=== PATIENT | female | born 1995 | race Caucasian/White ===

== ENCOUNTER 2016-06-05 17:12 | Emergency (ER) | payer OTHER ==
[2016-06-05 17:26] VITALS: TEMP 98.8; BMI 28.3
[2016-06-05] MEDS ORDERED: FAMOTIDINE 20 MG/50 ML IVPB 50 ML IVPB ONE ×2 (18:02→18:27)
[2016-06-05] MEDS ORDERED: ONDANSETRON 4 MG/2 ML VIAL IVPB ONE (18:02)
[2016-06-05] MEDS ORDERED: MAG HYDROX/AL HYDROX/SIMETH 30 ML UNIT-DOSE CUP PO ONE (18:02)
[2016-06-05] MEDS ORDERED: SODIUM CHLORIDE 1,000 ML IV STA (18:02)
[2016-06-05] MEDS ORDERED: ACETAMINOPHEN 325 MG TABLET (FP) PO ONE (18:02)
--- NOTE | 2016-06-05 18:06 | PDOC ---
History of Present Illness - History of Present Illness Initial Comments: 06/05/16 19:40 Patient is a 20 year old female with significant medical hx of daily marijuana use (3x per day for 7 years) who is presenting to the ED with two days of nausea and vomiting. The patient complains of associated epigastric pain with her vomiting. The patient denies any sick contacts, recent travel, fever, chills , or difficulty urinating. Denies any other medical hx, chronic medications, or known drug allergies. <Arleth Marinelli - Last Filed: 06/05/16 19:39> - General History Source: Patient Exam Limitations: No Limitations <Erwin Mills - Last Filed: 06/05/16 20:03> - General Chief Complaint: Nausea/Vomiting Stated Complaint: NAUSEA/VOMITING Time Seen by Provider: 06/05/16 17:56 Past History <Arleth Marinelli - Last Filed: 06/05/16 19:39> - Past Medical History Other medical history: denies - Immunization History Immunization Up to Date: Yes - Psycho/Social/Smoking Cessation Hx Anxiety: No Suicidal Ideation: No Smoking History: Never smoked Have you smoked in the past 12 months: Yes Number of Cigarettes Smoked Daily: 2 Information on smoking cessation initiated: No 'Breaking Loose' booklet given: 12/09/15 Hx Alcohol Use: No Drug/Substance Use Hx: Yes Substance Use Type: Marijuana <Erwin Mills - Last Filed: 06/05/16 20:03> - Past Medical History Allergies/Adverse Reactions: Allergies Allergy/AdvReac Type Severity Reaction Status Date / Time No Known Allergies Allergy Verified 06/05/16 17:20 Home Medications: Ambulatory Orders Ondansetron HCl [Zofran] 4 mg PO Q6H PRN #15 tablet 06/05/16 Ranitidine HCl [Zantac] 150 mg PO BID PRN #14 tablet 06/05/16 Review of Systems - Review of Systems Comments:: 06/05/16 19:40 GENERAL/CONSTITUTIONAL: No fever or chills. No weakness. HEAD, EYES, EARS, NOSE AND THROAT: No change in vision. No ear pain or discharge. No sore throat. CARDIOVASCULAR: No chest pain or shortness of breath. RESPIRATORY: No cough, wheezing, or hemoptysis. GASTROINTESTINAL: Nausea, vomiting, epigastric pain. No diarrhea or constipation. GENITOURINARY: No dysuria, frequency, or change in urination. MUSCULOSKELETAL: No joint or muscle swelling or pain. No neck or back pain. SKIN: No rash NEUROLOGIC: No headache, vertigo, loss of consciousness, or change in strength/ sensation. <Arleth Marinelli - Last Filed: 06/05/16 19:39> *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 - Vital Signs Last Vital Signs Temp Pulse Resp BP Pulse Ox 98.8 F 63 20 120/66 100 06/05/16 17:21 06/05/16 17:21 06/05/16 17:21 06/05/16 17:21 06/05/16 17:21 - 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 Comments: 06/05/16 19:41 GENERAL: Uncomfortable appearing. Awake, alert, and fully oriented HEAD: No signs of trauma EYES: PERRLA, EOMI, sclera anicteric, conjunctiva clear ENT: Auricles normal inspection, hearing grossly normal, nares patent, oropharynx clear without exudates. Moist mucosa NECK: Normal ROM, supple, no lymphadenopathy, JVD, or masses LUNGS: Breath sounds equal, clear to auscultation bilaterally. No wheezes, and no crackles HEART: Regular rate and rhythm, normal S1 and S2, no murmurs, rubs or gallops ABDOMEN: Soft, epigastric tenderness, santos's sign negative, normoactive bowel sounds. No guarding, no rebound. No masses EXTREMITIES: Normal range of motion, no edema. No clubbing or cyanosis. No cords, erythema, or tenderness NEUROLOGICAL: Cranial nerves II through XII grossly intact. Normal speech, normal gait SKIN: Warm, Dry, normal turgor, no rashes or lesions noted. ENDOCRINE: No increased thirst. No abnormal weight change. HEMATOLOGIC/LYMPHATIC: No anemia, easy bleeding, or history of blood clots. ALLERGIC/IMMUNOLOGIC: No hives or skin allergy. <Arleth Marinelli - Last Filed: 06/05/16 19:39> - Vital Signs Last Vital Signs Temp Pulse Resp BP Pulse Ox 98.8 F 63 20 120/66 100 06/05/16 17:21 06/05/16 17:21 06/05/16 17:21 06/05/16 17:21 06/05/16 17:21 <Erwin Mills - Last Filed: 06/05/16 20:03> ED Treatment Course - LABORATORY CBC & Chemistry Diagram: 06/05/16 18:10 06/05/16 18:10 - ADDITIONAL ORDERS Additional order review: Laboratory Results 06/05/16 06/05/16 18:10 18:10 Sodium 139 Potassium 3.2 L Chloride 106 Carbon Dioxide 21 Anion Gap 12 BUN 14 Creatinine 0.8 Creat Clearance w eGFR > 60 Random Glucose 92 Calcium 9.9 Total Bilirubin 0.8 AST 12 L ALT 18 Alkaline Phosphatase 84 Total Protein 8.3 H Albumin 4.6 Lipase 142 Serum , Qual Negative 06/05/16 18:10 RBC 4.46 MCV 88.9 MCHC 33.7 RDW 12.7 MPV 8.9 Neutrophils % 89.5 H D Lymphocytes % 6.0 L D Monocytes % 4.0 Eosinophils % 0.0 D Basophils % 0.5 - Medications Given in the ED: ED Medications Discontinued Medications Generic Name Dose Route Start Last Admin Trade Name Freq PRN Reason Stop Dose Admin Acetaminophen 650 mg 06/05/16 18:02 06/05/16 18:30 Tylenol - PO 06/05/16 18:03 650 mg ONCE ONE Administration Al Hydroxide/Mg Hydroxide 30 ml 06/05/16 18:02 06/05/16 18:30 Mylanta Oral Suspension - PO 06/05/16 18:03 30 ml ONCE ONE Administration Famotidine/Sodium Chloride 50 mls @ 100 mls/hr 06/05/16 18:02 06/05/16 18:30 Pepcid 20 Mg Premixed Ivpb - IVPB 06/05/16 18:31 100 mls/hr ONCE ONE Administration Sodium Chloride 1,000 mls @ 1,000 mls/hr 06/05/16 18:02 06/05/16 18:30 Normal Saline - IV 06/05/16 19:01 1,000 mls/hr ASDIR STA Administration Ondansetron HCl 4 mg 06/05/16 18:02 06/05/16 18:30 Zofran Injection IVPB 06/05/16 18:03 4 mg ONCE ONE Administration <Arleth Marinelli - Last Filed: 06/05/16 19:39> - LABORATORY CBC & Chemistry Diagram: 06/05/16 18:10 06/05/16 18:10 <Erwin Mills - Last Filed: 06/05/16 20:03> Medical Decision Making - Medical Decision Making 06/05/16 18:03 A portion of this note was documented by scribe services under my direction. I have reviewed the details of the note, within reason, and agree with the documentation with the following case summary and management plan written by me. Patient treated in the ED. Nursing notes are reviewed and incorporated into the medical decision-making. Vital signs reviewed. Peripheral IV access obtained by the nurse, laboratory studies are drawn and sent, reviewed and interpreted by myself. Vital Signs Temp Pulse Resp BP Pulse Ox 98.8 F 63 20 120/66 100 06/05/16 17:21 06/05/16 17:21 06/05/16 17:21 06/05/16 17:21 06/05/16 17:21 20-year-old female with past medical history of daily marijuana use presents to the emergency department for nausea vomiting for 2 days. Patient denies sick contacts or recent travels. She reported couple episodes of vomiting with epigastric pain. There is no Santos sign. No fevers or chills. Denies sick contacts. Denies recent travels. Patient does smoke marijuana on a daily basis approximately 3 times a day since she was 13 years old. Differential includes gastroenteritis versus cyclical vomiting. We'll obtain blood work and give medications and IV fluids and reassess. 06/05/16 19:20 CBC, BMP 06/05/16 18:10 06/05/16 18:10 CMP Sodium 139 mmol/L (136-145) 06/05/16 18:10 Potassium 3.2 mmol/L (3.5-5.1) L 06/05/16 18:10 Chloride 106 mmol/L (98-107) 06/05/16 18:10 Carbon Dioxide 21 mmol/L (21-32) 06/05/16 18:10 Anion Gap 12 (8-16) 06/05/16 18:10 BUN 14 mg/dL (7-18) 06/05/16 18:10 Creatinine 0.8 mg/dL (0.55-1.02) 06/05/16 18:10 Creat Clearance w eGFR > 60 (>60) 06/05/16 18:10 Random Glucose 92 mg/dL (74-106) 06/05/16 18:10 Calcium 9.9 mg/dL (8.5-10.1) 06/05/16 18:10 Total Bilirubin 0.8 mg/dL (0.2-1.0) 06/05/16 18:10 AST 12 U/L (15-37) L 06/05/16 18:10 ALT 18 U/L (12-78) 06/05/16 18:10 Alkaline Phosphatase 84 U/L (45-117) 06/05/16 18:10 Total Protein 8.3 g/dl (6.4-8.2) H 06/05/16 18:10 Albumin 4.6 g/dl (3.4-5.0) 06/05/16 18:10 Lipase 142 U/L (73-393) 06/05/16 18:10 Serum , Qual Negative 06/05/16 18:10 Labs reviewed. 40 meq potassium repletion ordered. The patient reports feeling much better. Tolerating PO. Supportive care. Follow up with PMD. Return precautions given. Likely gastroenteritis. I discussed the physical exam findings, ancillary test results and final diagnoses with the patient. I answered all of the patient's questions. The patient was satisfied with the care received and felt comfortable with the discharge plan and treatment plan. The patient will call their primary care physician within 24 hours to arrange follow-up and will return to the Emergency Department with any new, persistant or worsening symptoms. <Erwin Mills - Last Filed: 06/05/16 20:03> *DC/Admit/Observation/Transfer - Attestations Scribe Attestion: 06/05/16 19:42 Documentation prepared by Arleth Marinelli, acting as medical affairs director for Erwin Mills MD. <Arleth Marinelli - Last Filed: 06/05/16 19:39> <Erwin Mills - Last Filed: 06/05/16 20:03> Diagnosis at time of Disposition: Vomiting Qualifiers: Vomiting type: unspecified Vomiting Intractability: non-intractable Nausea presence: with nausea Qualified Code(s): R11.2 - Nausea with vomiting, unspecified - Discharge Dispostion Disposition: HOME Condition at time of disposition: Improved - Prescriptions Prescriptions: Ranitidine HCl [Zantac] 150 mg PO BID PRN #14 tablet PRN Reason: Abdominal Pain Ondansetron HCl [Zofran] 4 mg PO Q6H PRN #15 tablet PRN Reason: Nausea - Referrals Referrals: Flakito Aldridge [Primary Care Provider] - - Patient Instructions Printed Discharge Instructions: DI for Vomiting -- Adult, DI for Nausea -- Adult Additional Instructions: It may take several days before it gets better. Take 4 mg zofran every 6 hours as needed for nausea. Take 150 mg zantac every 12 hours as needed for abdominal pain. Drink plenty of fluids and rest. - Post Discharge Activity Work/School Note: Back to Work
[2016-06-05 18:26] LABS: BASOPHIL 0.5 % (0-2.0); MCHC 33.7 g/dl (32.0-36.0); MEAN CELL VOLUME 88.9 fl (80-96); MEAN PLT VOLUME 8.9 fl (7.5-11.1); NEUTROPHILS 89.5 % (42.8-82.8); PLATELET COUNT 294 K/MM3 (134-434); RDW 12.7 % (11.6-15.6)
[2016-06-05] MEDS ORDERED: ONDANSETRON 4 MG/2 ML VIAL ONE (18:26)
[2016-06-05] MEDS ORDERED: ACETAMINOPHEN 325 MG TABLET (FP) ONE (18:26)
[2016-06-05] MEDS ORDERED: MAG HYDROX/AL HYDROX/SIMETH 30 ML UNIT-DOSE CUP ONE (18:26)
[2016-06-05 19:10] LABS: ALBUMIN 4.6 g/dl (3.4-5.0); ALK PHOS 84 U/L (45-117); ANION GAP 12 (8-16); BILIRUBIN,TOTAL 0.8 mg/dL (0.2-1.0); CALCIUM 9.9 mg/dL (8.5-10.1); CO2 21 mmol/L (21-32); CREATININE 0.8 mg/dL (0.55-1.02); GLUCOSE,RANDOM 92 mg/dL (74-106); SGOT/AST 12 U/L (15-37); SGPT/ALT 18 U/L (12-78); TOT PROT 8.3 g/dl (6.4-8.2)
[2016-06-05] MEDS ORDERED: POTASSIUM CHLORIDE TABS 20 MEQ TABLET.ER (FP) PO ONE ×2 (19:17→19:54)
[2016-06-05 20:07] VITALS: BP 116/66; PULSE 74
== END 2016-06-05 20:07 | disposition home or self-care (01) ==
LOC: JER 17:12
PROC: 3E033GC Introduction of Other Therapeutic Substance into Peripheral Vein, Percutaneous Approach (ICD-10-PCS; principal; 2016-06-05)
PROC: 3E0337Z Introduction of Electrolytic and Water Balance Substance into Peripheral Vein, Percutaneous Approach (ICD-10-PCS; 2016-06-05)
DX: R11.2 Nausea with vomiting, unspecified (principal); F12.90 Cannabis use, unspecified, uncomplicated
CPT/HCPCS: 36415; 80053; 83690; 84703; 85025; 99283-25

== ENCOUNTER 2016-06-06 06:22 | Emergency (ER) | payer OTHER ==
[2016-06-06 06:45] VITALS: TEMP 98.6; BMI 28.3
--- NOTE | 2016-06-06 07:03 | PDOC ---
History of Present Illness - General Chief Complaint: Nausea/Vomiting Stated Complaint: NAUSEA,CHILLS Time Seen by Provider: 06/06/16 06:52 History Source: Patient Exam Limitations: No Limitations - History of Present Illness Initial Comments: 06/06/16 07:14 Chief complaint: Nausea and vomiting Patient is a 20-year-old healthy female that uses marijuana several times a week who states that she's been having vomiting since 3 days ago. She was seen here yesterday, had labs, workup, was feeling better and able to take in by mouth and went home last night at 8 PM. Patient had soup last night after going home. Patient states she threw up twice since last night. Patient states she was unable get prescriptions because her pharmacy was closed. No fever or diarrhea. GENERAL/CONSTITUTIONAL: No fever, weakness. dizziness HEAD, EYES, EARS, NOSE AND THROAT: No change in vision. No ear pain or discharge. No sore throat. CARDIOVASCULAR: No chest pain RESPIRATORY: No shortness of breath or cough GASTROINTESTINAL: +pain, nausea, vomiting, diarrhea or constipation GENITOURINARY: No dysuria MUSCULOSKELETAL: No neck or back pain SKIN: No rash NEUROLOGIC: No headache, vertigo, loss of consciousness, or loss of sensation. GENERAL: The patient is awake, alert, and fully oriented, in no acute distress. HEAD: Normal with no signs of trauma. EYES: Pupils equal, round and reactive to light, sclera anicteric, conjunctiva clear. ENT: pharynx: no erythema, no exudate, uvula midline NECK: supple CHEST: clear, nontender, rr ABD: soft, + bowel sounds, soft, with minimal upper abdominal tenderness, mostly in the left side. No right lower quadrant tenderness EXTREMITIES: Normal range of motion, no edema. NEUROLOGICAL: Normal speech, normal gait. SKIN: Warm, Dry Past History - Past Medical History Allergies/Adverse Reactions: Allergies Allergy/AdvReac Type Severity Reaction Status Date / Time No Known Allergies Allergy Verified 06/06/16 06:43 Home Medications: Ambulatory Orders Ondansetron HCl [Zofran] 4 mg PO Q6H PRN #15 tablet 06/05/16 Ranitidine HCl [Zantac] 150 mg PO BID PRN #14 tablet 06/05/16 - Immunization History Immunization Up to Date: Yes - Psycho/Social/Smoking Cessation Hx Anxiety: No Suicidal Ideation: No Smoking History: Never smoked Have you smoked in the past 12 months: No Number of Cigarettes Smoked Daily: 2 Information on smoking cessation initiated: No 'Breaking Loose' booklet given: 12/09/15 Hx Alcohol Use: No Drug/Substance Use Hx: No Substance Use Type: None *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 - Vital Signs Last Vital Signs Temp Pulse Resp BP Pulse Ox 98.6 F 74 20 145/95 100 06/06/16 06:43 06/06/16 06:43 06/06/16 06:43 06/06/16 06:43 06/06/16 06:43 Medical Decision Making - Medical Decision Making 06/06/16 07:30 Patient with recurrent vomiting, was discharged yesterday from the ER feeling better and vomited twice last night, was unable to get her Zofran. Regular user of marijuana. Patient does not need further labs, will give by mouth Zofran and reassess 06/06/16 08:23 Patient vomited after the Zofran, given Compazine. She feels better wants to go home *DC/Admit/Observation/Transfer Diagnosis at time of Disposition: Vomiting Qualifiers: Vomiting type: unspecified Vomiting Intractability: non-intractable Nausea presence: with nausea Qualified Code(s): R11.2 - Nausea with vomiting, unspecified - Discharge Dispostion Admit: No - Referrals Referrals: Flakito Aldridge [Primary Care Provider] - - Patient Instructions Printed Discharge Instructions: DI for Vomiting -- Adult Additional Instructions: Clear fluids. No vomiting can eat bland foods, no spicy or greasy foods Take the Zofran as directed and the zantac Return to the nearest ER if fever, vomiting or worsening pain Followup with your doctor in one to 2 days - Post Discharge Activity Work/School Note: Back to Work
[2016-06-06] MEDS ORDERED: ONDANSETRON *ODT* 4 MG TABLET SL ONE (07:08)
[2016-06-06] MEDS ORDERED: ONDANSETRON *ODT* 4 MG TABLET ONE (07:11)
[2016-06-06] MEDS ORDERED: PROCHLORPERAZINE MALEATE 5 MG TABLET PO ONE (07:49)
[2016-06-06] MEDS ORDERED: PROCHLORPERAZINE MALEATE 5 MG TABLET ONE (07:50)
--- NOTE | 2016-06-06 08:45 | PDOC ---
*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 - Vital Signs Last Vital Signs Temp Pulse Resp BP Pulse Ox 98.6 F 74 20 145/95 100 06/06/16 06:43 06/06/16 06:43 06/06/16 06:43 06/06/16 06:43 06/06/16 06:43 - 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 Comments: 06/06/16 08:43 The patient was examined by FRANCISCO JAVIER Ruth under my direct supervision. I personally evaluated the patient. I concur with the above findings and the plan of care. ED Treatment Course - Medications Given in the ED: ED Medications Discontinued Medications Generic Name Dose Route Start Last Admin Trade Name Armandoq PRN Reason Stop Dose Admin Ondansetron HCl 4 mg 06/06/16 07:08 06/06/16 07:12 Zofran Odt - SL 06/06/16 07:09 4 mg ONCE ONE Administration Prochlorperazine Maleate 10 mg 06/06/16 07:49 06/06/16 07:53 Compazine - PO 06/06/16 07:50 10 mg ONCE ONE Administration *DC/Admit/Observation/Transfer Diagnosis at time of Disposition: Vomiting Qualifiers: Vomiting type: unspecified Vomiting Intractability: non-intractable Nausea presence: with nausea Qualified Code(s): R11.2 - Nausea with vomiting, unspecified - Referrals Referrals: Flakito Aldridge [Primary Care Provider] - - Patient Instructions Printed Discharge Instructions: DI for Vomiting -- Adult Additional Instructions: Clear fluids. No vomiting can eat bland foods, no spicy or greasy foods Take the Zofran as directed and the zantac Return to the nearest ER if fever, vomiting or worsening pain Followup with your doctor in one to 2 days - Post Discharge Activity Work/School Note: Back to Work
[2016-06-06 08:53] VITALS: BP 140/74; PULSE 72
== END 2016-06-06 08:44 | disposition home or self-care (01) ==
LOC: JER 06:22
DX: R11.2 Nausea with vomiting, unspecified (principal)
CPT/HCPCS: 99282-25

== ENCOUNTER 2016-06-18 14:32 | Inpatient (IN) | payer OTHER ==
[2016-06-18 14:45] VITALS: BMI 25.4
--- NOTE | 2016-06-18 14:45 | PDOC ---
Rapid Medical Evaluation Medical Evaluation: Allergies Allergy/AdvReac Type Severity Reaction Status Date / Time No Known Allergies Allergy Verified 06/06/16 06:43 06/18/16 14:44 20 yo F sent in by PMD [facility] for dehydration. +n/v Denies diarrhea
--- NOTE | 2016-06-18 15:05 | PDOC ---
History of Present Illness - General History Source: Patient Exam Limitations: No Limitations - History of Present Illness Initial Comments: 06/18/16 18:08 CHIEF COMPLAINT: vomiting, abdominal pain PCP: Dr. Flakito Aldridge HISTORY OF PRESENT ILLNESS: Patient is a 20 [id number] was sent from Dr. Brad Black's clinic since patient had one episode of vomiting/diarrhoea at the office with tachycardia. A/c to the patient, she started having nausea, vomiting and abdominal pain since 06/03/16 visited [facility] ED twice was sent home with Malissafran but didn't feel better. Went to [facility] ED and was sent home then on second ED visit, got admitted for 5 days with the diagnosis of Gastritis, UTI, Cannabinoid induced vomiting. Patient reports she used to smoke marijuana but stopped on Jun 03 and since then has been having above mentioned problems. Patient has been having 2-3 episodes of vomiting, non projectile, containing food particles. Cannot tolerate any food including water. Has diarrhoea, fowl smelling but not containing any blood. Also complaints of supra pubic pain, non radiating, spasmodic in quality, 5/10 in intensity. Feels dehydrated, tired and weak. No appetite. Sleep disturbed since illness. Slight dysuria but denies other urinary symptoms. Vaginal discharge + but no itching. Recent Travel: None PAST MEDICAL HISTORY: Gastritis, UTI, Fatty liver, Cannabinoid induced hyperemesis syndrome. PAST SURGICAL HISTORY: None LMP: 1st week of 2 Elective abortions and 1 spontaneous abortions. Social History: Smoking: Denies Alcohol: Denies Drugs: Stopped smoking marijuana on Jun 03, 2016 Family History: Allergies: NKDA 06/18/16 18:23 <Silvina Diop - Last Filed: 06/18/16 19:26> <Adonis Cruz - Last Filed: 06/18/16 21:14> - General Chief Complaint: Pain Stated Complaint: DEHYDRATED Time Seen by Provider: 06/18/16 15:04 Past History - Past Medical History Other medical history: DENIES - Immunization History Immunization Up to Date: Yes - Psycho/Social/Smoking Cessation Hx Anxiety: No Suicidal Ideation: No Smoking History: Never smoked Have you smoked in the past 12 months: No Number of Cigarettes Smoked Daily: 2 Information on smoking cessation initiated: No 'Breaking Loose' booklet given: 12/09/15 Hx Alcohol Use: No Drug/Substance Use Hx: No Substance Use Type: None <Silvina Diop - Last Filed: 06/18/16 19:26> <Adonis Cruz - Last Filed: 06/18/16 21:14> - Past Medical History Allergies/Adverse Reactions: Allergies Allergy/AdvReac Type Severity Reaction Status Date / Time No Known Allergies Allergy Verified 06/18/16 14:45 Home Medications: Ambulatory Orders Ondansetron HCl [Zofran] 4 mg PO Q6H PRN #15 tablet 06/05/16 Ranitidine HCl [Zantac] 150 mg PO BID PRN #14 tablet 06/05/16 Review of Systems - Review of Systems Able to Perform ROS?: Yes Comments:: 06/18/16 18:21 CONSTITUTIONAL:~ Absent: fever, chills, diaphoresis, generalized weakness, malaise, loss of appetite HEENT:~ Absent: rhinorrhea, nasal congestion, throat pain, throat swelling, difficulty swallowing, mouth swelling, ear pain, eye pain, visual Changes CARDIOVASCULAR:~ Absent: chest pain, syncope, palpitations, irregular heart rate, lightheadedness , peripheral edema RESPIRATORY:~ Absent: cough, shortness of breath, dyspnea with exertion, orthopnea, wheezing, stridor, hemoptysis GASTROINTESTINAL: Present: abdominal pain, abdominal distension, nausea, vomiting, diarrhea Absent:constipation, melena, hematochezia GENITOURINARY:~ Absent: dysuria, frequency, urgency, hesitancy, hematuria, flank pain, genital pain MUSCULOSKELETAL:~ Absent: myalgia, arthralgia, joint swelling SKIN:~ Absent: rash, itching, pallor HEMATOLOGIC/IMMUNOLOGIC:~ Absent: easy bleeding, easy bruising, lymphadenopathy, frequent infections ENDOCRINE: Absent: unexplained weight gain, unexplained weight loss, heat intolerance, cold intolerance NEUROLOGIC:~ Absent: headache, focal weakness or paresthesias, dizziness, unsteady gait, seizure, mental status changes, bladder or bowel incontinence PSYCHIATRIC:~ Absent: anxiety, depression, suicidal or homicidal ideation, hallucinations. Is the patient limited Micronesian proficient: No <Silvina Diop - Last Filed: 06/18/16 19:26> *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 - Vital Signs Last Vital Signs Temp Pulse Resp BP Pulse Ox 97.9 F 115 H 18 107/40 98 06/18/16 14:42 06/18/16 14:42 06/18/16 14:42 06/18/16 14:42 06/18/16 14:42 - 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 Comments: 06/18/16 18:22 PE: GENERAL: Awake, alert, and fully oriented, in no acute distress HEAD: No signs of trauma EYES: PERRLA, EOMI, sclera anicteric, conjunctiva clear ENT: Auricles normal inspection, hearing grossly normal, nares patent, oropharynx clear without exudates. Moist mucosa NECK: Normal ROM, supple, no lymphadenopathy, JVD, or masses LUNGS: Breath sounds equal, clear to auscultation bilaterally. No wheezes, and no crackles.. HEART: Regular rate and rhythm, normal S1 and S2, no murmurs, rubs or gallops ABDOMEN: Soft, tenderness over suprapubic area, normoactive bowel sounds. No guarding, no rebound. EXTREMITIES: Normal range of motion, no edema. No clubbing or cyanosis. No cords, erythema, or tenderness NEUROLOGICAL: Cranial nerves II through XII grossly intact. Normal speech, normal gait SKIN: Warm, Dry, normal turgor, no rashes or lesions noted. <Silvina Diop - Last Filed: 06/18/16 19:26> - Vital Signs Last Vital Signs Temp Pulse Resp BP Pulse Ox 97.9 F 92 H 18 110/50 96 06/18/16 14:42 06/18/16 16:53 06/18/16 16:53 06/18/16 16:53 06/18/16 16:53 <Adonis Cruz - Last Filed: 06/18/16 21:14> ED Treatment Course - LABORATORY CBC & Chemistry Diagram: 06/18/16 16:05 06/18/16 16:05 <Silvina Diop - Last Filed: 06/18/16 19:26> - LABORATORY CBC & Chemistry Diagram: 06/18/16 16:05 06/18/16 16:05 - ADDITIONAL ORDERS Additional order review: Laboratory Results 06/18/16 06/18/16 06/18/16 16:40 16:05 16:05 Sodium 135 L Potassium 3.2 L Chloride 94 L D Carbon Dioxide 23 Anion Gap 18 H BUN 22 H D Creatinine 0.7 Creat Clearance w eGFR > 60 Random Glucose 117 H D Calcium 10.0 Total Bilirubin 1.4 H D AST 17 D ALT 20 Alkaline Phosphatase 79 Total Protein 8.5 H Albumin 4.5 Lipase 171 Serum , Qual Negative Urine Color Yellow Urine Appearance Clear Urine pH 6.0 Ur Specific [place] 1.025 Urine Protein 1+ H Urine Glucose (UA) Negative Urine Ketones 2+ H Urine Blood Negative Urine Nitrite Negative Urine Bilirubin Negative Urine Urobilinogen 2.0 e.u/dl H Ur Leukocyte Esterase Negative Urine RBC 1 Urine WBC 2 Ur Epithelial Cells Few Urine Mucus Rare 06/18/16 16:05 RBC 4.79 MCV 89.6 MCHC 33.5 RDW 12.9 MPV 10.1 D Neutrophils % 82.9 H Lymphocytes % 10.9 D Monocytes % 5.8 Eosinophils % 0.0 Basophils % 0.4 - Medications Given in the ED: ED Medications Discontinued Medications Generic Name Dose Route Start Last Admin Trade Name Freq PRN Reason Stop Dose Admin Sodium Chloride 1,000 mls @ 1,000 mls/hr 06/18/16 15:39 06/18/16 16:17 Normal Saline - IV 06/18/16 16:38 1,000 mls/hr ASDIR STA Administration Ondansetron HCl 4 mg 06/18/16 16:21 06/18/16 16:34 Zofran Injection IVPB 06/18/16 16:22 4 mg ONCE ONE Administration <Adonis Curz - Last Filed: 06/18/16 21:14> Medical Decision Making - Medical Decision Making 06/18/16 14:24 Patient seen and examined at bed side. Vitals noted, tachycardic. Patient looks ill, dehydrated and in abdominal pain. Physical exam: Tenderness on palpation over the suprapubic area. Will order basic labs, urinalysis. IV NS 1 L bolus and maintainance fluid IV Zofran 4mg stat. Differential diagnosis: Cannabinoid induced hyperemesis; viral gastroenteritis vs bacterial; ? Hepatitis 06/18/16 15:30 Patient reassessed. Feels a little better. Labs noted, Leukocytosis 15 with Neutrophils 82.9; Sodium 135; Potassium 3.2; RBS 117; T. bilirubin 1.4; urine urobilinogen 2, urine ketones 2+ 06/18/2016 18:10 Considering patients abnormal labs, plan is to place the patient on observation. Call placed to Dr. Bill @ 18:20 waiting to hear from him. Call placed to Dr. Bill @ 18:40, waiting. 06/18/2016 18:35 Waiting for Magnesium level, then will replete Potassium Clinical impression: Cyclical vomiting, unknown etiology Reports of [facility] attached in the file Spoke with Dr. Patrick @ 19:25, he accepted the patient. Ordered Lactic acid as per his recommendation. Admit the patient in Med/Surg Continue IV fluids Zofran PRN. Illness, Investigation and Plan of care explained to the patient. She verbalized understanding. Case seen and discussed with Dr. Akins and Dr. Cruz. <Silvina Diop - Last Filed: 06/18/16 19:26> *DC/Admit/Observation/Transfer <Silvina Diop - Last Filed: 06/18/16 19:26> - Discharge Dispostion Admit: Yes <Adonis Cruz - Last Filed: 06/18/16 21:14> Diagnosis at time of Disposition: Dehydration Vomiting Qualifiers: Vomiting type: unspecified Vomiting Intractability: intractable Nausea presence : with nausea Qualified Code(s): R11.2 - Nausea with vomiting, unspecified - Discharge Dispostion Condition at time of disposition: Fair
[2016-06-18] MEDS ORDERED: SODIUM CHLORIDE 1,000 ML IV STA (15:39)
[2016-06-18] MEDS ORDERED: SODIUM CHLORIDE 1,000 ML IV SCH (15:45)
--- NOTE | 2016-06-18 15:53 | PDOC ---
Attending Attestation - Resident Resident Name: Silvina Diop - ED Attending Attestation I have performed the following: I have examined & evaluated the patient, The case was reviewed & discussed with the resident, I agree w/resident's findings & plan, Exceptions are as noted - HPI HPI: 20 yo F history cyclic vomiting, fatty liver, recent admission to [place] for UTI and cyclic vomiting presents with weakness. She states that despite stopping use of marijuana on Jun 03, she is still having vomiting. Has not kept anything down since yesterday. C/o diffuse abdominal cramping. States she is hungry and thirsty, but unable to keep anything down. She was sent by Dr. Grey when he saw her in the office and found her to be tachycardic, ill- appearing. - Physicial Exam PE: GENERAL: Awake, alert, and fully oriented, in no acute distress. Appears ill but nontoxic. HEAD: No signs of trauma EYES: PERRLA, EOMI, sclera anicteric, conjunctiva clear. Eyes sunken with dark circles. ENT: Auricles normal inspection, hearing grossly normal, nares patent, oropharynx clear without exudates. Dry mucosa NECK: Normal ROM, supple, no lymphadenopathy, JVD, or masses LUNGS: Breath sounds equal, clear to auscultation bilaterally. No wheezes, and no crackles HEART: Tachycardic, normal S1 and S2, no murmurs, rubs or gallops ABDOMEN: Soft, diffuse tenderness, worst in RLQ. Normoactive bowel sounds. No guarding, no rebound. No masses EXTREMITIES: Normal range of motion, no edema. No clubbing or cyanosis. No cords, erythema, or tenderness NEUROLOGICAL: Cranial nerves II through XII grossly intact. Normal speech, normal gait SKIN: Warm, Dry, normal turgor, no rashes or lesions noted. - Medical Decision Making Patient is ill-appearing, dehydrated, unable to tolerate PO. Will give zofran, IV hydration, and check electrolytes. Will likely require admission due to dehydration, inability to tolerate PO. She had a CT on previous admission that was negative for acute appendicitis, and it would be unlikely given the duration of symptoms. However, will keep it on the differential.
[2016-06-18] MEDS ORDERED: ONDANSETRON 4 MG/2 ML VIAL IVPB ONE (16:21)
[2016-06-18 16:32] LABS: BASOPHIL 0.4 % (0-2.0); MCHC 33.5 g/dl (32.0-36.0); MEAN CELL VOLUME 89.6 fl (80-96); MEAN PLT VOLUME 10.1 fl (7.5-11.1); NEUTROPHILS 82.9 % (42.8-82.8); PLATELET COUNT 301 K/MM3 (134-434); RDW 12.9 % (11.6-15.6)
[2016-06-18] MEDS ORDERED: ONDANSETRON 4 MG/2 ML VIAL ONE (16:33)
[2016-06-18 16:56] LABS: URINE APPEARANCE CLEAR; URINE BILIRUBIN NEGATIVE (NEGATIVE); URINE BLOOD NEGATIVE (NEGATIVE); URINE COLOR YELLOW; URINE GLUCOSE (UA) NEGATIVE (NEGATIVE); URINE KETONE 2+ (NEGATIVE); URINE LEUK ESTERASE NEGATIVE (NEGATIVE); URINE NITRITE NEGATIVE (NEGATIVE); URINE UROBILINOGEN 2.0 E.U/dl E.U./dl (0.2-1.0)
[2016-06-18 16:58] LABS: ALBUMIN 4.5 g/dl (3.4-5.0); ANION GAP 18 (8-16); BILIRUBIN,TOTAL 1.4 mg/dL (0.2-1.0); CO2 23 mmol/L (21-32); CREATININE 0.7 mg/dL (0.55-1.02); GLUCOSE,RANDOM 117 mg/dL (74-106); SGOT/AST 17 U/L (15-37); SGPT/ALT 20 U/L (12-78); TOT PROT 8.5 g/dl (6.4-8.2)
[2016-06-18 16:59] LABS: ALK PHOS 79 U/L (45-117)
[2016-06-18 17:23] LABS: URINE PROTEIN 1+ (NEGATIVE)
[2016-06-18 17:29] LABS: URINE MUCUS RARE; URINE RBC 1 /hpf (0-3); URINE WBC 2 /hpf (3-5)
[2016-06-18] MEDS ORDERED: KCL 10 MEQ IVPB 100 ML IVPB ONE ×2 (21:00→22:16)
[2016-06-18] MEDS ORDERED: HEPARIN NA (PORCINE) 5,000 UNITS/ML 1ML VIAL ONE (21:00)
[2016-06-18] MEDS ORDERED: PANTOPRAZOLE SODIUM 100 ML IVPB ONE (21:00)
[2016-06-18] MEDS: KCL 10 MEQ IVPB 100 ML IVPB SCH ×2 (21:28→22:20)
[2016-06-18] MEDS: HEPARIN NA (PORCINE) 5,000 UNITS/ML 1ML VIAL SQ SCH (21:39)
[2016-06-18] MEDS: PANTOPRAZOLE SODIUM 100 ML IVPB SCH (21:44)
[2016-06-19] MEDS: D5-1/2NS+20 MEQ KCL - 1,000 ML IV SCH ×5 (00:33→21:24)
[2016-06-19 07:03] LABS: BASOPHIL 0.6 % (0-2.0); EOSINOPHIL 0.8 % (0-4.5); MCH 30.4 pg (25.7-33.7); MEAN CELL VOLUME 89.4 fl (80-96); NEUTROPHILS 71.4 % (42.8-82.8); PLATELET COUNT 196 K/MM3 (134-434); WHITE BLOOD COUNT 12.8 K/mm3 (4.0-10.0)
[2016-06-19] MEDS: ONDANSETRON 4 MG/2 ML VIAL IVPB PRN ×2 (07:12→13:09)
[2016-06-19 07:24] LABS: ALBUMIN 3.1 g/dl (3.4-5.0); ALK PHOS 54 U/L (45-117); AMYLASE 40 U/L (25-115); ANION GAP 10 (8-16); BILIRUBIN,TOTAL 1.3 mg/dL (0.2-1.0); CALCIUM 8.1 mg/dL (8.5-10.1); CO2 25 mmol/L (21-32); CREATININE 0.7 mg/dL (0.55-1.02); GLUCOSE,RANDOM 114 mg/dL (74-106); SGOT/AST 5 U/L (15-37); SGPT/ALT 13 U/L (12-78); TOT PROT 5.7 g/dl (6.4-8.2)
[2016-06-19] MEDS: HEPARIN NA (PORCINE) 5,000 UNITS/ML 1ML VIAL SQ SCH ×2 (09:17→21:24)
[2016-06-19] MEDS: PANTOPRAZOLE SODIUM 100 ML IVPB SCH (09:18)
[2016-06-19 10:51] LABS: BILIRUBIN,DIRECT 0.3 mg/dL (0.0-0.2)
--- NOTE | 2016-06-19 12:59 | PN ---
Progress Note (short form) - Note Progress Note: ID Consult dictated Abdominal pain syndrome , N/V/D Acute gastroenteritis Possible C difficile (recent tx UTI) Obtain BC, Stool studies GI evaluation Observe off antibiotics Declined HIV testing
--- NOTE | 2016-06-19 13:34 | PN ---
Progress Note (short form) - Note Progress Note: Consult dictated: Recent office note left in chart 20F recently admitted to [facility] for N/V/Abdominal pain Diagnosed with gastritis and ? cannibis hyperemesis Saw in her office yesterday for follow-up: Tachycardic, nauseous, vomited RLQ TTP on exam. This was focal Advised going back to ER Came to [facility] No diarrhea On exam: Abd:Focal RLQ TTP. No guarding/rebound Refused rectal exam Imp/Plan Unclear etiology of her symptomatology at this point. Cyclic vomiting syndrome precipitated by marijuana use would still be indifferential however given focal / persistent RLQ tenderness will repeat CT scan Abd/Pelvis to assess for appendicitis / ileitis eval of abnormal UA per primary team
--- NOTE | 2016-06-19 14:26 | CONS ---
INFECTIOUS DISEASE CONSULTATION DATE OF CONSULTATION: DATE OF DICTATION: 06/19/2016 The patient is a 20-year-old female who is evaluated for leukocytosis. She has had an ongoing abdominal pain syndrome dating back several weeks. She now presents with recurrent nausea, vomiting, nonbloody diarrhea. She was noted to be tachycardic and with an elevated white blood cell count. She was admitted for further evaluation. Patient has had an abdominal pain syndrome associated with nausea and vomiting for several weeks. She was seen in the emergency room on 2 occasions and was recently hospitalized at [facility] for 5 days for this condition. She reports at that time she was given a diagnosis of gastritis, urinary tract infection, and cannabis-induced hyperemesis. At the present time, she complains of epigastric abdominal discomfort associated with nausea. She denies having any diarrhea today. She denies any vomiting of gilberto red blood or hematemesis. No melena or hematochezia. She denies any associated fever or chills. She has been afebrile. The patient lives with family. She denies any ill contacts. She did take an antibiotic recently for a urinary tract infection. No recent travel. 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 She denies risk factors for HIV, although status is not documented. PAST MEDICAL HISTORY: As above. PAST SURGICAL HISTORY: Negative. ALLERGIES: No known allergies. MEDICATIONS: Zofran, Tylenol, heparin, Protonix. SOCIAL HISTORY: She lives at home with her family. A nonsmoker, nondrinker. Admitted to marijuana use. SYSTEMS REVIEW: Neurologic: No loss of consciousness, seizure activity, focal weakness. Cardiac: Negative chest pain or palpitations. Gastrointestinal: As per HPI. Genitourinary: Positive for recent urinary tract infection. LABORATORY DATA: White count 12.8, neutrophils 71, lymphocytes 18, monocytes 8, no eosinophils; hematocrit 31.1; platelet count 196. Creatinine 0.7. Liver enzymes normal. Urinalysis 2 white cells. Urine culture negative. PHYSICAL EXAMINATION: General: She is in moderate distress secondary to nausea and abdominal discomfort. Vital Signs: Temperature 98.9; blood pressure 135/82; pulse 82, regular; respirations 18 per minute. HEENT: Sclerae are anicteric. Heart: Sounds S1, S2. Lungs: Clear. Abdomen: Positive bowel sounds. Soft. Epigastric tenderness to palpation. No mass, rebound, or rigidity. Extremities: Negative for edema. IMPRESSION: 1. Abdominal pain syndrome with nausea, vomiting, and diarrhea. 2. Acute gastroenteritis. 3. Possible Clostridium difficile colitis (recent treatment for a urinary tract infection). Would obtain blood cultures, obtain stool for routine culture and sensitivity, ova and parasites, Clostridium difficile, Norovirus, rotavirus, GI evaluation. Observe off antibiotic therapy. HIV testing was offered but declined by patient. HAILEY CHASE M.D. [id number]
--- NOTE | 2016-06-19 14:27 | CONS ---
DATE OF CONSULTATION: 06/19/2016 REQUESTING PHYSICIAN: Tyrell Patrick MD HISTORY: The patient is a 20-year-old female admitted through [facility] for evaluation of abdominal pain. I had seen her in the office yesterday for evaluation of persistent nausea, vomiting, and abdominal pain. She was apparently sensation at [facility] Emergency Room March 22, 2016, June 05, 2016, and June 06, 2016 for nausea, vomiting, and abdominal pain. She was noted to have a leukocytosis on her last ER visit there. She was discharged home. Symptoms persisted, and ultimately she went to [facility] where she states being admitted for 4-5 days. Lab work on that admission revealed a white blood count of 10.8, hemoglobin 14. She did have 10% monocytes. AST 13, ALT 21, alkaline phosphatase 83, total bilirubin 0.9 with a normal amylase and lipase and a normal lactic acid level. She also had a CT scan with p.o. contrast and states that she was vomiting up the oral contrast that revealed a questionable fatty liver. She was diagnosed with gastritis, UTI, and discharged on cefuroxime and famotidine. The bottles say they were prescribed June 07, 2016. She was also diagnosed with Cannabis-induced hyperemesis. She does smoke marijuana, and the last time she states was about 2 weeks ago. She states weighing 156 pounds in May. She denies fevers or chills. She states that symptoms have persisted. She denied diarrhea, rectal bleeding, or melena. When I saw her yesterday, she states that she passed out the night before and has been unable to eat. She vomited in the waiting room yesterday as well. She appeared uncomfortable when I examined her. She had tenderness to palpation in the right lower quadrant, and I advised that she go to an emergency room. She initially said she wanted to go to [facility], but appears as though she went to [facility]. Initially her white blood count was 15 with 82.9% neutrophils. Her sodium was also noted to be 135 with a potassium of 3.2 and a chloride of 94, BUN 22, creatinine 0.7, glucose 117. Her AST was 17, ALT 20, alkaline phosphatase 79, and a total bilirubin of 1.4. She had abdominal ultrasound performed that revealed no sonographic evidence of acute pathology. Her gallbladder appeared normal. The common bile duct was measured at 4 mm, and the liver appeared normal. She also had an abdominal x-ray at the time that revealed no evidence of active pulmonary disease. She continues to complain of abdominal pain and nausea. PAST MEDICAL HISTORY: She denies. PAST SURGICAL HISTORY: Includes tethered cord spine release in 2003. SOCIAL HISTORY: She works at [employer]. She is single. No history of smoking or alcohol use. She does smoke marijuana. FAMILY HISTORY: Mother is alive at age 37 and healthy. Father is alive. He is not active in the patient's life. She has 1 brother who is healthy. One sister who is healthy. No children. No family history of colorectal cancer, irritable bowel syndrome. She does have a paternal grandmother with kidney disease. MEDICATIONS: Prior to admission included famotidine and cefuroxime. ALLERGIES: No known drug allergies. REVIEW OF SYSTEMS: She did complain of nausea. She complained of vomiting. There was no reported hematemesis, coffee ground emesis. She described the abdominal pain. She denies any fevers. She described generalized malaise. There has been no reported diarrhea. No rectal bleeding, no melena, no lower extremity swelling. She denies any shortness of breath or chest pain. PHYSICAL EXAMINATION: General: The patient is found lying in her bed. She appears to be in no apparent distress. Vital Signs: Temperature 98.9, pulse 82. Of note, T-max 99.5, blood pressure 135/82. HEENT: Sclerae anicteric. Neck: Supple. Heart: Reveals a regular rate and rhythm. No murmurs are appreciated. Lungs: Clear to auscultation bilaterally. Abdomen: She has a tattoo on her right flank. She has a decorative umbilical ring scar. She has normoactive bowel sounds. No hepatosplenomegaly is appreciated. She does have tenderness to palpation in the right lower quadrant. There is no guarding or rebound. There is a negative Santos sign.Rectal: Digital rectal exam is refused by the patient. Extremities: Reveals no lower extremity edema. LABORATORY EVALUATION: White blood count 12.8, hemoglobin 10.9, hematocrit 32.1, platelets 196. Sodium 140, potassium 3.5, chloride 105, bicarbonate 25, BUN 11, creatinine 0.7, glucose 114. AST 5, ALT 13, alkaline phosphatase 54, total bilirubin 1.3 with a direct bilirubin 0.3, albumin 3.1, amylase 40, lipase 190. Urine was negative. Urinalysis revealed 1+ protein, 2+ ketones, 1 RBC, 2 WBCs, few epithelial cells. Hepatitis A, B, and C serologies are pending. IMPRESSION: A 20-year-old female with persistent nausea, vomiting, and abdominal pain. Unclear etiology of her symptomatology at this point. Cyclic vomiting syndrome precipitated by marijuana use would still be in the differential; however, given her focal/persistent right lower quadrant tenderness, we will repeat CAT scan of the abdomen and pelvis to assess for appendicitis, ileitis. She denies any diarrhea. However, stool studies have been ordered by Infectious Disease. Continue to monitor clinically. Supportive measures with IV hydration. Other recommendations pending the above. I thank you for this consultative opportunity. RYLEY YU DO [id number]
[2016-06-19 21:14] LABS: URINE MARIJUANA THC POSITIVE ng/ml (CUTOFF=50)
--- NOTE | 2016-06-19 21:50 | HP ---
Admitting History and Physical - Primary Care Physician PCP: John Lees - Admission Chief Complaint: ABD. PAIN/NAUSEA/VOMITING/DEHYDRATION History of Present Illness: Patient is a 20 [id number] was sent from Dr. Brad Black's clinic since patient had one episode of vomiting/diarrhoea at the office with tachycardia. A/c to the patient, she started having nausea, vomiting and abdominal pain since 06/03/16 visited [facility] ED twice was sent home with Zofran but didn't feel better. Went to [place] ED and was sent home then on second ED visit, got admitted for 5 days with the diagnosis of Gastritis, UTI, Cannabinoid induced vomiting. Patient reports she used to smoke marijuana but stopped on Jun 03 and since then has been having above mentioned problems. Patient has been having 2-3 episodes of vomiting, non projectile, containing food particles. Cannot tolerate any food including water. Has diarrhoea, fowl smelling but not containing any blood. Also complaints of supra pubic pain, non radiating, spasmodic in quality, 5/10 in intensity. Feels dehydrated, tired and weak. No appetite. Sleep disturbed since illness. Slight dysuria but denies other urinary symptoms. Vaginal discharge + but no itching. History Source: Patient, Medical Record - Past Medical History ...LMP: 06/04/16 ...LMP Comment: regular - Smoking History Smoking history: Never smoked Have you smoked in the past 12 months: No Aproximately how many cigarettes per day: 2 - Alcohol/Substance Use Hx Alcohol Use: No Home Medications - Allergies Allergies/Adverse Reactions: Allergies Allergy/AdvReac Type Severity Reaction Status Date / Time No Known Allergies Allergy Verified 06/18/16 14:45 - Home Medications Home Medications: Ambulatory Orders Ondansetron HCl [Zofran] 4 mg PO Q6H PRN #15 tablet 06/05/16 Ranitidine HCl [Zantac] 150 mg PO BID PRN #14 tablet 06/05/16 Review of Systems - Review of Systems Constitutional: reports: Loss of Appetite, Weakness Eyes: reports: No Symptoms HENT: reports: No Symptoms Neck: reports: No Symptoms Cardiovascular: reports: No Symptoms Respiratory: reports: No Symptoms Gastrointestinal: reports: Abdominal Pain, Nausea, Vomiting Genitourinary: reports: No Symptoms Musculoskeletal: reports: Muscle Weakness Integumentary: reports: No Symptoms Neurological: reports: No Symptoms Endocrine: reports: No Symptoms Hematology/Lymphatic: reports: No Symptoms Psychiatric: reports: No Symptoms 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ination Vital Signs: Vital Signs Temperature 98.8 F 06/19/16 18:25 Pulse Rate 88 06/19/16 18:25 Respiratory Rate 20 06/19/16 18:25 Blood Pressure 111/71 06/19/16 18:25 O2 Sat by Pulse Oximetry (%) 100 06/19/16 09:00 Constitutional: Yes: Moderate Distress Eyes: Yes: WNL HENT: Yes: WNL Neck: Yes: WNL Cardiovascular: Yes: WNL Respiratory: Yes: WNL Gastrointestinal: Yes: Tenderness Renal/: Yes: WNL Musculoskeletal: Yes: WNL Extremities: Yes: WNL Edema: No Peripheral Pulses WNL: Yes Integumentary: Yes: WNL Wound/Incision: Yes: Clean/Dry Neurological: Yes: WNL ...Motor Strength: WNL Psychiatric: Yes: WNL Labs: CBC, BMP 06/19/16 05:55 06/19/16 05:55 Imaging - Results Chest X-ray: Report Reviewed Cat Scan: Report Reviewed Problem List - Problems (1) Dehydration Code(s): E86.0 - DEHYDRATION (2) Vomiting Code(s): R11.10 - VOMITING, UNSPECIFIED Qualifiers: Vomiting type: unspecified Vomiting Intractability: intractable Nausea presence: with nausea Qualified Code(s): R11.2 - Nausea with vomiting , unspecified (3) Abdominal pain Code(s): R10.9 - UNSPECIFIED ABDOMINAL PAIN Qualifiers: Abdominal location: upper abdomen, unspecified Qualified Code(s): R10.10 - Upper abdominal pain, unspecified (4) Dizziness Code(s): R42 - DIZZINESS AND GIDDINESS Assessment/Plan IVF GI EVAL ZOFRAN HEPATITIS PANEL PENDING LABS REVIEWED OOB TO CHAIR VIRAL VS INFLAMMATORY BOWEL
[2016-06-20] MEDS: D5-1/2NS+20 MEQ KCL - 1,000 ML IV SCH (09:28)
[2016-06-20] MEDS: HEPARIN NA (PORCINE) 5,000 UNITS/ML 1ML VIAL SQ SCH ×2 (09:29→21:50)
[2016-06-20 12:06] LABS: MCH 30.5 pg (25.7-33.7); MCHC 33.9 g/dl (32.0-36.0); MEAN PLT VOLUME 9.5 fl (7.5-11.1); PLATELET COUNT 189 K/MM3 (134-434); WHITE BLOOD COUNT 9.2 K/mm3 (4.0-10.0)
[2016-06-20 12:30] LABS: ALBUMIN 3.5 g/dl (3.4-5.0); ANION GAP 7 (8-16); BILIRUBIN,TOTAL 0.5 mg/dL (0.2-1.0); CALCIUM 8.6 mg/dL (8.5-10.1); CO2 27 mmol/L (21-32); CREATININE 0.7 mg/dL (0.55-1.02); GLUCOSE,RANDOM 105 mg/dL (74-106); SGOT/AST 10 U/L (15-37); SGPT/ALT 16 U/L (12-78); TOT PROT 6.4 g/dl (6.4-8.2)
[2016-06-20 12:31] LABS: ALK PHOS 62 U/L (45-117)
[2016-06-20] MEDS: ACETAMINOPHEN 325 MG TABLET (FP) PO PRN (14:45)
--- NOTE | 2016-06-20 15:03 | CONSULT ---
[id number] CONSULT REQUEST: We have been asked to surgically evaluate this patient for abdominal pain . PCP:John Lees HISTORY OF PRESENT ILLNESS: 20 yo F presented to the ED complaining of RLQ abdominal pain, nausea, and vomiting. The patient was sent from Dr. Grey's office after vomiting in the office. She states she began vomiting early in the morning on June 03 and has continued to have yellow/green vomiting and non-radiating RLQ abdominal pain since. She has had limited PO intake and states she has lost 20 lbs. The patient states since this began on June 03 she visited the ED multiple times and was admitted to [facility] for 5 days where she was told she had gastritis, fatty liver, cannabis hyperemesis, and a UTI for which she was discharged on antibiotics. The patient admits marijuana use, but states she has used any since this vomiting began. She states she has not experienced symptoms like this prior to this episode. The patient also reports nonbloody diarrhea and soft stool. She denies recent travel. The patient had a BM just prior to exam and states that her pain is improved right now. The patient states her LMP was in the beginning of May. 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 Home Medications Medication Instructions Recorded Ondansetron HCl [Zofran] 4 mg PO Q6H PRN #15 tablet 06/05/16 Ranitidine HCl [Zantac] 150 mg PO BID PRN #14 tablet 06/05/16 Allergies Allergy/AdvReac Type Severity Reaction Status Date / Time No Known Allergies Allergy Verified 06/18/16 14:45 REVIEW OF SYSTEMS: CONSTITUTIONAL: Admits: fever/chills at home, admits weakness, loss of appetite, weight change Absent: diaphoresis CARDIOVASCULAR: Absent: chest pain, palpitations RESPIRATORY: Absent: cough, shortness of breath GASTROINTESTINAL: Admits: abdominal pain, nausea, vomiting, diarrhea Absent: constipation, melena, hematochezia GENITOURINARY: Absent: dysuria, frequency, urgency, hematuria, flank pain MUSCULOSKELETAL: Absent: myalgia, arthralgia, back pain, neck pain SKIN: Absent: rash, itching, pallor HEMATOLOGIC/IMMUNOLOGIC: Absent: easy bleeding, easy bruising NEUROLOGIC: Absent: headache, focal weakness, paresthesias PHYSICAL EXAM: GENERAL: Awake, alert, and fully oriented, in no acute distress. HEAD: Normal with no signs of trauma. EYES: PERRL, sclera anicteric, conjunctiva clear. NECK: Normal ROM, supple. LUNGS: Clear to auscultation bilat anteriorly. No accessory muscle use. HEART: Regular rate and rhythm ABDOMEN: Soft, not distended, normoactive bowel sounds, no tenderness with palpation, no guarding, no rebound, no masses MUSCULOSKELETAL: Normal ROM at all joints. No CVA tenderness. UPPER EXTREMITIES: warm, well-perfused. No cyanosis. No peripheral edema. LOWER EXTREMITIES: 2+ pulses, warm, well-perfused. No calf tenderness. No peripheral edema. NEUROLOGICAL: Normal speech, gait not observed. PSYCH: Cooperative. Good eye contact. Appropriate mood and affect. SKIN: Warm, dry, normal turgor, no rashes or lesions noted Vital Signs Temperature 98.7 F 06/20/16 09:00 Pulse Rate 89 06/20/16 09:00 Respiratory Rate 20 06/20/16 09:00 Blood Pressure 131/85 06/20/16 09:00 O2 Sat by Pulse Oximetry (%) 97 06/20/16 10:00 Lab Results WBC 9.2 K/mm3 (4.0-10.0) 06/20/16 11:50 RBC 3.82 M/mm3 (3.60-5.2) 06/20/16 11:50 Hgb 11.6 GM/dL (10.7-15.3) 06/20/16 11:50 Hct 34.4 % (32.4-45.2) 06/20/16 11:50 MCV 90.0 fl (80-96) 06/20/16 11:50 MCHC 33.9 g/dl (32.0-36.0) 06/20/16 11:50 RDW 13.0 % (11.6-15.6) 06/20/16 11:50 Plt Count 189 K/MM3 (134-434) 06/20/16 11:50 Sodium 140 mmol/L (136-145) 06/20/16 11:50 Potassium 3.7 mmol/L (3.5-5.1) 06/20/16 11:50 Chloride 106 mmol/L (98-107) 06/20/16 11:50 Carbon Dioxide 27 mmol/L (21-32) 06/20/16 11:50 Anion Gap 7 (8-16) L 06/20/16 11:50 BUN 3 mg/dL (7-18) L D 06/20/16 11:50 Creatinine 0.7 mg/dL (0.55-1.02) 06/20/16 11:50 Random Glucose 105 mg/dL (74-106) 06/20/16 11:50 Calcium 8.6 mg/dL (8.5-10.1) 06/20/16 11:50 Hepatitis panel pending Marijuana screen positive Imaging: Abdominal US: no acute pathology CT abd: no acute appendicitis, possible concentric diffuse cecal wall edema Problem List - Problems (1) Vomiting Code(s): R11.10 - VOMITING, UNSPECIFIED Qualifiers: Vomiting type: unspecified Vomiting Intractability: intractable Nausea presence: with nausea Qualified Code(s): R11.2 - Nausea with vomiting, unspecified (2) Abdominal pain Assessment/Plan: Patient with 2 1/2 weeks of RLQ abdominal pain, nausea, vomiting, unclear etiology No abdominal pain on exam today VSS, afebrile, WBC improved now 9 from 15 Abdominal US: no acute pathology, CT abd: no acute appendicitis, possible concentric diffuse cecal wall edema Agree with stool tests, hepatitis panel per infectious disease and GI No surgical intervention at this time Code(s): R10.9 - UNSPECIFIED ABDOMINAL PAIN Qualifiers: Abdominal location: upper abdomen, unspecified Qualified Code(s): R10.10 - Upper abdominal pain, unspecified Visit type - Case Type Case Type: ED Admission - New patient This patient is new to me today: Yes Date on this admission: 06/20/16 <Amari Porras - Last Filed: 06/20/16 16:29> - Consultation REQUESTING PROVIDER: CONSULT REQUEST: We have been asked to surgically evaluate this patient for ( specify). PCP:John Lees HISTORY OF PRESENT ILLNESS: PMHx: PSHx: Home Medications Medication Instructions Recorded Ondansetron HCl [Zofran] 4 mg PO Q6H PRN #15 tablet 06/05/16 Ranitidine HCl [Zantac] 150 mg PO BID PRN #14 tablet 06/05/16 Allergies Allergy/AdvReac Type Severity Reaction Status Date / Time No Known Allergies Allergy Verified 06/18/16 14:45 REVIEW OF SYSTEMS: CONSTITUTIONAL: Absent: fever, chills, diaphoresis, generalized weakness, malaise, loss of appetite, weight change CARDIOVASCULAR: Absent: chest pain, syncope, palpitations, irregular heart rate, lightheadedness , peripheral edema RESPIRATORY: Absent: cough, shortness of breath, dyspnea with exertion, wheezing, stridor, hemoptysis GASTROINTESTINAL: Absent: abdominal pain, abdominal distension, nausea, vomiting, diarrhea, constipation, melena, hematochezia GENITOURINARY: Absent: dysuria, frequency, urgency, hesitancy, hematuria, flank pain, genital pain MUSCULOSKELETAL: Absent: myalgia, arthralgia, joint swelling, back pain, neck pain SKIN: Absent: rash, itching, pallor HEMATOLOGIC/IMMUNOLOGIC: Absent: easy bleeding, easy bruising, lymphadenopathy NEUROLOGIC: Absent: headache, focal weakness, paresthesias, dizziness, unsteady gait, seizure, mental status changes, bladder or bowel incontinence PSYCHIATRIC: Absent: anxiety, depression, suicidal or homicidal ideation, hallucinations. PHYSICAL EXAM: GENERAL: Awake, alert, and fully oriented, in no acute distress. HEAD: Normal with no signs of trauma. EYES: PERRL, sclera anicteric, conjunctiva clear. NECK: Normal ROM, supple without lymphadenopathy, JVD, or masses. LUNGS: Clear to auscultation bilat anteriorly. No wheezes, and no crackles. No accessory muscle use. HEART: Regular rate and rhythm. No murmurs ABDOMEN: Soft, nontender, not distended, normoactive bowel sounds, no guarding, no rebound, no masses. No organomegaly. MUSCULOSKELETAL: Normal ROM at all joints. No bony deformities or tenderness. No CVA tenderness. UPPER EXTREMITIES: 2+ pulses, warm, well-perfused. No cyanosis. Cap refill <2 seconds. No peripheral edema. LOWER EXTREMITIES: 2+ pulses, warm, well-perfused. No calf tenderness. No peripheral edema. NEUROLOGICAL: Normal speech, gait not observed. PSYCH: Cooperative. Good eye contact. Appropriate mood and affect. SKIN: Warm, dry, normal turgor, no rashes or lesions noted. Vital Signs Temperature 98.3 F 06/20/16 14:50 Pulse Rate 81 06/20/16 14:50 Respiratory Rate 18 06/20/16 14:50 Blood Pressure 125/71 06/20/16 14:50 O2 Sat by Pulse Oximetry (%) 97 06/20/16 10:00 Lab Results WBC 9.2 K/mm3 (4.0-10.0) 06/20/16 11:50 RBC 3.82 M/mm3 (3.60-5.2) 06/20/16 11:50 Hgb 11.6 GM/dL (10.7-15.3) 06/20/16 11:50 Hct 34.4 % (32.4-45.2) 06/20/16 11:50 MCV 90.0 fl (80-96) 06/20/16 11:50 MCHC 33.9 g/dl (32.0-36.0) 06/20/16 11:50 RDW 13.0 % (11.6-15.6) 06/20/16 11:50 Plt Count 189 K/MM3 (134-434) 06/20/16 11:50 Sodium 140 mmol/L (136-145) 06/20/16 11:50 Potassium 3.7 mmol/L (3.5-5.1) 06/20/16 11:50 Chloride 106 mmol/L (98-107) 06/20/16 11:50 Carbon Dioxide 27 mmol/L (21-32) 06/20/16 11:50 Anion Gap 7 (8-16) L 06/20/16 11:50 BUN 3 mg/dL (7-18) L D 06/20/16 11:50 Creatinine 0.7 mg/dL (0.55-1.02) 06/20/16 11:50 Random Glucose 105 mg/dL (74-106) 06/20/16 11:50 Calcium 8.6 mg/dL (8.5-10.1) 06/20/16 11:50 Agree Abdominal pain since 06/03/16 Diffuse cecal wall edema on CT consistent with likely colitis No evidence of pneumoperitoneum WBC improving- now 9 NPO IV fluids Antibiotics Stool studies No emergent surgical intervention needed at this time
[2016-06-20] MEDS ORDERED: DEXTROSE 5%-0.45% SALINE 1,000 ML IV SCH (16:30)
--- NOTE | 2016-06-20 17:06 | PN ---
GI Progress Note Subjective: GI NOte: Has recurrence of RLQ pain after eating breakfast. Also has nausea and apparently vomited again. Urine does reveal residual cannabis. CT reveals no evidence of appendicitis but has raised the question of typhlitis. No stool yet obtained for cultures. She did take an antibiotic last week for a UTI. - Objective Vital Signs: Vital Signs Temperature 98.3 F 06/20/16 14:50 Pulse Rate 81 06/20/16 14:50 Respiratory Rate 18 06/20/16 14:50 Blood Pressure 125/71 06/20/16 14:50 O2 Sat by Pulse Oximetry (%) 97 06/20/16 10:00 Constitutional: Anxious ...Auscultate: Yes: Normoactive Bowel Sounds ...Palpate: Yes: Soft, Other (mild RLQ tenderness, no peritoneal signs) Labs: CBC, BMP 06/20/16 11:50 06/20/16 11:50 Laboratory Tests 06/18/16 06/19/16 06/20/16 16:05 05:55 11:50 Total Bilirubin 1.3 H 0.5 D Direct Bilirubin 0.3 H AST 5 L D 10 L D ALT 13 D 16 D Alkaline Phosphatase 54 D 62 Total Amylase 40 Lipase 190 Serum , Qual Negative Assessment/Plan Will resume NPO and IV fluids given flare of pain. Emphasized the need to provide stool for cultures and C diff toxin. If unrevealing and is symptoms persists I explained that she may need a colonoscopy to exclude Crohn's Disease and carcinoids. At present mesenteric adenitis would best fir her picture.
[2016-06-20] MEDS: DEXTROSE 5%-0.45% SALINE 1,000 ML IV SCH (17:32)
[2016-06-20] MEDS: ONDANSETRON 4 MG/2 ML VIAL IVPB PRN (17:34)
--- NOTE | 2016-06-20 21:10 | PN ---
Progress Note, Physician Chief Complaint: ASLEEP,AROUSABLE IN MODERATE DISTRESS WHEN SEEN EARLIER TODAY. DENIES FEVERS OR CHILLS NO BM POOR APPETITE - Current Medication List Current Medications: Active Medications Acetaminophen (Tylenol -) 650 mg PO Q4H PRN PRN Reason: FEVER OR PAIN Last Admin: 06/20/16 14:45 Dose: 650 mg Heparin Sodium (Porcine) (Heparin -) 5,000 unit SQ BID [facility] Last Admin: 06/20/16 09:29 Dose: Not Given Dextrose/Sodium Chloride (D5-1/2ns -) 1,000 mls @ 125 mls/hr IV ASDIR KALLI Last Admin: 06/20/16 17:32 Dose: 125 mls/hr Ondansetron HCl (Zofran Injection) 4 mg IVPB Q6H PRN PRN Reason: NAUSEA Last Admin: 06/20/16 17:34 Dose: 4 mg - Objective Vital Signs: Vital Signs Temperature 98.6 F 06/20/16 17:41 Pulse Rate 76 06/20/16 17:41 Respiratory Rate 14 06/20/16 17:41 Blood Pressure 137/87 06/20/16 17:41 O2 Sat by Pulse Oximetry (%) 97 06/20/16 10:00 Constitutional: Yes: Mild Distress, Moderate Distress Eyes: Yes: WNL HENT: Yes: WNL Neck: Yes: WNL Cardiovascular: Yes: WNL Respiratory: Yes: WNL Gastrointestinal: Yes: Tenderness Genitourinary: Yes: WNL Musculoskeletal: Yes: WNL Extremities: Yes: WNL Edema: No Integumentary: Yes: WNL Wound/Incision: Yes: Clean/Dry Neurological: Yes: WNL, Other ...Motor Strength: WNL Psychiatric: Yes: WNL Labs: CBC, BMP 06/20/16 11:50 06/20/16 11:50 Problem List - Problems (1) Dehydration Code(s): E86.0 - DEHYDRATION (2) Vomiting Code(s): R11.10 - VOMITING, UNSPECIFIED Qualifiers: Vomiting type: unspecified Vomiting Intractability: intractable Nausea presence: with nausea Qualified Code(s): R11.2 - Nausea with vomiting , unspecified (3) Abdominal pain Code(s): R10.9 - UNSPECIFIED ABDOMINAL PAIN Qualifiers: Abdominal location: upper abdomen, unspecified Qualified Code(s): R10.10 - Upper abdominal pain, unspecified (4) Dizziness Code(s): R42 - DIZZINESS AND GIDDINESS Assessment/Plan IVF GI EVAL ZOFRAN HEPATITIS PANEL PENDING LABS REVIEWED OOB TO CHAIR VIRAL VS INFLAMMATORY BOWEL SURGERY EVAL PO INTAKE AWAIT STOOL CULTURES
[2016-06-21] MEDS: DEXTROSE 5%-0.45% SALINE 1,000 ML IV SCH (02:21)
[2016-06-21 09:33] LABS: BASOPHIL 0.6 % (0-2.0); EOSINOPHIL 1.6 % (0-4.5); MCH 30.8 pg (25.7-33.7); MCHC 34.2 g/dl (32.0-36.0); MEAN PLT VOLUME 9.8 fl (7.5-11.1); NEUTROPHILS 65.2 % (42.8-82.8); PLATELET COUNT 201 K/MM3 (134-434); RDW 12.9 % (11.6-15.6); WHITE BLOOD COUNT 9.1 K/mm3 (4.0-10.0)
[2016-06-21 10:01] LABS: ALBUMIN 3.7 g/dl (3.4-5.0); ALK PHOS 65 U/L (45-117); ANION GAP 8 (8-16); BILIRUBIN,TOTAL 0.7 mg/dL (0.2-1.0); CALCIUM 9.3 mg/dL (8.5-10.1); CO2 29 mmol/L (21-32); CREATININE 0.7 mg/dL (0.55-1.02); GLUCOSE,RANDOM 110 mg/dL (74-106); SGOT/AST 10 U/L (15-37); SGPT/ALT 20 U/L (12-78); TOT PROT 6.7 g/dl (6.4-8.2)
[2016-06-21 10:02] LABS: C-REACTIVE PROTEIN 0.4 MG/DL (0.00-0.3)
[2016-06-21] MEDS: HEPARIN NA (PORCINE) 5,000 UNITS/ML 1ML VIAL SQ SCH (10:44)
--- NOTE | 2016-06-21 10:57 | DS ---
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ination Vital Signs: Vital Signs Temperature 98.6 F 06/21/16 06:00 Pulse Rate 72 06/21/16 06:00 Respiratory Rate 18 06/21/16 06:00 Blood Pressure 109/57 06/21/16 06:00 O2 Sat by Pulse Oximetry (%) 98 06/20/16 21:00 Constitutional: Yes: No Distress Eyes: Yes: WNL HENT: Yes: WNL Neck: Yes: WNL Cardiovascular: Yes: WNL Respiratory: Yes: WNL Gastrointestinal: Yes: WNL Renal/: Yes: WNL Musculoskeletal: Yes: WNL Extremities: Yes: WNL Edema: No Peripheral Pulses WNL: Yes Integumentary: Yes: WNL Wound/Incision: Yes: Clean/Dry Neurological: Yes: WNL ...Motor Strength: WNL Psychiatric: Yes: WNL Labs: CBC, BMP 06/21/16 07:50 06/21/16 07:50 Discharge Summary Reason For Visit: VOMITING Current Active Problems Dehydration (Acute) Vomiting (Acute) Procedures: Principal: CT ABDOMEN Other Procedures: LABS Hospital Course: ADMITTED FOR ACUTE ABDOMEN, WORKED UP FOR COLITIS VS OTHER, WILL START DIET NOW AND MONITOR, IF TOLERATED WILL DC HOME AND FOLLOW UP OUTPATIENT Condition: Improved - Instructions Diet, Activity, Other Instructions: LOW RESIDUE Referrals: Flakito Aldridge [Primary Care Provider] - Disposition: HOME - Home Medications Comprehensive Discharge Medication List: Ambulatory Orders Ondansetron HCl [Zofran] 4 mg PO Q6H PRN #15 tablet 06/05/16 Ranitidine HCl [Zantac] 150 mg PO BID PRN #14 tablet 06/05/16
--- NOTE | 2016-06-21 11:20 | PN ---
GI Progress Note Subjective: GI NOte: Pain free. No BMs overnight. Hungry - Objective Vital Signs: Vital Signs Temperature 98.6 F 06/21/16 06:00 Pulse Rate 72 06/21/16 06:00 Respiratory Rate 18 06/21/16 06:00 Blood Pressure 109/57 06/21/16 06:00 O2 Sat by Pulse Oximetry (%) 98 06/20/16 21:00 Constitutional: Calm ...Auscultate: Yes: Normoactive Bowel Sounds ...Palpate: Yes: Soft, Other (nontender) Edema: RLE: Trace Labs: CBC, BMP 06/21/16 07:50 06/21/16 07:50 Laboratory Tests 06/21/16 06/21/16 07:50 07:50 WBC 9.1 Total Bilirubin 0.7 D AST 10 L ALT 20 D Alkaline Phosphatase 65 C-Reactive Protein 0.4 H Assessment/Plan Resolving typhlitis, likely infectious etiology. Discussed plan with Dr Lees. Agree with advancing diet and discharging if tolerated.
--- NOTE | 2016-06-21 13:06 | PN ---
Progress Note (short form) - Note Progress Note: No acute events Pain improved On diet AVSS Abd soft, minimal tenderness WBC WNL Diet as tolerated No surgical intervention needed at this time Thank you
[2016-06-21 14:41] VITALS: BP 135/80; PULSE 80; TEMP 98.7
[2016-06-21] MEDS: ACETAMINOPHEN 325 MG TABLET (FP) PO PRN (16:33)
[2016-06-25 00:06] LABS: C-ANCA <1:20 titer (Neg:<1:20); MYELOPEROXIDASE ANTIBODY <9.0 U/mL (0.0-9.0); P-ANCA <1:20 titer (Neg:<1:20); PROTEINASE-3 ANTIBODY <3.5 U/mL (0.0-3.5)
== END 2016-06-21 16:48 | disposition home or self-care (01) | DRG 392 ==
LOC: JER 14:32 → JERBED 21:15 → UNDOADMIN 21:25 → J5S 06-19 00:14
PROVIDERS: ADMIT Family Medicine; ATTEND Family Medicine
DX: K52.9 Noninfective gastroenteritis and colitis, unspecified (principal); E86.0 Dehydration; R00.0 Tachycardia, unspecified; R11.2 Nausea with vomiting, unspecified; R10.10 Upper abdominal pain, unspecified; K76.0 Fatty (change of) liver, not elsewhere classified; F12.90 Cannabis use, unspecified, uncomplicated
CPT/HCPCS: 36415; 71020-TC; 74020-TC; 74177-TC; 76700-TC; 80053; 80074; 80307; 81003; 81015; 82150; 82248; 82533; 83520; 83605; 83690; 83735; 84703; 85025; 85027; 86038; 86140; 86256; 86671; 87040; 99282-25; Q9967

== ENCOUNTER 2016-08-19 16:29 | Emergency (ER) | payer OTHER ==
[2016-08-19 16:32] VITALS: TEMP 97.8; BMI 29.2
--- NOTE | 2016-08-19 17:57 | PDOC ---
History of Present Illness - General History Source: Patient, Old Records Exam Limitations: No Limitations - History of Present Illness Initial Comments: 08/19/16 18:00 The patient is a 20 year old female, with a significant past medical history of gastritis, who presents to the emergency department with abdominal pain, nausea , vomiting and diarrhea onset today. She describes her abdominal pain as diffused through out, moderate in severity, without radiation or modifying factors. She notes that she has vomited a total of 15 times, currently green colored vomit. She also notes that she has had 2 episodes of diarrhea that were nonbloody in nature. She reports that she work in [employer] and has constant contact with children. The patient denies chest pain, shortness of breath, headache and dizziness. Denies fever, chills and constipation. Denies dysuria, frequency, urgency and hematuria. LMP: Recently finished Allergies: None Past surgical history: Back surgery Social history: Marijuana use reported. No alcohol. <Jose G Parks - Last Filed: 08/19/16 18:00> <Kathryn Berrios - Last Filed: 08/19/16 22:21> - General Chief Complaint: Vomiting/Diarrhea Stated Complaint: NAUSEA/VOMITING Time Seen by Provider: 08/19/16 17:34 Past History <Jose G Parks - Last Filed: 08/19/16 18:00> - Past Medical History GI Disorders: Yes (gastritis) - Immunization History Immunization Up to Date: Yes - Psycho/Social/Smoking Cessation Hx Anxiety: No Suicidal Ideation: No Smoking History: Never smoked Have you smoked in the past 12 months: No Number of Cigarettes Smoked Daily: 2 Information on smoking cessation initiated: No 'Breaking Loose' booklet given: 12/09/15 Hx Alcohol Use: No Drug/Substance Use Hx: Yes (marijuana) Substance Use Type: Marijuana <Kathryn Berrios - Last Filed: 08/19/16 22:21> - Past Medical History Allergies/Adverse Reactions: Allergies Allergy/AdvReac Type Severity Reaction Status Date / Time No Known Allergies Allergy Verified 08/19/16 16:30 Home Medications: Ambulatory Orders Ondansetron HCl [Zofran] 4 mg PO Q6H PRN #15 tablet 06/05/16 Ranitidine HCl [Zantac] 150 mg PO BID PRN #14 tablet 06/05/16 Acetaminophen [Tylenol .Regular Strength -] 650 mg PO Q4H PRN #0 tablet Abd/GI Specific PMHX - Complaint Specific PMHX Colitis: No Diverticulitis: No Gall Bladder Disease: No GERD: No Hepatitis: No Irritable Bowel Synd (IBS): No GI Ulcer Disease: No <Kathryn Berrios - Last Filed: 08/19/16 22:21> Review of Systems - Review of Systems Able to Perform ROS?: Yes Comments:: 08/19/16 18:00 GENERAL/CONSTITUTIONAL: No fever or chills. No weakness. HEAD, EYES, EARS, NOSE AND THROAT: No change in vision. No ear pain or discharge. No sore throat. CARDIOVASCULAR: No chest pain or shortness of breath RESPIRATORY: No cough, wheezing, or hemoptysis. GASTROINTESTINAL: (+)Abdominal pain, nausea, vomiting, diarrhea. No constipation. GENITOURINARY: No dysuria, frequency, or change in urination. MUSCULOSKELETAL: No joint or muscle swelling or pain. No neck or back pain. SKIN: No rash NEUROLOGIC: No headache, vertigo, loss of consciousness, or change in strength/ sensation. ENDOCRINE: No increased thirst. No abnormal weight change HEMATOLOGIC/LYMPHATIC: No anemia, easy bleeding, or history of blood clots. ALLERGIC/IMMUNOLOGIC: No hives or skin allergy. <Jose G Parks - Last Filed: 08/19/16 18:00> *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 - Vital Signs Last Vital Signs Temp Pulse Resp BP Pulse Ox 97.8 F 70 18 160/109 100 08/19/16 16:30 08/19/16 16:30 08/19/16 16:30 08/19/16 16:30 08/19/16 16:30 - 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 Comments: 08/19/16 18:01 GENERAL: Awake, alert, and fully oriented, in no acute distress HEAD: No signs of trauma, normocephalic, atraumatic EYES: PERRLA, EOMI, sclera anicteric, conjunctiva clear ENT: Auricles normal inspection, hearing grossly normal, nares patent, oropharynx clear without exudates. Moist mucosa NECK: Normal ROM, supple, no lymphadenopathy, JVD, or masses LUNGS: No distress, speaks full sentences, clear to auscultation bilaterally HEART: Regular rate and rhythm, normal S1 and S2, no murmurs, rubs or gallops, peripheral pulses normal and equal bilaterally. ABDOMEN: Soft, nontender, normoactive bowel sounds. No guarding, no rebound. No masses EXTREMITIES: Normal inspection, Normal range of motion, no edema. No clubbing or cyanosis. NEUROLOGICAL: Cranial nerves II through XII grossly intact. Normal speech, normal gait, no focal sensorimotor deficits SKIN: Warm, Dry, normal turgor, no rashes or lesions noted. <Jose G Parks - Last Filed: 08/19/16 18:00> - Vital Signs Last Vital Signs Temp Pulse Resp BP Pulse Ox 97.8 F 70 18 160/109 100 08/19/16 16:30 08/19/16 16:30 08/19/16 16:30 08/19/16 16:30 08/19/16 16:30 <Kathryn Berrios - Last Filed: 08/19/16 22:21> ED Treatment Course - LABORATORY CBC & Chemistry Diagram: 08/19/16 18:01 08/19/16 18:01 <Kathryn Berrios - Last Filed: 08/19/16 22:21> Medical Decision Making - Medical Decision Making 08/19/16 22:16 20 yo non female p/w NVD all day. Works at [employer] -no focal abd pain,no rebound,no guarding reviewed labdsand there is a mild leukocytosis, mild hyperglycemia -discussed with the pt the signs and symptoms of cholecystitis and appendicitis . She denies any abdominal pain -discussed advancing her diet as tolerated -told her to return tomorrow if she doesn't feel much better <Kathryn Berrios - Last Filed: 08/19/16 22:21> *DC/Admit/Observation/Transfer - Attestations Scribe Attestion: 08/19/16 18:01 Documentation prepared by Jose G Parks, acting as medical geneticist for Kathryn Berrios MD <Jose G Parks - Last Filed: 08/19/16 18:00> <Kathryn Berrios - Last Filed: 08/19/16 22:21> Diagnosis at time of Disposition: Vomiting Qualifiers: Vomiting type: bilious vomiting Nausea presence: with nausea Qualified Code(s) : R11.14 - Bilious vomiting Diarrhea Qualifiers: Diarrhea type: unspecified type Qualified Code(s): R19.7 - Diarrhea, unspecified - Discharge Dispostion Disposition: HOME Condition at time of disposition: Stable - Referrals Referrals: Flakito Aldridge [Primary Care Provider] - - Patient Instructions Printed Discharge Instructions: DI for Viral Gastroenteritis -- Adult Additional Instructions: please advance your diet as tolerated If you do not feel much better tomorrow ,return to the emergency department for further evaluation and possible CT SCAN
[2016-08-19] MEDS ORDERED: ONDANSETRON 4 MG/2 ML VIAL IVPUSH ONE (17:58)
[2016-08-19] MEDS ORDERED: SODIUM CHLORIDE 1,000 ML IV STA (17:59)
[2016-08-19] MEDS ORDERED: ONDANSETRON 4 MG/2 ML VIAL ONE (18:04)
[2016-08-19 19:01] LABS: BASOPHIL 0.3 % (0-2.0); MCH 30.7 pg (25.7-33.7); MCHC 33.3 g/dl (32.0-36.0); MEAN PLT VOLUME 9.9 fl (7.5-11.1); NEUTROPHILS 92.4 % (42.8-82.8); PLATELET COUNT 268 K/MM3 (134-434); RDW 12.8 % (11.6-15.6); WHITE BLOOD COUNT 13.4 K/mm3 (4.0-10.0)
[2016-08-19 19:13] LABS: URINE APPEARANCE CLEAR; URINE BILIRUBIN NEGATIVE (NEGATIVE); URINE BLOOD NEGATIVE (NEGATIVE); URINE COLOR YELLOW; URINE GLUCOSE (UA) NEGATIVE (NEGATIVE); URINE KETONE 2+ (NEGATIVE); URINE LEUK ESTERASE NEGATIVE (NEGATIVE); URINE NITRITE NEGATIVE (NEGATIVE); URINE UROBILINOGEN NEGATIVE E.U./dl (0.2-1.0)
[2016-08-19 19:26] LABS: URINE PROTEIN 2+ (NEGATIVE)
[2016-08-19 19:37] LABS: ALBUMIN 4.4 g/dl (3.4-5.0); ALK PHOS 78 U/L (45-117); ANION GAP 14 (8-16); BILIRUBIN,TOTAL 0.5 mg/dL (0.2-1.0); CALCIUM 9.6 mg/dL (8.5-10.1); CO2 19 mmol/L (21-32); CREATININE 0.8 mg/dL (0.55-1.02); GLUCOSE,RANDOM 132 mg/dL (74-106); SGOT/AST 14 U/L (15-37); SGPT/ALT 18 U/L (12-78); TOT PROT 7.9 g/dl (6.4-8.2)
[2016-08-19] MEDS ORDERED: DEXTROSE 5%-0.45% SALINE 1,000 ML IV SCH (19:45)
[2016-08-19 20:23] LABS: URINE MUCUS MANY; URINE RBC 3 /hpf (0-3); URINE WBC 3 /hpf (3-5)
[2016-08-20 00:47] VITALS: BP 108/49; PULSE 80
== END 2016-08-20 | disposition home or self-care (01) ==
LOC: JER 16:29
PROC: 3E033GC Introduction of Other Therapeutic Substance into Peripheral Vein, Percutaneous Approach (ICD-10-PCS; principal; 2016-08-19)
DX: A08.4 Viral intestinal infection, unspecified (principal); R11.14 Bilious vomiting; B97.89 Other viral agents as the cause of diseases classified elsewhere
CPT/HCPCS: 36415; 80053; 81003; 81015; 84703; 85025; 99282-25

== ENCOUNTER 2016-08-20 12:37 | Emergency (ER) | payer OTHER ==
[2016-08-20 13:16] VITALS: BMI 27.3
[2016-08-20] MEDS ORDERED: ONDANSETRON 4 MG/2 ML VIAL ONE (13:54)
[2016-08-20] MEDS: SODIUM CHLORIDE 1,000 ML IV STA (13:56)
[2016-08-20] MEDS: ONDANSETRON 4 MG/2 ML VIAL IVPB ONE (13:56)
--- NOTE | 2016-08-20 14:11 | PDOC ---
History of Present Illness - General Chief Complaint: Nausea/Vomiting Stated Complaint: REVISIT Time Seen by Provider: 08/20/16 13:30 - History of Present Illness Initial Comments: 08/20/16 13:45 20 yo female, with a significant PMHx of gastritis, who presents to the emergency department with abdominal pain, nausea, vomiting and diarrhea since yesterday . She was seen in ED yesterday but did not go vegetable picker meds. She presents today with the same exact symptoms as yesterday. She describes her abdominal pain as diffused through out, moderate in severity, without radiation or modifying factors. She notes that she has vomited a total of 15 times, currently yellow colored vomit. She also notes that she has had 2 episodes of diarrhea that were nonbloody in nature. Denies chest pain, shortness of breath, headache and dizziness. Denies fever, chills and constipation. Denies dysuria, frequency, urgency and hematuria. Timing/Duration: reports: getting worse Quality: reports: moderate Abdominal Pain Onset Location: reports: generalized abdomen Past History - Past Medical History Allergies/Adverse Reactions: Allergies Allergy/AdvReac Type Severity Reaction Status Date / Time No Known Allergies Allergy Verified 08/20/16 13:13 Home Medications: Ambulatory Orders NK [No Known Home Medication] 08/20/16 GI Disorders: Yes (gastritis) - Immunization History Immunization Up to Date: Yes - Psycho/Social/Smoking Cessation Hx Anxiety: No Suicidal Ideation: No Smoking History: Never smoked Have you smoked in the past 12 months: No Number of Cigarettes Smoked Daily: 2 Information on smoking cessation initiated: No 'Breaking Loose' booklet given: 12/09/15 Hx Alcohol Use: No Drug/Substance Use Hx: Yes (marijuana.) Substance Use Type: Marijuana Abd/GI Specific PMHX - Complaint Specific PMHX Colitis: No Diverticulitis: No Gall Bladder Disease: No GERD: No Hepatitis: No Irritable Bowel Synd (IBS): No GI Ulcer Disease: No *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 - Vital Signs Last Vital Signs Temp Pulse Resp BP Pulse Ox 98.2 F 68 18 136/64 98 08/20/16 13:13 08/20/16 13:13 08/20/16 13:13 08/20/16 13:13 08/20/16 13:13 ED Treatment Course - LABORATORY CBC & Chemistry Diagram: 08/20/16 14:57 08/20/16 14:57 Medical Decision Making - Medical Decision Making 08/20/16 13:48 A:20 yo female, with a significant PMHx of gastritis, who presents to the emergency department with abdominal pain, nausea, vomiting and diarrhea since yesterday. Did not vegetable picker medication yesterday and today returned with same presentation. P: * IVF NS 1L bolus * Zofran 4mg IVPB 08/20/16 15:20 patient responded very well to treatment again. Will discharge home and will need to vegetable picker meds micki. *DC/Admit/Observation/Transfer Diagnosis at time of Disposition: Viral gastroenteritis - Discharge Dispostion Admit: No - Referrals Referrals: Flakito Aldridge [Primary Care Provider] - - Patient Instructions Printed Discharge Instructions: DI for Viral Gastroenteritis -- Adult Additional Instructions: Make sure to vegetable picker perscriptions and take medications as directed. Drink plenty of fluids. Follow up with PCP in one week. Regular diet. Increase activity as tolerated. If symptoms worsen or develop fever/chills return to ED. - Post Discharge Activity Work/School Note: Back to Work
--- NOTE | 2016-08-20 15:41 | PDOC ---
Attending Attestation - Resident Resident Name: Navin Rodríguez - ED Attending Attestation I have performed the following: I have examined & evaluated the patient, The case was reviewed & discussed with the resident, I agree w/resident's findings & plan, Exceptions are as noted - HPI HPI: 08/20/16 15:39 Healthy 20-year-old female presents with persistent nausea/vomiting/diarrhea. No other red flags on history. Seen yesterday, did not fill her Zofran, presents for further evaluation. - Physicial Exam PE: 08/20/16 15:39 Afebrile. Dry mucosa. Soft/nondistended, tender in the left mid and left lower quadrant without guarding or rebound. No CVA tenderness - Medical Decision Making 08/20/16 15:40 Patient seen and evaluated with the resident. I agree with the overall evaluation, assessment, and management with the following summary of visit: Healthy 20-year-old female with persistent nausea/vomiting/diarrhea, could be consistent with gastroenteritis, but some localizing complaints to the left lower quadrant which could be concerning for colitis. No other red flags, hemodynamically stable. Workup yesterday was unremarkable. Will transfer CBC IV fluid rehydration Reassess for need for any imaging
[2016-08-20 16:08] LABS: BASOPHIL 0.1 % (0-2.0); MCH 30.7 pg (25.7-33.7); MCHC 33.2 g/dl (32.0-36.0); MEAN CELL VOLUME 92.7 fl (80-96); MEAN PLT VOLUME 9.5 fl (7.5-11.1); NEUTROPHILS 88.9 % (42.8-82.8); PLATELET COUNT 222 K/MM3 (134-434); RDW 13.2 % (11.6-15.6); WHITE BLOOD COUNT 12.1 K/mm3 (4.0-10.0)
[2016-08-20] MEDS ORDERED: METOCLOPRAMIDE HCL INJECTION 10 MG/2 ML VIAL ONE (16:20)
[2016-08-20] MEDS: METOCLOPRAMIDE HCL INJECTION 10 MG/2 ML VIAL IVPB ONE (16:24)
[2016-08-20 16:31] LABS: ANION GAP 9 (8-16); BILIRUBIN,TOTAL 0.4 mg/dL (0.2-1.0); CALCIUM 8.5 mg/dL (8.5-10.1); CO2 22 mmol/L (21-32); COCKROFT - GAULT 179.9195; CREATININE 0.5 mg/dL (0.55-1.02); GLUCOSE,RANDOM 92 mg/dL (74-106); SGOT/AST 12 U/L (15-37); SGPT/ALT 18 U/L (12-78)
[2016-08-20 16:32] LABS: ALK PHOS 68 U/L (45-117)
[2016-08-20] MEDS ORDERED: POTASSIUM CHLORIDE TABS 20 MEQ TABLET.ER (FP) PO ONE (16:55)
[2016-08-20] MEDS: POTASSIUM CHLORIDE TABS 20 MEQ TABLET.ER (FP) PO ONE (16:56)
[2016-08-20 17:12] VITALS: BP 121/56; PULSE 75; TEMP 97.8
== END 2016-08-20 17:33 | disposition home or self-care (01) ==
LOC: JER 12:37 → SUPCPDRO 12:37 → JER 17:33
PROC: 3E033GC Introduction of Other Therapeutic Substance into Peripheral Vein, Percutaneous Approach (ICD-10-PCS; principal; 2016-08-20)
PROC: 3E0337Z Introduction of Electrolytic and Water Balance Substance into Peripheral Vein, Percutaneous Approach (ICD-10-PCS; 2016-08-20)
DX: A08.4 Viral intestinal infection, unspecified (principal); B97.89 Other viral agents as the cause of diseases classified elsewhere
CPT/HCPCS: 36415; 80053; 83690; 85025; 99284-25

== ENCOUNTER 2016-09-22 20:31 | Emergency (ER) | payer OTHER ==
--- NOTE | 2016-09-22 20:39 | PDOC ---
Rapid Medical Evaluation Chief Complaint: Pain Time Seen by Provider: 09/22/16 20:38 Medical Evaluation: Allergies Allergy/AdvReac Type Severity Reaction Status Date / Time No Known Allergies Allergy Verified 08/20/16 13:13 09/22/16 20:38 brief evaluation evaluation in triage: c/o nvd abd pain since 2am after eating [employer] sandwich LMP 09/0309/22/16 21:40
[2016-09-22] MEDS ORDERED: ONDANSETRON *ODT* 4 MG TABLET SL ONE (20:40)
[2016-09-22 20:41] VITALS: BP 103/39; PULSE 82; TEMP 98.4; BMI 26.4
[2016-09-22 21:37] LABS: URINE APPEARANCE CLOUDY; URINE BILIRUBIN NEGATIVE (NEGATIVE); URINE BLOOD NEGATIVE (NEGATIVE); URINE COLOR YELLOW; URINE GLUCOSE (UA) NEGATIVE (NEGATIVE); URINE KETONE 2+ (NEGATIVE); URINE LEUK ESTERASE NEGATIVE (NEGATIVE); URINE NITRITE NEGATIVE (NEGATIVE); URINE PROTEIN 1+ (NEGATIVE); URINE UROBILINOGEN NEGATIVE E.U./dl (0.2-1.0)
[2016-09-22 21:39] LABS: URINE HYALINE CAST 3 /lpf; URINE MUCUS MANY; URINE RBC 7 /hpf (0-3); URINE WBC 7 /hpf (3-5)
[2016-09-22] MEDS ORDERED: morphine CARPU-JECT 4 MG/1 ML DISP.SYRIN IVPUSH ONE (23:04)
[2016-09-22] MEDS ORDERED: PANTOPRAZOLE SODIUM 40 MG in SODIUM CHLORIDE 100 ML IVPB ONE (23:04)
[2016-09-22] MEDS ORDERED: ONDANSETRON 4 MG/2 ML VIAL IVPUSH ONE (23:04)
--- NOTE | 2016-09-22 23:18 | PDOC ---
*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 - Vital Signs Last Vital Signs Temp Pulse Resp BP Pulse Ox 98.4 F 82 20 103/39 100 09/22/16 20:39 09/22/16 20:39 09/22/16 20:39 09/22/16 20:39 09/22/16 20:39 ED Treatment Course - ADDITIONAL ORDERS Additional order review: Laboratory Results 09/22/16 20:00 Urine Color Yellow Urine Appearance Cloudy Urine pH 8.0 Urine Protein 1+ H Urine Glucose (UA) Negative Urine Ketones 2+ H Urine Blood Negative Urine Nitrite Negative Urine Bilirubin Negative Urine Urobilinogen Negative Ur Leukocyte Esterase Negative Urine RBC 7 Urine WBC 7 Ur Epithelial Cells Few Hyaline Casts 3 Urine Mucus Many Urine HCG, Qual Negative - Medications Given in the ED: ED Medications Discontinued Medications Generic Name Dose Route Start Last Admin Trade Name Freq PRN Reason Stop Dose Admin Ondansetron HCl 4 mg 09/22/16 20:40 09/22/16 21:49 Zofran Odt - SL 09/22/16 20:41 4 mg ONCE ONE Administration Medical Decision Making - Medical Decision Making 09/22/16 23:17 Pt seen by the Advanced Practice Provider under my direct supervision Ancillary studies reviewed I agree with plan as outlined by the Advanced Practice Provider FRANCISCO JAVIER Melendez
[2016-09-22] MEDS ORDERED: morphine CARPU-JECT 4 MG/1 ML DISP.SYRIN ONE (23:30)
[2016-09-22] MEDS ORDERED: PANTOPRAZOLE SODIUM 100 ML IVPB ONE (23:30)
[2016-09-22] MEDS ORDERED: ONDANSETRON 4 MG/2 ML VIAL ONE (23:30)
[2016-09-22 23:59] LABS: BASOPHIL 0.2 % (0-2.0); MCH 30.1 pg (25.7-33.7); MCHC 32.7 g/dl (32.0-36.0); MEAN CELL VOLUME 92.2 fl (80-96); MEAN PLT VOLUME 9.3 fl (7.5-11.1); NEUTROPHILS 93.7 % (42.8-82.8); PLATELET COUNT 281 K/MM3 (134-434); RDW 12.9 % (11.6-15.6); WHITE BLOOD COUNT 14.9 K/mm3 (4.0-10.0)
[2016-09-23 00:28] LABS: ALBUMIN 4.4 g/dl (3.4-5.0); ALK PHOS 73 U/L (45-117); AMYLASE 36 U/L (25-115); ANION GAP 15 (8-16); BILIRUBIN,TOTAL 0.4 mg/dL (0.2-1.0); CALCIUM 10.3 mg/dL (8.5-10.1); CO2 17 mmol/L (21-32); COCKROFT - GAULT 108.4345; CREATININE 0.8 mg/dL (0.55-1.02); GLUCOSE,RANDOM 123 mg/dL (74-106); SGPT/ALT 23 U/L (12-78); TOT PROT 8.1 g/dl (6.4-8.2)
[2016-09-23 00:35] LABS: SGOT/AST 20 U/L (15-37)
[2016-09-23] MEDS ORDERED: FAMOTIDINE 20 MG/50 ML IVPB 50 ML IVPB ONE ×2 (00:41→01:15)
[2016-09-23] MEDS ORDERED: ONDANSETRON 4 MG/2 ML VIAL IVPUSH ONE (00:41)
[2016-09-23] MEDS ORDERED: morphine CARPU-JECT 2 MG/1 ML DISP.SYRIN IVPUSH ONE (00:46)
--- NOTE | 2016-09-23 00:48 | PDOC ---
History of Present Illness - General Chief Complaint: Pain Stated Complaint: PAIN Time Seen by Provider: 09/22/16 20:38 History Source: Patient Exam Limitations: No Limitations - History of Present Illness Travel History: No Initial Comments: 09/23/16 00:43 20yo Female patient w/PmHx: Gastritis presents to ED c/o vomiting and generalized abdominal pain since 2 pm today. Patient states she is unable to tolerate po solids and liquids. She reports last meal: Thursday. LNMP: 1 month ago. Denies any other complaints at this time. Timing/Duration: reports: constant Quality: reports: moderate Abdominal Pain Onset Location: reports: generalized abdomen Pain Radiation: reports: no radiation Activities at Onset: reports: none Treatment Prior to Arrive: worse with: analgesics, antacids, cold pack, heat, laxative, enema, other Aggravating Factors: worse with: None, Defecation, Eating, Emotional upset, Exertion, Unity, Movement, Voiding, Change in position Alleviating Factors: worse with: None, Belching, Shallow Breathing, Defecation, Eating, Holding Breath, Passing Gas, Change in Position, Rest, Voiding, Vomiting Past History - Travel Traveled outside of the country in the last 30 days: No Close contact w/someone who was outside of country & ill: No - Past Medical History Allergies/Adverse Reactions: Allergies Allergy/AdvReac Type Severity Reaction Status Date / Time No Known Allergies Allergy Verified 09/22/16 20:39 Home Medications: Ambulatory Orders Famotidine [Pepcid -] 40 mg PO BID #14 tablet 09/23/16 Ondansetron [Zofran Odt -] 4 mg SL Q6H PRN #20 od.tablet 09/23/16 GI Disorders: Yes (gastritis) - Immunization History Immunization Up to Date: Yes - Psycho/Social/Smoking Cessation Hx Anxiety: No Suicidal Ideation: No Smoking History: Never smoked Have you smoked in the past 12 months: No Number of Cigarettes Smoked Daily: 2 'Breaking Loose' booklet given: 12/09/15 Hx Alcohol Use: No Drug/Substance Use Hx: Yes (marijuana.) Substance Use Type: Marijuana Abd/GI Specific PMHX - Complaint Specific PMHX Colitis: No Diverticulitis: No Gall Bladder Disease: No GERD: No Hepatitis: No Irritable Bowel Synd (IBS): No GI Ulcer Disease: No Review of Systems - Review of Systems Able to Perform ROS?: Yes Is the patient limited Cymro proficient: No Constitutional: No: Chills, Fever Respiratory: No: Cough, Shortness of Breath, Stridor, Wheezing Cardiac (ROS): No: Chest Pain, Palpitations, Syncope, Chest Tightness ABD/GI: Yes: Nausea, Poor Appetite, Poor Fluid Intake, Vomiting, Abdominal cramping (Generalized.). No: Constipated, Diarrhea : No: Dysuria, Flank Pain, Hematuria, Pain, Urgency Musculoskeletal: No: Back Pain Integumentary: No: Erythema, Rash, Sweating Neurological: No: Headache, Seizure, Ataxia, Dizziness All Other Systems: Reviewed and Negative *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 - Vital Signs Last Vital Signs Temp Pulse Resp BP Pulse Ox 98.4 F 82 20 103/39 100 09/22/16 20:39 09/22/16 20:39 09/22/16 20:39 09/22/16 20:39 09/22/16 20:39 - 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 General Appearance: Yes: Nourished, Appropriately Dressed, Mild Distress. No: Apparent Distress, Moderate Distress, Severe Distress HEENT: positive: EOMI, JENNIFER, Normal ENT Inspection, Normal Voice, Symmetrical, TMs Normal, Pharynx Normal. negative: Tonsillar Exudate, Tonsillar Erythema, Nasal Congestion, Rhinorrhea, Sinus Tenderness, TM Bulging, TM Dull, TM Erythema Neck: positive: Trachea midline, Normal Thyroid, Supple. negative: Lymphadenopathy (R), Lymphadenopathy (L) Respiratory/Chest: positive: Lungs Clear, Normal Breath Sounds. negative: Chest Tender, Respiratory Distress, Accessory Muscle Use, Labored Respiration, Rapid RR, Rhonchi, Stridor, Wheezing Cardiovascular: positive: Regular Rhythm, Regular Rate Gastrointestinal/Abdominal: positive: Tender (Generalized ), Soft, Increased Bowel Sounds, Tenderness. negative: Guarding, Rebound Musculoskeletal: positive: Normal Inspection. negative: CVA Tenderness Extremity: positive: Normal Capillary Refill, Normal Inspection, Normal Range of Motion. negative: Pedal Edema, Swelling, Calf Tenderness, Erythema, Inflammation Integumentary: positive: Normal Color, Dry, Warm Neurologic: positive: cma II-XII NML intact, Fully Oriented, Alert, Normal Mood/ Affect, Normal Response, Motor Strength 5/5 ED Treatment Course - LABORATORY CBC & Chemistry Diagram: 09/22/16 23:45 09/22/16 23:45 - ADDITIONAL ORDERS Additional order review: Laboratory Results 09/22/16 09/22/16 23:45 20:00 Sodium 139 Potassium 3.9 Chloride 107 Carbon Dioxide 17 L D Anion Gap 15 BUN 16 D Creatinine 0.8 D Creat Clearance w eGFR > 60 Random Glucose 123 H D Calcium 10.3 H D Total Bilirubin 0.4 AST 20 D ALT 23 D Alkaline Phosphatase 73 Total Protein 8.1 Albumin 4.4 Total Amylase 36 Lipase 88 Urine Color Yellow Urine Appearance Cloudy Urine pH 8.0 Urine Protein 1+ H Urine Glucose (UA) Negative Urine Ketones 2+ H Urine Blood Negative Urine Nitrite Negative Urine Bilirubin Negative Urine Urobilinogen Negative Ur Leukocyte Esterase Negative Urine RBC 7 Urine WBC 7 Ur Epithelial Cells Few Hyaline Casts 3 Urine Mucus Many Urine HCG, Qual Negative 09/22/16 23:45 RBC 4.00 MCV 92.2 MCHC 32.7 RDW 12.9 MPV 9.3 Neutrophils % 93.7 H Lymphocytes % 3.5 L D Monocytes % 2.6 L Eosinophils % 0.0 Basophils % 0.2 - Medications Given in the ED: ED Medications Discontinued Medications Generic Name Dose Route Start Last Admin Trade Name Freq PRN Reason Stop Dose Admin Pantoprazole Sodium 40 mg/ 100 mls @ 200 mls/hr 09/22/16 23:04 09/23/16 00:13 Sodium Chloride IVPB 09/22/16 23:33 200 mls/hr ONCE ONE Administration Morphine Sulfate 4 mg 09/22/16 23:04 09/23/16 00:13 Morphine Injection - IVPUSH 09/22/16 23:05 4 mg ONCE ONE Administration Ondansetron HCl 4 mg 09/22/16 20:40 09/22/16 21:49 Zofran Odt - SL 09/22/16 20:41 4 mg ONCE ONE Administration Ondansetron HCl 4 mg 09/22/16 23:04 09/23/16 00:13 Zofran Injection IVPUSH 09/22/16 23:05 4 mg ONCE ONE Administration *DC/Admit/Observation/Transfer Diagnosis at time of Disposition: Gastritis Qualifiers: Gastritis type: unspecified gastritis Chronicity: acute Gastritis bleeding: without bleeding Qualified Code(s): K29.00 - Acute gastritis without bleeding - Discharge Dispostion Disposition: HOME Condition at time of disposition: Improved Admit: No - Prescriptions Prescriptions: Famotidine [Pepcid -] 40 mg PO BID #14 tablet Ondansetron [Zofran Odt -] 4 mg SL Q6H PRN #20 od.tablet PRN Reason: Nausea - Referrals Referrals: Flakito Aldridge [Primary Care Provider] - - Patient Instructions Printed Discharge Instructions: DI for Gastritis, [place] Diet Additional Instructions: FOLLOW UP WITH YOUR PRIMARY CARE PROVIDER. CALL TO SCHEDULE APPOINTMENT. TAKE MEDICATIONS PRESCRIBED. RETURN IF SYMPTOMS WORSEN OR ANY CONCERNS FOR FURTHER EVALUATION. Print Language: CYPRIOT
[2016-09-23] MEDS ORDERED: ONDANSETRON 4 MG/2 ML VIAL ONE (01:15)
[2016-09-23] MEDS ORDERED: morphine CARPU-JECT 2 MG/1 ML DISP.SYRIN ONE (01:15)
== END 2016-09-23 02:09 | disposition home or self-care (01) ==
LOC: JER 20:31
PROC: 3E033GC Introduction of Other Therapeutic Substance into Peripheral Vein, Percutaneous Approach (ICD-10-PCS; principal; 2016-09-22)
PROC: 3E033GC Introduction of Other Therapeutic Substance into Peripheral Vein, Percutaneous Approach (ICD-10-PCS; 2016-09-22)
PROC: 3E033NZ Introduction of Analgesics, Hypnotics, Sedatives into Peripheral Vein, Percutaneous Approach (ICD-10-PCS; 2016-09-22)
PROC: 3E033GC Introduction of Other Therapeutic Substance into Peripheral Vein, Percutaneous Approach (ICD-10-PCS; 2016-09-22)
DX: K29.00 Acute gastritis without bleeding (principal)
CPT/HCPCS: 36415; 80053; 81003; 81015; 82150; 83690; 84703; 85025; 99282-25

== ENCOUNTER 2016-09-23 19:18 | Emergency (ER) | payer OTHER ==
--- NOTE | 2016-09-23 19:23 | PDOC ---
Rapid Medical Evaluation Time Seen by Provider: 09/23/16 19:20 Medical Evaluation: Allergies Allergy/AdvReac Type Severity Reaction Status Date / Time No Known Allergies Allergy Verified 09/22/16 20:39 I have performed a brief in-person evaluation of this patient. The patient presents with a chief complaint of: burning in epigastric region since last night; was seen here last night for the same symptoms. Vomiting. she was discharged to home with pepcid and zofran which she took today and vomited up. Pertinent physical exam findings: TTP of epigastric region. I have ordered the following: none. she had a negative hcg yesterday. The patient will proceed to the ED for further evaluation.
[2016-09-23 19:29] VITALS: PULSE 75; TEMP 98.2; BMI 25.9
[2016-09-23 22:07] LABS: BASOPHIL 0.4 % (0-2.0); MCH 29.9 pg (25.7-33.7); MCHC 32.7 g/dl (32.0-36.0); MEAN CELL VOLUME 91.5 fl (80-96); NEUTROPHILS 85.8 % (42.8-82.8); PLATELET COUNT 281 K/MM3 (134-434); WHITE BLOOD COUNT 11.6 K/mm3 (4.0-10.0)
--- NOTE | 2016-09-23 22:13 | PDOC ---
History of Present Illness - General Chief Complaint: Nausea/Vomiting Stated Complaint: NAUSEA/VOMITING Time Seen by Provider: 09/23/16 19:20 History Source: Patient Exam Limitations: No Limitations - History of Present Illness Travel History: No Initial Comments: 09/23/16 22:10 20-year-old female presents to the emergency department complaining of 3/10 epigastric burning sensation with nausea and one episode of vomiting earlier today but denies fever, chills, headaches, chest pain, shortness of breath, flank pains, urinary symptoms. Patient states she was seen 2 days ago and earlier today, she was given Pepcid and Zofran which made her feel better. Patient was also seen at [place] emergency department for similar symptoms. She presents to the emergency department today because she says she does not feel 100% better. Although, patient is pain free since arriving to the emergency department, she is concerned that the pains will return. She also states she's had numerous CAT scans at other facilities, as recent as 2 days ago. She says the scans always comes back normal except may be an ovarian cysts which goes away with her menses. Pt refuses preg test, says she recently had one x1d ago and was negative. Pt has an appointment with her GI physician who had scoped her x4 months ago and saw slight inflammation that he is treating. Her next appt is in 2 days from today. Patient adamantly didn't declines having any more images done today. Timing/Duration: reports: intermittent Quality: reports: burning Abdominal Pain Onset Location: reports: epigastric Pain Radiation: reports: no radiation Past History - Past Medical History Allergies/Adverse Reactions: Allergies Allergy/AdvReac Type Severity Reaction Status Date / Time No Known Allergies Allergy Verified 09/23/16 19:27 Home Medications: Ambulatory Orders Famotidine [Pepcid -] 40 mg PO BID #14 tablet 09/23/16 Ondansetron [Zofran Odt -] 4 mg SL Q6H PRN #20 od.tablet 09/23/16 GI Disorders: Yes (gastritis) - Immunization History Immunization Up to Date: Yes - Psycho/Social/Smoking Cessation Hx Anxiety: No Suicidal Ideation: No Smoking History: Never smoked Have you smoked in the past 12 months: No Number of Cigarettes Smoked Daily: 2 'Breaking Loose' booklet given: 12/09/15 Hx Alcohol Use: No Drug/Substance Use Hx: No Substance Use Type: Marijuana Abd/GI Specific PMHX - Complaint Specific PMHX Colitis: No Diverticulitis: No Gall Bladder Disease: No GERD: No Hepatitis: No Irritable Bowel Synd (IBS): No GI Ulcer Disease: No Review of Systems - Review of Systems Able to Perform ROS?: Yes Comments:: 09/23/16 22:12 CONSTITUTIONAL: Absent: fever, chills, diaphoresis, generalized weakness, malaise, loss of appetite HEENT: Absent: rhinorrhea, nasal congestion, throat pain, throat swelling, difficulty swallowing, mouth swelling, ear pain, eye pain, visual Changes CARDIOVASCULAR: Absent: chest pain, loss of consciousness, palpitations, irregular heart rate, peripheral edema RESPIRATORY: Absent: cough, shortness of breath, dyspnea with exertion, orthopnea, wheezing, stridor, hemoptysis GASTROINTESTINAL: +epigastric abdominal pain/subsided Absent: abdominal distension, nausea, vomiting, diarrhea, constipation, melena , hematochezia GENITOURINARY: Absent: dysuria, frequency, urgency, hesitancy, hematuria, flank pain, genital pain MUSCULOSKELETAL: Absent: myalgia, arthralgia, joint swelling SKIN: Absent: rash, itching, pallor HEMATOLOGIC/IMMUNOLOGIC: Absent: easy bleeding, easy bruising, lymphadenopathy, frequent infections ENDOCRINE: Absent: unexplained weight gain, unexplained weight loss, heat intolerance, cold intolerance NEUROLOGIC: Absent: headache, focal weakness or paresthesias, dizziness, unsteady gait, seizure, mental status changes, bladder or bowel incontinence PSYCHIATRIC: Absent: anxiety, depression, suicidal or homicidal ideation, hallucinations. Is the patient limited Kazakh proficient: No *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 - Vital Signs Last Vital Signs Temp Pulse Resp BP Pulse Ox 98.2 F 75 20 134/101 99 09/23/16 19:27 09/23/16 19:27 09/23/16 19:27 09/23/16 19:27 09/23/16 19:27 - 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 Comments: 09/23/16 22:13 GENERAL: Well developed, well nourished. Awake and alert. No acute distress. HEENT: Normocephalic, atraumatic. PERRLA, EOMI. No conjunctival pallor. Sclera are non- icteric. Moist mucous membranes. Oropharynx is clear. NECK: Supple. Full ROM. No JVD. Carotid pulses 2+ and symmetric, without bruits. No thyromegaly. No lymphadenopathy. CARDIOVASCULAR: Regular rate and rhythm. No murmurs, rubs, or gallops. Distal pulses are 2+ and symmetric. PULMONARY: No evidence of respiratory distress. Lungs clear to auscultation bilaterally. No wheezing, rales or rhonchi. ABDOMINAL: Soft. Non-tender. Non-distended. No rebound or guarding. No organomegaly. Normoactive bowel sounds. MUSCULOSKELETAL Normal range of motion at all joints. No bony deformities or tenderness. No CVA tenderness. EXTREMITIES: No cyanosis. No clubbing. No edema. No calf tenderness. SKIN: Warm and dry. Normal capillary refill. No rashes. No jaundice. NEUROLOGICAL: Alert, awake, appropriate. Cranial nerves 2-12 intact. No deficits to light touch and temperature in face, upper extremities and lower extremities. No motor deficits in the in face, upper extremities and lower extremities. Normoreflexic in the upper and lower extremities. Normal speech. Toes are down- going bilaterally. Gait is normal without ataxia. PSYCHIATRIC: Cooperative. Good eye contact. Appropriate mood and affect. ED Treatment Course - LABORATORY CBC & Chemistry Diagram: 09/23/16 21:44 09/23/16 21:44 - ADDITIONAL ORDERS Additional order review: 09/23/16 21:44 RBC 4.01 MCV 91.5 MCHC 32.7 RDW 13.0 MPV 9.0 Neutrophils % 85.8 H Lymphocytes % 7.4 L D Monocytes % 6.4 D Eosinophils % 0.0 Basophils % 0.4 Progress Note - Progress Note Progress Note: 0132hrs: Sucessful PO challenge with water 0208hrs: Pt says she feels better and wishes to be d/c *DC/Admit/Observation/Transfer Diagnosis at time of Disposition: Nausea & vomiting Qualifiers: Vomiting type: unspecified Vomiting Intractability: non-intractable Qualified Code(s): R11.2 - Nausea with vomiting, unspecified Abdominal pain Qualifiers: Abdominal location: epigastric Qualified Code(s): R10.13 - Epigastric pain - Discharge Dispostion Disposition: HOME Condition at time of disposition: Stable Admit: No - Referrals Referrals: Flakito Aldridge [Primary Care Provider] - Eliot Rodriguez MD [Staff Physician] - - Patient Instructions Printed Discharge Instructions: DI for Vomiting -- Adult, DI for Nausea -- Adult, DI for Epigastric Pain Additional Instructions: Continue your pepcid as prescribed from last night. Follow up with your GI doctor in 2 days as scheduled or the one listed on your discharge sheep/ Return to the Er for severe/persistent/worsening symptoms - Post Discharge Activity Work/School Note: Back to Work
[2016-09-23 22:28] LABS: ALBUMIN 4.4 g/dl (3.4-5.0); AMYLASE 46 U/L (25-115); ANION GAP 10 (8-16); BILIRUBIN,TOTAL 0.4 mg/dL (0.2-1.0); CALCIUM 9.4 mg/dL (8.5-10.1); CO2 25 mmol/L (21-32); CREATININE 0.7 mg/dL (0.55-1.02); GLUCOSE,RANDOM 92 mg/dL (74-106); SGOT/AST 14 U/L (15-37); SGPT/ALT 21 U/L (12-78); TOT PROT 7.9 g/dl (6.4-8.2)
[2016-09-23 22:29] LABS: ALK PHOS 76 U/L (45-117)
[2016-09-23] MEDS ORDERED: SODIUM CHLORIDE 1,000 ML IV STA (23:05)
[2016-09-23] MEDS ORDERED: ONDANSETRON 4 MG/2 ML VIAL IVPUSH ONE (23:05)
[2016-09-23] MEDS ORDERED: POTASSIUM CHLORIDE ORAL LIQUID 20 MEQ/15 ML PO ONE (23:05)
[2016-09-23] MEDS ORDERED: ONDANSETRON 4 MG/2 ML VIAL ONE (23:06)
[2016-09-24] MEDS ORDERED: POTASSIUM CHLORIDE ORAL LIQUID 20 MEQ/15 ML ONE (00:46)
[2016-09-24] MEDS ORDERED: METOCLOPRAMIDE HCL INJECTION 10 MG/2 ML VIAL ONE (02:59)
[2016-09-24] MEDS ORDERED: METOCLOPRAMIDE HCL INJECTION 10 MG/2 ML VIAL IVPUSH ONE (02:59)
[2016-09-24] MEDS ORDERED: SODIUM CHLORIDE 0.9%/KCL 1,000 ML IV ONE (03:04)
[2016-09-24] MEDS ORDERED: TRIMETHOBENZAMIDE HCL 200MG/2ML INJ IM ONE (03:39)
[2016-09-24 05:18] VITALS: BP 130/70
== END 2016-09-24 05:18 | disposition home or self-care (01) ==
LOC: JER 19:18
PROC: 3E0337Z Introduction of Electrolytic and Water Balance Substance into Peripheral Vein, Percutaneous Approach (ICD-10-PCS; principal; 2016-09-23)
PROC: 3E033GC Introduction of Other Therapeutic Substance into Peripheral Vein, Percutaneous Approach (ICD-10-PCS; 2016-09-23)
PROC: 3E033GC Introduction of Other Therapeutic Substance into Peripheral Vein, Percutaneous Approach (ICD-10-PCS; 2016-09-23)
DX: R10.13 Epigastric pain (principal); R11.2 Nausea with vomiting, unspecified
CPT/HCPCS: 36415; 80053; 82150; 83690; 85025; 99282-25

== ENCOUNTER 2016-10-28 15:44 | Emergency (ER) | payer OTHER ==
[2016-10-28 15:50] VITALS: BP 142/90; PULSE 76; TEMP 98.3; BMI 25.4
[2016-10-28] MEDS ORDERED: SODIUM CHLORIDE 1,000 ML IV STA (16:57)
[2016-10-28] MEDS ORDERED: PANTOPRAZOLE SODIUM 40 MG in SODIUM CHLORIDE 100 ML IVPB ONE (16:58)
[2016-10-28] MEDS ORDERED: METOCLOPRAMIDE HCL INJECTION 10 MG/2 ML VIAL IVPB ONE (16:58)
[2016-10-28] MEDS ORDERED: METOCLOPRAMIDE HCL INJECTION 10 MG/2 ML VIAL ONE (17:10)
[2016-10-28] MEDS ORDERED: PANTOPRAZOLE SODIUM 40 MG VIAL ONE (17:11)
[2016-10-28 17:25] LABS: BASOPHIL 0.2 % (0-2.0); MCH 29.7 pg (25.7-33.7); MCHC 32.3 g/dl (32.0-36.0); MEAN CELL VOLUME 91.8 fl (80-96); MEAN PLT VOLUME 9.5 fl (7.5-11.1); PLATELET COUNT 287 K/MM3 (134-434); RDW 13.3 % (11.6-15.6); WHITE BLOOD COUNT 11.1 K/mm3 (4.0-10.0)
[2016-10-28 17:44] LABS: INR 1.28 (0.82-1.09); PROTHROMBIN TIME (PATIENT) 14.2 SEC (9.98-11.88)
[2016-10-28 17:59] LABS: ALBUMIN 4.6 g/dl (3.4-5.0); ALK PHOS 82 U/L (45-117); ANION GAP 14 (8-16); BILIRUBIN,TOTAL 0.8 mg/dL (0.2-1.0); CALCIUM 10.5 mg/dL (8.5-10.1); CO2 18 mmol/L (21-32); CREATININE 0.8 mg/dL (0.55-1.02); GLUCOSE,RANDOM 88 mg/dL (74-106); SGOT/AST 20 U/L (15-37); SGPT/ALT 20 U/L (12-78); TOT PROT 8.1 g/dl (6.4-8.2)
--- NOTE | 2016-10-28 18:43 | PDOC ---
History of Present Illness - General History Source: Patient Exam Limitations: No Limitations - History of Present Illness Initial Comments: 10/28/16 18:58 Patient is a 21 year old female with a significant past medical history of gastritis who presents to the ED with nausea, vomiting and diffuse abdominal pain for 2 days. Patient reports 10 episodes of vomiting, bilious with phlegm and mild blood strains. Patient states that she has waves of nausea every 15 minutes. She reports decreased PO intake. She notes that all the symptoms started yesterday and she presented to the [facility] for evaluation and was dc home on protonix. She notes that on Thursday she drank alcohol and smoked marijuana. Patient notes that her GI doctors told her not to take protonix because it causes constipation. She denies taking anything for nausea. She also reports diffuse abdominal pain. She reports prior gastritis work up in May [address] Grey and her endoscopy 2 months ago revealed inflammation. ALL - NKA PSH - None SH - smoking marijuana. GI - Dr. Grey PCP - Dr. Aldridge <Indy Fox - Last Filed: 10/28/16 18:57> <Kathryn Berrios - Last Filed: 10/28/16 22:48> - General Chief Complaint: Vomiting Blood Stated Complaint: VOMTING Time Seen by Provider: 10/28/16 16:16 Past History <Indy Fox - Last Filed: 10/28/16 18:57> - Past Medical History GI Disorders: Yes (gastritis) - Immunization History Immunization Up to Date: Yes - Psycho/Social/Smoking Cessation Hx Anxiety: No Suicidal Ideation: No Smoking History: Never smoked Have you smoked in the past 12 months: No Number of Cigarettes Smoked Daily: 2 Information on smoking cessation initiated: No 'Breaking Loose' booklet given: 12/09/15 Hx Alcohol Use: No Drug/Substance Use Hx: No Substance Use Type: Alcohol, Marijuana <Kathryn Berrios - Last Filed: 10/28/16 22:48> - Past Medical History Allergies/Adverse Reactions: Allergies Allergy/AdvReac Type Severity Reaction Status Date / Time No Known Allergies Allergy Verified 09/23/16 19:27 Home Medications: Ambulatory Orders Ondansetron [Zofran *Odt*] 8 mg SL TID PRN #12 od.tablet 10/28/16 Abd/GI Specific PMHX - Complaint Specific PMHX Colitis: No Diverticulitis: No Gall Bladder Disease: No GERD: No Hepatitis: No Irritable Bowel Synd (IBS): No GI Ulcer Disease: No <Kathryn Berriosh - Last Filed: 10/28/16 22:48> Review of Systems - Review of Systems Able to Perform ROS?: Yes Comments:: 10/28/16 18:58 CONSTITUTIONAL: Absent: fever, chills, diaphoresis, generalized weakness, malaise, loss of appetite HEENT: Absent: rhinorrhea, nasal congestion, throat pain, throat swelling, difficulty swallowing, mouth swelling, ear pain, eye pain, visual Changes CARDIOVASCULAR: Absent: chest pain, syncope, palpitations, irregular heart rate, lightheadedness , peripheral edema RESPIRATORY: Absent: cough, shortness of breath, dyspnea with exertion, orthopnea, wheezing, stridor, hemoptysis GASTROINTESTINAL: Present: nausea, vomiting, abdominal pain Absent: abdominal distension, diarrhea, constipation, melena, hematochezia GENITOURINARY: Absent: dysuria, frequency, urgency, hesitancy, hematuria, flank pain, genital pain MUSCULOSKELETAL: Absent: myalgia, arthralgia, joint swelling SKIN: Absent: rash, itching, pallor HEMATOLOGIC/IMMUNOLOGIC: Absent: easy bleeding, easy bruising, lymphadenopathy, frequent infections ENDOCRINE: Absent: unexplained weight gain, unexplained weight loss, heat intolerance, cold intolerance NEUROLOGIC: Absent: headache, focal weakness or paresthesias, dizziness, unsteady gait, seizure, mental status changes, bladder or bowel incontinence PSYCHIATRIC: Absent: anxiety, depression, suicidal or homicidal ideation, hallucinations. <Indy Fox - Last Filed: 10/28/16 18:57> *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 - Vital Signs Last Vital Signs Temp Pulse Resp BP Pulse Ox 98.3 F 76 18 142/90 100 10/28/16 15:46 10/28/16 15:46 10/28/16 15:46 10/28/16 15:46 10/28/16 15:46 - 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 Comments: 10/28/16 18:58 GENERAL: Well developed, well nourished. Awake and alert. No acute distress. HEENT: Normocephalic, atraumatic. PERRLA, EOMI. No conjunctival pallor. Sclera are non- icteric. Moist mucous membranes. Oropharynx is clear. NECK: Supple. Full ROM. No JVD. Carotid pulses 2+ and symmetric, without bruits. No thyromegaly. No lymphadenopathy. CARDIOVASCULAR: Regular rate and rhythm. No murmurs, rubs, or gallops. Distal pulses are 2+ and symmetric. PULMONARY: No evidence of respiratory distress. Lungs clear to auscultation bilaterally. No wheezing, rales or rhonchi. ABDOMINAL: Soft. Non-tender. Non-distended. No rebound or guarding. No organomegaly. Normoactive bowel sounds. MUSCULOSKELETAL Normal range of motion at all joints. No bony deformities or tenderness. No CVA tenderness. EXTREMITIES: No cyanosis. No clubbing. No edema. No calf tenderness. SKIN: Warm and dry. Normal capillary refill. No rashes. No jaundice. NEUROLOGICAL: Alert, awake, appropriate. Cranial nerves 2-12 intact. No deficits to light touch and temperature in face, upper extremities and lower extremities. No motor deficits in the in face, upper extremities and lower extremities. Normoreflexic in the upper and lower extremities. Normal speech. Toes are down-going bilaterally. PSYCHIATRIC: Cooperative. Good eye contact. Appropriate mood and affect. <Indy Fox - Last Filed: 10/28/16 18:57> - Vital Signs Last Vital Signs Temp Pulse Resp BP Pulse Ox 98.3 F 76 18 142/90 100 10/28/16 15:46 10/28/16 15:46 10/28/16 15:46 10/28/16 15:46 10/28/16 15:46 <Kathryn Berrios - Last Filed: 10/28/16 22:48> ED Treatment Course - LABORATORY CBC & Chemistry Diagram: 10/28/16 16:51 10/28/16 16:51 - ADDITIONAL ORDERS Additional order review: Laboratory Results 10/28/16 10/28/16 10/28/16 16:51 16:51 16:51 INR 1.28 H Sodium 140 Potassium 3.4 L Chloride 108 H Carbon Dioxide 18 L D Anion Gap 14 BUN 20 H Creatinine 0.8 Creat Clearance w eGFR > 60 Random Glucose 88 Calcium 10.5 H Total Bilirubin 0.8 D AST 20 D ALT 20 Alkaline Phosphatase 82 Total Protein 8.1 Albumin 4.6 Serum , Qual Blood Type B POSITIVE Antibody Screen Negative 10/28/16 16:43 INR Sodium Potassium Chloride Carbon Dioxide Anion Gap BUN Creatinine Creat Clearance w eGFR Random Glucose Calcium Total Bilirubin AST ALT Alkaline Phosphatase Total Protein Albumin Serum , Qual Negative Blood Type Antibody Screen 10/28/16 16:51 RBC 4.25 MCV 91.8 MCHC 32.3 RDW 13.3 MPV 9.5 Neutrophils % 88.0 H Lymphocytes % 6.9 L Monocytes % 4.9 Eosinophils % 0.0 Basophils % 0.2 - Medications Given in the ED: ED Medications Discontinued Medications Generic Name Dose Route Start Last Admin Trade Name Freq PRN Reason Stop Dose Admin Diphenhydramine HCl 25 mg 10/28/16 16:58 10/28/16 17:30 Benadryl Injection - IVPUSH 10/28/16 16:59 25 mg ONCE ONE Administration Sodium Chloride 1,000 mls @ 1,000 mls/hr 10/28/16 16:57 10/28/16 17:30 Normal Saline - IV 10/28/16 17:56 1,000 mls/hr ASDIR STA Administration Pantoprazole Sodium 40 mg/ 100 mls @ 200 mls/hr 10/28/16 16:58 10/28/16 17:30 Sodium Chloride IVPB 10/28/16 17:27 200 mls/hr ONCE ONE Administration Metoclopramide HCl 10 mg 10/28/16 16:58 10/28/16 17:30 Reglan Injection - IVPB 10/28/16 16:59 10 mg ONCE ONE Administration <Indy Fox - Last Filed: 10/28/16 18:57> - LABORATORY CBC & Chemistry Diagram: 10/28/16 16:51 10/28/16 16:51 - ADDITIONAL ORDERS Additional order review: Laboratory Results 10/28/16 10/28/16 16:51 16:43 Sodium 140 Potassium 3.4 L Chloride 108 H Carbon Dioxide 18 L D Anion Gap 14 BUN 20 H Creatinine 0.8 Creat Clearance w eGFR > 60 Random Glucose 88 Calcium 10.5 H Total Bilirubin 0.8 D AST 20 D ALT 20 Alkaline Phosphatase 82 Total Protein 8.1 Albumin 4.6 Serum , Qual Negative 10/28/16 16:51 RBC 4.25 MCV 91.8 MCHC 32.3 RDW 13.3 MPV 9.5 Neutrophils % 88.0 H Lymphocytes % 6.9 L Monocytes % 4.9 Eosinophils % 0.0 Basophils % 0.2 - Medications Given in the ED: ED Medications Discontinued Medications Generic Name Dose Route Start Last Admin Trade Name Jessie PRN Reason Stop Dose Admin Diphenhydramine HCl 25 mg 10/28/16 16:58 10/28/16 17:30 Benadryl Injection - IVPUSH 10/28/16 16:59 25 mg ONCE ONE Administration Sodium Chloride 1,000 mls @ 1,000 mls/hr 10/28/16 16:57 10/28/16 17:30 Normal Saline - IV 10/28/16 17:56 1,000 mls/hr ASDIR STA Administration Pantoprazole Sodium 40 mg/ 100 mls @ 200 mls/hr 10/28/16 16:58 10/28/16 17:30 Sodium Chloride IVPB 10/28/16 17:27 200 mls/hr ONCE ONE Administration Metoclopramide HCl 10 mg 10/28/16 16:58 10/28/16 17:30 Reglan Injection - IVPB 10/28/16 16:59 10 mg ONCE ONE Administration <Kathryn Berrios - Last Filed: 10/28/16 22:48> *DC/Admit/Observation/Transfer - Attestations Scribe Attestion: 10/28/16 18:59 Documentation prepared by SARAH Gasca, acting as medical nurse for Kathryn Berrios MD. <Indy Fox - Last Filed: 10/28/16 18:57> <Kathryn Berrios - Last Filed: 10/28/16 22:48> Diagnosis at time of Disposition: Gastritis Qualifiers: Gastritis type: unspecified gastritis Chronicity: chronic Gastritis bleeding: presence of bleeding unspecified Qualified Code(s): K29.50 - Unspecified chronic gastritis without bleeding - Discharge Dispostion Disposition: HOME Condition at time of disposition: Stable - Prescriptions Prescriptions: Ondansetron [Zofran *Odt*] 8 mg SL TID PRN #12 od.tablet PRN Reason: Nausea And/Or Vomiting - Referrals Referrals: Flakito Aldridge [Primary Care Provider] - - Patient Instructions Additional Instructions: please follow up with your seed buyer pickle sorter your prescription at [facility]
[2016-10-28] MEDS ORDERED: MAG HYDROX/AL HYDROX/SIMETH 30 ML UNIT-DOSE CUP PO ONE (20:01)
[2016-10-28] MEDS ORDERED: ONDANSETRON 4 MG/2 ML VIAL IVPUSH ONE (20:01)
[2016-10-28] MEDS ORDERED: ONDANSETRON 4 MG/2 ML VIAL ONE (20:19)
[2016-10-28] MEDS ORDERED: MAG HYDROX/AL HYDROX/SIMETH 30 ML UNIT-DOSE CUP ONE (20:19)
== END 2016-10-28 22:57 | disposition home or self-care (01) ==
LOC: JER 15:44
PROC: 3E033GC Introduction of Other Therapeutic Substance into Peripheral Vein, Percutaneous Approach (ICD-10-PCS; principal; 2016-10-28)
PROC: 3E033GC Introduction of Other Therapeutic Substance into Peripheral Vein, Percutaneous Approach (ICD-10-PCS; 2016-10-28)
PROC: 3E033GC Introduction of Other Therapeutic Substance into Peripheral Vein, Percutaneous Approach (ICD-10-PCS; 2016-10-28)
DX: K29.50 Unspecified chronic gastritis without bleeding (principal)
CPT/HCPCS: 36415; 80053; 83605; 84703; 85025; 85610; 86850; 86900; 86901; 99282-25

== ENCOUNTER → 2016-11-01 | Emergency (ER) | payer OTHER ==
[~2016-11-01] MED LIST: KCL 10 MEQ IVPB 100 ML IVPB ONE; KCL 10 MEQ IVPB 100 ML IVPB SCH; LIDOCAINE VISCOUS 2% ORAL/TOP 20 ML UNIT-DOSE CUP MM ONE; LORAZEPAM CARPU-JECT 2 MG/ML DISP.SYRIN IM ONE; LORAZEPAM CARPU-JECT 2 MG/ML DISP.SYRIN IVPUSH ONE; LORAZEPAM CARPU-JECT 2 MG/ML DISP.SYRIN ONE; MAG HYDROX/AL HYDROX/SIMETH 30 ML UNIT-DOSE CUP ONE; MAG HYDROX/AL HYDROX/SIMETH 30 ML UNIT-DOSE CUP PO ONE; ONDANSETRON 4 MG/2 ML VIAL IVPUSH ONE; ONDANSETRON 4 MG/2 ML VIAL ONE; POTASSIUM CHLORIDE TABS 20 MEQ TABLET.ER (FP) PO ONE; SODIUM CHLORIDE 1,000 ML IV STA; morphine CARPU-JECT 4 MG/1 ML DISP.SYRIN IVPUSH ONE; morphine CARPU-JECT 4 MG/1 ML DISP.SYRIN ONE
[2016-11-01 16:57] VITALS: BMI 24.4
--- NOTE | 2016-11-01 17:20 | PDOC ---
Attending Attestation - Resident Resident Name: Harrison Tello - HPI HPI: 11/02/16 14:28 Pt presents to the ED complaining of nausea, vomiting and diffuse abdominal pain similar to previous episodes of gastritis. - Physicial Exam PE: 11/02/16 14:33 Pt is well appearing in the ED with diffuse abdominal tenderness. - Medical Decision Making 11/02/16 14:3 Differential includes pancreatitis, biliary disease, less likely ectopic . Will check labs and give nausea control, reassess.
--- NOTE | 2016-11-01 17:21 | PDOC ---
History of Present Illness - General Chief Complaint: Nausea/Vomiting Stated Complaint: CHEST PAIN, VOMITTING Time Seen by Provider: 11/01/16 17:18 History Source: Patient Exam Limitations: No Limitations - History of Present Illness Initial Comments: 21 year old female with history of multiple ED visits for abdominal, nausea, vomiting and recent diagnosis of exocrine pancreatic insufficiency presenting with crampy abdominal pain, nausea, vomiting since 5 days ago on Thursday. She was recently seen for the same complaint in the ED on Thursday where it was found that she had two days of consistent alcohol ingestion in celebration of her 21st birthday. She believes that this triggered this current event that she has been suffering from. She is only on Protonix and Zofran at home but was recently prescribed Creon, Rifaxin, and Zofran but was unable to take medications today because of her symptoms. Denies fevers, chills, palpitations, chest pain other than above, recent travel, or sick contacts. Her PCP is Dr. Aldridge and her GI doctor is Dr. Grey. 11/01/16 17:59 Past History - Past Medical History Allergies/Adverse Reactions: Allergies Allergy/AdvReac Type Severity Reaction Status Date / Time No Known Allergies Allergy Verified 11/01/16 16:57 Home Medications: Ambulatory Orders Ondansetron [Zofran *Odt*] 8 mg SL TID PRN #12 od.tablet 10/28/16 GI Disorders: Yes (gastritis) - Immunization History Immunization Up to Date: Yes - Psycho/Social/Smoking Cessation Hx Anxiety: No Suicidal Ideation: No Smoking History: Never smoked Have you smoked in the past 12 months: No Number of Cigarettes Smoked Daily: 2 'Breaking Loose' booklet given: 12/09/15 Hx Alcohol Use: Yes (SOCIAL) Drug/Substance Use Hx: No Substance Use Type: None Review of Systems - Review of Systems Constitutional: No: Chills, Diaphoresis, Fever HEENTM: No: Blurred Vision, Tearing, Recent change in vision Respiratory: No: Cough, Orthopnea, Shortness of Breath Cardiac (ROS): No: Chest Pain, Edema, Lightheadedness, Palpitations ABD/GI: Yes: Nausea, Poor Appetite, Vomiting, Abdominal cramping : No: Dysuria, Discharge, Hematuria Musculoskeletal: No: Muscle Pain, Muscle Weakness Integumentary: No: Erythema, Flushing Neurological: No: See HPI, Headache, Numbness, Paresthesia Psychiatric: No: Anxiety, Depression *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 - Vital Signs Last Vital Signs Temp Pulse Resp BP Pulse Ox 97.5 F L 71 20 136/93 100 11/01/16 16:54 11/01/16 16:54 11/01/16 16:54 11/01/16 16:54 11/01/16 16:54 - 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 General Appearance: Yes: Appropriately Dressed, Apparent Distress HEENT: positive: EOMI, JENNIFER, Normal ENT Inspection, Other (moist mucous membranes). negative: Pharyngeal Erythema, Tonsillar Exudate Respiratory/Chest: positive: Lungs Clear, Normal Breath Sounds. negative: Chest Tender, Respiratory Distress, Accessory Muscle Use, Rales, Rhonchi, Wheezing Cardiovascular: positive: Regular Rhythm, Regular Rate, S1, S2. negative: Edema , Murmur Gastrointestinal/Abdominal: positive: Normal Bowel Sounds, Tender (Slightly tender to deep palpation in epigastrium), Soft. negative: Flat, Organomegaly, Pulsatile Mass Musculoskeletal: positive: Normal Inspection Extremity: positive: Normal Capillary Refill, Normal Range of Motion. negative : Tender Integumentary: positive: Normal Color, Dry, Warm Neurologic: positive: Fully Oriented, Alert, Normal Mood/Affect ED Treatment Course - LABORATORY CBC & Chemistry Diagram: 11/01/16 18:24 11/01/16 18:24 Medical Decision Making - Medical Decision Making 21 year old female with recent diagnosis of pancreatic enzyme insufficiency presenting with continued nausea and vomiting since last Thursday. This is most likely her EPI as her symptoms are exactly the same and it was most likely exacerbated by a two day drinking event for her 21st birthday. She has multiple presentations for gastritis in the past few months that seems to have been diagnosed by her PCP Luis Carlos as EPI and she received pancrelipase and rifaxin yesterday for it. However, she hasn't been able to keep any of the medications down at the moment. We will get a CBC, CMP and give her Zofran. Once she can tolerate PO she can go home and take her home medications. 11/01/16 19:51 Patient signed out to Dr. Savage at 7:05 AM in stable condition *DC/Admit/Observation/Transfer Diagnosis at time of Disposition: Pancreatic insufficiency - Discharge Dispostion Disposition: HOME Condition at time of disposition: Improved Admit: No - Referrals Referrals: Flakito Aldridge [Primary Care Provider] - Frederick Grey DO [Staff Physician] - - Attestations Physician Attestion: 11/01/16 19:53 I, Dr. Harrison Tello, attest that this document has been prepared under my direction and personally reviewed by me in its entirety. I further attest, that it accurately reflects all work, treatment, procedures and medical decision -making performed by me.
[2016-11-01 18:37] LABS: BASOPHIL 0.7 % (0-2.0); MCH 29.9 pg (25.7-33.7); MCHC 33.5 g/dl (32.0-36.0); MEAN CELL VOLUME 89.2 fl (80-96); MEAN PLT VOLUME 8.8 fl (7.5-11.1); NEUTROPHILS 77.7 % (42.8-82.8); PLATELET COUNT 328 K/MM3 (134-434); RDW 13.2 % (11.6-15.6); WHITE BLOOD COUNT 12.7 K/mm3 (4.0-10.0)
[2016-11-01 19:11] LABS: ALBUMIN 4.6 g/dl (3.4-5.0); ANION GAP 16 (8-16); BILIRUBIN,TOTAL 1.1 mg/dL (0.2-1.0); CALCIUM 10.2 mg/dL (8.5-10.1); CO2 21 mmol/L (21-32); CREATININE 0.6 mg/dL (0.55-1.02); GLUCOSE,RANDOM 72 mg/dL (74-106); SGPT/ALT 21 U/L (12-78); TOT PROT 8.3 g/dl (6.4-8.2)
[2016-11-01 19:12] LABS: ALK PHOS 80 U/L (45-117)
[2016-11-01 19:15] LABS: SGOT/AST 15 U/L (15-37)
--- NOTE | 2016-11-01 22:36 | PDOC ---
*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 - Vital Signs Last Vital Signs Temp Pulse Resp BP Pulse Ox 97.5 F L 71 20 136/93 100 11/01/16 16:54 11/01/16 16:54 11/01/16 16:54 11/01/16 16:54 11/01/16 16:54 - 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 General Appearance: Yes: Nourished, Appropriately Dressed, Apparent Distress ( patient seems restless and anxious, tearful at times.) HEENT: positive: EOMI, JENNIFER, Normal ENT Inspection, Normal Voice Respiratory/Chest: positive: Lungs Clear, Normal Breath Sounds. negative: Chest Tender Cardiovascular: positive: Regular Rhythm, Regular Rate, S1, S2 Gastrointestinal/Abdominal: positive: Tender, Rebound, Tenderness. negative: Guarding (epigastric and upper left quadrant) Musculoskeletal: positive: Normal Inspection. negative: CVA Tenderness Extremity: positive: Normal Capillary Refill, Normal Range of Motion ED Treatment Course - LABORATORY CBC & Chemistry Diagram: 11/01/16 18:24 11/01/16 18:24 - ADDITIONAL ORDERS Additional order review: Laboratory Results 11/01/16 11/01/16 18:24 18:24 Sodium 136 Potassium 3.0 L Chloride 99 Carbon Dioxide 21 Anion Gap 16 BUN 15 D Creatinine 0.6 D Creat Clearance w eGFR > 60 Random Glucose 72 L Calcium 10.2 H Total Bilirubin 1.1 H D AST 15 D ALT 21 Alkaline Phosphatase 80 Total Protein 8.3 H Albumin 4.6 Urine HCG, Qual Negative 11/01/16 18:24 RBC 4.68 MCV 89.2 MCHC 33.5 RDW 13.2 MPV 8.8 Neutrophils % 77.7 Lymphocytes % 12.7 D Monocytes % 8.9 D Eosinophils % 0.0 Basophils % 0.7 D - Medications Given in the ED: ED Medications Discontinued Medications Generic Name Dose Route Start Last Admin Trade Name Freq PRN Reason Stop Dose Admin Al Hydroxide/Mg Hydroxide 30 ml 11/01/16 20:29 11/01/16 21:47 Mylanta Oral Suspension - PO 11/01/16 20:30 30 ml ONCE ONE Administration Sodium Chloride 1,000 mls @ 1,000 mls/hr 11/01/16 20:13 11/01/16 20:34 Normal Saline - IV 11/01/16 21:12 1,000 mls/hr ASDIR STA Administration Potassium Chloride 100 mls @ 100 mls/hr 11/01/16 20:45 11/01/16 20:50 Potassium Chloride 10 Meq Premix Ivpb - IVPB 11/01/16 21:44 Not Given Q60M KALLI Potassium Chloride 100 mls @ 100 mls/hr 11/01/16 20:43 11/01/16 21:47 Potassium Chloride 10 Meq Premix Ivpb - IVPB 11/01/16 21:42 100 mls/hr NOW ONE Administration Lidocaine HCl 20 ml 11/01/16 20:34 11/01/16 21:47 Xylocaine 2% Viscous Oral - MM 11/01/16 20:35 20 ml ONCE ONE Administration Lorazepam 1 mg 11/01/16 20:25 11/01/16 21:49 Ativan Injection - IVPUSH 11/01/16 20:26 Not Given ONCE ONE Lorazepam 0.5 mg 11/01/16 20:43 11/01/16 21:49 Ativan Injection - IM 11/01/16 20:44 Not Given ONCE ONE Lorazepam 0.5 mg 11/01/16 20:51 11/01/16 21:47 Ativan Injection - IVPUSH 11/01/16 20:52 0.5 mg ONCE ONE Administration Morphine Sulfate 4 mg 11/01/16 20:22 11/01/16 20:34 Morphine Injection - IVPUSH 11/01/16 20:23 4 mg ONCE ONE Administration Ondansetron HCl 4 mg 11/01/16 17:58 11/01/16 18:36 Zofran Injection IVPUSH 11/01/16 17:59 4 mg ONCE ONE Administration Potassium Chloride 20 meq 11/01/16 20:14 11/01/16 20:41 K-Dur - PO 11/01/16 20:15 Not Given ONCE ONE Medical Decision Making - Medical Decision Making 11/01/16 22:35 21 *DC/Admit/Observation/Transfer Diagnosis at time of Disposition: Pancreatic insufficiency - Discharge Dispostion Disposition: HOME Condition at time of disposition: Improved - Referrals Referrals: Frederick Grey DO [Staff Physician] - Flakito Aldridge [Primary Care Provider] - - Patient Instructions - Post Discharge Activity
--- NOTE | 2016-11-02 00:48 | PDOC ---
*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 - Vital Signs Last Vital Signs Temp Pulse Resp BP Pulse Ox 97.5 F L 71 20 136/93 100 11/01/16 16:54 11/01/16 16:54 11/01/16 16:54 11/01/16 16:54 11/01/16 16:54 ED Treatment Course - LABORATORY CBC & Chemistry Diagram: 11/01/16 18:24 11/01/16 18:24 - ADDITIONAL ORDERS Additional order review: Laboratory Results 11/01/16 11/01/16 18:24 18:24 Sodium 136 Potassium 3.0 L Chloride 99 Carbon Dioxide 21 Anion Gap 16 BUN 15 D Creatinine 0.6 D Creat Clearance w eGFR > 60 Random Glucose 72 L Calcium 10.2 H Total Bilirubin 1.1 H D AST 15 D ALT 21 Alkaline Phosphatase 80 Total Protein 8.3 H Albumin 4.6 Urine HCG, Qual Negative 11/01/16 18:24 RBC 4.68 MCV 89.2 MCHC 33.5 RDW 13.2 MPV 8.8 Neutrophils % 77.7 Lymphocytes % 12.7 D Monocytes % 8.9 D Eosinophils % 0.0 Basophils % 0.7 D - RADIOLOGY Radiology Studies Ordered: Category Date Time Status ABDOMEN US -LIMITED [US] Stat Ultrasound 11/01/16 21:51 Taken - Medications Given in the ED: ED Medications Discontinued Medications Generic Name Dose Route Start Last Admin Trade Name Armandoq PRN Reason Stop Dose Admin Al Hydroxide/Mg Hydroxide 30 ml 11/01/16 20:29 11/01/16 21:47 Mylanta Oral Suspension - PO 11/01/16 20:30 30 ml ONCE ONE Administration Sodium Chloride 1,000 mls @ 1,000 mls/hr 11/01/16 20:13 11/01/16 20:34 Normal Saline - IV 11/01/16 21:12 1,000 mls/hr ASDIR STA Administration Potassium Chloride 100 mls @ 100 mls/hr 11/01/16 20:45 11/01/16 20:50 Potassium Chloride 10 Meq Premix Ivpb - IVPB 11/01/16 21:44 Not Given Q60M KALLI Potassium Chloride 100 mls @ 100 mls/hr 11/01/16 20:43 11/01/16 21:47 Potassium Chloride 10 Meq Premix Ivpb - IVPB 11/01/16 21:42 100 mls/hr NOW ONE Administration Lidocaine HCl 20 ml 07/15/17 20:34 11/01/16 21:47 Xylocaine 2% Viscous Oral - MM 11/01/16 20:35 20 ml ONCE ONE Administration Lorazepam 1 mg 11/01/16 20:25 11/01/16 21:49 Ativan Injection - IVPUSH 11/01/16 20:26 Not Given ONCE ONE Lorazepam 0.5 mg 11/01/16 20:43 11/01/16 21:49 Ativan Injection - IM 11/01/16 20:44 Not Given ONCE ONE Lorazepam 0.5 mg 11/01/16 20:51 11/01/16 21:47 Ativan Injection - IVPUSH 11/01/16 20:52 0.5 mg ONCE ONE Administration Morphine Sulfate 4 mg 11/01/16 20:22 11/01/16 20:34 Morphine Injection - IVPUSH 11/01/16 20:23 4 mg ONCE ONE Administration Ondansetron HCl 4 mg 11/01/16 17:58 11/01/16 18:36 Zofran Injection IVPUSH 11/01/16 17:59 4 mg ONCE ONE Administration Potassium Chloride 20 meq 11/01/16 20:14 11/01/16 20:41 K-Dur - PO 11/01/16 20:15 Not Given ONCE ONE Medical Decision Making - Medical Decision Making 11/02/16 00:42 This patient is a 21-year-old female presented to emergency department with a complaint of abdominal pain. Patient states that approximately one week ago she went out drinking and overdid it very Since then she's noted epigastric pain, tenderness, nausea, vomiting, inability to tolerate by mouth. No fevers no chills. Patient has no lower abdominal tenderness. She has previously had these symptoms, hasn't seen by a primary care physician and GI doctor. She status post an upper endoscopy 2 months ago which was significant for gastritis and inflammation of the distal esophagus. She was seen at an outside hospital 4 months ago, s/p CT of the abdomen and pelvis US today negative Pt given Pepcid, Ativan 0.5mg, Maalox, Viscous lidocain Pt improved Will discharge to home Will ask pt to follow up with PMD and GI (recommendation from dishwasher preparer was to do an emptying study) *DC/Admit/Observation/Transfer Diagnosis at time of Disposition: Pancreatic insufficiency Gastritis Qualifiers: Gastritis type: unspecified gastritis Chronicity: chronic Gastritis bleeding: without bleeding Qualified Code(s): K29.50 - Unspecified chronic gastritis without bleeding - Discharge Dispostion Disposition: HOME Condition at time of disposition: Improved Admit: No - Referrals Referrals: Frederick Grey DO [Staff Physician] - Flakito Aldridge [Primary Care Provider] - - Patient Instructions Printed Discharge Instructions: DI for Gastritis, Gastritis (Alternative Therapy), [place] Diet Additional Instructions: Thank you for coming in to the ER today Please take medications as prescribed Please follow up with [facility] Return to the ER for any other concerns or complaints - Post Discharge Activity Work/School Note: Back to Work
[2016-11-02 01:12] VITALS: BP 146/80; PULSE 70; TEMP 98
--- NOTE | 2016-11-02 13:56 | EKG ---
Test Reason : Blood Pressure : / mmHG Vent. Rate : 057 BPM Atrial Rate : 057 BPM P-R Int : 138 ms QRS Dur : 082 ms QT Int : 446 ms P-R-T Axes : 033 059 060 degrees QTc Int : 434 ms SINUS BRADYCARDIA OTHERWISE NORMAL ECG NO PREVIOUS ECGS AVAILABLE Confirmed by WILLY ONEILL, JOE ([id number]) on 11/02/2016 1:56:32 PM Referred By: Confirmed By:JOE AGUILERA MD
== END | disposition home or self-care (01) ==
LOC: JER 16:53
PROC: 3E0337Z Introduction of Electrolytic and Water Balance Substance into Peripheral Vein, Percutaneous Approach (ICD-10-PCS; principal; 2016-11-01)
PROC: 3E033NZ Introduction of Analgesics, Hypnotics, Sedatives into Peripheral Vein, Percutaneous Approach (ICD-10-PCS; 2016-11-01)
PROC: 3E033GC Introduction of Other Therapeutic Substance into Peripheral Vein, Percutaneous Approach (ICD-10-PCS; 2016-11-01)
PROC: 3E033NZ Introduction of Analgesics, Hypnotics, Sedatives into Peripheral Vein, Percutaneous Approach (ICD-10-PCS; 2016-11-01)
DX: K86.81 Exocrine pancreatic insufficiency (principal); E87.6 Hypokalemia
CPT/HCPCS: 36415; 76705-TC; 80053; 84703; 85025; 93005; 93010; 99283-25

== ENCOUNTER 2017-05-13 20:12 | Emergency (ER) | payer OTHER ==
[2017-05-13] MEDS ORDERED: RANITIDINE HCL 150 MG TABLET (FP) PO ONE (21:40)
[2017-05-13] MEDS ORDERED: ONDANSETRON *ODT* 4 MG TABLET SL ONE (21:40)
--- NOTE | 2017-05-13 21:41 | PDOC ---
Rapid Medical Evaluation Time Seen by Provider: 05/13/17 21:38 Medical Evaluation: Allergies Allergy/AdvReac Type Severity Reaction Status Date / Time No Known Allergies Allergy Verified 11/01/16 16:57 I have performed a brief in-person evaluation of this patient. The patient presents with a chief complaint of: gastritis symptoms. vomiting bile. Has had episodes of this in the past Pertinent physical exam findings: epigastric TTP. Negative campbell's sign I have ordered the following: UA/hcg, zofran, zantac, labs The patient will proceed to the ED for further evaluation.
[2017-05-13 21:42] VITALS: BP 127/76; PULSE 83; TEMP 99; BMI 22.6
[2017-05-13 22:10] LABS: BASO % 0.2 % (0-2.0); HEMATOCRIT 37.3 % (32.4-45.2); HEMOGLOBIN 12.4 GM/dL (10.7-15.3); MCH 30.4 pg (25.7-33.7); MCHC 33.1 g/dl (32.0-36.0); MEAN CELL VOLUME 91.7 fl (80-96); MEAN PLT VOLUME 9.3 fl (7.5-11.1); MONO % 2.6 % (3.8-10.2); NEUT % 94.2 % (42.8-82.8); PLATELET COUNT 257 K/MM3 (134-434); RBC 4.07 M/mm3 (3.60-5.2); WHITE BLOOD COUNT 11.1 K/mm3 (4.0-10.0)
[2017-05-13] MEDS ORDERED: SODIUM CHLORIDE 0.9% 1000 ML INFUS.BAG IV ONE (22:20)
[2017-05-13] MEDS ORDERED: FAMOTIDINE IV 20 MG/12 ML VIAL IVPUSH ONE (22:21)
[2017-05-13] MEDS ORDERED: ONDANSETRON 4 MG/2 ML VIAL IVPUSH ONE (22:21)
[2017-05-13 22:49] LABS: ALBUMIN 4.7 g/dl (3.4-5.0); ALK PHOS 64 U/L (45-117); ANION GAP 12 (8-16); BILIRUBIN,TOTAL 0.6 mg/dL (0.2-1.0); BLOOD UREA NITROGEN 16 mg/dL (7-18); CALCIUM 9.4 mg/dL (8.5-10.1); CHLORIDE 108 mmol/L (98-107); CO2 19 mmol/L (21-32); CREATININE 0.7 mg/dL (0.55-1.02); GLUCOSE,RANDOM 126 mg/dL (74-106); LIPASE 56 U/L (73-393); POTASSIUM 4.1 mmol/L (3.5-5.1); SGOT/AST 12 U/L (15-37); SGPT/ALT 23 U/L (12-78); SODIUM 139 mmol/L (136-145); TOT PROT 8.2 g/dl (6.4-8.2)
[2017-05-13] MEDS ORDERED: RANITIDINE HCL 150 MG TABLET (FP) ONE (23:53)
[2017-05-13] MEDS ORDERED: ONDANSETRON 4 MG/2 ML VIAL ONE (23:54)
[2017-05-13] MEDS ORDERED: ONDANSETRON *ODT* 4 MG TABLET ONE (23:54)
[2017-05-13] MEDS ORDERED: FAMOTIDINE 20 MG/50 ML IVPB 20 MG/50 ML MG IVPB ONE (23:54)
--- NOTE | 2017-05-14 00:08 | PDOC ---
History of Present Illness - General Chief Complaint: Pain, Acute Stated Complaint: PAIN Time Seen by Provider: 05/13/17 21:38 - History of Present Illness Initial Comments: 05/13/17 23:56 CHIEF COMPLAINT: vomiting HISTORY OF PRESENT ILLNESS: 21 yo F with hx of gastritis and IBS presents to ED with vomiting, epigastric abdominal pain since noon. Patient reports "like 20 episodes of vomiting" since noon. She denies any fever, chills, diarrhea or rectal bleeding. On arrival to ED patient was persistently vomiting bile colored emesis. No recent travel or sick contacts. PAST MEDICAL HISTORY: Denies past medical history FAMILY HISTORY: Denies SOCIAL HISTORY: Denies tobacco, alcohol, illicit drug use. SURGICAL HISTORY: Denies ALLERGIES: No known drug allergies REVIEW OF SYSTEMS as per HPI PHYSICAL EXAM General Appearance: Well-appearing, appropriately dressed. No apparent distress. HEENT: EOMI, PERRLA, normal ENT inspection, normal voice, TMs normal, pharynx normal. No conjunctival pallor. No photophobia, scleral icterus. Respiratory/Chest: Lungs CTAB. No shortness of breath, chest tenderness, respiratory distress, accessory muscle use. No crackles, rales, rhonchi, stridor , wheezing, dullness Cardiovascular: RRR. S1, S2. Gastrointestinal/Abdominal: Epigastric tenderness, no tenderness to RLQ, negative Santos's sign. Normal bowel sounds. Abdomen soft, non-distended. No tenderness or rebound tenderness. No organomegaly, pulsatile mass, guarding, hernia, hepatomegaly, splenomegaly. Lymphatic: No adenopathy, tenderness. Musculoskeletal/Extremities: Normal inspection. FROM of all extremities, normal capillary refill. Pelvis Stable. No CVA tenderness. No tenderness to extremities, pedal edema, swelling, erythema or deformity. Integumentary: Appropriate color, dry, warm. No cyanosis, erythema, jaundice or rash Neurologic: circular tank cooper II-XII intact. Fully oriented, alert. Appropriate mood/affect. Motor strength 5/5. No appreciable EOM palsy, facial droop or sensory deficit. 05/14/17 01:49 Past History - Past Medical History Allergies/Adverse Reactions: Allergies Allergy/AdvReac Type Severity Reaction Status Date / Time No Known Allergies Allergy Verified 05/13/17 21:39 Home Medications: Ambulatory Orders Nitrofurantoin Monohyd/M-Cryst [Macrobid -] 100 mg PO BID #14 capsule 05/14/17 Ondansetron [Zofran *Odt*] 8 mg SL TID PRN #21 od.tablet 05/14/17 Pantoprazole Sodium [Protonix] 40 mg PO DAILY #20 tablet. 05/14/17 COPD: No GI Disorders: Yes (gastritis) - Immunization History Immunization Up to Date: Yes - Suicide/Smoking/Psychosocial Hx Smoking History: Former smoker Have you smoked in the past 12 months: No Number of Cigarettes Smoked Daily: 2 Information on smoking cessation initiated: No 'Breaking Loose' booklet given: 12/09/15 Hx Alcohol Use: Yes (SOCIAL) Drug/Substance Use Hx: No Substance Use Type: None Abd/GI Specific PMHX - Complaint Specific PMHX Colitis: No Diverticulitis: No Gall Bladder Disease: No GERD: No Hepatitis: No Irritable Bowel Synd (IBS): No GI Ulcer Disease: No *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 - Vital Signs Last Vital Signs Temp Pulse Resp BP Pulse Ox 99 F 83 20 127/76 100 05/13/17 21:39 05/13/17 21:39 05/13/17 21:39 05/13/17 21:39 05/13/17 21:39 ED Treatment Course - LABORATORY CBC & Chemistry Diagram: 05/13/17 21:48 05/13/17 21:48 - ADDITIONAL ORDERS Additional order review: Laboratory Results 05/13/17 21:48 Sodium 139 Potassium 4.1 Chloride 108 H Carbon Dioxide 19 L Anion Gap 12 BUN 16 Creatinine 0.7 Creat Clearance w eGFR > 60 Random Glucose 126 H Calcium 9.4 Total Bilirubin 0.6 D AST 12 L ALT 23 Alkaline Phosphatase 64 Total Protein 8.2 Albumin 4.7 Lipase 56 L 05/13/17 21:48 RBC 4.07 MCV 91.7 MCHC 33.1 RDW 13.0 MPV 9.3 Neutrophils % 94.2 H D Lymphocytes % 3.0 L D Monocytes % 2.6 L Eosinophils % 0.0 Basophils % 0.2 Medical Decision Making - Medical Decision Making 21 yo F with hx of gastritis and IBS presents to ED with vomiting, epigastric abdominal pain since noon. -IVF, pepcid, zofran, protonix Patient reports that vomiting has improved but she still is nauseous with abd pain. -Tigan Per RN patient vomited after Tigan. Bentyl po. Labs positive for marijuana, likely secondarty to cyclical vomiting associated with marijuana use. Patient also positive for UTI, will treat with macrobid. Advised patient to take medication as prescribed. Advised patient of signs and symptoms for return to ED. Patient verbalized understanding and agrees to plan. *DC/Admit/Observation/Transfer Diagnosis at time of Disposition: Cyclical vomiting Qualifiers: Vomiting Intractability: non-intractable Nausea presence: with nausea Qualified Code(s): G43.A0 - Cyclical vomiting, not intractable UTI (urinary tract infection) Qualifiers: Urinary tract infection type: site unspecified Hematuria presence: with hematuria Qualified Code(s): N39.0 - Urinary tract infection, site not specified ; R31.9 - Hematuria, unspecified; R31.9 - Hematuria, unspecified - Discharge Dispostion Disposition: HOME Condition at time of disposition: Stable Admit: No - Prescriptions Prescriptions: Nitrofurantoin Monohyd/M-Cryst [Macrobid -] 100 mg PO BID #14 capsule Ondansetron [Zofran *Odt*] 8 mg SL TID PRN #21 od.tablet PRN Reason: Nausea And/Or Vomiting Pantoprazole Sodium [Protonix] 40 mg PO DAILY #20 tablet.dr - Referrals Referrals: Eliot Rodriguez MD [Staff Physician] - Frederick Grey DO [Staff Physician] - - Patient Instructions Printed Discharge Instructions: DI for Vomiting -- Adult Additional Instructions: Please take medications as prescribed. You must follow up with gastroenterology within the next 3-5 days for continued management of your abdominal pain and vomiting. If you develop any fever, chills, diarrhea, or any new or worsening symptoms, please return to the ER. - Post Discharge Activity Forms/Work/School Notes: Back to Work
[2017-05-14] MEDS ORDERED: MAG HYDROX/AL HYDROX/SIMETH 355 ML ORAL.SUSP PO ONE (01:46)
[2017-05-14] MEDS ORDERED: DICYCLOMINE HCL 10 MG CAPSULE PO ONE (01:46)
[2017-05-14] MEDS ORDERED: MAG HYDROX/AL HYDROX/SIMETH 30 ML UNIT-DOSE CUP ONE (01:57)
[2017-05-14] MEDS ORDERED: DICYCLOMINE HCL 10 MG CAPSULE ONE (01:57)
[2017-05-14 02:16] LABS: URINE APPEARANCE CLOUDY; URINE BILIRUBIN NEGATIVE (NEGATIVE); URINE BLOOD NEGATIVE (NEGATIVE); URINE GLUCOSE (UA) NEGATIVE (NEGATIVE); URINE KETONE 2+ (NEGATIVE); URINE LEUK ESTERASE NEGATIVE (NEGATIVE); URINE NITRITE NEGATIVE (NEGATIVE); URINE UROBILINOGEN NEGATIVE mg/dL (0.2-1.0)
[2017-05-14 02:23] LABS: URINE COLOR YELLOW; URINE PROTEIN 1+ (NEGATIVE)
[2017-05-14 02:24] LABS: COCAINE, UR NEGATIVE ng/ml (CUTOFF=300); METHADONE, UR NEGATIVE ng/ml (CUTOFF=300); OPIATES, URI NEGATIVE ng/ml (CUTOFF=300); PHENCYCLIDINE,URINE NEGATIVE ng/ml (CUTOFF=25); URINE AMPHETAMINES NEGATIVE ng/ml (CUTOFF=500); URINE BARBITURATES NEGATIVE ng/ml (CUTOFF=200); URINE BENZODIAZEPINES NEGATIVE ng/ml (CUTOFF=200)
[2017-05-14 02:30] LABS: EPI CELLS MODERATE /HPF (FEW); URINE MUCUS MODERATE
[2017-05-14 05:58] LABS: HCG,QUALITATIVE URINE NEGATIVE
== END 2017-05-14 02:12 | disposition home or self-care (01) ==
LOC: JER 20:12
PROC: 3E033GC Introduction of Other Therapeutic Substance into Peripheral Vein, Percutaneous Approach (ICD-10-PCS; principal; 2017-05-13)
PROC: 3E0337Z Introduction of Electrolytic and Water Balance Substance into Peripheral Vein, Percutaneous Approach (ICD-10-PCS; 2017-05-13)
DX: G43.A0 Cyclical vomiting, in migraine, not intractable (principal); N39.0 Urinary tract infection, site not specified; R31.9 Hematuria, unspecified
CPT/HCPCS: 36415; 80053; 80307; 81003; 81015; 83690; 84703; 85025; 99283-25

== ENCOUNTER 2017-05-14 12:30 | Inpatient (IN) | payer OTHER ==
[2017-05-14] MEDS ORDERED: METOCLOPRAMIDE HCL INJECTION 10 MG/2 ML VIAL IVPB ONE (13:54)
[2017-05-14] MEDS ORDERED: METOCLOPRAMIDE HCL INJECTION 10 MG/2 ML VIAL ONE ×2 (13:56→14:09)
[2017-05-14] MEDS ORDERED: SODIUM CHLORIDE 0.9% 500 ML INFUS.BAG IV ONE (14:01)
[2017-05-14 14:28] LABS: BASO % 0.1 % (0-2.0); EOS % 0.1 % (0-4.5); HEMATOCRIT 39.7 % (32.4-45.2); HEMOGLOBIN 13.1 GM/dL (10.7-15.3); LYMPH % 6.6 % (8-40); MCH 30.6 pg (25.7-33.7); MEAN CELL VOLUME 92.7 fl (80-96); MEAN PLT VOLUME 9.4 fl (7.5-11.1); MONO % 6.7 % (3.8-10.2); NEUT % 86.5 % (42.8-82.8); PLATELET COUNT 256 K/MM3 (134-434); RBC 4.28 M/mm3 (3.60-5.2); RDW 13.5 % (11.6-15.6); WHITE BLOOD COUNT 12.7 K/mm3 (4.0-10.0)
[2017-05-14 14:40] LABS: ALBUMIN 4.8 g/dl (3.4-5.0); ALK PHOS 70 U/L (45-117); AMYLASE 76 U/L (25-115); ANION GAP 9 (8-16); BILIRUBIN,TOTAL 0.7 mg/dL (0.2-1.0); BLOOD UREA NITROGEN 13 mg/dL (7-18); CALCIUM 9.7 mg/dL (8.5-10.1); CHLORIDE 106 mmol/L (98-107); CO2 23 mmol/L (21-32); CREATININE 0.8 mg/dL (0.55-1.02); GLUCOSE,RANDOM 93 mg/dL (74-106); SGPT/ALT 23 U/L (12-78); SODIUM 138 mmol/L (136-145); TOT PROT 8.6 g/dl (6.4-8.2)
[2017-05-14 14:41] LABS: LIPASE 303 U/L (73-393)
[2017-05-14 14:42] LABS: POTASSIUM 4.1 mmol/L (3.5-5.1); SGOT/AST 17 U/L (15-37)
[2017-05-14] MEDS ORDERED: FAMOTIDINE IV 20 MG/12 ML VIAL IVPUSH STA (14:51)
[2017-05-14] MEDS ORDERED: FAMOTIDINE 20 MG/50 ML IVPB 20 MG/50 ML MG IVPB ONE (14:55)
[2017-05-14] MEDS ORDERED: ONDANSETRON *ODT* 4 MG TABLET SL ONE (14:57)
--- NOTE | 2017-05-14 15:03 | PDOC ---
History of Present Illness - General Chief Complaint: Nausea/Vomiting Stated Complaint: REVISIT, NAUSEA/VOMITING Time Seen by Provider: 05/14/17 13:36 History Source: Patient Exam Limitations: No Limitations - History of Present Illness Travel History: No Initial Comments: 05/14/17 14:58 21 yr female history of gastritis presents to ER for vomiting and severe abd foote. Pt seen in ER late last night early this am for same dc home with UTI and gastritis. 05/14/17 15:27 Timing/Duration: reports: constant, getting worse Quality: reports: severe, cramping, stabbing Abdominal Pain Onset Location: reports: epigastric Past History - Past Medical History Allergies/Adverse Reactions: Allergies Allergy/AdvReac Type Severity Reaction Status Date / Time No Known Allergies Allergy Verified 05/14/17 12:52 Home Medications: Ambulatory Orders Lipase/Protease/Amylase [Faustino Jarrett 12,000 Units Capsule] 1 each PO ASDIR Nitrofurantoin Monohyd/M-Cryst [Macrobid -] 100 mg PO BID #14 capsule 05/14/17 Ondansetron [Zofran *Odt*] 8 mg SL TID PRN #21 od.tablet 05/14/17 Pantoprazole Sodium [Protonix] 40 mg PO DAILY #20 tablet. 05/14/17 Rifaximin [Xifaxan] 550 mg PO ASDIR 05/14/17 COPD: No GI Disorders: Yes (gastritis) Psychiatric Problems: Yes (ANXIETY) Comment:: 05/14/17 15:00 - Immunization History Immunization Up to Date: Yes - Suicide/Smoking/Psychosocial Hx Smoking History: Never smoked Have you smoked in the past 12 months: No Number of Cigarettes Smoked Daily: 2 Information on smoking cessation initiated: No 'Breaking Loose' booklet given: 12/09/15 Hx Alcohol Use: No Drug/Substance Use Hx: No Substance Use Type: None Abd/GI Specific PMHX - Complaint Specific PMHX Colitis: No Diverticulitis: No Gall Bladder Disease: No GERD: No Hepatitis: No Irritable Bowel Synd (IBS): No GI Ulcer Disease: No Review of Systems - Review of Systems Able to Perform ROS?: Yes Is the patient limited Congolese proficient: No Constitutional: No: Symptoms Reported HEENTM: No: Symptoms Reported Respiratory: No: Symptoms reported Cardiac (ROS): No: Symptoms Reported ABD/GI: Yes: Symptoms Reported : No: Symptoms Reported Musculoskeletal: No: Symptoms Reported Integumentary: No: Symptoms Reported Neurological: No: Symptoms reported *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 - Vital Signs Last Vital Signs Temp Pulse Resp BP Pulse Ox 98.8 F 66 17 126/67 100 05/14/17 12:53 05/14/17 12:53 05/14/17 12:53 05/14/17 12:53 05/14/17 12:53 - 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 General Appearance: Yes: Nourished, Appropriately Dressed HEENT: positive: EOMI, JENNIFER, TMs Normal Neck: positive: Supple. negative: Tender Respiratory/Chest: positive: Lungs Clear, Normal Breath Sounds. negative: Chest Tender Gastrointestinal/Abdominal: positive: Tender, Soft, Increased Bowel Sounds, Other (no guarding) Musculoskeletal: positive: Normal Inspection. negative: CVA Tenderness, CVA Tenderness (R), CVA Tenderness (L) Extremity: positive: Normal Capillary Refill, Normal Inspection, Normal Range of Motion Integumentary: positive: Normal Color, Dry, Warm Neurologic: positive: Fully Oriented, Alert, Normal Mood/Affect, Normal Response , Motor Strength 5/5 ED Treatment Course - LABORATORY CBC & Chemistry Diagram: 05/14/17 14:00 05/14/17 14:00 - ADDITIONAL ORDERS Additional order review: Laboratory Results 05/14/17 14:00 Sodium 138 Potassium 4.1 Chloride 106 Carbon Dioxide 23 Anion Gap 9 BUN 13 Creatinine 0.8 Creat Clearance w eGFR > 60 Random Glucose 93 Calcium 9.7 Total Bilirubin 0.7 AST 17 ALT 23 Alkaline Phosphatase 70 Total Protein 8.6 H Albumin 4.8 Total Amylase 76 Lipase 303 05/14/17 14:00 RBC 4.28 MCV 92.7 MCHC 33.0 RDW 13.5 MPV 9.4 Neutrophils % 86.5 H Lymphocytes % 6.6 L D Monocytes % 6.7 D Eosinophils % 0.1 D Basophils % 0.1 - Medications Given in the ED: ED Medications Discontinued Medications Generic Name Dose Route Start Last Admin Trade Name Freq PRN Reason Stop Dose Admin Diphenhydramine HCl 25 mg 05/14/17 13:54 05/14/17 14:10 Benadryl Injection - IVPB 05/14/17 13:55 25 mg ONCE ONE Administration Metoclopramide HCl 10 mg 05/14/17 13:54 05/14/17 14:30 Reglan Injection - IVPB 05/14/17 13:55 10 mg ONCE ONE Administration Sodium Chloride 1,000 ml 05/14/17 14:01 05/14/17 14:15 Normal Saline - IV 05/14/17 14:02 1,000 ml ONCE ONE Administration Medical Decision Making - Medical Decision Making 05/14/17 15:42 cc: vomiting and abd pain, second visit to ER in 12hrs dx with UTI (has not filled RX for macrobid) and gastritis , pt has history of gastritis neg RLQ abd tenderness denies vaginal discharge or urinary complaints no back pain neg CVA tenderness will give IVF hydration, reglan, benadryl, pepcid and re-evaluate pt vomiting bile , will give zofran pt continues to get IVF hydration, pt is not feeling better will transfer to main ER for further care. transfered to . will obs pt, I have microblogged the hospitalist. 05/14/17 15:57 epifanio Spence states admits and Dr.Iyad Patrick is covering. 05/14/17 16:32 05/14/17 16:[address]Iyad Patrick who accepted his admission. pt and her boyfriend are aware. *DC/Admit/Observation/Transfer Diagnosis at time of Disposition: Gastritis Qualifiers: Gastritis type: unspecified gastritis Chronicity: acute Gastritis bleeding: without bleeding Qualified Code(s): K29.00 - Acute gastritis without bleeding Cyclical vomiting Qualifiers: Vomiting Intractability: intractable Nausea presence: with nausea Qualified Code(s): G43.A1 - Cyclical vomiting, intractable - Discharge Dispostion Admit: Yes - Referrals Referrals: Tyrell Patrick MD [Staff Physician] - Flakito Aldridge [Primary Care Provider] - - Patient Instructions - Post Discharge Activity
[2017-05-14] MEDS ORDERED: ONDANSETRON *ODT* 4 MG TABLET ONE (15:05)
[2017-05-14] MEDS ORDERED: CEFAZOLIN 1 GM PUSH 1 GM/10 ML DISP.SYRIN IVPUSH ONE ×2 (16:00→16:32)
[2017-05-14] MEDS ORDERED: SODIUM CHLORIDE 1,000 ML IV STA (16:41)
[2017-05-14] MEDS ORDERED: PROTEASE PO SCH (16:45)
[2017-05-14] MEDS ORDERED: [UNRECOGNIZED DRUG - OTHER] PO SCH (16:45)
[2017-05-14] MEDS ORDERED: LIPASE PO SCH (16:45)
[2017-05-14] MEDS ORDERED: AMYLASE PO SCH (16:45)
[2017-05-14] MEDS: D5-1/2NS+20 MEQ KCL - 20 MEQ/1,000 ML INFUS.BAG IV SCH (23:14)
[2017-05-14] MEDS: HEPARIN NA (PORCINE) 5,000 UNITS/ML 1ML VIAL SQ SCH (23:19)
[2017-05-14] MEDS: PANTOPRAZOLE SODIUM 40 MG VIAL IVPUSH SCH (23:20)
[2017-05-15] MEDS: ONDANSETRON 4 MG/2 ML VIAL IVPUSH PRN ×2 (07:47→21:57)
[2017-05-15 08:36] LABS: BASO % 0.3 % (0-2.0); HEMATOCRIT 34.9 % (32.4-45.2); HEMOGLOBIN 11.4 GM/dL (10.7-15.3); LYMPH % 11.1 % (8-40); MCH 30.2 pg (25.7-33.7); MCHC 32.8 g/dl (32.0-36.0); MEAN CELL VOLUME 92.3 fl (80-96); MEAN PLT VOLUME 9.4 fl (7.5-11.1); MONO % 8.3 % (3.8-10.2); NEUT % 80.3 % (42.8-82.8); PLATELET COUNT 207 K/MM3 (134-434); RBC 3.78 M/mm3 (3.60-5.2); WHITE BLOOD COUNT 9.5 K/mm3 (4.0-10.0)
[2017-05-15 08:44] LABS: CHLORIDE 106 mmol/L (98-107); POTASSIUM 3.3 mmol/L (3.5-5.1); SODIUM 138 mmol/L (136-145)
[2017-05-15 09:18] LABS: ALBUMIN 3.8 g/dl (3.4-5.0); ALK PHOS 57 U/L (45-117); ANION GAP 12 (8-16); BLOOD UREA NITROGEN 12 mg/dL (7-18); CALCIUM 8.8 mg/dL (8.5-10.1); CO2 20 mmol/L (21-32); CREATININE 0.6 mg/dL (0.55-1.02); GLUCOSE,RANDOM 99 mg/dL (74-106); SGOT/AST 14 U/L (15-37); SGPT/ALT 23 U/L (12-78); TOT PROT 6.9 g/dl (6.4-8.2)
--- NOTE | 2017-05-15 09:46 | EKG ---
Test Reason : Blood Pressure : / mmHG Vent. Rate : 068 BPM Atrial Rate : 068 BPM P-R Int : 170 ms QRS Dur : 082 ms QT Int : 414 ms P-R-T Axes : 051 053 053 degrees QTc Int : 440 ms NORMAL SINUS RHYTHM NONSPECIFIC T WAVE ABNORMALITY Confirmed by HAILEY TEJEDA MD ([id number]) on 05/15/2017 9:45:42 AM Referred By: Confirmed By:HAILEY TEJEDA MD
[2017-05-15] MEDS: PANTOPRAZOLE SODIUM 40 MG VIAL IVPUSH SCH ×2 (09:53→23:28)
[2017-05-15] MEDS: HEPARIN NA (PORCINE) 5,000 UNITS/ML 1ML VIAL SQ SCH ×3 (09:53→21:43)
--- NOTE | 2017-05-15 10:44 | HP ---
Admitting History and Physical - Primary Care Physician PCP: John Lees - Admission Chief Complaint: vomtting cannot keep down liquids History of Present Illness: 21 yr old female comes in with nausea vomiting started 3 days ago she came to ER and was then sent home and now is back again in ER for vomtting after eating pork chops she has vomitted twice already since morning in er greenish yellow vomit has abdominal pain as well- intially had elevated WBC count but now normal History Source: Patient - Past Medical History ...LMP: 06/04/16 - Smoking History Smoking history: Never smoked Have you smoked in the past 12 months: No Aproximately how many cigarettes per day: 2 - Alcohol/Substance Use Hx Alcohol Use: No Home Medications - Allergies Allergies/Adverse Reactions: Allergies Allergy/AdvReac Type Severity Reaction Status Date / Time No Known Allergies Allergy Verified 05/14/17 12:52 - Home Medications Home Medications: Ambulatory Orders Lipase/Protease/Amylase [Faustino Jarrett 12,000 Units Capsule] 1 each PO ASDIR Nitrofurantoin Monohyd/M-Cryst [Macrobid -] 100 mg PO BID #14 capsule 05/14/17 Ondansetron [Zofran *Odt*] 8 mg SL TID PRN #21 od.tablet 05/14/17 Pantoprazole Sodium [Protonix] 40 mg PO DAILY #20 tablet. 05/14/17 Rifaximin [Xifaxan] 550 mg PO ASDIR 05/14/17 Review of Systems - Review of Systems Gastrointestinal: reports: Abdominal Pain, Nausea, Vomiting 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ination Vital Signs: Vital Signs Temperature 99.3 F 05/15/17 10:00 Pulse Rate 61 05/15/17 10:00 Respiratory Rate 18 05/15/17 10:00 Blood Pressure 148/95 05/15/17 10:00 O2 Sat by Pulse Oximetry (%) 100 05/15/17 00:42 Constitutional: Yes: Thin Neck: Yes: Trachea Midline Cardiovascular: Yes: Regular Rate and Rhythm, S1, S2 Respiratory: Yes: CTA Bilaterally Gastrointestinal: Yes: Tenderness (in LLQ and epigastric area) Edema: No Neurological: Yes: Alert, Oriented Labs: CBC, BMP 05/15/17 07:00 05/15/17 07:30 Imaging - Results Ultrasound: Pending Problem List - Problems (1) Cyclical vomiting Assessment/Plan: ivf ppi zofran US abdomen test gi evaluation viral vs possible inflammatory scd for dvt ppx Code(s): G43.A0 - CYCLICAL VOMITING, NOT INTRACTABLE Qualifiers: Vomiting Intractability: intractable Nausea presence: with nausea Qualified Code(s): G43.A1 - Cyclical vomiting, intractable (2) Abdominal pain Assessment/Plan: ultrasound of abdomen gi eval amylase and lipase is ok Code(s): R10.9 - UNSPECIFIED ABDOMINAL PAIN Qualifiers: Abdominal location: epigastric Qualified Code(s): R10.13 - Epigastric pain
[2017-05-15 11:54] LABS: ANION GAP 11 (8-16); BLOOD UREA NITROGEN 11 mg/dL (7-18); CALCIUM 8.9 mg/dL (8.5-10.1); CHLORIDE 106 mmol/L (98-107); CO2 22 mmol/L (21-32); CREATININE 0.6 mg/dL (0.55-1.02); GLUCOSE,RANDOM 102 mg/dL (74-106); POTASSIUM 3.3 mmol/L (3.5-5.1); SODIUM 139 mmol/L (136-145)
[2017-05-15] MEDS ORDERED: MORPHINE SULFATE 10 MG/1 ML *VIAL ONE (13:54)
[2017-05-15] MEDS: MORPHINE SULFATE 10 MG/1 ML *VIAL IVPUSH PRN ×2 (14:08→21:34)
--- NOTE | 2017-05-15 16:43 | CON.GI ---
Consult Consult Specialty:: GI - History of Present Illness History of Present Illness: A 21 yof with IBS-constipation, recurrent "gastritis" since May 2016, EGD in August 2016 - negative, presents yesterday to ED with similar, per patient, episode of dyspepsia, bilious vomiting and nausea w/o diarrhea, or changes in bowel habits. Reports being under a lot of stress. Acute onset on Thu. No obvious prodromal events, exposure to ill, new medications, diet, OTC, or herbal supplements. Household members are fine, boyfriend is fine. No melena, hematochezia, hematemesis. No jaundice, joint pain, skin, eye, back symptoms. Reports weight loss from recurrent "gastritis". No personal or family history of IBD. Takes creon and xifaxan. Boyfriend at bedside US abdomen - no pathology, BHCG negative. - History Source History Provided By: Patient - Past Medical History ...LMP: 06/04/16 - Alcohol/Substance Use Hx Alcohol Use: No - Smoking History Smoking history: Never smoked Have you smoked in the past 12 months: No Aproximately how many cigarettes per day: 2 Home Medications - Allergies Allergies/Adverse Reactions: Allergies Allergy/AdvReac Type Severity Reaction Status Date / Time No Known Allergies Allergy Verified 05/14/17 12:52 - Home Medications Home Medications: Ambulatory Orders Lipase/Protease/Amylase [Faustino Jarrett 12,000 Units Capsule] 1 each PO ASDIR Nitrofurantoin Monohyd/M-Cryst [Macrobid -] 100 mg PO BID #14 capsule 05/14/17 Ondansetron [Zofran *Odt*] 8 mg SL TID PRN #21 od.tablet 05/14/17 Pantoprazole Sodium [Protonix] 40 mg PO DAILY #20 tablet. 05/14/17 Rifaximin [Xifaxan] 550 mg PO ASDIR 05/14/17 Family Disease History - Family Disease History Family History: Unremarkable (non-contributory) Review of Systems Findings/Remarks: As per HPI, H&P 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-GI Vital Signs: Vital Signs Temperature 98.0 F 05/15/17 15:00 Pulse Rate 58 L 05/15/17 15:00 Respiratory Rate 18 05/15/17 15:00 Blood Pressure 121/57 05/15/17 15:00 O2 Sat by Pulse Oximetry (%) 100 05/15/17 16:00 Constitutional: Yes: Well Nourished, Anxious, Mild Distress Eyes: Yes: Conjunctiva Clear HENT: Yes: Atraumatic Neck: Yes: Supple Cardiovascular: Yes: Regular Rate and Rhythm Respiratory: Yes: Regular ...Auscultate: Yes: Normoactive Bowel Sounds ...Palpate: Yes: Soft, Tenderness, Epigastium. No: Firm/Rigid, Guarding ...Rectal Exam: Yes: Deferred Integumentary: Yes: WNL Neurological: Yes: Alert, Oriented Labs: CBC, BMP 05/15/17 07:00 05/15/17 11:15 Laboratory Tests 05/14/17 05/14/17 05/15/17 14:00 14:00 07:00 WBC 12.7 H 9.5 RBC 4.28 3.78 Hgb 13.1 11.4 D Hct 39.7 34.9 MCV 92.7 92.3 MCH 30.6 30.2 MCHC 33.0 32.8 RDW 13.5 13.0 Plt Count 256 207 MPV 9.4 9.4 Neutrophils % 86.5 H 80.3 Lymphocytes % 6.6 L D 11.1 D Monocytes % 6.7 D 8.3 Eosinophils % 0.1 D 0.0 D Basophils % 0.1 0.3 Sodium 138 Potassium 4.1 Chloride 106 Carbon Dioxide 23 Anion Gap 9 BUN 13 Creatinine 0.8 Creat Clearance w eGFR > 60 Random Glucose 93 Calcium 9.7 Total Bilirubin 0.7 AST 17 ALT 23 Alkaline Phosphatase 70 Total Protein 8.6 H Albumin 4.8 Total Amylase 76 Lipase 303 Serum , Qual 05/15/17 05/15/17 05/15/17 07:30 11:15 11:15 WBC RBC Hgb Hct MCV MCH MCHC RDW Plt Count MPV Neutrophils % Lymphocytes % Monocytes % Eosinophils % Basophils % Sodium 138 139 Potassium 3.3 L 3.3 L Chloride 106 106 Carbon Dioxide 20 L 22 Anion Gap 12 11 BUN 12 11 Creatinine 0.6 0.6 Creat Clearance w eGFR > 60 Random Glucose 99 102 Calcium 8.8 8.9 Total Bilirubin 1.0 D AST 14 L ALT 23 Alkaline Phosphatase 57 Total Protein 6.9 Albumin 3.8 Total Amylase Lipase Serum , Qual Negative Imaging - Results Ultrasound: Report Reviewed Problem List - Problems (1) IBS (irritable bowel syndrome) Code(s): K58.9 - IRRITABLE BOWEL SYNDROME WITHOUT DIARRHEA (2) Gastritis Code(s): K29.70 - GASTRITIS, UNSPECIFIED, WITHOUT BLEEDING Qualifiers: Gastritis type: unspecified gastritis Chronicity: acute Gastritis bleeding: without bleeding Qualified Code(s): K29.00 - Acute gastritis without bleeding (3) Nausea & vomiting Code(s): R11.2 - NAUSEA WITH VOMITING, UNSPECIFIED Qualifiers: Vomiting type: unspecified Vomiting Intractability: non-intractable Qualified Code(s): R11.2 - Nausea with vomiting, unspecified Assessment/Plan A 21 yof with likely an acute, viral gastroenteritis and underlying IBS. Cannot rule out Blayne lesion from excessive vomiting. No obvious GI bleed. The patient had endoscopy in August of 2016, it was negative, per patient. Bowel rest today IVF Continue Zofran PRN PPI IVPB bid Liquid carafate qid Small doze amitriptylene qhs Miralax bid discussed with the patient
[2017-05-15] MEDS ORDERED: D5-1/2NS+20 MEQ KCL - 20 MEQ/1,000 ML INFUS.BAG IV SCH (17:15)
[2017-05-15] MEDS: SUCRALFATE 1 GM/10 ML UNIT DOSE CUPS PO SCH ×3 (18:08→21:56)
[2017-05-15] MEDS: KCL 10 MEQ IVPB 10 MEQ/100 ML INFUS.BAG IVPB SCH ×2 (18:08→20:54)
[2017-05-15] MEDS: POLYETHYLENE GLYCOL 3350 119 GM BTL PO SCH (21:34)
[2017-05-15] MEDS: AMITRIPTYLINE HCL 25 MG TABLET (FP) PO SCH ×2 (21:34→21:57)
[2017-05-15] MEDS: D5-1/2NS+20 MEQ KCL - 20 MEQ/1,000 ML INFUS.BAG IV SCH (21:35)
[2017-05-15] MEDS ORDERED: MELATONIN 5 MG TABLETS PO ONE (22:06)
[2017-05-16] MEDS: ONDANSETRON 4 MG/2 ML VIAL IVPUSH PRN ×4 (04:07→22:27)
[2017-05-16] MEDS: MORPHINE SULFATE 10 MG/1 ML *VIAL IVPUSH PRN ×2 (04:08→09:49)
[2017-05-16] MEDS: SUCRALFATE 1 GM/10 ML UNIT DOSE CUPS PO SCH ×5 (06:53→22:27)
[2017-05-16] MEDS: D5-1/2NS+20 MEQ KCL - 20 MEQ/1,000 ML INFUS.BAG IV SCH ×2 (07:27→18:55)
[2017-05-16 07:51] LABS: BASO % 0.5 % (0-2.0); EOS % 0.2 % (0-4.5); HEMATOCRIT 35.7 % (32.4-45.2); LYMPH % 21.9 % (8-40); MCH 30.6 pg (25.7-33.7); MCHC 33.5 g/dl (32.0-36.0); MEAN CELL VOLUME 91.3 fl (80-96); MEAN PLT VOLUME 9.3 fl (7.5-11.1); MONO % 10.5 % (3.8-10.2); NEUT % 66.9 % (42.8-82.8); PLATELET COUNT 209 K/MM3 (134-434); RBC 3.91 M/mm3 (3.60-5.2); RDW 12.7 % (11.6-15.6); WHITE BLOOD COUNT 8.7 K/mm3 (4.0-10.0)
[2017-05-16 08:06] LABS: CHLORIDE 106 mmol/L (98-107); POTASSIUM 3.4 mmol/L (3.5-5.1); SODIUM 137 mmol/L (136-145)
[2017-05-16 08:14] LABS: ALBUMIN 3.8 g/dl (3.4-5.0); ALK PHOS 62 U/L (45-117); ANION GAP 7 (8-16); BILIRUBIN,TOTAL 0.9 mg/dL (0.2-1.0); BLOOD UREA NITROGEN 8 mg/dL (7-18); CALCIUM 8.5 mg/dL (8.5-10.1); CO2 24 mmol/L (21-32); CREATININE 0.6 mg/dL (0.55-1.02); GLUCOSE,RANDOM 97 mg/dL (74-106); SGOT/AST 12 U/L (15-37); SGPT/ALT 26 U/L (12-78); TOT PROT 6.8 g/dl (6.4-8.2)
[2017-05-16] MEDS: PANTOPRAZOLE SODIUM 40 MG VIAL IVPUSH SCH ×2 (09:44→22:27)
[2017-05-16] MEDS: POLYETHYLENE GLYCOL 3350 119 GM BTL PO SCH ×2 (09:44→22:35)
[2017-05-16] MEDS: HEPARIN NA (PORCINE) 5,000 UNITS/ML 1ML VIAL SQ SCH ×2 (09:45→22:27)
--- NOTE | 2017-05-16 10:41 | PN ---
Progress Note, Physician History of Present Illness: feels better - Current Medication List Current Medications: Active Medications Acetaminophen (Tylenol -) 650 mg PO Q4H PRN PRN Reason: PAIN LEVEL 4 - 6 Amitriptyline HCl (Elavil -) 25 mg PO HS [facility] Last Admin: 05/15/17 21:57 Dose: Not Given Heparin Sodium (Porcine) (Heparin -) 5,000 unit SQ BID [facility] Last Admin: 05/16/17 09:45 Dose: 5,000 unit Potassium Chloride/Dextrose/Sod Cl (D5-1/2ns+20 Meq Kcl -) 20 meq in 1,000 mls @ 100 mls/hr IV ASDIR [facility] Last Admin: 05/15/17 21:35 Dose: 100 mls/hr Potassium Chloride (Potassium Chloride 10 Meq Premix Ivpb -) 10 meq in 100 mls @ 100 mls/hr IVPB Q60M [facility] Stop: 05/16/17 11:44 Non-Formulary Medication (Lipase/Protease/Amylase [Creon Dr 12,000 Units Capsule ]) 1 each PO ASDIR [facility] Ondansetron HCl (Zofran Injection) 4 mg IVPUSH Q6H PRN PRN Reason: NAUSEA Last Admin: 05/16/17 09:44 Dose: 4 mg Pantoprazole Sodium (Protonix Iv) 40 mg IVPUSH BID [facility] Last Admin: 05/16/17 09:44 Dose: 40 mg Polyethylene Glycol (Miralax (For Daily Use) -) 17 gm PO BID [facility] Last Admin: 05/16/17 09:44 Dose: 17 grams Sucralfate (Carafate Oral Suspension -) 1 gm PO ACHS [facility] Last Admin: 05/16/17 06:53 Dose: Not Given - Objective Vital Signs: Vital Signs Temperature 98.4 F 05/16/17 10:03 Pulse Rate 54 L 05/16/17 10:03 Respiratory Rate 16 05/16/17 10:03 Blood Pressure 135/77 05/16/17 10:03 O2 Sat by Pulse Oximetry (%) 97 05/15/17 23:53 Cardiovascular: Yes: Regular Rate and Rhythm Respiratory: Yes: Regular, CTA Bilaterally Gastrointestinal: Yes: Normal Bowel Sounds, Soft Labs: CBC, BMP 05/16/17 06:00 05/16/17 06:00 Problem List - Problems (1) Cyclical vomiting Assessment/Plan: ivf ppi zofran US abdomen normal test negative gi evaluation noted viral vs possible inflammatory scd for dvt ppx Code(s): G43.A0 - CYCLICAL VOMITING, NOT INTRACTABLE Qualifiers: Vomiting Intractability: intractable Nausea presence: with nausea Qualified Code(s): G43.A1 - Cyclical vomiting, intractable (2) Gastritis Assessment/Plan: ppi Code(s): K29.70 - GASTRITIS, UNSPECIFIED, WITHOUT BLEEDING Qualifiers: Gastritis type: unspecified gastritis Chronicity: acute Gastritis bleeding: without bleeding Qualified Code(s): K29.00 - Acute gastritis without bleeding (3) Abdominal pain Assessment/Plan: improved start diet Code(s): R10.9 - UNSPECIFIED ABDOMINAL PAIN Qualifiers: Abdominal location: epigastric Qualified Code(s): R10.13 - Epigastric pain (4) Chest pain Assessment/Plan: resolved may have been gerd ce and d-dimer nl Code(s): R07.9 - CHEST PAIN, UNSPECIFIED
[2017-05-16] MEDS ORDERED: KCL 10 MEQ IVPB 10 MEQ/100 ML INFUS.BAG IVPB SCH ×2 (10:45→12:30)
--- NOTE | 2017-05-16 15:58 | CONSULT ---
Consult Detox [facility] Reason for Current Admission/Consult: marijauna use Referred by:: don goodman MD - History History of Present Illness: 21 y o f w pmhx of IBS, daily marijuana use, 2 joints xpast 2 years, with gastritis for last year who presents now with lower abdominal pain, nausea, and vomiting. Similar to episodes she has had in past year. +Stress. +smoking associated. relieved by hot shoers, feels may be related to marijuana use, denies all other illicit betito guse and alcohol use, no dug treatment in past, no psaychiatric illness, no si at this time. marijuana use helps with sleep and anxiety - History Source History Provided By: Patient, Medical Record, Caregiver Limitations to Obtaining History: No Limitations - Alcohol/Substance Use Hx Alcohol Use: No Hx Substance Use: Yes (dily mairjuana 2 joints) Hx Substance Use Treatment: No - Current Drug/Alcohol Use Marijuana/Hashish Route: Smoking Frequency: Daily Amount used: 2 joints $20/day Age of first use: 19 Date of Last Use: 05/14/17 - Past Medical History ...LMP: 06/04/16 - Significant Medical Findings: 21 yo f with h/o daily miarijuana use, gasttritis, irritable bowel admitted with dehydration from nause and vomiting and diarrhoaea worse over last year. still having nause, anxiety and difficulaty sleep,g,no treatment for marijuana use in past, feels it may be realted to symptoms Assessment Plan - Diagnosis (1) Cannabis dependence Status: Acute (2) Cyclical vomiting Status: Acute Qualifiers: Vomiting Intractability: intractable Nausea presence: with nausea Qualified Code(s): G43.A1 - Cyclical vomiting, intractable (3) Gastritis Status: Acute Qualifiers: Gastritis type: unspecified gastritis Chronicity: acute Gastritis bleeding: without bleeding Qualified Code(s): K29.00 - Acute gastritis without bleeding (4) IBS (irritable bowel syndrome) Status: Acute (5) Abdominal pain Status: Acute Qualifiers: Abdominal location: epigastric Qualified Code(s): R10.13 - Epigastric pain (6) Dehydration Status: Acute (7) Viral gastroenteritis Status: Acute - Plan Plan: 21 yo with cyclical vomiting which may be related to daily marijuana use, started using 2 years ago, no treatment in past, feels may be realted now with nause, abdo paiin, anxiety and insominiat; [id number]: 1. d/c marijuna use and may be cyclical vomiting syndrome in sensitive patient. 2. valium stat x1 dose nw for anxiety which will help with nause and aqHS fro sleep while shsoptialized. 3. s/l zofranfor nause 4. vitmain supplementation. 5. fluids 6. refer [facility] for subsastance absue treatment for follow u[ - p[atient states she can stop on her own, no psychaitric hisotry of f/h of addiction. Lb Platt MD [phone] - Medication Detox Regimen/Protocol: Not Applicable
[2017-05-16] MEDS: ACETAMINOPHEN 325 MG TABLET (FP) PO PRN (17:36)
[2017-05-16] MEDS: THIAMINE HCL 100 MG TABLET (FP) PO SCH (23:00)
[2017-05-16] MEDS: AMITRIPTYLINE HCL 25 MG TABLET (FP) PO SCH (23:00)
[2017-05-17] MEDS ORDERED: METOCLOPRAMIDE HCL INJECTION 10 MG/2 ML VIAL IVPUSH ONE (01:30)
[2017-05-17] MEDS ORDERED: ONDANSETRON 4 MG/2 ML VIAL IVPUSH ONE (01:30)
[2017-05-17] MEDS ORDERED: ACETAMINOPHEN 1000 MG/100 ML VIAL (NON FORMULARY) IVPB PRN (05:44)
[2017-05-17] MEDS: D5-1/2NS+20 MEQ KCL - 20 MEQ/1,000 ML INFUS.BAG IV SCH ×2 (05:53→18:23)
[2017-05-17] MEDS: SUCRALFATE 1 GM/10 ML UNIT DOSE CUPS PO SCH ×4 (06:51→23:33)
--- NOTE | 2017-05-17 07:47 | CON.CARD ---
Consult Consult Specialty:: Cardiology Referred by:: Darnell Reason for Consultation:: Chest pain - History of Present Illness Chief Complaint: Abdominal pain and vomiting History of Present Illness: 21 year old with a pmhx of IBS and smoker with gastritis for last year who presents now with lower abdominal pain, nausea, and vomiting. Similar to episodes she has had in past year. +Stress. +smoking associated. No f/c/s. Reports she has had persistent nausea and vomiting for last 2 days and at times when she is vomiting she has some mild chest burning which is central, non- radiating, no sob or palpitations. No chest pain normally and no symptoms with exertion. Troponin neg x1 EKG: sinus rhythm at 68bpm, nl axis, nonspecific T wave abnormality. - History Source History Provided By: Patient, Medical Record Limitations to Obtaining History: No Limitations - Past Medical History ...LMP: 06/04/16 - Alcohol/Substance Use Hx Alcohol Use: No - Smoking History Smoking history: Never smoked Have you smoked in the past 12 months: No Aproximately how many cigarettes per day: 2 Home Medications - Allergies Allergies/Adverse Reactions: Allergies Allergy/AdvReac Type Severity Reaction Status Date / Time No Known Allergies Allergy Verified 05/14/17 12:52 - Home Medications Home Medications: Ambulatory Orders Lipase/Protease/Amylase [Faustino Jarrett 12,000 Units Capsule] 1 each PO ASDIR Nitrofurantoin Monohyd/M-Cryst [Macrobid -] 100 mg PO BID #14 capsule 05/14/17 Ondansetron [Zofran *Odt*] 8 mg SL TID PRN #21 od.tablet 05/14/17 Pantoprazole Sodium [Protonix] 40 mg PO DAILY #20 tablet. 05/14/17 Rifaximin [Xifaxan] 550 mg PO ASDIR 05/14/17 Vital Signs: Vital Signs Temperature 97.8 F 05/17/17 06:08 Pulse Rate 61 05/17/17 06:08 Respiratory Rate 20 05/17/17 06:08 Blood Pressure 125/79 05/17/17 06:08 O2 Sat by Pulse Oximetry (%) 96 05/17/17 00:00 Constitutional: Yes: No Distress Neck: Yes: WNL Respiratory: Yes: CTA Bilaterally Gastrointestinal: Yes: Other (mild lower abdominal pain but no rebound) Cardiovascular: Yes: Regular Rate and Rhythm JVD: No Carotid Bruit: No PMI: Non-Displaced Heart Sounds: Yes: S1, S2 Murmur: No: Systolic Murmur Extremities: Yes: WNL Edema: No - Other Data Labs, Other Data: CBC, BMP 05/16/17 06:00 05/16/17 06:00 Imaging - Results EKG: Image Reviewed Problem List - Problems (1) Chest pain Code(s): R07.9 - CHEST PAIN, UNSPECIFIED Assessment/Plan 21 year old with a pmhx of IBS and smoker with gastritis for last year who presents now with lower abdominal pain, nausea, and vomiting. Similar to episodes she has had in past year. +Stress. +smoking associated. No f/c/s. Reports she has had persistent nausea and vomiting for last 2 days and at times when she is vomiting she has some mild chest burning which is central, non- radiating, no sob or palpitations. No chest pain normally and no symptoms with exertion. Troponin neg x1 EKG: sinus rhythm at 68bpm, nl axis, nonspecific T wave abnormality. -Chest burning likely related to her GI symptoms and nausea Very unlikley to be cardiac related If has any more chest pain can do an EKG Replete K as needed No further cardiac work up at this time. Please call back if needed.
[2017-05-17 09:07] LABS: BASO % 0.4 % (0-2.0); EOS % 0.2 % (0-4.5); HEMATOCRIT 38.1 % (32.4-45.2); HEMOGLOBIN 12.6 GM/dL (10.7-15.3); LYMPH % 15.4 % (8-40); MCH 30.1 pg (25.7-33.7); MCHC 33.2 g/dl (32.0-36.0); MEAN CELL VOLUME 90.8 fl (80-96); MEAN PLT VOLUME 8.8 fl (7.5-11.1); MONO % 10.8 % (3.8-10.2); NEUT % 73.2 % (42.8-82.8); PLATELET COUNT 235 K/MM3 (134-434); RBC 4.19 M/mm3 (3.60-5.2); RDW 12.4 % (11.6-15.6); WHITE BLOOD COUNT 8.6 K/mm3 (4.0-10.0)
[2017-05-17 09:26] LABS: ALBUMIN 4.1 g/dl (3.4-5.0); ANION GAP 9 (8-16); BLOOD UREA NITROGEN 8 mg/dL (7-18); CALCIUM 8.8 mg/dL (8.5-10.1); CHLORIDE 104 mmol/L (98-107); CO2 23 mmol/L (21-32); CREATININE 0.7 mg/dL (0.55-1.02); GLUCOSE,RANDOM 105 mg/dL (74-106); POTASSIUM 3.4 mmol/L (3.5-5.1); SGOT/AST 10 U/L (15-37); SGPT/ALT 27 U/L (12-78); SODIUM 136 mmol/L (136-145)
[2017-05-17 09:29] LABS: ALK PHOS 65 U/L (45-117); BILIRUBIN,TOTAL 1.1 mg/dL (0.2-1.0); TOT PROT 7.2 g/dl (6.4-8.2)
--- NOTE | 2017-05-17 10:24 | PN ---
Progress Note, Physician History of Present Illness: feels better - Current Medication List Current Medications: Active Medications Acetaminophen (Tylenol -) 650 mg PO Q4H PRN PRN Reason: PAIN LEVEL 4 - 6 Last Admin: 05/16/17 17:36 Dose: 650 mg Amitriptyline HCl (Elavil -) 25 mg PO [facility] Last Admin: 05/16/17 23:00 Dose: Not Given Heparin Sodium (Porcine) (Heparin -) 5,000 unit SQ BID [facility] Last Admin: 05/16/17 22:27 Dose: Not Given Potassium Chloride/Dextrose/Sod Cl (D5-1/2ns+20 Meq Kcl -) 20 meq in 1,000 mls @ 100 mls/hr IV ASDIR [facility] Last Admin: 05/17/17 05:53 Dose: 100 mls/hr Non-Formulary Medication (Lipase/Protease/Amylase [Creon Dr 12,000 Units Capsule ]) 1 each PO ASDIR [facility] Ondansetron HCl (Zofran Injection) 4 mg IVPUSH Q6H PRN PRN Reason: NAUSEA Last Admin: 05/16/17 22:27 Dose: 4 mg Pantoprazole Sodium (Protonix Iv) 40 mg IVPUSH BID [facility] Last Admin: 05/16/17 22:27 Dose: 40 mg Polyethylene Glycol (Miralax (For Daily Use) -) 17 gm PO BID [facility] Last Admin: 05/16/17 22:35 Dose: Not Given Multivit/Folic Acid/Iron ( Vitamins (Sjr) -) 1 tab PO DAILY [facility] Sucralfate (Carafate Oral Suspension -) 1 gm PO ACHS [facility] Last Admin: 05/17/17 06:51 Dose: Not Given Thiamine HCl (Vitamin B1 -) 100 mg PO [facility] Last Admin: 05/16/17 23:00 Dose: Not Given - Objective Vital Signs: Vital Signs Temperature 97.8 F 05/17/17 06:08 Pulse Rate 61 05/17/17 06:08 Respiratory Rate 20 05/17/17 06:08 Blood Pressure 125/79 05/17/17 06:08 O2 Sat by Pulse Oximetry (%) 96 05/17/17 00:00 Cardiovascular: Yes: Regular Rate and Rhythm, S1, S2 Respiratory: Yes: Regular, CTA Bilaterally Gastrointestinal: Yes: Normal Bowel Sounds, Soft, Tenderness, Epigastrium Labs: CBC, BMP 05/17/17 08:40 05/17/17 08:40 Problem List - Problems (1) Cyclical vomiting Assessment/Plan: ivf ppi zofran US abdomen normal test negative gi evaluation noted viral vs possible inflammatory scd for dvt ppx Code(s): G43.A0 - CYCLICAL VOMITING, NOT INTRACTABLE Qualifiers: Vomiting Intractability: intractable Nausea presence: with nausea Qualified Code(s): G43.A1 - Cyclical vomiting, intractable (2) Gastritis Assessment/Plan: ppi Code(s): K29.70 - GASTRITIS, UNSPECIFIED, WITHOUT BLEEDING Qualifiers: Gastritis type: unspecified gastritis Chronicity: acute Gastritis bleeding: without bleeding Qualified Code(s): K29.00 - Acute gastritis without bleeding (3) Abdominal pain Assessment/Plan: improved start diet Code(s): R10.9 - UNSPECIFIED ABDOMINAL PAIN Qualifiers: Abdominal location: epigastric Qualified Code(s): R10.13 - Epigastric pain (4) Chest pain Code(s): R07.9 - CHEST PAIN, UNSPECIFIED (5) UTI (urinary tract infection) Assessment/Plan: IV ABX ID CONSULT Code(s): N39.0 - URINARY TRACT INFECTION, SITE NOT SPECIFIED Qualifiers: Urinary tract infection type: site unspecified Hematuria presence: with hematuria Qualified Code(s): N39.0 - Urinary tract infection, site not specified; R31.9 - Hematuria, unspecified; R31.9 - Hematuria, unspecified
[2017-05-17] MEDS: HEPARIN NA (PORCINE) 5,000 UNITS/ML 1ML VIAL SQ SCH ×2 (11:24→23:33)
[2017-05-17] MEDS: PRENATAL VITAMINS W/ FOLIC ACID TABLET (FP) PO SCH (11:24)
[2017-05-17] MEDS: PANTOPRAZOLE SODIUM 40 MG VIAL IVPUSH SCH ×2 (11:24→23:23)
[2017-05-17] MEDS: CEFTRIAXONE 1 G/50 ML PREMIX 50 ML IVPB SCH (11:24)
[2017-05-17] MEDS: POLYETHYLENE GLYCOL 3350 119 GM BTL PO SCH ×2 (11:24→23:33)
[2017-05-17] MEDS: ONDANSETRON 4 MG/2 ML VIAL IVPUSH PRN ×3 (11:27→22:15)
--- NOTE | 2017-05-17 11:41 | EKG ---
Test Reason : Blood Pressure : / mmHG Vent. Rate : 049 BPM Atrial Rate : 049 BPM P-R Int : 168 ms QRS Dur : 082 ms QT Int : 456 ms P-R-T Axes : 059 047 042 degrees QTc Int : 411 ms SINUS BRADYCARDIA WITH SINUS ARRHYTHMIA OTHERWISE NORMAL ECG Confirmed by MD YOLY, CAMILA ([id number]) on 05/17/2017 11:41:27 AM Referred By: Bridgett CARD Confirmed By:CAMILA FREDERICK MD
--- NOTE | 2017-05-17 15:46 | PN ---
Progress Note (short form) - Note Progress Note: ID Consult dictated Abdominal pain syndrome Recurrent vomiting UTI Continue ceftriaxone. Switch to po antibiotic when able to tolerate po
[2017-05-17] MEDS: ACETAMINOPHEN 325 MG TABLET (FP) PO PRN ×2 (16:48→23:23)
--- NOTE | 2017-05-17 18:35 | CONS ---
DATE OF CONSULTATION: DATE OF DICTATION: 05/17/2017 The patient is a 21-year-old female with a history of recurrent abdominal pain syndrome/vomiting, evaluated for urinary tract infection. Patient gives a history of abdominal pain syndrome and recurrent nausea vomiting dating back to May 2016. She had presented to the emergency room, where she was evaluated for the same complaint and was discharged home. She subsequently developed worsening abdominal pain, nausea and vomiting. As part of her initial workup on her emergency room visit, a urine culture was sent and is positive for Klebsiella pneumoniae. Patient did complain of some dysuria and urinary frequency. At the present time she has no complaints over than recurrent nausea and vomiting. She denies any associated fevers or chills. Past medical history positive for this abdominal pain syndrome dating back to May of 2016. She has had urinary tract infections in the past. No known allergies. MEDICATIONS: Creon, Zofran, Protonix, Xifaxan. SOCIAL HISTORY: Lives at home with family members. Negative tobacco or alcohol use. SYSTEMS REVIEW: Neurologic: No loss of consciousness, seizure activity, focal weakness. Cardiac: Negative chest pain or palpitations. Respiratory: Negative cough or sputum production. Gastrointestinal: As per HPI. Genitourinary: As per HPI. LABORATORY DATA: White count 8.6, hematocrit 38.1, platelet count 235. BUN 8, creatinine 0.7. Urinalysis: 20 white cells. Urine culture: Klebsiella pneumoniae. PHYSICAL EXAMINATION: General: She is awake and alert, in moderate distress secondary to nausea vomiting. Vital Signs: Temperature 98.5. Blood pressure 153/84. Pulse 80, regular. Respirations 20 per minute. Eyes: Sclerae anicteric. Heart Sounds: S1, S2. Lungs: Clear. Abdomen: Soft. Some mild diffuse tenderness. No suprapubic or flank tenderness. Extremities: Negative for edema. IMPRESSION: 1. Abdominal pain syndrome. 2. Recurrent nausea vomiting. 3. Urinary tract infection. Continue ceftriaxone for treatment of Klebsiella urinary tract infection. Switch to p.o. antibiotic when able to tolerate oral intake. I do not believe that her gastrointestinal symptoms are a manifestation of systemic infection secondary to the urinary tract. GI followup. Thank you for the kind referral. HAILEY CHASE M.D. [id number]
[2017-05-17] MEDS: AMITRIPTYLINE HCL 25 MG TABLET (FP) PO SCH (23:33)
[2017-05-17] MEDS: THIAMINE HCL 100 MG TABLET (FP) PO SCH (23:33)
[2017-05-18] MEDS ORDERED: IBUPROFEN 800 MG/8 ML IJ IVPB ONE (02:24)
[2017-05-18] MEDS: D5-1/2NS+20 MEQ KCL - 20 MEQ/1,000 ML INFUS.BAG IV SCH ×3 (05:52→22:33)
[2017-05-18] MEDS: SUCRALFATE 1 GM/10 ML UNIT DOSE CUPS PO SCH ×4 (06:16→21:43)
[2017-05-18 08:30] LABS: CHLORIDE 104 mmol/L (98-107); POTASSIUM 3.7 mmol/L (3.5-5.1); SODIUM 137 mmol/L (136-145)
[2017-05-18 08:40] LABS: ALBUMIN 4.2 g/dl (3.4-5.0); ALK PHOS 68 U/L (45-117); ANION GAP 12 (8-16); BILIRUBIN,TOTAL 1.3 mg/dL (0.2-1.0); BLOOD UREA NITROGEN 11 mg/dL (7-18); CALCIUM 8.9 mg/dL (8.5-10.1); CO2 21 mmol/L (21-32); CREATININE 0.8 mg/dL (0.55-1.02); GLUCOSE,RANDOM 82 mg/dL (74-106); SGOT/AST 10 U/L (15-37); SGPT/ALT 26 U/L (12-78); TOT PROT 7.4 g/dl (6.4-8.2)
[2017-05-18] MEDS ORDERED: ONDANSETRON *ODT* 4 MG TABLET SL PRN (10:28)
--- NOTE | 2017-05-18 10:51 | PN ---
Progress Note, Physician Chief Complaint: ID Remains intubated Ceftriaxone - Current Medication List Current Medications: Active Medications Acetaminophen (Tylenol -) 650 mg PO Q4H PRN PRN Reason: PAIN LEVEL 4 - 6 Last Admin: 05/17/17 23:23 Dose: 650 mg Amitriptyline HCl (Elavil -) 25 mg PO HS [facility] Last Admin: 05/17/17 23:33 Dose: Not Given Diazepam (Valium -) 10 mg PO ONCE ONE Stop: 05/18/17 10:27 Diazepam (Valium -) 10 mg PO HS [facility] Heparin Sodium (Porcine) (Heparin -) 5,000 unit SQ BID [facility] Last Admin: 05/17/17 23:33 Dose: Not Given Potassium Chloride/Dextrose/Sod Cl (D5-1/2ns+20 Meq Kcl -) 20 meq in 1,000 mls @ 100 mls/hr IV ASDIR [facility] Last Admin: 05/18/17 05:52 Dose: 100 mls/hr CEFTRIAXONE 1 G/50 ML PREMIX (Ceftriaxone 1 Gm-D5w Bag) 50 mls @ 200 mls/hr IVPB DAILY [facility] Last Admin: 05/17/17 11:24 Dose: 200 mls/hr Non-Formulary Medication (Lipase/Protease/Amylase [Creon Dr 12,000 Units Capsule ]) 1 each PO ASDIR [facility] Ondansetron HCl (Zofran Odt -) 8 mg SL ONCE ONE Stop: 05/18/17 10:28 Ondansetron HCl (Zofran Odt -) 4 mg SL Q6H PRN PRN Reason: NAUSEA AND/OR VOMITING Pantoprazole Sodium (Protonix -) 40 mg PO DAILY [facility] Polyethylene Glycol (Miralax (For Daily Use) -) 17 gm PO BID [facility] Last Admin: 05/17/17 23:33 Dose: Not Given Multivit/Folic Acid/Iron ( Vitamins (Sjr) -) 1 tab PO DAILY [facility] Last Admin: 05/17/17 11:24 Dose: Not Given Sucralfate (Carafate Oral Suspension -) 1 gm PO ACHS [facility] Last Admin: 05/18/17 06:16 Dose: Not Given Thiamine HCl (Vitamin B1 -) 100 mg PO HS [facility] Last Admin: 05/17/17 23:33 Dose: Not Given - Objective Vital Signs: Vital Signs Temperature 98.7 F 05/18/17 02:00 Pulse Rate 65 05/18/17 02:00 Respiratory Rate 18 05/18/17 02:00 Blood Pressure 127/85 05/18/17 02:00 O2 Sat by Pulse Oximetry (%) 100 05/18/17 00:00 Constitutional: Yes: No Distress HENT: Yes: WNL, Atraumatic Neck: Yes: WNL, Supple Cardiovascular: Yes: S1, S2 Respiratory: Yes: WNL, Regular, CTA Bilaterally Gastrointestinal: Yes: Soft. No: Tenderness Integumentary: Yes: Other (facial molluscum) Labs: CBC, BMP 05/17/17 08:40 05/18/17 06:35 Assessment/Plan Microbiology 05/14/17 17:12 Urine - Urine Clean Catch Urine Culture - Final Klebsiella Pneumoniae Laboratory Tests 05/17/17 05/18/17 08:40 06:35 WBC 8.6 Hgb 12.6 Plt Count 235 BUN 11 Creatinine 0.8 Assessment Klebsiella UTI Facial molluscum contagiosum Plan Stop Ceftriaxone Vantin 200mg bid 5 days Obtain HIV testing Satnam ONEILL
--- NOTE | 2017-05-18 10:56 | PN ---
Progress Note, Physician History of Present Illness: restless, c/o generalized abdominal pain and postprandial vomiting. No BMs for few days - Current Medication List Current Medications: Active Medications Acetaminophen (Tylenol -) 650 mg PO Q4H PRN PRN Reason: PAIN LEVEL 4 - 6 Last Admin: 05/17/17 23:23 Dose: 650 mg Amitriptyline HCl (Elavil -) 25 mg PO HS [facility] Last Admin: 05/17/17 23:33 Dose: Not Given Cefpodoxime Proxetil (Vantin (Nf) -) 200 mg PO BID [facility] Diazepam (Valium -) 10 mg PO ONCE ONE Stop: 05/18/17 10:27 Diazepam (Valium -) 10 mg PO HS [facility] Heparin Sodium (Porcine) (Heparin -) 5,000 unit SQ BID [facility] Last Admin: 05/17/17 23:33 Dose: Not Given Potassium Chloride/Dextrose/Sod Cl (D5-1/2ns+20 Meq Kcl -) 20 meq in 1,000 mls @ 100 mls/hr IV ASDIR [facility] Last Admin: 05/18/17 05:52 Dose: 100 mls/hr Non-Formulary Medication (Lipase/Protease/Amylase [Creon Dr 12,000 Units Capsule ]) 1 each PO ASDIR [facility] Ondansetron HCl (Zofran Odt -) 8 mg SL ONCE ONE Stop: 05/18/17 10:28 Ondansetron HCl (Zofran Odt -) 4 mg SL Q6H PRN PRN Reason: NAUSEA AND/OR VOMITING Pantoprazole Sodium (Protonix -) 40 mg PO DAILY [facility] Polyethylene Glycol (Miralax (For Daily Use) -) 17 gm PO BID [facility] Last Admin: 05/17/17 23:33 Dose: Not Given Multivit/Folic Acid/Iron ( Vitamins (Sjr) -) 1 tab PO DAILY [facility] Last Admin: 05/17/17 11:24 Dose: Not Given Sucralfate (Carafate Oral Suspension -) 1 gm PO ACHS [facility] Last Admin: 05/18/17 06:16 Dose: Not Given Thiamine HCl (Vitamin B1 -) 100 mg PO HS [facility] Last Admin: 05/17/17 23:33 Dose: Not Given - Objective Vital Signs: Vital Signs Temperature 98.7 F 05/18/17 02:00 Pulse Rate 65 05/18/17 02:00 Respiratory Rate 18 29/18 02:00 Blood Pressure 127/85 05/18/17 02:00 O2 Sat by Pulse Oximetry (%) 100 05/18/17 00:00 Constitutional: Yes: Anxious, Mild Distress Eyes: Yes: Conjunctiva Clear HENT: Yes: Atraumatic Neck: Yes: Supple Cardiovascular: Yes: Regular Rate and Rhythm Respiratory: Yes: Regular Gastrointestinal: Yes: Soft, Vomiting. No: Distention, Melena, Tenderness, Rebound Neurological: Yes: Alert, Oriented Labs: CBC, BMP 05/17/17 08:40 05/18/17 06:35 Laboratory Results - last 24 hr 05/18/17 06:35 Sodium 137 Potassium 3.7 Chloride 104 Carbon Dioxide 21 Anion Gap 12 BUN 11 Creatinine 0.8 Creat Clearance w eGFR > 60 Random Glucose 82 Calcium 8.9 Total Bilirubin 1.3 H AST 10 L ALT 26 Alkaline Phosphatase 68 Total Protein 7.4 Albumin 4.2 Abnormal Lab Results 05/18/17 06:35 Total Bilirubin 1.3 H AST 10 L - ....Imaging Ultrasound: Report Reviewed Problem List - Problems (1) IBS (irritable bowel syndrome) Code(s): K58.9 - IRRITABLE BOWEL SYNDROME WITHOUT DIARRHEA (2) Gastritis Code(s): K29.70 - GASTRITIS, UNSPECIFIED, WITHOUT BLEEDING Qualifiers: Gastritis type: unspecified gastritis Chronicity: acute Gastritis bleeding: without bleeding Qualified Code(s): K29.00 - Acute gastritis without bleeding (3) Nausea & vomiting Code(s): R11.2 - NAUSEA WITH VOMITING, UNSPECIFIED Qualifiers: Vomiting type: unspecified Vomiting Intractability: non-intractable Qualified Code(s): R11.2 - Nausea with vomiting, unspecified Assessment/Plan A 21 yof with likely an acute, viral gastroenteritis and underlying IBS. Cannot rule out Blayne lesion from excessive vomiting. No obvious GI bleed. The patient had endoscopy in August of 2016, it was negative, per patient. Bowel rest today IVF Continue Zofran PRN, Add Reglan 10 mg TID PPI IVPB bid Liquid carafate qid Small doze amitriptylene now and qhs Miralax bid Discussed with the patient, nurse
[2017-05-18] MEDS ORDERED: METOCLOPRAMIDE HCL INJECTION 10 MG/2 ML VIAL IVPUSH PRN (10:57)
[2017-05-18] MEDS ORDERED: ONDANSETRON *ODT* 4 MG TABLET SL ONE ×2 (11:30→14:30)
[2017-05-18] MEDS ORDERED: diazePAM 5 MG TABLET PO ONE ×2 (11:30→14:30)
[2017-05-18] MEDS ORDERED: AMITRIPTYLINE HCL 25 MG TABLET (FP) PO ONE ×2 (11:30→14:30)
--- NOTE | 2017-05-18 11:46 | PN ---
Progress Note, Physician Chief Complaint: cyclic vomiting History of Present Illness: NAD, complains of generalized abd pain and nausea seen by GI started on Valium and amitriptyline Seen by ID- UTI On vantin PO also seen by S Dr Valentino, who thinks her symptoms could be r/t daily marijuana use. Pt has underlying anxiety - Current Medication List Current Medications: Active Medications Acetaminophen (Tylenol -) 650 mg PO Q4H PRN PRN Reason: PAIN LEVEL 4 - 6 Last Admin: 05/17/17 23:23 Dose: 650 mg Amitriptyline HCl (Elavil -) 25 mg PO HS [facility] Last Admin: 05/17/17 23:33 Dose: Not Given Cefpodoxime Proxetil (Vantin (Nf) -) 200 mg PO BID [facility] Diazepam (Valium -) 10 mg PO HS [facility] Heparin Sodium (Porcine) (Heparin -) 5,000 unit SQ BID [facility] Last Admin: 05/17/17 23:33 Dose: Not Given Potassium Chloride/Dextrose/Sod Cl (D5-1/2ns+20 Meq Kcl -) 20 meq in 1,000 mls @ 100 mls/hr IV ASDIR [facility] Last Admin: 05/18/17 05:52 Dose: 100 mls/hr Metoclopramide HCl (Reglan Injection -) 10 mg IVPUSH Q6H PRN PRN Reason: NAUSEA AND/OR VOMITING Non-Formulary Medication (Lipase/Protease/Amylase [Vasuon Dr 12,000 Units Capsule ]) 1 each PO ASDIR [facility] Ondansetron HCl (Zofran Odt -) 4 mg SL Q6H PRN PRN Reason: NAUSEA AND/OR VOMITING Pantoprazole Sodium (Protonix -) 40 mg PO DAILY [facility] Polyethylene Glycol (Miralax (For Daily Use) -) 17 gm PO BID [facility] Last Admin: 05/17/17 23:33 Dose: Not Given Multivit/Folic Acid/Iron ( Vitamins (Sjr) -) 1 tab PO DAILY [facility] Last Admin: 05/17/17 11:24 Dose: Not Given Sucralfate (Carafate Oral Suspension -) 1 gm PO ACHS [facility] Last Admin: 05/18/17 06:16 Dose: Not Given Thiamine HCl (Vitamin B1 -) 100 mg PO HS [facility] Last Admin: 05/17/17 23:33 Dose: Not Given - Objective Vital Signs: Vital Signs Temperature 98.7 F 05/18/17 02:00 Pulse Rate 65 05/18/17 02:00 Respiratory Rate 18 05/18/17 02:00 Blood Pressure 127/85 05/18/17 02:00 O2 Sat by Pulse Oximetry (%) 100 05/18/17 00:00 Constitutional: Yes: Well Nourished, No Distress, Calm Cardiovascular: Yes: Regular Rate and Rhythm Respiratory: Yes: Regular Gastrointestinal: Yes: Normal Bowel Sounds, Tenderness (generalized) Musculoskeletal: Yes: WNL Extremities: Yes: WNL Edema: No Peripheral Pulses WNL: Yes Neurological: Yes: Alert, Oriented Psychiatric: Yes: Alert, Oriented Labs: CBC, BMP 05/17/17 08:40 05/18/17 06:35 Problem List - Problems (1) Abdominal pain Assessment/Plan: GI consult on board reglan carafate protonix miralax, encouraged tot johnnie, she has not had BM in 5 days Code(s): R10.9 - UNSPECIFIED ABDOMINAL PAIN Qualifiers: Abdominal location: epigastric Qualified Code(s): R10.13 - Epigastric pain (2) Dehydration Assessment/Plan: -IVF Code(s): E86.0 - DEHYDRATION (3) Gastritis Code(s): K29.70 - GASTRITIS, UNSPECIFIED, WITHOUT BLEEDING Qualifiers: Gastritis type: unspecified gastritis Chronicity: acute Gastritis bleeding: without bleeding Qualified Code(s): K29.00 - Acute gastritis without bleeding (4) Cyclical vomiting Assessment/Plan: Change Zofran to reglan, zofran ineffective in controlling symptoms HCG negative -EGD in AM -NPO past midnight Code(s): G43.A0 - CYCLICAL VOMITING, NOT INTRACTABLE Qualifiers: Vomiting Intractability: intractable Nausea presence: with nausea Qualified Code(s): G43.A1 - Cyclical vomiting, intractable (5) UTI (urinary tract infection) Assessment/Plan: -PO abx -seen by ID -IVF Code(s): N39.0 - URINARY TRACT INFECTION, SITE NOT SPECIFIED Qualifiers: Urinary tract infection type: site unspecified Hematuria presence: with hematuria Qualified Code(s): N39.0 - Urinary tract infection, site not specified; R31.9 - Hematuria, unspecified; R31.9 - Hematuria, unspecified (6) Anxiety Assessment/Plan: -Seen by Dr Valentino -At first shows hesitancy to psychiatry or psychotherapy that it she is not "crazy". Educated and informed on the importance, benefits of the therapy. -Psychiatry consult -agrees to seeing a counselor outpatient Code(s): F41.9 - ANXIETY DISORDER, UNSPECIFIED Assessment/Plan see problem list
[2017-05-18] MEDS: CEFTRIAXONE 1 G/50 ML PREMIX 50 ML IVPB SCH (14:17)
[2017-05-18] MEDS: PRENATAL VITAMINS W/ FOLIC ACID TABLET (FP) PO SCH (14:22)
[2017-05-18] MEDS: POLYETHYLENE GLYCOL 3350 119 GM BTL PO SCH ×2 (14:22→21:47)
[2017-05-18] MEDS: PANTOPRAZOLE 40 MG TABLET (FP) PO SCH (14:25)
[2017-05-18] MEDS: HEPARIN NA (PORCINE) 5,000 UNITS/ML 1ML VIAL SQ SCH (15:30)
[2017-05-18] MEDS: PANTOPRAZOLE SODIUM 40 MG VIAL IVPUSH SCH (15:30)
--- NOTE | 2017-05-18 18:11 | CON.PSY ---
Psychiatry Consult Chief Complaint: 21 year old Female seen for Psych consult for anxiety and cyclical vomiting, zehra;ike to IBS/ patient apparantly has been smoking Marijuana that may be contribyting to Cyclical vomiting. spoke with pts mother as well. Patient reports anxiety and crying spells related to Abdominal pain. Patient and MOm denies any Past Psych Illnesses ot treatment. Symptoms: reports: Anxiety - Previous Psychiatric Treatment Outpatient: None Inpatient: None - Previous Substance Abuse Treatment Outpatient: None Inpatient: None - Current Medications Current Medications: Active Medications Acetaminophen (Tylenol -) 650 mg PO Q4H PRN PRN Reason: PAIN LEVEL 4 - 6 Last Admin: 05/17/17 23:23 Dose: 650 mg Amitriptyline HCl (Elavil -) 25 mg PO HS [facility] Last Admin: 05/17/17 23:33 Dose: Not Given Cefpodoxime Proxetil (Vantin -) 200 mg PO BID [facility] Diazepam (Valium -) 10 mg PO HS [facility] Potassium Chloride/Dextrose/Sod Cl (D5-1/2ns+20 Meq Kcl -) 20 meq in 1,000 mls @ 100 mls/hr IV ASDIR [facility] Last Admin: 05/18/17 17:59 Dose: Not Given Metoclopramide HCl (Reglan Injection -) 10 mg IVPUSH Q6H PRN PRN Reason: NAUSEA AND/OR VOMITING Last Admin: 05/18/17 14:24 Dose: 10 mg Non-Formulary Medication (Lipase/Protease/Amylase [Creon Dr 12,000 Units Capsule ]) 1 each PO ASDIR [facility] Pantoprazole Sodium (Protonix -) 40 mg PO DAILY [facility] Last Admin: 05/18/17 14:25 Dose: 40 mg Polyethylene Glycol (Miralax (For Daily Use) -) 17 gm PO BID [facility] Last Admin: 05/18/17 14:22 Dose: 17 grams Multivit/Folic Acid/Iron ( Vitamins (Sjr) -) 1 tab PO DAILY [facility] Last Admin: 05/18/17 14:22 Dose: Not Given Sucralfate (Carafate Oral Suspension -) 1 gm PO ACHS [facility] Last Admin: 05/18/17 14:22 Dose: Not Given Thiamine HCl (Vitamin B1 -) 100 mg PO HS [facility] Last Admin: 05/17/17 23:33 Dose: Not Given - Allergies Allergies: Allergies Allergy/AdvReac Type Severity Reaction Status Date / Time No Known Allergies Allergy Verified 05/14/17 12:52 - Current Living Status Usual Living Arrangement: With Parent - Current Mental Status Evaluation Appearance: Well Groomed Attitude: Cooperative - Affect Affect: Constrictive Appropriateness: Appropriate to Content - Mood Mood: Euthymic - Speech/Language Expressive: Coherent - Psychomotor Activity Psychomotor Activity: Slowed - Thought Process Thought Process: Intact - Thought Content Hallucinations: Absent Delusions: Absent - Self Perception Self Perception: No Impairment - Cognition Attention: Alert Orientation: Time Memory, Immediate Recall: Intact Memory, Short Term: 3/3 Memory, Remote with Promptin3 - Concentration Serial Sevens Intact: Yes Simple Calculations Intact: Yes - Abstraction Proverb Interpretation: Intact Judgement: Minimally Impaired - Insight Insight: Intact - Impulse Control Impulse Control: Minimally Impaired - Suicidal Ideation Suicidal Ideation: No - Homicidal Ideation Homicidal Ideation: No Assessment/Plan 1) Currantly on Elavil and Valium. 2) I would suggest Remeron 15mg po hs for anxiety, appetite and nausea. I am afraid patient might not be able to get Valium out side. 3) family and patient is reluctant to start any psych meds but she already on them, . Is Elavil for Abdominal pain? if not suggest switching to Remeron 15mg po hs and stop both Eklaviol and Valium. thanks.
[2017-05-18] MEDS: diazePAM 5 MG TABLET PO SCH (21:43)
[2017-05-18] MEDS: THIAMINE HCL 100 MG TABLET (FP) PO SCH (21:43)
[2017-05-18] MEDS: AMITRIPTYLINE HCL 25 MG TABLET (FP) PO SCH (21:43)
[2017-05-18] MEDS: CEFPODOXIME PROXETIL 200 MG TABLET [NF] PO SCH (22:35)
[2017-05-19 03:00] LABS: URINE APPEARANCE SLCLOUDY; URINE BILIRUBIN NEGATIVE (NEGATIVE); URINE BLOOD 3+ (NEGATIVE); URINE COLOR YELLOW; URINE GLUCOSE (UA) NEGATIVE (NEGATIVE); URINE KETONE NEGATIVE (NEGATIVE); URINE LEUK ESTERASE TRACE (NEGATIVE); URINE NITRITE NEGATIVE (NEGATIVE); URINE UROBILINOGEN NEGATIVE mg/dL (0.2-1.0)
[2017-05-19 03:09] LABS: URINE PROTEIN 1+ (NEGATIVE)
[2017-05-19 03:10] LABS: COCAINE, UR NEGATIVE ng/ml (CUTOFF=300); OPIATES, URI NEGATIVE ng/ml (CUTOFF=300); PHENCYCLIDINE,URINE NEGATIVE ng/ml (CUTOFF=25); URINE AMPHETAMINES NEGATIVE ng/ml (CUTOFF=500); URINE BARBITURATES NEGATIVE ng/ml (CUTOFF=200)
[2017-05-19 03:11] LABS: METHADONE, UR NEGATIVE ng/ml (CUTOFF=300); URINE BENZODIAZEPINES POSITIVE ng/ml (CUTOFF=200)
[2017-05-19] MEDS: SUCRALFATE 1 GM/10 ML UNIT DOSE CUPS PO SCH ×5 (06:11→21:48)
--- NOTE | 2017-05-19 11:54 | PROC ---
Endoscopy Procedure Endoscopy procedure completed. Please see scanned procedure report. normal EGD, duodenal and gastric biopsies taken
--- NOTE | 2017-05-19 12:05 | PN ---
Progress Note (short form) - Note Progress Note: resume previous diet continue current medications Stop Reglan on discharge Follow biopsies in 1 week Problem List - Problems (1) IBS (irritable bowel syndrome) Code(s): K58.9 - IRRITABLE BOWEL SYNDROME WITHOUT DIARRHEA (2) Gastritis Code(s): K29.70 - GASTRITIS, UNSPECIFIED, WITHOUT BLEEDING Qualifiers: Gastritis type: unspecified gastritis Chronicity: acute Gastritis bleeding: without bleeding Qualified Code(s): K29.00 - Acute gastritis without bleeding (3) Nausea & vomiting Code(s): R11.2 - NAUSEA WITH VOMITING, UNSPECIFIED Qualifiers: Vomiting type: unspecified Vomiting Intractability: non-intractable Qualified Code(s): R11.2 - Nausea with vomiting, unspecified
[2017-05-19] MEDS: POLYETHYLENE GLYCOL 3350 119 GM BTL PO SCH ×2 (12:06→21:54)
[2017-05-19] MEDS: PANTOPRAZOLE 40 MG TABLET (FP) PO SCH (12:06)
[2017-05-19] MEDS: PRENATAL VITAMINS W/ FOLIC ACID TABLET (FP) PO SCH (12:06)
[2017-05-19] MEDS: CEFPODOXIME PROXETIL 200 MG TABLET [NF] PO SCH ×2 (12:07→21:48)
[2017-05-19] MEDS: D5-1/2NS+20 MEQ KCL - 20 MEQ/1,000 ML INFUS.BAG IV SCH ×2 (18:21→21:46)
[2017-05-19] MEDS ORDERED: PT OWN MED DRAWER 7, Y5N ONE (20:55)
[2017-05-19] MEDS: diazePAM 5 MG TABLET PO SCH (21:47)
[2017-05-19] MEDS: THIAMINE HCL 100 MG TABLET (FP) PO SCH (21:47)
[2017-05-19] MEDS: AMITRIPTYLINE HCL 25 MG TABLET (FP) PO SCH (21:48)
--- NOTE | 2017-05-20 00:03 | PN ---
Progress Note, Physician Chief Complaint: cyclic vomiting History of Present Illness: NAD, EGD negative biopsies pending feeling better tolerated po intake - Current Medication List Current Medications: Active Medications Acetaminophen (Tylenol -) 650 mg PO Q4H PRN PRN Reason: PAIN LEVEL 4 - 6 Last Admin: 05/17/17 23:23 Dose: 650 mg Amitriptyline HCl (Elavil -) 25 mg PO HS [facility] Last Admin: 05/19/17 21:48 Dose: 25 mg Cefpodoxime Proxetil (Vantin -) 200 mg PO BID [facility] Last Admin: 05/19/17 21:48 Dose: 200 mg Diazepam (Valium -) 10 mg PO HS [facility] Last Admin: 05/19/17 21:47 Dose: 10 mg Potassium Chloride/Dextrose/Sod Cl (D5-1/2ns+20 Meq Kcl -) 20 meq in 1,000 mls @ 100 mls/hr IV ASDIR [facility] Last Admin: 05/19/17 21:46 Dose: 100 mls/hr Metoclopramide HCl (Reglan Injection -) 10 mg IVPUSH Q6H PRN PRN Reason: NAUSEA AND/OR VOMITING Last Admin: 05/18/17 14:24 Dose: 10 mg Non-Formulary Medication (Lipase/Protease/Amylase [Creon Dr 12,000 Units Capsule ]) 1 each PO ASDIR [facility] Pantoprazole Sodium (Protonix -) 40 mg PO DAILY [facility] Last Admin: 05/19/17 12:06 Dose: Not Given Polyethylene Glycol (Miralax (For Daily Use) -) 17 gm PO BID [facility] Last Admin: 05/19/17 21:54 Dose: 17 grams Multivit/Folic Acid/Iron ( Vitamins (Sjr) -) 1 tab PO DAILY [facility] Last Admin: 05/19/17 12:06 Dose: Not Given Sucralfate (Carafate Oral Suspension -) 1 gm PO ACHS [facility] Last Admin: 05/19/17 21:48 Dose: 1 gm Thiamine HCl (Vitamin B1 -) 100 mg PO HS [facility] Last Admin: 05/19/17 21:47 Dose: 100 mg - Objective Vital Signs: Vital Signs Temperature 98.3 F 05/19/17 22:00 Pulse Rate 95 H 05/19/17 22:00 Respiratory Rate 18 05/19/17 22:00 Blood Pressure 120/71 05/19/17 22:00 O2 Sat by Pulse Oximetry (%) 98 05/19/17 21:00 Constitutional: Yes: Well Nourished, No Distress, Calm Cardiovascular: Yes: Regular Rate and Rhythm Respiratory: Yes: Regular Gastrointestinal: Yes: Normal Bowel Sounds, Soft Musculoskeletal: Yes: WNL Extremities: Yes: WNL Edema: No Peripheral Pulses WNL: Yes Neurological: Yes: Alert, Oriented Psychiatric: Yes: Alert, Oriented Labs: CBC, BMP 05/17/17 08:40 05/18/17 06:35 Problem List - Problems (1) Abdominal pain Assessment/Plan: GI consult on board reglan carafate protonix miralax, encouraged tot johnnie, she has not had BM in 5 days -pain resolved Code(s): R10.9 - UNSPECIFIED ABDOMINAL PAIN Qualifiers: Abdominal location: epigastric Qualified Code(s): R10.13 - Epigastric pain (2) Gastritis Code(s): K29.70 - GASTRITIS, UNSPECIFIED, WITHOUT BLEEDING Qualifiers: Gastritis type: unspecified gastritis Chronicity: acute Gastritis bleeding: without bleeding Qualified Code(s): K29.00 - Acute gastritis without bleeding (3) Cyclical vomiting Assessment/Plan: -improved Code(s): G43.A0 - CYCLICAL VOMITING, NOT INTRACTABLE Qualifiers: Vomiting Intractability: intractable Nausea presence: with nausea Qualified Code(s): G43.A1 - Cyclical vomiting, intractable (4) UTI (urinary tract infection) Assessment/Plan: -PO abx -seen by ID Code(s): N39.0 - URINARY TRACT INFECTION, SITE NOT SPECIFIED Qualifiers: Urinary tract infection type: site unspecified Hematuria presence: with hematuria Qualified Code(s): N39.0 - Urinary tract infection, site not specified; R31.9 - Hematuria, unspecified; R31.9 - Hematuria, unspecified (5) Anxiety Assessment/Plan: -Seen by Dr Valentino -At first shows hesitancy to psychiatry or psychotherapy that it she is not "crazy". Educated and informed on the importance, benefits of the therapy. -Psychiatry consult -agrees to seeing a counselor outpatient -amitryptiline Code(s): F41.9 - ANXIETY DISORDER, UNSPECIFIED Assessment/Plan D/C home today
[2017-05-20] MEDS: SUCRALFATE 1 GM/10 ML UNIT DOSE CUPS PO SCH ×2 (06:45→11:45)
--- NOTE | 2017-05-20 08:09 | EKG ---
Test Reason : Blood Pressure : / mmHG Vent. Rate : 067 BPM Atrial Rate : 067 BPM P-R Int : 160 ms QRS Dur : 080 ms QT Int : 432 ms P-R-T Axes : 055 064 054 degrees QTc Int : 456 ms NORMAL SINUS RHYTHM WITH SINUS ARRHYTHMIA NORMAL ECG WHEN COMPARED WITH ECG OF 16-MAY-2017 12:08, NO SIGNIFICANT CHANGE WAS FOUND Confirmed by JOE AGUILERA MD ([id number]) on 05/20/2017 8:09:11 AM Referred By: GIL GIL Confirmed By:OJE AGUILERA MD
--- NOTE | 2017-05-20 09:12 | PN ---
Progress Note, Physician History of Present Illness: Tolerated diet. Slept all night. Pain Free. No significant findings on EGD - Current Medication List Current Medications: Active Medications Acetaminophen (Tylenol -) 650 mg PO Q4H PRN PRN Reason: PAIN LEVEL 4 - 6 Last Admin: 05/17/17 23:23 Dose: 650 mg Amitriptyline HCl (Elavil -) 25 mg PO HS [facility] Last Admin: 05/19/17 21:48 Dose: 25 mg Cefpodoxime Proxetil (Vantin -) 200 mg PO BID [facility] Last Admin: 05/19/17 21:48 Dose: 200 mg Diazepam (Valium -) 10 mg PO HS [facility] Last Admin: 05/19/17 21:47 Dose: 10 mg Potassium Chloride/Dextrose/Sod Cl (D5-1/2ns+20 Meq Kcl -) 20 meq in 1,000 mls @ 100 mls/hr IV ASDIR [facility] Last Admin: 05/19/17 21:46 Dose: 100 mls/hr Metoclopramide HCl (Reglan Injection -) 10 mg IVPUSH Q6H PRN PRN Reason: NAUSEA AND/OR VOMITING Last Admin: 05/18/17 14:24 Dose: 10 mg Non-Formulary Medication (Lipase/Protease/Amylase [Creon Dr 12,000 Units Capsule ]) 1 each PO ASDIR [facility] Pantoprazole Sodium (Protonix -) 40 mg PO DAILY [facility] Last Admin: 05/19/17 12:06 Dose: Not Given Polyethylene Glycol (Miralax (For Daily Use) -) 17 gm PO BID [facility] Last Admin: 05/19/17 21:54 Dose: 17 grams Multivit/Folic Acid/Iron ( Vitamins (Sjr) -) 1 tab PO DAILY [facility] Last Admin: 05/19/17 12:06 Dose: Not Given Sucralfate (Carafate Oral Suspension -) 1 gm PO ACHS [facility] Last Admin: 05/20/17 06:45 Dose: 1 gm Thiamine HCl (Vitamin B1 -) 100 mg PO HS [facility] Last Admin: 05/19/17 21:47 Dose: 100 mg - Objective Vital Signs: Vital Signs Temperature 97.7 F 05/20/17 06:00 Pulse Rate 62 05/20/17 06:00 Respiratory Rate 18 05/20/17 06:00 Blood Pressure 98/55 05/20/17 06:00 O2 Sat by Pulse Oximetry (%) 98 05/19/17 21:00 Constitutional: Yes: No Distress, Calm Eyes: Yes: Conjunctiva Clear HENT: Yes: Atraumatic Neck: Yes: Supple Cardiovascular: Yes: Regular Rate and Rhythm Respiratory: Yes: Regular Gastrointestinal: Yes: Soft. No: Melena, Rectal Bleeding, Tenderness, Tenderness, Rebound, Vomiting Neurological: Yes: Alert, Oriented Labs: CBC, BMP 05/17/17 08:40 05/18/17 06:35 CBCD WBC 8.6 K/mm3 (4.0-10.0) 05/17/17 08:40 RBC 4.19 M/mm3 (3.60-5.2) 05/17/17 08:40 Hgb 12.6 GM/dL (10.7-15.3) 05/17/17 08:40 Hct 38.1 % (32.4-45.2) 05/17/17 08:40 MCV 90.8 fl (80-96) 05/17/17 08:40 MCHC 33.2 g/dl (32.0-36.0) 05/17/17 08:40 RDW 12.4 % (11.6-15.6) 05/17/17 08:40 Plt Count 235 K/MM3 (134-434) 05/17/17 08:40 MPV 8.8 fl (7.5-11.1) 05/17/17 08:40 CMP Sodium 137 mmol/L (136-145) 05/18/17 06:35 Potassium 3.7 mmol/L (3.5-5.1) 05/18/17 06:35 Chloride 104 mmol/L (98-107) 05/18/17 06:35 Carbon Dioxide 21 mmol/L (21-32) 05/18/17 06:35 Anion Gap 12 (8-16) 05/18/17 06:35 BUN 11 mg/dL (7-18) 05/18/17 06:35 Creatinine 0.8 mg/dL (0.55-1.02) 05/18/17 06:35 Creat Clearance w eGFR > 60 (>60) 05/18/17 06:35 Calcium 8.9 mg/dL (8.5-10.1) 05/18/17 06:35 Total Bilirubin 1.3 mg/dL (0.2-1.0) H 05/18/17 06:35 AST 10 U/L (15-37) L 05/18/17 06:35 ALT 26 U/L (12-78) 05/18/17 06:35 Alkaline Phosphatase 68 U/L (45-117) 05/18/17 06:35 Total Protein 7.4 g/dl (6.4-8.2) 05/18/17 06:35 Albumin 4.2 g/dl (3.4-5.0) 05/18/17 06:35 Problem List - Problems (1) IBS (irritable bowel syndrome) Code(s): K58.9 - IRRITABLE BOWEL SYNDROME WITHOUT DIARRHEA (2) Gastritis Code(s): K29.70 - GASTRITIS, UNSPECIFIED, WITHOUT BLEEDING Qualifiers: Gastritis type: unspecified gastritis Chronicity: acute Gastritis bleeding: without bleeding Qualified Code(s): K29.00 - Acute gastritis without bleeding (3) Nausea & vomiting Code(s): R11.2 - NAUSEA WITH VOMITING, UNSPECIFIED Qualifiers: Vomiting type: unspecified Vomiting Intractability: non-intractable Qualified Code(s): R11.2 - Nausea with vomiting, unspecified Assessment/Plan Advance diet Continue Zofran PRN, Add Reglan 10 mg TID Small doze amitriptylene now and qhs Miralax bid Follow biopsies in office in 2 weeks
[2017-05-20] MEDS ORDERED: PT OWN MED DRAWER 7, Y5N ONE (09:58)
[2017-05-20] MEDS: POLYETHYLENE GLYCOL 3350 119 GM BTL PO SCH (10:04)
[2017-05-20] MEDS: PRENATAL VITAMINS W/ FOLIC ACID TABLET (FP) PO SCH (10:05)
[2017-05-20] MEDS: PANTOPRAZOLE 40 MG TABLET (FP) PO SCH (10:05)
[2017-05-20] MEDS: CEFPODOXIME PROXETIL 200 MG TABLET [NF] PO SCH (10:06)
[2017-05-20] MEDS: D5-1/2NS+20 MEQ KCL - 20 MEQ/1,000 ML INFUS.BAG IV SCH (10:10)
[2017-05-20 13:47] VITALS: BP 126/74; PULSE 82; TEMP 98.1
--- NOTE | 2017-05-21 11:02 | EKG ---
Test Reason : Blood Pressure : / mmHG Vent. Rate : 049 BPM Atrial Rate : 049 BPM P-R Int : 146 ms QRS Dur : 076 ms QT Int : 460 ms P-R-T Axes : -25 042 041 degrees QTc Int : 415 ms SINUS BRADYCARDIA WITH SINUS ARRHYTHMIA OTHERWISE NORMAL ECG WHEN COMPARED WITH ECG OF 14-MAY-2017 17:22, NO SIGNIFICANT CHANGE WAS FOUND Confirmed by QUENTIN ARRIOLA MD ([id number]) on 05/21/2017 11:01:42 AM Referred By: Confirmed By:QUENTIN ARRIOLA MD
--- NOTE | 2017-05-21 11:15 | PATH ---
Surgical Pathology Report Patient Name: GAMAL HACKETT [facility]. Rec. #: [id number] /Age/Gender: 1995 (Age: 21) / F Account: [id number] Location: [facility] MED/SURG Taken: 05/19/2017 Received: 05/19/2017 Reported: 05/21/2017 Physicians: Fran Acuña M.D. Specimen(s) Received A: BX DUODENUM B: BX ANTRUM AND BODY Clinical History Preoperative diagnosis: Abdominal pain Postoperative diagnosis: Same Final Diagnosis A. SECOND PORTION OF DUODENUM, BIOPSY: DUODENAL MUCOSA WITH NO PATHOLOGIC FINDINGS. B. ANTRUM/BODY, BIOPSY: MILD CHRONIC GASTRITIS. IMMUNOSTAIN IS NEGATIVE FOR H. PYLORI ORGANISMS. Electronically Signed Rhonda Clarke M.D. Gross Description A. Received in formalin, labeled "biopsy second portion of duodenum" are 2 reynolds, irregular portions of soft tissue averaging 0.4 cm. in greatest dimension. The specimens are submitted in toto in one cassette. B. Received in formalin, labeled "biopsy antrum/body" is a reynolds, irregular portion of soft tissue measuring 0.1 cm. in greatest dimension. The specimen is submitted in toto in one cassette. 05/19/2017 saudi05/19/2017
== END 2017-05-20 15:52 | disposition home or self-care (01) | DRG 690 ==
LOC: JER 12:30 → JERFT 12:30 → JERBED 16:43 → J7W 05-15 21:19 → OBSVTOIN 05-18 11:49
PROVIDERS: ADMIT Family Medicine; ATTEND Family Medicine
PROC: 0DD68ZX Extraction of Stomach, Via Natural or Artificial Opening Endoscopic, Diagnostic (ICD-10-PCS; principal; 2017-05-19 10:30)
DX: N39.0 Urinary tract infection, site not specified (principal); B96.1 Klebsiella pneumoniae [K. pneumoniae] as the cause of diseases classified elsewhere; A08.4 Viral intestinal infection, unspecified; K29.00 Acute gastritis without bleeding; F41.9 Anxiety disorder, unspecified; G43.A1 Cyclical vomiting, in migraine, intractable; F12.20 Cannabis dependence, uncomplicated; E86.0 Dehydration; K58.1 Irritable bowel syndrome with constipation
CPT/HCPCS: 36415; 76700-TC; 80048; 80053; 80307; 81003; 81015; 82150; 82550; 83690; 84484; 84703; 85025; 85379; 87086; 87186; 87389; 88305-TC; 93005; 93010; 99284-25; G0378; J1644

== ENCOUNTER 2017-06-05 12:56 | Inpatient (IN) | payer OTHER ==
[2017-06-05 13:19] VITALS: BMI 22.2
--- NOTE | 2017-06-05 14:49 | PDOC ---
Attending Attestation - HPI HPI: 06/05/17 15:20 The patient is a 21 year old female, with a significant past medical history gastritis, cyclical vomiting syndrome (secondary to daily Marijuana use), IBS, and anxiety, who presents to the emergency department with nausea, vomiting, and abdominal pain since earlier today. The patient reports she has known gastritis and frequent ED visits with similar symptoms. Patient endorses about 15 episodes of emesis(nonbloody/nonbilious) throughout the day. She denies any associated diarrhea or constipation. Patient reports her abdominal pain is epigastric and nonradiating in nature. She denies any recent fever or chills. She denies any dysuria, hematuria, frequency, or urgency. She denies any chest pain or shortness of breath. She denies any recent travel or sick contacts. Patient reports she was recently admitted to the ED on 05/14/17 with similar symptoms. At the time, patient had an EGD done, which was negative. Allergies: NKDA Past Surgical History: None reported Social History: Daily Marijuana use. No tobacco use. No ETOH use. PCP: Dr. Aldridge - Medical Decision Making 06/05/17 15:20 Documentation prepared by John Castaneda, acting as medical data analyst for Emily Akins MD. <John Castaneda - Last Filed: 06/05/17 15:23> - Resident Resident Name: Stevie Burns - ED Attending Attestation I have performed the following: I have examined & evaluated the patient, The case was reviewed & discussed with the resident, I agree w/resident's findings & plan, Exceptions are as noted - Physicial Exam PE: GENERAL: Awake, alert, and fully oriented. Appears uncomfortable. HEAD: No signs of trauma EYES: PERRLA, EOMI, sclera anicteric, conjunctiva clear ENT: Auricles normal inspection, hearing grossly normal, nares patent, oropharynx clear without exudates. Dry mucosa NECK: Normal ROM, supple, no lymphadenopathy, JVD, or masses LUNGS: Breath sounds equal, clear to auscultation bilaterally. No wheezes, and no crackles HEART: Regular rate and rhythm, normal S1 and S2, no murmurs, rubs or gallops ABDOMEN: Soft, nontender, normoactive bowel sounds. No guarding, no rebound. No masses EXTREMITIES: Normal range of motion, no edema. No clubbing or cyanosis. No cords, erythema, or tenderness NEUROLOGICAL: Cranial nerves II through XII grossly intact. Normal speech, normal gait SKIN: Warm, Dry, normal turgor, no rashes or lesions noted. - Medical Decision Making Pt with N/V, history of cannabis-induced hyperemesis as well as gastritis. Will obtain labs, give IVF, GI cocktail. Will reassess for DC home vs admission depending on response to medications. <Emily Akins - Last Filed: 06/05/17 15:54>
--- NOTE | 2017-06-05 14:56 | PDOC ---
History of Present Illness - General Chief Complaint: Nausea/Vomiting Stated Complaint: VOMITING (GASTRITIS) Time Seen by Provider: 06/05/17 14:45 - History of Present Illness Initial Comments: 06/05/17 15:14 The patient is a 21 year old female with a history of gastritis, anxiety, cyclical vomiting syndrome who presents for evaluation of epigastric abdominal pain, nausea, and vomiting. The patient reports onset of severe burning epigastric abdominal pain earlier this morning with associated nausea and 15 episodes of vomiting prompting her presentation to the ED today. She notes that was was recently admitted several weeks ago for similar symptoms and states that her symptoms are similar to her usual gastritis. She otherwise denies fevers, chills, chest pain, SOB, or changes with urination or bowel movements. Past History - Past Medical History Allergies/Adverse Reactions: Allergies Allergy/AdvReac Type Severity Reaction Status Date / Time No Known Allergies Allergy Verified 06/05/17 13:15 Home Medications: Ambulatory Orders Lipase/Protease/Amylase [Faustino Jarrett 12,000 Units Capsule] 1 each PO ASDIR Ondansetron [Zofran *Odt*] 8 mg SL TID PRN #21 od.tablet 05/14/17 Pantoprazole Sodium [Protonix] 40 mg PO DAILY #20 tablet. 05/14/17 Amitriptyline HCl [Elavil -] 25 mg PO HS #30 tablet 05/20/17 Cefpodoxime Proxetil [Vantin -] 200 mg PO BID #10 tablet 05/20/17 Metoclopramide HCl [Reglan] 10 mg PO Q6H PRN #120 tablet 05/20/17 Nitrofurantoin Macrocrystal [Nitrofurantoin] 100 mg PO BID #10 capsule 05/20/17 Pantoprazole Sodium [Protonix -] 40 mg PO DAILY #30 tablet.ec 05/20/17 Polyethylene Glycol 3350 [Miralax 119 gm Btl -] 17 gm PO BID #1 bottle 05/20/17 Vitamins (Sjr) - 1 tab PO DAILY #30 tablet 05/20/17 Sucralfate Oral Suspension [Carafate Oral Suspension -] 1 gm PO ACHS #120 ml Thiamine HCl [Vitamin B1 -] 100 mg PO HS #30 tablet 05/20/17 COPD: No GI Disorders: Yes (gastritis, IBS) Psychiatric Problems: Yes (ANXIETY) - Immunization History Immunization Up to Date: Yes - Suicide/Smoking/Psychosocial Hx Smoking History: Never smoked Have you smoked in the past 12 months: No Number of Cigarettes Smoked Daily: 2 'Breaking Loose' booklet given: 12/09/15 Hx Alcohol Use: No Drug/Substance Use Hx: Yes (jenna garcia 2 joints) Substance Use Type: Marijuana Hx Substance Use Treatment: No Review of Systems - Review of Systems Comments:: 06/05/17 15:18 Constitutional: No fevers, chills, fatigue, malaise HEENT: No Rhinorrhea, nasal congestion, visual changes Cardiovascular: No chest pain, syncope, palpitations, lightheadedness Respiratory: No Cough, SOB, Hemoptysis, Gastrointestinal: Nausea, vomiting, abdominal pain. No Constipation, Diarrhea, Melena Genitourinary: No Dysuria, Frequency, Urgency, Hesitancy, Hematuria, Flank pain Musculoskeletal: No Myalgia, arthralgia Skin: No rashes, itching, bruising, pallor Neurologic: No Headache, Dizziness, Numbness, Weakness, or Tingling Psychiatric: No Hallucinations. No SI or HI *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 - Vital Signs Last Vital Signs Temp Pulse Resp BP Pulse Ox 97.8 F 120 H 19 127/74 98 06/05/17 13:16 06/05/17 13:16 06/05/17 13:16 06/05/17 13:16 06/05/17 13:16 - 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 Comments: 06/05/17 15:22 General Appearance: Nourished. No Apparent Distress HEENT: EOMI, JENNIFER. No Pharyngeal Erythema, Tonsillar Exudate, Tonsillar Erythema Neck: No Cervical Lymphadenopathy Respiratory/Chest: Lungs Clear, Normal Breath Sounds. No Crackles, Rales, Rhonchi, Wheezing Cardiovascular: Regular Rhythm, Regular Rate. No Murmur, Gallops, Rubs Gastrointestinal/Abdominal: Normal Bowel Sounds, Soft. Mild tenderness to palpation in the epigastric region. No tenderness in the RLQ. Negative Santos' s. No Guarding, Rebound, Musculoskeletal: No CVA Tenderness Extremity: Normal Capillary Refill Integumentary: Normal Color, Dry, Warm Neurologic: Fully Oriented, Alert, Normal Mood/Affect, Normal Response, ED Treatment Course - LABORATORY CBC & Chemistry Diagram: 06/05/17 15:07 06/05/17 15:07 Medical Decision Making - Medical Decision Making 06/05/17 15:24 The patient is a 21 year old female with a history of gastritis, anxiety, cyclical vomiting syndrome who presents for evaluation of epigastric abdominal pain, nausea, and vomiting. Given the patient's multiple ER visit for similar complaints and the patient's report of similar symptoms to her gastritis, it is likely her symptoms are due to her normal gastritis and cyclical vomiting syndrome. We will send a cbc, cmp, lipase, ua, urine tox, urine preg to evaluate further. We will treat with iv fluids, zofran, pepcid, maalox, and viscious lidocaine. We will continue to monitor and reassess. 06/05/17 18:05 CBC, cmp, lipase, ua are unremarkable. Urine tox is positive for marijuana. The patient reports continued symptoms despite medications and has been unable to tolerate multiple po challenges despite the addition of reglan. We believe the patient requires observation admission at this time due to inability to tolerate PO intake. We discussed the plan with the patient who is agreeable. 06/05/17 18:37 We discussed the case with the hospitalist team who accepted the patient for admission. *DC/Admit/Observation/Transfer Diagnosis at time of Disposition: Gastritis Qualifiers: Gastritis type: unspecified gastritis Chronicity: unspecified Gastritis bleeding: presence of bleeding unspecified Qualified Code(s): K29.70 - Gastritis , unspecified, without bleeding Cyclical vomiting Qualifiers: Vomiting Intractability: intractable Nausea presence: with nausea Qualified Code(s): G43.A1 - Cyclical vomiting, intractable - Discharge Dispostion Condition at time of disposition: Stable Admit: Yes - Referrals Referrals: Flakito Aldridge [Primary Care Provider] - - Patient Instructions - Post Discharge Activity
[2017-06-05] MEDS ORDERED: SODIUM CHLORIDE 1,000 ML IV STA ×2 (14:57→20:10)
[2017-06-05] MEDS ORDERED: ONDANSETRON 4 MG/2 ML VIAL IVPUSH ONE (14:57)
[2017-06-05] MEDS ORDERED: LIDOCAINE VISCOUS 2% ORAL/TOP 20 ML UNIT-DOSE CUP MM ONE (14:57)
[2017-06-05] MEDS ORDERED: MAG HYDROX/AL HYDROX/SIMETH 30 ML UNIT-DOSE CUP PO ONE (14:57)
[2017-06-05] MEDS ORDERED: FAMOTIDINE 20 MG/50 ML IVPB 20 MG/50 ML MG IVPB ONE ×2 (14:57→15:32)
[2017-06-05] MEDS ORDERED: ONDANSETRON 4 MG/2 ML VIAL ONE (15:31)
[2017-06-05] MEDS ORDERED: MAG HYDROX/AL HYDROX/SIMETH 30 ML UNIT-DOSE CUP ONE (15:31)
[2017-06-05 15:34] LABS: BASO % 0.2 % (0-2.0); HEMATOCRIT 39.8 % (32.4-45.2); HEMOGLOBIN 13.3 GM/dL (10.7-15.3); LYMPH % 1.8 % (8-40); MCH 31.1 pg (25.7-33.7); MCHC 33.4 g/dl (32.0-36.0); MEAN CELL VOLUME 93.2 fl (80-96); MEAN PLT VOLUME 9.1 fl (7.5-11.1); MONO % 2.5 % (3.8-10.2); NEUT % 95.5 % (42.8-82.8); PLATELET COUNT 257 K/MM3 (134-434); RBC 4.27 M/mm3 (3.60-5.2); WHITE BLOOD COUNT 12.2 K/mm3 (4.0-10.0)
[2017-06-05 15:52] LABS: URINE APPEARANCE CLOUDY; URINE BILIRUBIN NEGATIVE (NEGATIVE); URINE BLOOD NEGATIVE (NEGATIVE); URINE COLOR YELLOW; URINE GLUCOSE (UA) NEGATIVE (NEGATIVE); URINE KETONE 2+ (NEGATIVE); URINE LEUK ESTERASE TRACE (NEGATIVE); URINE NITRITE NEGATIVE (NEGATIVE)
[2017-06-05 15:54] LABS: URINE PROTEIN 1+ (NEGATIVE)
[2017-06-05 15:56] LABS: ALBUMIN 4.7 g/dl (3.4-5.0); ANION GAP 12 (8-16); BILIRUBIN,TOTAL 0.7 mg/dL (0.2-1.0); BLOOD UREA NITROGEN 18 mg/dL (7-18); CALCIUM 9.2 mg/dL (8.5-10.1); CHLORIDE 105 mmol/L (98-107); CO2 20 mmol/L (21-32); CREATININE 0.8 mg/dL (0.55-1.02); GLUCOSE,RANDOM 136 mg/dL (74-106); LIPASE 87 U/L (73-393); SGPT/ALT 16 U/L (12-78); SODIUM 137 mmol/L (136-145)
[2017-06-05 16:01] LABS: HCG,QUALITATIVE URINE NEGATIVE
[2017-06-05 16:02] LABS: EPI CELLS FEW /HPF (FEW); URINE BACTERIA RARE /hpf (NONE SEEN); URINE MUCUS MANY
[2017-06-05 16:17] LABS: ALK PHOS 0 U/L (45-117); POTASSIUM 3.9 mmol/L (3.5-5.1); SGOT/AST 14 U/L (15-37)
[2017-06-05 16:26] LABS: COCAINE, UR NEGATIVE ng/ml (CUTOFF=300); METHADONE, UR NEGATIVE ng/ml (CUTOFF=300); OPIATES, URI NEGATIVE ng/ml (CUTOFF=300); PHENCYCLIDINE,URINE NEGATIVE ng/ml (CUTOFF=25); URINE AMPHETAMINES NEGATIVE ng/ml (CUTOFF=500); URINE BARBITURATES NEGATIVE ng/ml (CUTOFF=200); URINE BENZODIAZEPINES NEGATIVE ng/ml (CUTOFF=200)
[2017-06-05] MEDS ORDERED: METOCLOPRAMIDE HCL INJECTION 10 MG/2 ML VIAL IVPUSH ONE (16:30)
[2017-06-05] MEDS ORDERED: METOCLOPRAMIDE HCL INJECTION 10 MG/2 ML VIAL ONE (16:36)
--- NOTE | 2017-06-05 20:13 | HP ---
CHIEF COMPLAINT: vomiting PCP: HISTORY OF PRESENT ILLNESS: 21 year old female with a history of gastritis and vomiting presents to the hospital for 1 day hx of nausea and non-bloody, non-bilious vomiting. Patient states that since this morning, she has had abdominal pain and vomiting, not being able to hold down any of her food. she does not attribute any of her symptoms to her diet. She states that she vomited a total of 31 times and that the emesis is bright yellow/green. She states that the abdominal pain is in the left upper quadrant and is worse on palpation. She reports normal, solid bowel movements. She states that she's had previous episodes of this vomiting that lasted weeks at a time. She was last seen by Dr. Acuña in April, when she got an upper endoscopy performed that appeared normal. Biopsies of random mucosa were taken for pathology, but the patient does not have results for these biopsies. Denies fevers, chills, chest pain, SOB, diarrhea. Patient reports being on cefpedoxime for UTI that was diagnosed a couple of weeks ago, but feels burning on urination - states that she is still on the medication, despite only being prescribed a short course? ER course was notable for: (1) THC (+) (2) Normal CXR (3) WBC 12.2 Recent Travel: none PAST MEDICAL HISTORY: gastritis PAST SURGICAL HISTORY: unknown Social History: Smoking: none Alcohol: socially Drugs: none (smoked marijuana last in April according to her) Family History: Allergies No Known Allergies Allergy (Verified 06/05/17 13:15) HOME MEDICATIONS: Home Medications Medication Instructions Recorded Lipase/Protease/Amylase [Faustino Jarrett 1 each PO ASDIR 05/14/17 12,000 Units Capsule] Ondansetron [Zofran *Odt*] 8 mg SL TID PRN #21 od.tablet 05/14/17 Pantoprazole Sodium [Protonix] 40 mg PO DAILY #20 tablet. 05/14/17 Amitriptyline HCl [Elavil -] 25 mg PO HS #30 tablet 05/20/17 Cefpodoxime Proxetil [Vantin -] 200 mg PO BID #10 tablet 05/20/17 Metoclopramide HCl [Reglan] 10 mg PO Q6H PRN #120 tablet 05/20/17 Nitrofurantoin Macrocrystal 100 mg PO BID #10 capsule 05/20/17 [Nitrofurantoin] Pantoprazole Sodium [Protonix -] 40 mg PO DAILY #30 tablet.ec 05/20/17 Polyethylene Glycol 3350 [Miralax 17 gm PO BID #1 bottle 05/20/17 119 gm Btl -] Vitamins (Sjr) - 1 tab PO DAILY #30 tablet 05/20/17 Sucralfate Oral Suspension 1 gm PO ACHS #120 ml 05/20/17 [Carafate Oral Suspension -] Thiamine HCl [Vitamin B1 -] 100 mg PO HS #30 tablet 05/20/17 REVIEW OF SYSTEMS CONSTITUTIONAL: generalized weakness,loss of appetite, Absent: fever, chills, diaphoresis, malaise, weight change HEENT: Absent: rhinorrhea, nasal congestion, throat pain, throat swelling, difficulty swallowing, mouth swelling, ear pain, eye pain, visual changes CARDIOVASCULAR: Absent: chest pain, syncope, palpitations, irregular heart rate, lightheadedness , peripheral edema RESPIRATORY: Absent: cough, shortness of breath, dyspnea with exertion, orthopnea, wheezing, stridor, hemoptysis GASTROINTESTINAL: abdominal pain, Absent: abdominal distension, nausea, vomiting, diarrhea, constipation, melena , hematochezia GENITOURINARY: Absent: dysuria, frequency, urgency, hesitancy, hematuria, flank pain, genital pain MUSCULOSKELETAL: Absent: myalgia, arthralgia, joint swelling, back pain, neck pain SKIN: Absent: rash, itching, pallor HEMATOLOGIC/IMMUNOLOGIC: Absent: easy bleeding, easy bruising, lymphadenopathy, frequent infections ENDOCRINE: Absent: unexplained weight gain, unexplained weight loss, heat intolerance, cold intolerance NEUROLOGIC: Absent: headache, focal weakness or paresthesias, dizziness, unsteady gait, seizure, mental status changes, bladder or bowel incontinence PSYCHIATRIC: Absent: anxiety, depression, suicidal or homicidal ideation, hallucinations. PHYSICAL EXAMINATION Vital Signs - 24 hr 06/05/17 13:16 Temperature 97.8 F Pulse Rate 120 H Respiratory 19 Rate Blood Pressure 127/74 O2 Sat by Pulse 98 Oximetry (%) GENERAL: Awake, alert, and fully oriented, in mild distress HEAD: Normal with no signs of trauma. EYES: Pupils equal, round and reactive to light, extraocular movements intact, sclera anicteric, conjunctiva clear. No lid lag. EARS, NOSE, THROAT: Ears normal, nares patent, oropharynx clear without exudates. dry mucous membranes NECK: Normal range of motion, supple without lymphadenopathy, JVD, or masses. LUNGS: Breath sounds equal, clear to auscultation bilaterally. No wheezes, and no crackles. No accessory muscle use. HEART: tachycardic, normal S1 and S2 without murmur, rub or gallop. ABDOMEN: Soft,tender to palpation diffusely, but more in the LUQ, not distended , normoactive bowel sounds, no guarding, no rebound, no masses. No hepatomegaly or splenomegaly. MUSCULOSKELETAL: Normal range of motion at all joints. No bony deformities or tenderness. No CVA tenderness. UPPER EXTREMITIES: 2+ pulses, warm, well-perfused. No cyanosis. No clubbing. No peripheral edema. LOWER EXTREMITIES: 2+ pulses, warm, well-perfused. No calf tenderness. No peripheral edema. NEUROLOGICAL: Cranial nerves II-XII intact. Normal speech. Normal gait. PSYCHIATRIC: Cooperative. Good eye contact. Appropriate mood and affect. SKIN: Warm, dry, normal turgor, no rashes or lesions noted, normal capillary refill. Laboratory Results - last 24 hr 06/05/17 06/05/17 06/05/17 15:07 15:07 15:07 WBC 12.2 H D RBC 4.27 Hgb 13.3 Hct 39.8 MCV 93.2 MCH 31.1 MCHC 33.4 RDW 13.0 Plt Count 257 MPV 9.1 Neutrophils % 95.5 H Lymphocytes % 1.8 L D Monocytes % 2.5 L Eosinophils % 0.0 D Basophils % 0.2 Sodium 137 Potassium 3.9 Chloride 105 Carbon Dioxide 20 L Anion Gap 12 BUN 18 Creatinine 0.8 Creat Clearance w eGFR > 60 Random Glucose 136 H Calcium 9.2 Total Bilirubin 0.7 D AST 14 L ALT 16 Alkaline Phosphatase 0 L Total Protein 8.0 Albumin 4.7 Lipase 87 Urine Color Yellow Urine Appearance Cloudy Urine pH 8.0 D Ur Specific [place] 1.023 Urine Protein 1+ H Urine Glucose (UA) Negative Urine Ketones 2+ H Urine Blood Negative Urine Nitrite Negative Urine Bilirubin Negative Urine Urobilinogen 2.0 H Ur Leukocyte Esterase Trace Urine WBC (Auto) 2 Urine RBC (Auto) 4 Ur Epithelial Cells Few Urine Bacteria Rare Urine Mucus Many Urine HCG, Qual Negative Opiates Screen Methadone Screen Barbiturate Screen Phencyclidine Screen Ur Amphetamines Screen MDMA (Ecstasy) Screen Benzodiazepines Screen Cocaine Screen U Marijuana (THC) Screen 06/05/17 15:07 WBC RBC Hgb Hct MCV MCH MCHC RDW Plt Count MPV Neutrophils % Lymphocytes % Monocytes % Eosinophils % Basophils % Sodium Potassium Chloride Carbon Dioxide Anion Gap BUN Creatinine Creat Clearance w eGFR Random Glucose Calcium Total Bilirubin AST ALT Alkaline Phosphatase Total Protein Albumin Lipase Urine Color Urine Appearance Urine pH Ur Specific [place] Urine Protein Urine Glucose (UA) Urine Ketones Urine Blood Urine Nitrite Urine Bilirubin Urine Urobilinogen Ur Leukocyte Esterase Urine WBC (Auto) Urine RBC (Auto) Ur Epithelial Cells Urine Bacteria Urine Mucus Urine HCG, Qual Opiates Screen Negative Methadone Screen Negative Barbiturate Screen Negative Phencyclidine Screen Negative Ur Amphetamines Screen Negative MDMA (Ecstasy) Screen Negative Benzodiazepines Screen Negative Cocaine Screen Negative U Marijuana (THC) Screen Positive Home Medication List Medication Instructions Recorded Confirmed Type Lipase/Protease/Amylase [Faustino Jarrett 1 each PO ASDIR 05/14/17 06/05/17 History 12,000 Units Capsule] Active Medications Generic Name Dose Route Start Last Admin Trade Name Freq PRN Reason Stop Dose Admin Heparin Sodium (Porcine) 5,000 unit 06/05/17 22:00 Heparin - SQ TID KALLI Sodium Chloride 1,000 mls @ 125 mls/hr 06/05/17 20:15 Normal Saline - IV ASDIR KALLI Metoclopramide HCl 10 mg 06/05/17 20:10 Reglan Injection - IVPUSH Q6H PRN NAUSEA AND/OR VOMITING Pantoprazole Sodium 40 mg 06/05/17 20:15 06/05/17 20:57 Protonix - PO 40 mg DAILY KALLI Administration ASSESSMENT/PLAN: 21 year old female with a past medical history of gastritis with frequent vomiting, UTI, presents for 1 day hx of nausea and vomiting #Nausea/Vomiting: Likely 2/2 gastritis vs. cyclical vomiting syndrome -IVF bolus + IV NS @ 125 cc/hr -Keep NPO overnight -urine B-HCG negative for -reviewed Dr. Acuña's note/endoscopy report from 05/19/17 -can give reglan 10mg IV push Q6h -protonix 40mg daily #Leukocytosis: unlikely due to infection, could be reactive due to recurrent vomiting vs UTI symptoms -monitor in AM #Dysuria: patient has recently been on cefpedoxime, unclear about course of treatment from patient -UA not suggestive of overt UTI -send labs for G/C #FEN IV NS @ 125cc/hr replete lytes as necessary NPO for now #Prophylaxis Heparin 5000 subQ TID Protonix 40 daily #Disposition -Admit for observation Visit type - Emergency Visit Emergency Visit: Yes ED Registration Date: 06/05/17 Care time: The patient presented to the Emergency Department on the above date and was hospitalized for further evaluation of their emergent condition. - New Patient This patient is new to me today: Yes Date on this admission: 06/05/17 - Critical Care Critical Care patient: No
--- NOTE | 2017-06-05 20:32 | PN ---
Teaching Attending Note Name of Resident: Kye French ATTENDING PHYSICIAN STATEMENT I saw and evaluated the patient. Chart, data reviewed. I reviewed the resident's note and discussed the case with the resident. I agree with the resident's findings and plan as documented. SUBJECTIVE: 21 year old female with a history of gastritis, anxiety, cyclical vomiting syndrome c/o vomiting since 06/05 and reported multiple episodes of vomiting with the most recent ones consisting of bilious vomitus. Patient reports sudden onset. Denied any diarrhea or fevers. Known to GI service, recent d/c from inpatient. Patient also c/o dysuria. OBJECTIVE: Last Vital Signs Temp Pulse Resp BP Pulse Ox 97.8 F 120 H 19 127/74 98 06/05/17 13:16 06/05/17 13:16 06/05/17 13:16 06/05/17 13:16 06/05/17 13:16 General- NAD, AAox3 HEENT- at, nc, moist oral mucosa Neck -supple CV-s1+s2+ RRR Chest- CTA b/l Abdomen- soft, nondistended, BS+, mild epigastric tenderness Ext- no edema Abnormal Lab Results 06/05/17 06/05/17 06/05/17 15:07 15:07 15:07 WBC 12.2 H D Neutrophils % 95.5 H Lymphocytes % 1.8 L D Monocytes % 2.5 L Carbon Dioxide 20 L Random Glucose 136 H AST 14 L Alkaline Phosphatase 0 L Urine Protein 1+ H Urine Ketones 2+ H Urine Urobilinogen 2.0 H ASSESSMENT AND PLAN: #Acute onset of Nausea Vomiting with inability to tolerate PO along with dyspepsia/gastritis. May be related to marijuana abuse as utox + for THC. Urine test negative. -observation -IV fluid hydration -Reglan 10mg IV q6hrs PRN -Replace any electrolyte disturbances -NPO for now -PPI -counseling to avid marijuana -consider GI evaluation in AM #Leukocytosis- likely reactive to multiple episodes of vomiting. No source of infection identified. -trend CBC -no antimicrobials at this time #Dysuria- UA not suggestive of UTI -send GC/chlamydia NAAT in urine -DVT ppx -heparin sc
[2017-06-05] MEDS ORDERED: PANTOPRAZOLE 40 MG TABLET (FP) ONE (20:51)
[2017-06-05] MEDS: PANTOPRAZOLE 40 MG TABLET (FP) PO SCH (20:57)
[2017-06-06] MEDS: SUCRALFATE 1 GM/10 ML UNIT DOSE CUPS PO SCH ×5 (00:35→21:53)
[2017-06-06] MEDS: SODIUM CHLORIDE 1,000 ML IV SCH ×2 (00:35→21:52)
[2017-06-06] MEDS: POLYETHYLENE GLYCOL 3350 119 GM BTL PO SCH ×3 (00:36→21:53)
[2017-06-06] MEDS: HEPARIN NA (PORCINE) 5,000 UNITS/ML 1ML VIAL SQ SCH ×4 (00:36→21:53)
[2017-06-06] MEDS: THIAMINE HCL 100 MG TABLET (FP) PO SCH ×2 (00:36→21:53)
[2017-06-06] MEDS: LIPASE/PROTEASE/AMYLASE 6,000 UNIT CAPSULE PO SCH ×5 (01:33→16:46)
[2017-06-06] MEDS ORDERED: morphine SULFATE 4 MG/ML VIAL IVPUSH ONE (03:05)
[2017-06-06] MEDS: METOCLOPRAMIDE HCL INJECTION 10 MG/2 ML VIAL IVPUSH PRN ×2 (04:06→10:34)
[2017-06-06 08:05] LABS: HEMATOCRIT 32.2 % (32.4-45.2); HEMOGLOBIN 10.9 GM/dL (10.7-15.3); MCH 31.4 pg (25.7-33.7); MCHC 33.9 g/dl (32.0-36.0); MEAN CELL VOLUME 92.6 fl (80-96); MEAN PLT VOLUME 8.9 fl (7.5-11.1); PLATELET COUNT 212 K/MM3 (134-434); RBC 3.48 M/mm3 (3.60-5.2); RDW 12.6 % (11.6-15.6); WHITE BLOOD COUNT 9.3 K/mm3 (4.0-10.0)
[2017-06-06 08:21] LABS: ALBUMIN 3.5 g/dl (3.4-5.0); ANION GAP 9 (8-16); BLOOD UREA NITROGEN 11 mg/dL (7-18); CALCIUM 8.2 mg/dL (8.5-10.1); CHLORIDE 110 mmol/L (98-107); CO2 22 mmol/L (21-32); CREATININE 0.5 mg/dL (0.55-1.02); GLUCOSE,RANDOM 81 mg/dL (74-106); PHOSPHOROUS 4.2 mg/dL (2.5-4.9); POTASSIUM 3.6 mmol/L (3.5-5.1); SGOT/AST 9 U/L (15-37); SGPT/ALT 13 U/L (12-78); SODIUM 141 mmol/L (136-145)
[2017-06-06 08:22] LABS: ALK PHOS 61 U/L (45-117); BILIRUBIN,TOTAL 0.8 mg/dL (0.2-1.0); TOT PROT 6.2 g/dl (6.4-8.2)
[2017-06-06] MEDS: PRENATAL VITAMINS W/ FOLIC ACID TABLET (FP) PO SCH (09:22)
[2017-06-06] MEDS: PANTOPRAZOLE 40 MG TABLET (FP) PO SCH (09:23)
--- NOTE | 2017-06-06 12:04 | PN ---
Progress Note, Physician - Current Medication List Current Medications: Active Medications Heparin Sodium (Porcine) (Heparin -) 5,000 unit SQ TID [facility] Last Admin: 06/06/17 06:12 Dose: Not Given Sodium Chloride (Normal Saline -) 1,000 mls @ 125 mls/hr IV ASDIR [facility] Last Admin: 06/06/17 00:35 Dose: 125 mls/hr Metoclopramide HCl (Reglan Injection -) 10 mg IVPUSH Q6H PRN PRN Reason: NAUSEA AND/OR VOMITING Last Admin: 06/06/17 10:34 Dose: 10 mg Pancrelipase (Faustino Jarrett 6,000 Units Capsule) 2 cap PO TIDCM [facility] Last Admin: 06/06/17 11:50 Dose: Not Given Pantoprazole Sodium (Protonix Iv) 40 mg IVPUSH BID [facility] Polyethylene Glycol (Miralax (For Daily Use) -) 17 gm PO BID [facility] Last Admin: 06/06/17 09:22 Dose: Not Given Multivit/Folic Acid/Iron ( Vitamins (Sjr) -) 1 tab PO DAILY [facility] Last Admin: 06/06/17 09:22 Dose: Not Given Sucralfate (Carafate Oral Suspension -) 1 gm PO ACHS [facility] Last Admin: 06/06/17 10:34 Dose: Not Given Thiamine HCl (Vitamin B1 -) 100 mg PO HS [facility] Last Admin: 06/06/17 00:36 Dose: Not Given - Objective Vital Signs: Vital Signs Temperature 98.6 F 06/06/17 10:00 Pulse Rate 107 H 06/06/17 10:00 Respiratory Rate 17 06/06/17 10:00 Blood Pressure 122/81 06/06/17 10:00 O2 Sat by Pulse Oximetry (%) 100 06/06/17 10:00 Cardiovascular: Yes: Regular Rate and Rhythm Respiratory: Yes: Regular, CTA Bilaterally Gastrointestinal: Yes: Normal Bowel Sounds, Soft, Tenderness, Epigastrium Labs: CBC, BMP 06/06/17 06:20 06/06/17 06:20 Assessment/Plan #Nausea/Vomiting: Likely 2/2 gastritis vs. cyclical vomiting syndrome -IVF bolus + IV NS @ 125 cc/hr -Keep NPO overnight -urine B-HCG negative for -reviewed Dr. Acuña's note/endoscopy report from 05/19/17 -can give reglan 10mg IV push Q6h -protonix 40mg daily #Leukocytosis: unlikely due to infection, could be reactive due to recurrent vomiting vs UTI symptoms -monitor in AM #Dysuria: patient has recently been on cefpedoxime, unclear about course of treatment from patient -UA not suggestive of overt UTI -send labs for G/C #FEN IV NS @ 125cc/hr replete lytes as necessary NPO for now #Prophylaxis Heparin 5000 subQ TID Protonix 40 daily
--- NOTE | 2017-06-06 12:15 | EKG ---
Test Reason : Blood Pressure : / mmHG Vent. Rate : 091 BPM Atrial Rate : 091 BPM P-R Int : 178 ms QRS Dur : 082 ms QT Int : 388 ms P-R-T Axes : 056 077 035 degrees QTc Int : 477 ms NORMAL SINUS RHYTHM NORMAL ECG WHEN COMPARED WITH ECG OF 18-MAY-2017 15:18, NONSPECIFIC T WAVE ABNORMALITY NOW EVIDENT IN ANTERIOR LEADS Confirmed by FLAKO ONEILL, QUENTIN ([id number]) on 06/06/2017 12:14:45 PM Referred By: Confirmed By:QUENTIN ARRIOLA MD
[2017-06-06] MEDS: PANTOPRAZOLE SODIUM 40 MG VIAL IVPUSH SCH ×2 (12:56→21:53)
[2017-06-07] MEDS: HEPARIN NA (PORCINE) 5,000 UNITS/ML 1ML VIAL SQ SCH ×3 (05:33→21:49)
[2017-06-07] MEDS ORDERED: PT OWN MED DRAWER 7, Y5N ONE ×2 (05:38→07:20)
[2017-06-07] MEDS: SUCRALFATE 1 GM/10 ML UNIT DOSE CUPS PO SCH ×4 (06:24→21:49)
[2017-06-07] MEDS: LIPASE/PROTEASE/AMYLASE 6,000 UNIT CAPSULE PO SCH ×3 (07:23→16:43)
[2017-06-07 08:08] LABS: ALBUMIN 3.3 g/dl (3.4-5.0); ANION GAP 10 (8-16); BASO % 0.4 % (0-2.0); BILIRUBIN,TOTAL 0.6 mg/dL (0.2-1.0); BLOOD UREA NITROGEN 13 mg/dL (7-18); CALCIUM 7.7 mg/dL (8.5-10.1); CHLORIDE 109 mmol/L (98-107); CO2 20 mmol/L (21-32); CREATININE 0.5 mg/dL (0.55-1.02); EOS % 0.3 % (0-4.5); GLUCOSE,RANDOM 60 mg/dL (74-106); HEMATOCRIT 29.3 % (32.4-45.2); HEMOGLOBIN 9.9 GM/dL (10.7-15.3); LYMPH % 28.9 % (8-40); MCH 31.3 pg (25.7-33.7); MCHC 33.7 g/dl (32.0-36.0); MEAN CELL VOLUME 92.7 fl (80-96); MONO % 10.5 % (3.8-10.2); NEUT % 59.9 % (42.8-82.8); PLATELET COUNT 181 K/MM3 (134-434); POTASSIUM 3.5 mmol/L (3.5-5.1); RBC 3.16 M/mm3 (3.60-5.2); RDW 12.6 % (11.6-15.6); SGOT/AST 10 U/L (15-37); SGPT/ALT 13 U/L (12-78); SODIUM 139 mmol/L (136-145); TOT PROT 5.7 g/dl (6.4-8.2); WHITE BLOOD COUNT 6.2 K/mm3 (4.0-10.0)
[2017-06-07 08:09] LABS: ALK PHOS 54 U/L (45-117)
[2017-06-07] MEDS: PANTOPRAZOLE SODIUM 40 MG VIAL IVPUSH SCH ×2 (09:17→21:51)
[2017-06-07] MEDS: POLYETHYLENE GLYCOL 3350 119 GM BTL PO SCH ×2 (09:17→21:49)
[2017-06-07] MEDS: PRENATAL VITAMINS W/ FOLIC ACID TABLET (FP) PO SCH (09:17)
[2017-06-07] MEDS: METOCLOPRAMIDE HCL INJECTION 10 MG/2 ML VIAL IVPUSH PRN (10:27)
--- NOTE | 2017-06-07 12:10 | PN ---
Progress Note, Physician History of Present Illness: feels better hungry--trial of feeding this am --started vomiting - Current Medication List Current Medications: Active Medications Heparin Sodium (Porcine) (Heparin -) 5,000 unit SQ TID [facility] Last Admin: 06/07/17 05:33 Dose: Not Given Sodium Chloride (Normal Saline -) 1,000 mls @ 125 mls/hr IV ASDIR [facility] Last Admin: 06/06/17 21:52 Dose: 125 mls/hr Metoclopramide HCl (Reglan Injection -) 10 mg IVPUSH Q6H PRN PRN Reason: NAUSEA AND/OR VOMITING Last Admin: 06/07/17 10:27 Dose: 10 mg Pancrelipase (Creon Dr 6,000 Units Capsule) 2 cap PO TIDCM [facility] Last Admin: 06/07/17 11:39 Dose: Not Given Pantoprazole Sodium (Protonix Iv) 40 mg IVPUSH BID [facility] Last Admin: 06/07/17 09:17 Dose: 40 mg Polyethylene Glycol (Miralax (For Daily Use) -) 17 gm PO BID [facility] Last Admin: 06/07/17 09:17 Dose: Not Given Multivit/Folic Acid/Iron ( Vitamins (Sjr) -) 1 tab PO DAILY [facility] Last Admin: 06/07/17 09:17 Dose: 1 tab Sucralfate (Carafate Oral Suspension -) 1 gm PO ACHS [facility] Last Admin: 06/07/17 10:27 Dose: 1 gm Thiamine HCl (Vitamin B1 -) 100 mg PO HS [facility] Last Admin: 06/06/17 21:53 Dose: 100 mg - Objective Vital Signs: Vital Signs Temperature 98.3 F 06/07/17 09:00 Pulse Rate 81 06/07/17 09:00 Respiratory Rate 18 06/07/17 09:00 Blood Pressure 115/76 06/07/17 09:00 O2 Sat by Pulse Oximetry (%) 97 06/07/17 10:00 Cardiovascular: Yes: Regular Rate and Rhythm Respiratory: Yes: Regular, CTA Bilaterally Gastrointestinal: Yes: Normal Bowel Sounds, Soft Edema: No Labs: CBC, BMP 06/07/17 06:25 06/07/17 06:25 Assessment/Plan #Nausea/Vomiting: Likely 2/2 gastritis vs. cyclical vomiting syndrome -IVF bolus + IV NS @ 125 cc/hr -Strted on diet----clear -urine B-HCG negative for -reviewed Dr. Acuña's note/endoscopy report from 05/19/17 -reglan 10mg IV push Q6h -protonix 40mg bid -gastric emptying study -gi follow up #Leukocytosis: unlikely due to infection, could be reactive due to recurrent vomiting vs UTI symptoms -monitor in AM #Dysuria: patient has recently been on cefpedoxime, unclear about course of treatment from patient -UA not suggestive of overt UTI -send labs for G/C #FEN IV NS @ 125cc/hr replete lytes as necessary NPO for now #Prophylaxis Heparin 5000 subQ TID Protonix 40 daily
[2017-06-07] MEDS ORDERED: HYDROmorphone HCL CARPU-JECT 4 MG/1 ML DISP.SYRIN IVPB ONE ×2 (12:45→13:00)
[2017-06-07] MEDS: METOCLOPRAMIDE HCL INJECTION 10 MG/2 ML VIAL IVPUSH SCH ×3 (13:13→21:51)
[2017-06-07 13:17] LABS: AMYLASE 40 U/L (25-115); LIPASE 179 U/L (73-393)
[2017-06-07] MEDS: THIAMINE HCL 100 MG TABLET (FP) PO SCH (21:49)
[2017-06-07] MEDS: SODIUM CHLORIDE 1,000 ML IV SCH (21:50)
[2017-06-07] MEDS ORDERED: MORPHINE SULFATE 10 MG/1 ML *VIAL IVPUSH ONE (23:45)
[2017-06-08] MEDS: METOCLOPRAMIDE HCL INJECTION 10 MG/2 ML VIAL IVPUSH SCH ×4 (02:55→17:07)
[2017-06-08] MEDS: HEPARIN NA (PORCINE) 5,000 UNITS/ML 1ML VIAL SQ SCH (06:45)
[2017-06-08] MEDS: SUCRALFATE 1 GM/10 ML UNIT DOSE CUPS PO SCH (06:46)
[2017-06-08] MEDS: LIPASE/PROTEASE/AMYLASE 6,000 UNIT CAPSULE PO SCH (07:40)
[2017-06-08] MEDS: PANTOPRAZOLE SODIUM 40 MG VIAL IVPUSH SCH ×2 (09:25→10:35)
[2017-06-08] MEDS: POLYETHYLENE GLYCOL 3350 119 GM BTL PO SCH (09:26)
--- NOTE | 2017-06-08 09:36 | CON.GI ---
Consult Consult Specialty:: GI: Dr. Grey covering for Dr. Acuña Referred by:: Dr. Patrick Reason for Consultation:: Vomiting - History of Present Illness Chief Complaint: "I started vomiting thursday" History of Present Illness: 21F admitted through [facility] ER for evaluation of vomiting. Ms. Owens states that the vomiting started suddenly this past thursday and was remniscent of previous episodes. She denies abdominal pain, diarrhea, rectal bleeding, recent travel (last trip was 12/04 to and was uneventful), change in dietary habits, fevers/chills or sick contacts with similar complaints. Warm showers and warm compresses to the abdomen seem to help alleviate her symptoms. There have been no recent change in medications. her PCP Dr. Flakito Aldridge has been giving her Creon for ? IBS. She was evaluated for similar complaints by myself in 07/04 and cannibis induced hyperemesis was suspected. She was also evaluated more recently by Dr. Acuña 05/07. He performed EGD 05/19/17 that was unrevealing. Biopsies were unremarkable. he advised that she follow-up in office in 2 weeks but she does not recall following up. Of note urine tox was + this admission and all previous admissions for marijuana. She tells me that she last smoked marijuana 2 weeks ago and had told me that during her admission in 07/04. AXR performed failed to reveal obstructive pattern but suggested constipation and ? densities in the right abdomen. She denies ingestion of any foreign bodies. She received dilaudid yesterday and morphine this morning and vomiting was noted this morning. A solid gastric emptying study was ordered by Dr. Patrick. - History Source History Provided By: Patient, Medical Record Limitations to Obtaining History: No Limitations - Past Medical History Gastrointestinal: Yes: Other (History of episodic vomiting) ...LMP: 05/22/17 - Past Surgical History Additional Surgical History: Denies - Alcohol/Substance Use Hx Alcohol Use: No History of Substance Use: reports: Marijuana - Smoking History Smoking history: Never smoked Have you smoked in the past 12 months: No Aproximately how many cigarettes per day: 2 - Social History Usual Living Arrangement: With Parent ADL: Family Assistance Place of : [facility] History of Recent Travel: No Home Medications - Allergies Allergies/Adverse Reactions: Allergies Allergy/AdvReac Type Severity Reaction Status Date / Time No Known Allergies Allergy Verified 06/05/17 13:15 - Home Medications Home Medications: Ambulatory Orders Lipase/Protease/Amylase [Faustino Jarrett 12,000 Units Capsule] 1 each PO ASDIR Ondansetron [Zofran *Odt*] 8 mg SL TID PRN #21 od.tablet 05/14/17 Pantoprazole Sodium [Protonix] 40 mg PO DAILY #20 tablet. 05/14/17 Amitriptyline HCl [Elavil -] 25 mg PO HS #30 tablet 05/20/17 Cefpodoxime Proxetil [Vantin -] 200 mg PO BID #10 tablet 05/20/17 Metoclopramide HCl [Reglan] 10 mg PO Q6H PRN #120 tablet 05/20/17 Nitrofurantoin Macrocrystal [Nitrofurantoin] 100 mg PO BID #10 capsule 05/20/17 Pantoprazole Sodium [Protonix -] 40 mg PO DAILY #30 tablet.ec 05/20/17 Polyethylene Glycol 3350 [Miralax 119 gm Btl -] 17 gm PO BID #1 bottle 05/20/17 Vitamins (Sjr) - 1 tab PO DAILY #30 tablet 05/20/17 Sucralfate Oral Suspension [Carafate Oral Suspension -] 1 gm PO ACHS #120 ml Thiamine HCl [Vitamin B1 -] 100 mg PO HS #30 tablet 05/20/17 Family Disease History - Family Disease History Family Disease History: Other: Father (Not active in patients life), Mother ( alive: 38: healthy), Brother (1, healthy), Son (None), Daughter (None) Other Family History: No family h/o IBD/IBS/Colorectal cancer Review of Systems - Review of Systems Constitutional: denies: Chills, Fever Cardiovascular: denies: Chest Pain Respiratory: denies: SOB Gastrointestinal: reports: Nausea, Vomiting. denies: Abdominal Pain, Constipation, Diarrhea, Melena, Rectal Bleeding 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-GI Vital Signs: Vital Signs Temperature 98.1 F 06/08/17 06:29 Pulse Rate 76 06/08/17 06:29 Respiratory Rate 20 06/08/17 06:29 Blood Pressure 120/64 06/08/17 06:29 O2 Sat by Pulse Oximetry (%) 100 02/18/18 20:39 Constitutional: Yes: Calm Eyes: No: Sclera Icterus Cardiovascular: Yes: Regular Rate and Rhythm. No: Murmur Respiratory: Yes: CTA Bilaterally Gastrointestinal Inspection: No: Distention, Scars ...Auscultate: Yes: Normoactive Bowel Sounds ...Palpate: No: Hepatomegaly, Splenomegaly, Tenderness ...Percussion: No: Tympanitic Edema: No (No LE edema) Neurological: Yes: Alert, Oriented Labs: CBC, BMP 06/07/17 06:25 06/07/17 06:25 Laboratory Tests 06/19/16 05/14/17 05/19/17 14:00 01:50 02:35 U Marijuana (THC) Screen Positive Positive Positive 06/05/17 15:07 U Marijuana (THC) Screen Positive Imaging - Results X-ray: Report Reviewed, Image Reviewed Problem List - Problems (1) Cyclical vomiting Assessment/Plan: Cannibis induced hyperemesis would still need to be considered higher in differential ? densities noted on AXR of unclear origin: Ms. Owens denies ingestion of foreign body ? utility of creon therapy: no history of pancreaatic insufficiency Plan: IV hydration Taper off opiate analgesia D/C'd carafate D/C'd Creon Reglan 10mg IVPB TID Pyridoxine 25mg PO BID for 3 days Protonix 40mg IVPB daily. No gastritis / PUD on recent EGD so can stop this prior to discharge Cancelled gastric emptying study: Patient received multiple doeses of opiate analgesia. this can lead to false + delayed gastric emptying Ordered CT scan of abdomen/pelvis without contrast to further evaluate densities in right abdomen described on AXR Counseled patient on the need for complete abstinence from marijuana Code(s): G43.A0 - CYCLICAL VOMITING, NOT INTRACTABLE Qualifiers: Vomiting Intractability: intractable Nausea presence: with nausea Qualified Code(s): G43.A1 - Cyclical vomiting, intractable
[2017-06-08] MEDS: PYRIDOXINE HCL (B-6) 50 MG TABLET (FP) PO SCH (10:35)
--- NOTE | 2017-06-08 11:30 | PN ---
Progress Note, Physician Chief Complaint: Cannabis induced hyperemesis History of Present Illness: in the shower vomited this AM All secondary to cannabis use seen by GI - Current Medication List Current Medications: Active Medications Amitriptyline HCl (Elavil -) 25 mg PO HS [facility] Heparin Sodium (Porcine) (Heparin -) 5,000 unit SQ TID [facility] Last Admin: 06/08/17 06:45 Dose: Not Given Sodium Chloride (Normal Saline -) 1,000 mls @ 125 mls/hr IV ASDIR [facility] Last Admin: 06/07/17 21:50 Dose: 125 mls/hr Metoclopramide HCl (Reglan Injection -) 10 mg IVPUSH Q8H-IV [facility] Last Admin: 06/08/17 10:35 Dose: Not Given Pantoprazole Sodium (Protonix Iv) 40 mg IVPUSH DAILY [facility] Last Admin: 06/08/17 10:35 Dose: Not Given Polyethylene Glycol (Miralax (For Daily Use) -) 17 gm PO BID [facility] Last Admin: 06/08/17 09:26 Dose: Not Given Pyridoxine HCl (Vitamin B6 -) 25 mg PO BID [facility] Stop: 06/11/17 10:59 Last Admin: 06/08/17 10:35 Dose: Not Given - Objective Vital Signs: Vital Signs Temperature 97.9 F 06/08/17 10:00 Pulse Rate 77 06/08/17 10:00 Respiratory Rate 20 06/08/17 10:00 Blood Pressure 140/77 06/08/17 10:00 O2 Sat by Pulse Oximetry (%) 100 06/08/17 10:00 Constitutional: Yes: Well Nourished, No Distress, Calm Cardiovascular: Yes: Regular Rate and Rhythm Respiratory: Yes: Regular Gastrointestinal: Yes: Normal Bowel Sounds, Soft Musculoskeletal: Yes: WNL Extremities: Yes: WNL Edema: No Peripheral Pulses WNL: Yes Neurological: Yes: Alert, Oriented Psychiatric: Yes: Alert, Oriented Labs: CBC, BMP 06/07/17 06:25 06/07/17 06:25 Problem List - Problems (1) Cyclical vomiting Assessment/Plan: 2/2 cannabis -has underlying anxiety -doesn't follow through outpatient -Reglan Code(s): G43.A0 - CYCLICAL VOMITING, NOT INTRACTABLE Qualifiers: Vomiting Intractability: intractable Nausea presence: with nausea Qualified Code(s): G43.A1 - Cyclical vomiting, intractable (2) Abdominal pain Assessment/Plan: -seen by GI -CT abd/pelvis without contrast Code(s): R10.9 - UNSPECIFIED ABDOMINAL PAIN Qualifiers: Abdominal location: epigastric Qualified Code(s): R10.13 - Epigastric pain (3) Cannabis dependence Code(s): F12.20 - CANNABIS DEPENDENCE, UNCOMPLICATED (4) Anxiety Assessment/Plan: -Amitriptyline 25 mg po HS -Psych consult -Valium PRN Code(s): F41.9 - ANXIETY DISORDER, UNSPECIFIED Assessment/Plan see problem list
[2017-06-08] MEDS ORDERED: KETOROLAC TROMETHAMINE 15 MG/ML VIAL IVPUSH PRN (11:49)
[2017-06-08] MEDS: KETOROLAC TROMETHAMINE 30 MG/1 ML VIAL IVPB PRN ×2 (12:07→18:17)
[2017-06-08] MEDS ORDERED: diazePAM 5 MG TABLET PO ONE (14:05)
[2017-06-08] MEDS ORDERED: PT OWN MED DRAWER 7, Y5N ONE (21:16)
[2017-06-08] MEDS ORDERED: AMITRIPTYLINE HCL 25 MG TABLET (FP) PO SCH (22:00)
[2017-06-09] MEDS: POLYETHYLENE GLYCOL 3350 119 GM BTL PO SCH ×3 (00:47→21:26)
[2017-06-09] MEDS: HEPARIN NA (PORCINE) 5,000 UNITS/ML 1ML VIAL SQ SCH ×3 (00:47→21:26)
[2017-06-09] MEDS: PYRIDOXINE HCL (B-6) 50 MG TABLET (FP) PO SCH ×3 (00:47→21:27)
[2017-06-09] MEDS: KETOROLAC TROMETHAMINE 30 MG/1 ML VIAL IVPB PRN ×4 (01:02→23:00)
[2017-06-09] MEDS: METOCLOPRAMIDE HCL INJECTION 10 MG/2 ML VIAL IVPUSH SCH ×3 (01:02→17:18)
[2017-06-09] MEDS ORDERED: PT OWN MED DRAWER 7, Y5N ONE ×2 (09:22→22:54)
[2017-06-09] MEDS: PANTOPRAZOLE SODIUM 40 MG VIAL IVPUSH SCH (09:32)
--- NOTE | 2017-06-09 10:45 | PN ---
Progress Note, Physician Chief Complaint: Cannabis induced hyperemesis History of Present Illness: vomited this AM IVF Reglan All secondary to cannabis use seen by GI States that she has not used marijuana since her last admission which was . However, she tells GI that she smoked 2 weeks ago. - Current Medication List Current Medications: Active Medications Amitriptyline HCl (Elavil -) 25 mg PO HS [facility] Last Admin: 06/09/17 00:46 Dose: Not Given Heparin Sodium (Porcine) (Heparin -) 5,000 unit SQ BID [facility] Last Admin: 06/09/17 09:40 Dose: Not Given Sodium Chloride (Normal Saline -) 1,000 mls @ 125 mls/hr IV ASDIR [facility] Last Admin: 06/07/17 21:50 Dose: 125 mls/hr Ketorolac Tromethamine (Toradol Injection -) 15 mg IVPUSH Q6H PRN PRN Reason: PAIN LEVEL 1-5 Stop: 06/13/17 11:48 Last Admin: 06/09/17 10:19 Dose: 15 mg Ketorolac Tromethamine (Toradol Injection -) 30 mg IVPB Q6H PRN PRN Reason: PAIN LEVEL 6-10 Stop: 06/13/17 11:48 Last Admin: 06/09/17 07:10 Dose: 30 mg Metoclopramide HCl (Reglan Injection -) 10 mg IVPUSH Q8H-IV [facility] Last Admin: 06/09/17 09:25 Dose: 10 mg Pantoprazole Sodium (Protonix Iv) 40 mg IVPUSH DAILY [facility] Last Admin: 06/09/17 09:32 Dose: 40 mg Polyethylene Glycol (Miralax (For Daily Use) -) 17 gm PO BID [facility] Last Admin: 06/09/17 00:47 Dose: Not Given Pyridoxine HCl (Vitamin B6 -) 25 mg PO BID [facility] Stop: 06/11/17 10:59 Last Admin: 06/09/17 09:41 Dose: Not Given - Objective Vital Signs: Vital Signs Temperature 98.2 F 06/09/17 05:00 Pulse Rate 81 06/09/17 05:00 Respiratory Rate 20 06/09/17 05:00 Blood Pressure 128/65 06/09/17 05:00 O2 Sat by Pulse Oximetry (%) 100 06/09/17 02:00 Constitutional: Yes: Well Nourished, No Distress, Calm Cardiovascular: Yes: Regular Rate and Rhythm Respiratory: Yes: Regular Gastrointestinal: Yes: Normal Bowel Sounds, Soft Musculoskeletal: Yes: WNL Extremities: Yes: WNL Edema: No Peripheral Pulses WNL: Yes Neurological: Yes: Alert, Oriented Psychiatric: Yes: Alert, Oriented Labs: CBC, BMP 06/07/17 06:25 06/07/17 06:25 Problem List - Problems (1) Cyclical vomiting Assessment/Plan: 2/2 cannabis -has underlying anxiety -doesn't follow through outpatient -Reglan Code(s): G43.A0 - CYCLICAL VOMITING, NOT INTRACTABLE Qualifiers: Vomiting Intractability: intractable Nausea presence: with nausea Qualified Code(s): G43.A1 - Cyclical vomiting, intractable (2) Abdominal pain Assessment/Plan: -seen by GI -CT abd/pelvis without contrast reviewed, is negative Code(s): R10.9 - UNSPECIFIED ABDOMINAL PAIN Qualifiers: Abdominal location: epigastric Qualified Code(s): R10.13 - Epigastric pain (3) Cannabis dependence Assessment/Plan: -encouraged strict abstinence Code(s): F12.20 - CANNABIS DEPENDENCE, UNCOMPLICATED (4) Anxiety Assessment/Plan: -Amitriptyline 25 mg po HS -Psych consult Code(s): F41.9 - ANXIETY DISORDER, UNSPECIFIED Assessment/Plan see problem list Possible D/C in AM, symptoms to resolve over time once cannabis abstinence is obtained
--- NOTE | 2017-06-09 14:11 | CON.PSY ---
Psychiatry Consult Chief Complaint: I have been smoking marijuana for two years and i have ;lot of anxiety, cant sleep, lost weight. patient has no history of depression or suicidal histopry. Symptoms: reports: Appetite Disturbance, Sleep Disturbance, Anxiety - Previous Psychiatric Treatment Outpatient: None Inpatient: None - Previous Substance Abuse Treatment Outpatient: None Inpatient: None - Current Medications Current Medications: Active Medications Heparin Sodium (Porcine) (Heparin -) 5,000 unit SQ BID [facility] Last Admin: 06/09/17 09:40 Dose: Not Given Sodium Chloride (Normal Saline -) 1,000 mls @ 125 mls/hr IV ASDIR [facility] Last Admin: 06/07/17 21:50 Dose: 125 mls/hr Ketorolac Tromethamine (Toradol Injection -) 15 mg IVPUSH Q6H PRN PRN Reason: PAIN LEVEL 1-5 Stop: 06/13/17 11:48 Last Admin: 06/09/17 10:19 Dose: 15 mg Ketorolac Tromethamine (Toradol Injection -) 30 mg IVPB Q6H PRN PRN Reason: PAIN LEVEL 6-10 Stop: 06/13/17 11:48 Last Admin: 06/09/17 13:37 Dose: 30 mg Metoclopramide HCl (Reglan Injection -) 10 mg IVPUSH Q8H-IV [facility] Last Admin: 06/09/17 09:25 Dose: 10 mg Pantoprazole Sodium (Protonix Iv) 40 mg IVPUSH DAILY [facility] Last Admin: 06/09/17 09:32 Dose: 40 mg Polyethylene Glycol (Miralax (For Daily Use) -) 17 gm PO BID [facility] Last Admin: 06/09/17 11:03 Dose: Not Given Pyridoxine HCl (Vitamin B6 -) 25 mg PO BID [facility] Stop: 06/11/17 10:59 Last Admin: 06/09/17 09:41 Dose: Not Given - Allergies Allergies: Allergies Allergy/AdvReac Type Severity Reaction Status Date / Time No Known Allergies Allergy Verified 06/05/17 13:15 - Current Living Status Usual Living Arrangement: With Parent - Current Mental Status Evaluation Appearance: Disheveled Attitude: Cooperative - Affect Affect: Constrictive Appropriateness: Appropriate to Content - Mood Mood: Anxious - Speech/Language Expressive: Coherent - Psychomotor Activity Psychomotor Activity: Normal - Thought Process Thought Process: Intact - Thought Content Hallucinations: Absent Delusions: Absent - Self Perception Self Perception: No Impairment - Cognition Attention: Alert Orientation: Time Memory, Immediate Recall: Intact Memory, Short Term: 3/3 Memory, Remote with Promptin/3 - Concentration Serial Sevens Intact: Yes Simple Calculations Intact: Yes - Abstraction Proverb Interpretation: Intact Judgement: Intact - Insight Insight: Intact - Impulse Control Impulse Control: Good Control - Suicidal Ideation Suicidal Ideation: No - Homicidal Ideation Homicidal Ideation: No Assessment/Plan 1) d/c elavil 2) Remeron 30 mg [po hs, watch for sedation.
[2017-06-09] MEDS: SODIUM CHLORIDE 1,000 ML IV SCH ×2 (21:26→23:00)
[2017-06-09] MEDS ORDERED: MIRTAZAPINE 30 MG TABLET (FP) PO SCH (22:00)
[2017-06-10] MEDS: METOCLOPRAMIDE HCL INJECTION 10 MG/2 ML VIAL IVPUSH SCH ×2 (01:56→09:26)
[2017-06-10] MEDS: KETOROLAC TROMETHAMINE 30 MG/1 ML VIAL IVPB PRN (06:44)
[2017-06-10] MEDS: PANTOPRAZOLE SODIUM 40 MG VIAL IVPUSH SCH (09:26)
[2017-06-10 11:20] VITALS: BP 135/85; PULSE 82; TEMP 98.2
[2017-06-10] MEDS: HEPARIN NA (PORCINE) 5,000 UNITS/ML 1ML VIAL SQ SCH (11:50)
[2017-06-10] MEDS: PYRIDOXINE HCL (B-6) 50 MG TABLET (FP) PO SCH (11:51)
[2017-06-10] MEDS: POLYETHYLENE GLYCOL 3350 119 GM BTL PO SCH (11:51)
--- NOTE | 2017-06-10 12:21 | DS ---
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ination Vital Signs: Vital Signs Temperature 98.2 F 06/10/17 09:00 Pulse Rate 82 06/10/17 09:00 Respiratory Rate 18 06/10/17 10:00 Blood Pressure 135/85 06/10/17 09:00 O2 Sat by Pulse Oximetry (%) 100 06/10/17 10:00 Constitutional: Yes: Well Nourished, No Distress, Calm Cardiovascular: Yes: Regular Rate and Rhythm Respiratory: Yes: Regular Gastrointestinal: Yes: Normal Bowel Sounds, Vomiting Musculoskeletal: Yes: WNL Extremities: Yes: WNL Edema: No Peripheral Pulses WNL: Yes Neurological: Yes: Alert, Oriented Psychiatric: Yes: Alert, Oriented Labs: CBC, BMP 06/07/17 06:25 06/07/17 06:25 Discharge Summary Reason For Visit: GASTRITIS/CYCLIC VOMITING SYNDROME/NAUSEA&VOMITING Current Active Problems Cyclical vomiting (Acute) Gastritis (Acute) Hospital Course: 21 year old female with a history of gastritis and vomiting presents to the hospital for 1 day hx of nausea and non-bloody, non-bilious vomiting. Patient states that since this morning, she has had abdominal pain and vomiting, not being able to hold down any of her food. she does not attribute any of her symptoms to her diet. She states that she vomited a total of 31 times and that the emesis is bright yellow/green. She states that the abdominal pain is in the left upper quadrant and is worse on palpation. She reports normal, solid bowel movements. She states that she's had previous episodes of this vomiting that lasted weeks at a time. She was last seen by Dr. Acuña in April, when she got an upper endoscopy performed that appeared normal. Biopsies of random mucosa were taken for pathology, but the patient does not have results for these biopsies. Denies fevers, chills, chest pain, SOB, diarrhea. During her stay she was evaluated by GI and was diagnosed with cannabis induced vomiting. She was given IVF, antiemetic and PPI Condition: Stable - Instructions Diet, Activity, Other Instructions: Follow up with Psychiatry outpatient Follow up with PCP within 1 week Abstain from Marijuana use Referrals: lFakito Aldridge [Primary Care Provider] - Fran Acuña MD [Staff Physician] - Disposition: HOME - Home Medications Comprehensive Discharge Medication List: Ambulatory Orders Lipase/Protease/Amylase [Faustino Jarrett 12,000 Units Capsule] 1 each PO ASDIR Ondansetron [Zofran *Odt*] 8 mg SL TID PRN #21 od.tablet 05/14/17 Amitriptyline HCl [Elavil -] 25 mg PO HS #30 tablet 05/20/17 Pantoprazole Sodium [Protonix -] 40 mg PO DAILY #30 tablet.ec 05/20/17 Polyethylene Glycol 3350 [Miralax 119 gm Btl -] 17 gm PO BID #1 bottle 05/20/17 Vitamins (Sjr) - 1 tab PO DAILY #30 tablet 05/20/17 Sucralfate Oral Suspension [Carafate Oral Suspension -] 1 gm PO ACHS #120 ml Thiamine HCl [Vitamin B1 -] 100 mg PO HS #30 tablet 05/20/17 Mirtazapine [Remeron -] 30 mg PO HS #30 tablet 06/09/17 Pyridoxine HCl (B-6) [Vitamin B6 -] 25 mg PO BID #30 tablet 06/09/17
== END 2017-06-10 14:56 | disposition home or self-care (01) | DRG 103 ==
LOC: JER 12:56 → JERBED 18:36 → J7W 06-06 02:37 → OBSVTOIN 06-09 12:05
PROVIDERS: ADMIT Internal Medicine; ATTEND Family Medicine
DX: G43.A0 Cyclical vomiting, in migraine, not intractable (principal); F12.288 Cannabis dependence with other cannabis-induced disorder; K29.70 Gastritis, unspecified, without bleeding; K58.9 Irritable bowel syndrome, unspecified; F41.9 Anxiety disorder, unspecified; R30.0 Dysuria; D72.829 Elevated white blood cell count, unspecified
CPT/HCPCS: 36415; 71046-TC-FY; 74021-TC-FY; 74176-TC; 76705-TC; 80053; 80307; 81003; 81015; 82150; 82607; 83690; 83735; 84100; 84703; 85025; 85027; 85651; 86140; 93005; 93010; 99282-25; G0378; J1644

== ENCOUNTER 2018-04-28 09:56 | Emergency (ER) | payer SELFPAY ==
[2018-04-28 10:00] VITALS: BP 125/70; PULSE 93; TEMP 98.4; BMI 34.0
--- NOTE | 2018-04-28 10:39 | PDOC ---
History of Present Illness - General Chief Complaint: Eye Problem Stated Complaint: EYE PROBLEM/9 WKS Time Seen by Provider: 04/28/18 10:29 History Source: Patient Exam Limitations: Clinical Condition - History of Present Illness Initial Comments: 04/28/18 10:39 Patient with no significant past medical history and 9 months present with complaint of 2 day history of runny nose, nasal congestion and bilateral pinkeye which started in right eye and now on the left eye with yellow drainage from bilateral eyes and eye closure upon wake this morning. Patient denies fever , chills or sore throat. Patient denies any other symptoms Timing/Duration: 24 hours Past History - Past Medical History Allergies/Adverse Reactions: Allergies Allergy/AdvReac Type Severity Reaction Status Date / Time No Known Allergies Allergy Verified 04/28/18 10:00 Home Medications: Ambulatory Orders Vit/Iron Fum/Folic AC [ Tablet] 1 tab PO DAILY 04/19/18 Benzonatate [Tessalon Pearls -] 100 mg PO Q8H PRN #12 capsule 04/28/18 Ipratropium Farrell 2 spray NS BID PRN #1 spray 04/28/18 Ofloxacin 0.3% Ophth Soln [Ocuflox -] 2 drop OP Q6H 5 Days #1 bottle 04/28/18 COPD: No GI Disorders: Yes (gastritis, IBS) Psychiatric Problems: Yes (ANXIETY) - Immunization History Immunization Up to Date: Yes - Suicide/Smoking/Psychosocial Hx Smoking History: Never smoked Have you smoked in the past 12 months: No Number of Cigarettes Smoked Daily: 2 Information on smoking cessation initiated: No 'Breaking Loose' booklet given: 12/09/15 Hx Alcohol Use: No Drug/Substance Use Hx: No Substance Use Type: Marijuana Hx Substance Use Treatment: No Review of Systems - Review of Systems Able to Perform ROS?: Yes Is the patient limited [place] proficient: No Constitutional: No: Chills, Fever, Weakness HEENTM: Yes: Symptoms Reported, See HPI, Eye Pain (b/l pink eye), Nose Congestion. No: Blurred Vision, Tearing, Recent change in vision, Double Vision , Cataracts, Ear Pain, Ocular Prothesis, Ear Discharge, Nose Pain, Tinnitus, Nose Bleeding, Hearing Loss, Throat Pain, Throat Swelling, Mouth Pain, Dental Problems, Difficulty Swallowing, Mouth Swelling, Other Respiratory: Yes: Symptoms reported, See HPI, Cough. No: Orthopnea, Shortness of Breath, SOB with Exertion, SOB at Rest, Stridor, Wheezing, Productive cough, Hemoptysis, Other Cardiac (ROS): No: Symptoms Reported, See HPI, Chest Pain, Edema, Irregular Heart Rate, Lightheadedness, Palpitations, Syncope, Chest Tightness, Other ABD/GI: No: Nausea, Vomiting All Other Systems: Reviewed and Negative *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 - Vital Signs Last Vital Signs Temp Pulse Resp BP Pulse Ox 98.4 F 93 H 18 125/70 100 04/28/18 09:58 04/28/18 09:58 04/28/18 09:58 04/28/18 09:58 04/28/18 09:58 - 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 Comments: 04/28/18 10:41 GENERAL: Well developed, well nourished. Awake and alert. No acute distress. HEENT: Moderately injected bilateral conjunctivae with yellow crusting to bilateral eyelids. Normocephalic, atraumatic. PERRLA, EOMI. Moist mucous membranes. Oropharynx is clear. NECK: Supple. Full ROM. CARDIOVASCULAR: Regular rate and rhythm. No murmurs, rubs, or gallops. Distal pulses are 2+ and symmetric. PULMONARY: No evidence of respiratory distress. Lungs clear to auscultation bilaterally. No wheezing, rales or rhonchi. ABDOMINAL: 39 weeks gravid abdomen.Soft. Non-tender. No rebound or guarding. No organomegaly. Normoactive bowel sounds. MUSCULOSKELETAL Normal range of motion at all joints. EXTREMITIES: No cyanosis. No clubbing. No edema. No calf tenderness. SKIN: Warm and dry. Normal capillary refill. No rashes. No jaundice. NEUROLOGICAL: Alert, awake, appropriate. Gait is normal without ataxia. PSYCHIATRIC: Cooperative. Good eye contact. Appropriate mood General Appearance: Yes: Nourished, Appropriately Dressed. No: Apparent Distress Moderate Sedation - Procedure Monitoring Vital Signs: Procedure Monitoring Vital Signs Temperature 98.4 F 04/28/18 09:58 Pulse Rate 93 H 04/28/18 09:58 Respiratory Rate 18 04/28/18 09:58 Blood Pressure 125/70 04/28/18 09:58 O2 Sat by Pulse Oximetry (%) 100 04/28/18 09:58 Medical Decision Making - Medical Decision Making 04/28/18 10:42 Patient with no significant past medical history present with complaint of 2 day history of runny nose, nasal congestion, dry cough and bilateral pinkeye. Patient denies fevers or chills. Patient 9 months . Exam significant for injected bilateral conjunctivae . Lungs clear to auscultation bilateral. Symptoms likely URI with conjunctivitis. Patient is stable for outpatient treatment with ofloxacin eyedrops, Tessalon Perles for cough as needed and nasal spray with PCP follow-up. *DC/Admit/Observation/Transfer Diagnosis at time of Disposition: Cough Conjunctivitis Qualifiers: Conjunctivitis type: acute Acute conjunctivitis type: unspecified Laterality: bilateral Qualified Code(s): H10.33 - Unspecified acute conjunctivitis, bilateral URI (upper respiratory infection) Qualifiers: URI type: unspecified URI Qualified Code(s): J06.9 - Acute upper respiratory infection, unspecified - Discharge Dispostion Disposition: HOME Condition at time of disposition: Stable Decision to Admit order: No - Prescriptions Prescriptions: Benzonatate [Tessalon Pearls -] 100 mg PO Q8H PRN #12 capsule PRN Reason: Cough Ipratropium Farrell 2 spray NS BID PRN #1 spray PRN Reason: nasal congestion Ofloxacin 0.3% Ophth Soln [Ocuflox -] 2 drop OP Q6H 5 Days #1 bottle - Referrals Referrals: Flakito Aldridge [Primary Care Provider] - - Patient Instructions Printed Discharge Instructions: Conjunctivitis Additional Instructions: Take medications as prescribed. Increase fluid intake. Follow-up with primary care as needed. - Post Discharge Activity
== END 2018-04-28 10:42 | disposition home or self-care (01) ==
LOC: JERFT 09:56
DX: O26.893 Other specified pregnancy related conditions, third trimester (principal); O99.513 Diseases of the respiratory system complicating pregnancy, third trimester; J06.9 Acute upper respiratory infection, unspecified; H10.33 Unspecified acute conjunctivitis, bilateral; Z3A.39 39 weeks gestation of pregnancy
CPT/HCPCS: 99281-25

== ENCOUNTER 2018-05-10 17:30 | Inpatient (IN) | payer OTHER ==
[2018-05-10 18:10] VITALS: BMI 35.2
[2018-05-10] MEDS ORDERED: TUBERCULIN PPD 5 TU/0.1ML SYRINGE (IN PATIENT USE ONLY) ID ONE (18:30)
[2018-05-10] MEDS ORDERED: DINOPROSTONE 10 MG VAGINAL SUPPOSITORY VG ONE (18:56)
[2018-05-10] MEDS ORDERED: DEXTROSE 5%-LACTATED RINGERS 1,000 ML IV SCH (19:00)
--- NOTE | 2018-05-10 19:03 | HP ---
Past Medical History - Admission Chief Complaint: Postdates History of Present Illness: 22 yo , @ 40 weeks gestation, EDC 05/10/18, presents for induction of labor. Upon admission she was 1cm dilated. History Source: Patient Limitations to Obtaining History: No Limitations - Past Medical History Gastrointestinal: Yes: Other (History of episodic vomiting) ...: 3 ...Para: 0 ...Term: 0 ...: 0 ...Spon : 1 ...Induced : 1 ...Multiple Gestation: 0 ...LMP: 07/28/17 ... Weeks Gestation by Dates: 40.4 ...EDC by Dates: 05/06/18 ...EDC by Sono: 05/10/18 - Past Surgical History Past Surgical History: Yes: None Hx Myomectomy: No Hx Transabdominal Cerclage: No - Smoking History Smoking history: Never smoked Have you smoked in the past 12 months: No Aproximately how many cigarettes per day: 2 - Alcohol/Substance Use Hx Alcohol Use: No History of Substance Use: reports: Marijuana - Social History ADL: Family Assistance History of Recent Travel: No Home Medications - Allergies Allergies/Adverse Reactions: Allergies Allergy/AdvReac Type Severity Reaction Status Date / Time No Known Allergies Allergy Verified 05/10/18 18:22 - Home Medications Home Medications: Ambulatory Orders NK [No Known Home Medication] 05/10/18 Family Disease History - Family Disease History Family Disease History: Other: Father (Not active in patients life), Mother ( alive: 38: healthy), Brother (1, healthy), Son (None), Daughter (None) Review of Systems - Review of Systems Constitutional: reports: No Symptoms Eyes: reports: No Symptoms HENT: reports: No Symptoms Neck: reports: No Symptoms Cardiovascular: reports: No Symptoms Respiratory: reports: No Symptoms Gastrointestinal: reports: No Symptoms Genitourinary: reports: No Symptoms Breasts: reports: No Symptoms Reported Musculoskeletal: reports: No Symptoms Neurological: reports: No Symptoms Pain Intensity: 3 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 - Maternity Vital Signs: Vital Signs Temperature 98.8 F 05/10/18 18:03 Pulse Rate 96 H 05/10/18 18:03 Respiratory Rate 20 05/10/18 18:03 Blood Pressure 135/67 05/10/18 18:03 O2 Sat by Pulse Oximetry (%) Constitutional: Yes: Well Nourished Eyes: Yes: Conjunctiva Clear HENT: Yes: Atraumatic Neck: Yes: Supple Cardiovascular: Yes: Regular Rate and Rhythm Lungs: Clear to auscultation - Abdominal Exam/OB Number of Fetuses: Single Presentation: Vertex - Vaginal Exam/OB Dilatation (cm): 1 Effacement (%): 60 Amniotic Membrane Status: Intact Station: -2 - 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 ...Motor Strength: WNL Psychiatric: Yes: Alert, Oriented Problem List - Problems (1) Post-dates Code(s): O48.0 - POST-TERM Assessment/Plan Postdates Cervidil induction Re-evaluate in 12 hours or before if indicated
[2018-05-10 20:03] LABS: BASO % 0.5 % (0-2.0); EOS % 0.5 % (0-4.5); HEMATOCRIT 29.1 % (32.4-45.2); LYMPH % 15.3 % (8-40); MCH 30.9 pg (25.7-33.7); MCHC 34.5 g/dl (32.0-36.0); MEAN CELL VOLUME 89.4 fl (80-96); MEAN PLT VOLUME 9.3 fl (7.5-11.1); MONO % 7.2 % (3.8-10.2); NEUT % 76.5 % (42.8-82.8); PLATELET COUNT 232 K/MM3 (134-434); RBC 3.25 M/mm3 (3.60-5.2); RDW 12.9 % (11.6-15.6); WHITE BLOOD COUNT 10.7 K/mm3 (4.0-10.0)
[2018-05-10 20:16] LABS: INR 0.92 (0.83-1.09); PROTHROMBIN TIME (PATIENT) 10.9 SEC (9.7-13.0)
[2018-05-10 20:17] LABS: ANION GAP 12 MMOL/L (8-16); BLOOD UREA NITROGEN 13 mg/dL (7-18); CALCIUM 8.4 mg/dL (8.5-10.1); CHLORIDE 109 mmol/L (98-107); CO2 20 mmol/L (21-32); CREATININE 0.6 mg/dL (0.55-1.3); GLUCOSE,RANDOM 101 mg/dL (74-106); SODIUM 141 mmol/L (136-145)
[2018-05-10 20:19] LABS: ACTIVATED PTT 24.1 SECONDS (25.2-36.5)
[2018-05-10] MEDS ORDERED: BUTORPHANOL TARTRATE 1 MG/ML VIAL ONE ×2 (22:36)
[2018-05-10] MEDS ORDERED: BUTORPHANOL TARTRATE 2 MG/ML VIAL IVPUSH STA (22:36)
[2018-05-10] MEDS ORDERED: PROMETHAZINE HCL 25 MG/1 ML VIAL IVPUSH STA (22:36)
[2018-05-10] MEDS ORDERED: PROMETHAZINE HCL 25 MG/1 ML VIAL ONE (22:36)
[2018-05-10] MEDS ORDERED: morphine SULFATE/Preservative Free 0.5 MG/ML (1cc Syringe) ONE (22:58)
[2018-05-10] MEDS ORDERED: ePHEDrine SULFATE 50 MG/1 ML AMPULE ONE (23:02)
[2018-05-10] MEDS ORDERED: ceFAZolin SODIUM 1 GM VIAL ONE (23:18)
[2018-05-10] MEDS ORDERED: OXYTOCIN 10 UNITS/ML VIAL ONE (23:28)
[2018-05-10] MEDS ORDERED: KETOROLAC TROMETHAMINE 30 MG/1 ML VIAL ONE (23:37)
[2018-05-10] MEDS ORDERED: IBUPROFEN 600 MG TABLET (FP) PO PRN (23:52)
[2018-05-10] MEDS ORDERED: ONDANSETRON 4 MG/2 ML VIAL IVPUSH PRN (23:52)
[2018-05-10] MEDS ORDERED: morphine SULFATE/Preservative Free 0.5 MG/ML (1cc Syringe) SPIN ONE (23:52)
[2018-05-11] MEDS ORDERED: METHYLERGONOVINE MALEATE 0.2 MG/1 ML AMP IM PRN (00:13)
[2018-05-11] MEDS ORDERED: ACETAMINOPHEN 325 MG TABLET (FP) PO PRN (00:13)
[2018-05-11] MEDS ORDERED: OXYTOCIN 20 UNITS in 0.9% NS 20 UNIT/1,000 ML INFUS.BAG IV SCH (00:15)
--- NOTE | 2018-05-11 00:19 | OP ---
Operative Note - Note: Operative Date: 05/10/18 Pre-Operative Diagnosis: Failed medical induction / Non Reassuring Heart rate Operation: Primary Low Transverse Findings: Baby boy in cephallic presentation Post-Operative Diagnosis: Same as Pre-op Surgeon: Marci Garcia Quill Machine Tender: Zamzam Deleon Anesthesia: Spinal Specimens Removed: Placenta Estimated Blood Loss (mls): 500
[2018-05-11] MEDS ORDERED: ELECTROLYTE-148 SOLN 500 ML IV ONE (02:54)
[2018-05-11] MEDS ORDERED: CITRIC ACID/SODIUM CITRATE 30 ML UNIT-DOSE CUP PO ONE (02:56)
[2018-05-11] MEDS ORDERED: OXYTOCIN 20 UNITS in 0.9% NS 20 UNIT/1,000 ML INFUS.BAG IV ONE (02:59)
[2018-05-11] MEDS ORDERED: ELECTROLYTE-148 SOLN 1,000 ML IV SCH (03:24)
--- NOTE | 2018-05-11 08:46 | PN ---
Progress Note (short form) - Note Progress Note: Post op day#1.S/P C Section under spinal anesthesia with duramorph uneventful.Patient stable and c/o little pain for which is on medication.No any anesthesia related problem.Patient DC from the anesthesia care.
[2018-05-11] MEDS: PRENATAL VITAMINS W/ FOLIC ACID TABLET (FP) PO SCH (09:25)
[2018-05-11] MEDS: FERROUS SO4 325 MG TABLET (FP) PO SCH ×2 (09:25→22:23)
[2018-05-11] MEDS ORDERED: TUBERCULIN PPD 5 TU/0.1ML SYRINGE (IN PATIENT USE ONLY) ID ONE (10:00)
--- NOTE | 2018-05-11 14:38 | PN ---
Post Progress Note - Subjective Subjective: 22 yo Para 1 status post primary , seen and evaluated. Doing well. Post Day: 1 Type of Delivery: Primary C/S Vital Signs: Vital Signs Temperature 98.3 F 05/11/18 14:00 Pulse Rate 89 05/11/18 14:00 Respiratory Rate 18 05/11/18 14:00 Blood Pressure 118/64 05/11/18 14:00 O2 Sat by Pulse Oximetry (%) 100 05/11/18 00:55 Breast Exam: Yes: Soft Incision: Yes: Dressing dry and intact Abdomen/GI: Yes: Abdomen soft Lochia: Yes: Rubra Lochia, amount: Small Extremities: Yes: Calves non-tender Activity: Other (She's lying in bed) - Labs Labs: CBC WBC 10.7 K/mm3 (4.0-10.0) H 05/10/18 19:25 RBC 3.25 M/mm3 (3.60-5.2) L 05/10/18 19:25 Hgb 10.0 GM/dL (10.7-15.3) L 05/10/18 19:25 Hct 29.1 % (32.4-45.2) L 05/10/18 19:25 MCV 89.4 fl (80-96) 05/10/18 19:25 MCH 30.9 pg (25.7-33.7) 05/10/18 19:25 MCHC 34.5 g/dl (32.0-36.0) 05/10/18 19:25 RDW 12.9 % (11.6-15.6) 05/10/18 19:25 Plt Count 232 K/MM3 (134-434) 05/10/18 19:25 MPV 9.3 fl (7.5-11.1) 05/10/18 19:25 Absolute Neuts (auto) 8.2 K/mm3 (1.5-8.0) H 05/10/18 19:25 Neutrophils % 76.5 % (42.8-82.8) 05/10/18 19:25 Lymphocytes % 15.3 % (8-40) 05/10/18 19:25 Monocytes % 7.2 % (3.8-10.2) 05/10/18 19:25 Eosinophils % 0.5 % (0-4.5) 05/10/18 19:25 Basophils % 0.5 % (0-2.0) 05/10/18 19:25 Nucleated RBC % 0 % (0-0) 05/10/18 19:25 Problem List - Problems (1) Post-dates Code(s): O48.0 - POST-TERM (2) Status post primary low transverse section Code(s): Z98.891 - HISTORY OF UTERINE SCAR FROM PREVIOUS SURGERY Assessment/Plan Status post primary Stable Ambulation Analgesia as needed Continue routine post op care
[2018-05-11] MEDS: oxyCODONE HCL 5 MG TABLET PO PRN (19:37)
[2018-05-11] MEDS: ACETAMINOPHEN 325 MG TABLET (FP) PO PRN (19:37)
[2018-05-12] MEDS ORDERED: BISACODYL 10 MG SUPP.RECT RC PRN (00:14)
--- NOTE | 2018-05-12 01:00 | PN ---
Post Progress Note - Subjective Subjective: 22 yo Para 1 status post primary , seen and evaluated. Doing well. Post Day: 2 Type of Delivery: Primary C/S Vital Signs: Vital Signs Temperature 98.3 F 05/11/18 22:00 Pulse Rate 84 05/11/18 22:00 Respiratory Rate 20 05/12/18 00:00 Blood Pressure 119/81 05/11/18 22:00 O2 Sat by Pulse Oximetry (%) 100 05/11/18 00:55 Breast Exam: Yes: Soft Incision: Yes: Dressing dry and intact Abdomen/GI: Yes: Abdomen soft, Tolerating PO Lochia: Yes: Rubra Lochia, amount: Small Extremities: Yes: Calves non-tender Perineum: Yes: Intact Activity: Ambulating - Labs Labs: CBC WBC 10.7 K/mm3 (4.0-10.0) H 05/10/18 19:25 RBC 3.25 M/mm3 (3.60-5.2) L 05/10/18 19:25 Hgb 10.0 GM/dL (10.7-15.3) L 05/10/18 19:25 Hct 29.1 % (32.4-45.2) L 05/10/18 19:25 MCV 89.4 fl (80-96) 05/10/18 19:25 MCH 30.9 pg (25.7-33.7) 05/10/18 19:25 MCHC 34.5 g/dl (32.0-36.0) 05/10/18 19:25 RDW 12.9 % (11.6-15.6) 05/10/18 19:25 Plt Count 232 K/MM3 (134-434) 05/10/18 19:25 MPV 9.3 fl (7.5-11.1) 05/10/18 19:25 Absolute Neuts (auto) 8.2 K/mm3 (1.5-8.0) H 05/10/18 19:25 Neutrophils % 76.5 % (42.8-82.8) 05/10/18 19:25 Lymphocytes % 15.3 % (8-40) 05/10/18 19:25 Monocytes % 7.2 % (3.8-10.2) 05/10/18 19:25 Eosinophils % 0.5 % (0-4.5) 05/10/18 19:25 Basophils % 0.5 % (0-2.0) 05/10/18 19:25 Nucleated RBC % 0 % (0-0) 05/10/18 19:25 Problem List - Problems (1) Post-dates Code(s): O48.0 - POST-TERM (2) Status post primary low transverse section Code(s): Z98.891 - HISTORY OF UTERINE SCAR FROM PREVIOUS SURGERY Assessment/Plan Status post primary Stable Ambulation Analgesia as needed Continue routine post op care
[2018-05-12] MEDS: oxyCODONE HCL 5 MG TABLET PO PRN ×3 (01:56→20:32)
[2018-05-12] MEDS: ACETAMINOPHEN 325 MG TABLET (FP) PO PRN ×2 (01:56→08:53)
[2018-05-12] MEDS: SIMETHICONE 80 MG TAB.CHEW (FP) PO PRN ×3 (01:57→20:32)
[2018-05-12 07:35] LABS: BASO % 0.6 % (0-2.0); EOS % 0.6 % (0-4.5); HEMATOCRIT 28.1 % (32.4-45.2); HEMOGLOBIN 9.5 GM/dL (10.7-15.3); LYMPH % 16.7 % (8-40); MCH 30.7 pg (25.7-33.7); MCHC 33.9 g/dl (32.0-36.0); MEAN CELL VOLUME 90.5 fl (80-96); MEAN PLT VOLUME 8.9 fl (7.5-11.1); MONO % 7.3 % (3.8-10.2); NEUT % 74.8 % (42.8-82.8); PLATELET COUNT 209 K/MM3 (134-434); RBC 3.11 M/mm3 (3.60-5.2); WHITE BLOOD COUNT 10.1 K/mm3 (4.0-10.0)
[2018-05-12] MEDS: PRENATAL VITAMINS W/ FOLIC ACID TABLET (FP) PO SCH (09:37)
[2018-05-12] MEDS: FERROUS SO4 325 MG TABLET (FP) PO SCH ×2 (09:37→22:44)
[2018-05-12] MEDS: IBUPROFEN 600 MG TABLET (FP) PO PRN (20:32)
--- NOTE | 2018-05-13 06:06 | DS ---
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-DOOR LINER Vital Signs: Vital Signs Temperature 99.3 F 05/12/18 22:00 Pulse Rate 97 H 05/12/18 22:00 Respiratory Rate 20 05/12/18 22:00 Blood Pressure 130/80 05/12/18 22:00 O2 Sat by Pulse Oximetry (%) 100 05/11/18 00:55 Constitutional: Yes: Well Nourished, No Distress, Calm Eyes: Yes: Conjunctiva Clear, EOM Intact HENT: Yes: Atraumatic, Normocephalic Neck: Yes: Supple, Trachea Midline Cardiovascular: Yes: Regular Rate and Rhythm Respiratory: Yes: Regular Gastrointestinal: Yes: Normal Bowel Sounds, Soft ....Post : Yes: Uterus firm, Uterus non-tender Wound/Incision: Yes: Clean/Dry, Well Approximated Psychiatric: Yes: Alert, Oriented Labs: CBC, BMP 05/12/18 07:00 05/10/18 19:25 Delivery - Delivery Section: Primary, Low Flap Transverse Type of Anesthesia: Spinal Episiotomy/Laceration: None EBL (cc): 500 Delivery, Single - Stages of Labor Date 1st Stage Initiatied: 05/10/18 Time 1st Stage Initiated: 21:00 Date of Delivery: 05/10/18 Time of Delivery: 23:27 Time Placenta Delivered: 23:28 - 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 Hospital Course: Pt admitted on 05/10/18 for induction of labor. She underwent an uncomplicated delivery due to non reassuring heart rate tracing. She had an uncomplicated post course and was discharged home on post op day 3. Condition: Good - Instructions Diet, Activity, Other Instructions: Physical activity Resume your normal everyday activity as tolerated no heavy lifting or exercise until seen by your surgeon. You may walk unlimited juany of and climb stairs. You may resume driving the car when you feel safe and comfortable behind the wheel. No sexual activity as instructed. Wound care If you have a bandage, leave it on, and keep dry for 48-72 hours. After that time discard the outer bandage. If they are tapes on the skin under the out of bandage leave them in place. They will peel off in the next 7 to 10 days. Do Not Peel them off. You may shower the day after surgery. If there are tapes present on the skin, you may shower over them. Diet There are no dietary restrictions. Eat healthy, high-fiber foods. Drink 6 to 8 glasses of liquid each day. This will assist in keeping your bowels are regular. Pain management You may take Tylenol or acetaminophen or Ibuprofen (for example, Motrin, Advil etc.) from my pain prescription medication is ordered should be taken as prescribed for moderate to severe pain. Call MD for any of the following: Severe pain not relieved by medication Fever of 101 or higher Excessive bleeding or drainage on dressing Inability to urinate Referrals: Marci Garcia MD [Staff Physician] - Disposition: HOME - Home Medications Comprehensive Discharge Medication List: Ambulatory Orders Ibuprofen [Motrin -] 600 mg PO QID PRN #28 tablet 05/13/18
[2018-05-13] MEDS: PRENATAL VITAMINS W/ FOLIC ACID TABLET (FP) PO SCH (10:00)
[2018-05-13] MEDS: FERROUS SO4 325 MG TABLET (FP) PO SCH ×2 (10:00→21:30)
[2018-05-13] MEDS: SIMETHICONE 80 MG TAB.CHEW (FP) PO PRN (11:03)
[2018-05-13] MEDS: IBUPROFEN 600 MG TABLET (FP) PO PRN ×2 (11:04→21:31)
[2018-05-13] MEDS: oxyCODONE HCL 5 MG TABLET PO PRN (11:05)
[2018-05-13] MEDS ORDERED: oxyCODONE HCL 5 MG TABLET ONE (21:25)
[2018-05-13] MEDS ORDERED: oxyCODONE HCL 5 MG TABLET PO PRN (21:26)
--- NOTE | 2018-05-14 07:25 | PN ---
Progress Note (SOAP) - Subjective Chief Complaint: Pt doing well - Current Medications Current Medications: Active Medications Acetaminophen (Tylenol -) 650 mg PO Q4H PRN PRN Reason: PAIN LEVEL 6-10 Last Admin: 05/12/18 08:53 Dose: 650 mg Diphenhydramine HCl (Benadryl Injection -) 25 mg IVPUSH Q4H PRN PRN Reason: Pruritis Ferrous Sulfate (Feosol -) 325 mg PO BID [facility] Last Admin: 05/13/18 21:30 Dose: 325 mg Dextrose/Lactated Ringer's (D5-Lr -) 1,000 mls @ 125 mls/hr IV ASDIR [facility] Last Admin: 05/10/18 21:40 Dose: 125 mls/hr Ibuprofen (Motrin -) 600 mg PO Q4H PRN PRN Reason: PAIN SCALE 3-6 Last Admin: 05/13/18 21:31 Dose: 600 mg Ondansetron HCl (Zofran Injection) 4 mg IVPUSH Q4H PRN PRN Reason: NAUSEA Oxycodone HCl (Roxicodone -) 5 mg PO Q4H PRN PRN Reason: PAIN SCALE 5-8 Last Admin: 05/13/18 21:30 Dose: 5 mg - Objective Vital Signs: Vital Signs Temperature 99.3 F 05/13/18 22:00 Pulse Rate 86 05/13/18 22:00 Respiratory Rate 18 05/13/18 22:00 Blood Pressure 136/76 05/13/18 22:00 O2 Sat by Pulse Oximetry (%) 100 05/11/18 00:55 Constitutional: Yes: Well Nourished, No Distress Labs Lab Results: CBC, BMP 05/12/18 07:00 05/10/18 19:25 Assessment/Plan POD3 Plan [facility]
[2018-05-14] MEDS: ACETAMINOPHEN 325 MG TABLET (FP) PO PRN ×2 (08:26→17:58)
[2018-05-14] MEDS: IBUPROFEN 600 MG TABLET (FP) PO PRN ×2 (08:27→17:57)
[2018-05-14 09:24] VITALS: BP 138/83; PULSE 79; TEMP 98.4
[2018-05-14] MEDS: FERROUS SO4 325 MG TABLET (FP) PO SCH (09:25)
--- NOTE | 2018-05-19 16:55 | PATH ---
Surgical Pathology Report Patient Name: GAMAL HACKETT Med. Rec. #: [id number] /Age/Gender: 1995 (Age: 22) / F Account: [id number] Location: 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 Specimen(s) Received PLACENTA Clinical History Full-term for cervical induction, nonreassuring heart rate Final Diagnosis PLACENTA, SECTION: 351 G THIRD TRIMESTER PLACENTA WITH TRIVASCULAR UMBILICAL CORD AND UNREMARKABLE PLACENTAL MEMBRANES. Electronically Signed aVle Barrera M.D. Gross Description The specimen is received fresh labeled placenta and is a 351 gram, 17.5 x 15.5 x 2.8 cm. placenta with attached membranes and umbilical cord. The attached membranes are reynolds, translucent with focal opacities and insert marginally. The umbilical cord measures 25 cm. in length and averages 1 cm. in diameter. The cord inserts eccentrically, 2 cm. to the nearest margin. No true knots or strictures are identified. Cut surface of the umbilical cord reveals 3 vessels. The surface is vasquez-blue with minimal fibrin deposition and appropriate caliber vessels. The maternal surface is red-brown with focal defects. Sectioning reveals red-brown, spongy parenchyma. No lesions are identified. Pellet Mill Operator sections are submitted in three cassettes as follows: 1- membrane rolls and umbilical cord; 2-3- full thickness sections of placenta. /05/18/2018 saudi05/18/2018
--- NOTE | 2018-05-20 13:13 | OP ---
DATE OF OPERATION: 05/10/2018 PREOPERATIVE DIAGNOSES: Failed medical induction and reassuring heart rate. POSTOPERATIVE DIAGNOSES: Failed medical induction and reassuring heart rate. PROCEDURE: Primary low transverse section. SURGEON: Marci Garcia MD ARMHOLE RAISER LOCKSTITCH: Zamzam Deleon MD ANESTHESIA: Spinal. COMPLICATIONS: None. ESTIMATED BLOOD LOSS: 500 mL DESCRIPTION OF PROCEDURE: Patient was taken to the operating room where spinal anesthesia was administered. Patient was then prepped and draped in proper sterile fashion. A Pfannenstiel skin incision was made and carried down to the underlying layer of fascia. The fascia was incised in the midline and extended laterally. The superior aspect of the fascial incision was then grasped with a Tyrell clamp, elevated, and the rectus muscle dissected off bluntly. Attention was then turned to the inferior aspect of the fascial incision which, in a similar fashion, was then grasped with Tyrell clamps, elevated, and the rectus muscle was dissected off bluntly. The rectus muscle was then in the midline and the peritoneum identified and entered sharply with the Metzenbaum scissors. The peritoneum incision was extended superiorly and inferiorly with good visualization of the bladder. Then, the vesicouterine peritoneum was then grasped with a pickup and entered sharply with the Metzenbaum scissors. This incision was extended laterally and a bladder flap created digitally. The bladder blade was inserted. The lower uterine segment was incised using a 10-blade. Then, the head was then delivered. Nose and mouth were suctioned and the cord clamped and cut. The was handed to the waiting spooler. The placenta was removed manually. The uterus exteriorized and cleared of all clots and debris. The uterine incision was repaired using 0 Biosyn in a running locked fashion. A second layer of the same suture was used as a means to provide excellent hemostasis. Then, the pelvis was completely irrigated. The uterus was returned to the abdomen. The peritoneum was closed using 2-0 Biosyn. The fascia was reapproximated using 0 Vicryl in a running fashion, and the skin was closed in subcuticular fashion using 3-0 Vicryl. Patient tolerated the procedure well. Patient was then taken to PACU in stable condition. PATHOLOGY: Placenta. Karena CURTIS/[id number]
== END 2018-05-14 18:03 | disposition home or self-care (01) | DRG 788 ==
LOC: JLDR 17:30 → J3W 05-11 03:13
PROVIDERS: ADMIT Obstetrics & Gynecology; ATTEND Obstetrics & Gynecology
PROC: 10D00Z1 Extraction of Products of Conception, Low, Open Approach (ICD-10-PCS; principal; 2018-05-10)
PROC: 3E0P7VZ Introduction of Hormone into Female Reproductive, Via Natural or Artificial Opening (ICD-10-PCS; 2018-05-10)
DX: O48.0 Post-term pregnancy (principal); O62.0 Primary inadequate contractions; O76 Abnormality in fetal heart rate and rhythm complicating labor and delivery; Z37.0 Single live birth; Z3A.40 40 weeks gestation of pregnancy
CPT/HCPCS: 36415; 80048; 85025; 85610; 85730; 86593; 86850; 86900; 86901; 88307-TC

== ENCOUNTER 2019-03-29 18:55 | Emergency (ER) | payer OTHER ==
[2019-03-29 19:06] VITALS: BMI 21.4
[2019-03-29] MEDS ORDERED: ONDANSETRON *ODT* 4 MG TABLET SL ONE (19:06)
--- NOTE | 2019-03-29 19:06 | PDOC ---
Rapid Medical Evaluation Chief Complaint: Nausea/Vomiting Time Seen by Provider: 03/29/19 19:02 Medical Evaluation: Allergies Allergy/AdvReac Type Severity Reaction Status Date / Time No Known Allergies Allergy Verified 05/10/18 18:22 03/29/19 19:03 I have performed a brief in-person evaluation of this patient. The patient presents with a chief complaint of:no Pmhx present with complains of N/V and epigastric pain. LMP started 2 days ago. Denies diarrhea, constipation Pertinent physical exam findings: A&O x 3 in mild distress I have ordered the following: CBC,CMP, Lipase, hcg, zofran The patient will proceed to the ED for further evaluation Discharge Disposition - Diagnosis Abdominal pain Qualifiers: Abdominal location: epigastric Qualified Code(s): R10.13 - Epigastric pain Vomiting Qualifiers: Vomiting type: unspecified Vomiting Intractability: non-intractable Nausea presence: with nausea Qualified Code(s): R11.2 - Nausea with vomiting, unspecified - Discharge Dispostion Condition at time of disposition: Stable - Referrals - Patient Instructions - Post Discharge Activity
[2019-03-29] MEDS ORDERED: ONDANSETRON *ODT* 4 MG TABLET ONE (19:07)
--- NOTE | 2019-03-29 19:52 | PDOC ---
*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 - Vital Signs Last Vital Signs Temp Pulse Resp BP Pulse Ox 98.3 F 82 17 129/72 100 03/29/19 19:02 03/29/19 19:02 03/29/19 19:02 03/29/19 19:02 03/29/19 19:02 ED Treatment Course - LABORATORY CBC & Chemistry Diagram: 03/29/19 19:45 03/29/19 19:45 - Medications Given in the ED: ED Medications Discontinued Medications Generic Name Dose Route Start Last Admin Trade Name Jessie PRN Reason Stop Dose Admin Ondansetron HCl 4 mg 03/29/19 19:06 03/29/19 19:08 Zofran Odt - SL 03/29/19 19:07 4 mg ONCE ONE Administration Medical Decision Making - Medical Decision Making 03/29/19 19:52 Patient seen by the advanced practice provider under my direct supervision. Ancillary testing reviewed as necessary. I agree with plan as outlined by the advanced practice provider. Discharge - Discharge Information Problems reviewed: Yes Clinical Impression/Diagnosis: Abdominal pain Qualifiers: Abdominal location: epigastric Qualified Code(s): R10.13 - Epigastric pain Vomiting Qualifiers: Vomiting type: unspecified Vomiting Intractability: non-intractable Nausea presence: with nausea Qualified Code(s): R11.2 - Nausea with vomiting, unspecified Condition: Stable - Follow up/Referral Referrals: Flakito Aldridge [Primary Care Provider] - - Patient Discharge Instructions - Post Discharge Activity
[2019-03-29] MEDS ORDERED: SODIUM CHLORIDE 0.9% 500 ML INFUS.BAG IV ONE (20:07)
[2019-03-29 20:21] LABS: ALBUMIN 4.6 g/dl (3.4-5.0); BILIRUBIN,TOTAL 0.6 mg/dL (0.2-1); BLOOD UREA NITROGEN 18.2 mg/dL (7-18); CALCIUM 9.7 mg/dL (8.5-10.1); CREATININE 0.7 mg/dL (0.55-1.3); POTASSIUM 3.7 mmol/L (3.5-5.1); TOT PROT 8.2 g/dl (6.4-8.2)
[2019-03-29 20:22] LABS: BASO % 0.3 % (0-2.0); HEMATOCRIT 37.9 % (32.4-45.2); HEMOGLOBIN 12.6 GM/dL (10.7-15.3); LYMPH % 3.3 % (8-40); MCH 30.4 pg (25.7-33.7); MCHC 33.2 g/dl (32.0-36.0); MEAN CELL VOLUME 91.7 fl (80-96); MEAN PLT VOLUME 9.9 fl (7.5-11.1); NEUT % 94.4 % (42.8-82.8); PLATELET COUNT 261 K/MM3 (134-434); RBC 4.13 M/mm3 (3.60-5.2); RDW 13.1 % (11.6-15.6); WHITE BLOOD COUNT 13.1 K/mm3 (4.0-10.0)
--- NOTE | 2019-03-29 20:41 | PDOC ---
History of Present Illness - General Chief Complaint: Nausea/Vomiting Stated Complaint: VOMITTING Time Seen by Provider: 03/29/19 19:02 History Source: Patient - History of Present Illness Initial Comments: 03/29/19 20:42 23 year old female nausea, vomiting, diarrhea since 7 am. denies fever/ chills. c/o left lower abdominal pain LMP: 03/28/2019. PMHX: cyclical vomiting syndrome, gastritis Patient actively vomiting bilious vomitus Past History - Past Medical History Allergies/Adverse Reactions: Allergies Allergy/AdvReac Type Severity Reaction Status Date / Time No Known Allergies Allergy Verified 03/29/19 19:06 Home Medications: Ambulatory Orders Metoclopramide HCl [Reglan] 10 mg PO BID PRN #7 tablet 03/30/19 Asthma: No Cancer: No Cardiac Disorders: No COPD: No Diabetes: No GI Disorders: Yes (gastritis, IBS) HTN: No Psychiatric Problems: Yes (ANXIETY) Seizures: No Thyroid Disease: No - Immunization History Immunization Up to Date: Yes - Psycho Social/Smoking Cessation Hx Smoking History: Current every day smoker Have you smoked in the past 12 months: Yes Number of Cigarettes Smoked Daily: 2 Information on smoking cessation initiated: No 'Breaking Loose' booklet given: 12/09/15 Hx Alcohol Use: No Drug/Substance Use Hx: Yes (MARIJUANA) Substance Use Type: Marijuana Hx Substance Use Treatment: No Abd/GI Specific PMHX - Complaint Specific PMHX Colitis: No Diverticulitis: No Gall Bladder Disease: No GERD: No Hepatitis: No Irritable Bowel Synd (IBS): No GI Ulcer Disease: No Review of Systems - Review of Systems Able to Perform ROS?: Yes Is the patient limited Portuguese proficient: No ABD/GI: Yes: Diarrhea, Nausea, Vomiting, Abdominal cramping *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 - Vital Signs Last Vital Signs Temp Pulse Resp BP Pulse Ox 98.3 F 82 17 129/72 100 03/29/19 19:02 03/29/19 19:02 03/29/19 19:02 03/29/19 19:02 03/29/19 19:02 - 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 General Appearance: Yes: Mild Distress Respiratory/Chest: positive: Lungs Clear, Normal Breath Sounds Gastrointestinal/Abdominal: positive: Normal Bowel Sounds, Soft. negative: Tender Integumentary: positive: Normal Color, Dry, Warm, Pale Neurologic: positive: Fully Oriented, Alert, Normal Mood/Affect ED Treatment Course - LABORATORY CBC & Chemistry Diagram: 03/29/19 19:45 03/29/19 19:45 - ADDITIONAL ORDERS Additional order review: Laboratory Results 03/29/19 19:45 Sodium 139 Potassium 3.7 Chloride 108 H Carbon Dioxide 20 L Anion Gap 12 BUN 18.2 H Creatinine 0.7 Est GFR (CKD-EPI)AfAm 141.54 Est GFR (CKD-EPI)NonAf 122.12 Random Glucose 110 H Calcium 9.7 Total Bilirubin 0.6 AST 12 L ALT 24 Alkaline Phosphatase 86 Total Protein 8.2 Albumin 4.6 Lipase 109 03/29/19 19:45 RBC 4.13 MCV 91.7 MCHC 33.2 RDW 13.1 MPV 9.9 D Neutrophils % 94.4 H D Lymphocytes % 3.3 L D Monocytes % 2.0 L Eosinophils % 0.0 D Basophils % 0.3 - Medications Given in the ED: ED Medications Discontinued Medications Generic Name Dose Route Start Last Admin Trade Name Freq PRN Reason Stop Dose Admin Ondansetron HCl 4 mg 03/29/19 19:06 03/29/19 19:08 Zofran Odt - SL 03/29/19 19:07 4 mg ONCE ONE Administration Sodium Chloride 1,000 ml 03/29/19 20:07 03/29/19 20:18 Normal Saline - IV 03/29/19 20:08 1,000 ml ONCE ONE Administration ED Progress Note - Progress Note Progress Note: 03/30/19 06:44 A: cyclical vomiting P: cbc cmp IVF reglan zofran Medical Decision Making - Medical Decision Making 03/29/19 23:39 patient reports feeling better. likely cyclical vomiting from marijuana use. 03/29/19 23:40 patient is currently PO challenging. no abdominal pain 03/29/19 23:40 tolerated PO. will d/c home 03/30/19 00:07 Discharge - Discharge Information Problems reviewed: Yes Clinical Impression/Diagnosis: Cyclical vomiting Vomiting Qualifiers: Vomiting type: unspecified Vomiting Intractability: non-intractable Nausea presence: with nausea Qualified Code(s): R11.2 - Nausea with vomiting, unspecified Condition: Stable Disposition: HOME - Additional Discharge Information Prescriptions: Metoclopramide HCl [Reglan] 10 mg PO BID PRN #7 tablet PRN Reason: Nausea And/Or Vomiting - Follow up/Referral Referrals: Flakito Aldridge [Primary Care Provider] - Ino Mijares MD [Staff Physician] - Call tomorrow - Patient Discharge Instructions Patient Printed Discharge Instructions: DI for Vomiting -- Adult Additional Instructions: please follow up with a social worker aide as soon as possible. drink plenty of fluids start a BRAT diet avoid marijuana use. - Post Discharge Activity Work/Back to School Note: Back to Work
[2019-03-29] MEDS ORDERED: FAMOTIDINE 20 MG/50 ML IVPB 20 MG/50 ML MG IVPB ONE ×2 (20:45→20:58)
[2019-03-29] MEDS ORDERED: METOCLOPRAMIDE HCL INJECTION 10 MG/2 ML VIAL IVPB ONE (20:45)
[2019-03-29] MEDS ORDERED: METOCLOPRAMIDE HCL INJECTION 10 MG/2 ML VIAL ONE (20:58)
[2019-03-29 23:07] LABS: PLATELET ESTIMATE ADEQUATE
[2019-03-29 23:41] LABS: EPI CELLS 2.8 /HPF (0-5/HPF); HYALINE CASTS 6 /lpf (0-8); PH,URINE 7.5 (5.0-8.0); URINE APPEARANCE CLOUDY; URINE BACTERIA 4408.8 /hpf (NEGATIVE); URINE BILIRUBIN NEGATIVE (NEGATIVE); URINE COLOR YELLOW; URINE GLUCOSE (UA) NEGATIVE (NEGATIVE); URINE KETONE 4+ (NEGATIVE); URINE LEUK ESTERASE NEGATIVE (NEGATIVE); URINE NITRITE NEGATIVE (NEGATIVE); URINE PROTEIN 1+ (NEGATIVE)
[2019-03-30 00:31] LABS: URINE RBC 22.5 /hpf (0-4); URINE WBC 481.1 /hpf (0-5)
[2019-03-30 00:40] VITALS: BP 102/58; PULSE 78; TEMP 98.2
== END 2019-03-30 00:40 | disposition home or self-care (01) ==
LOC: JER 18:55
PROC: 3E033GC Introduction of Other Therapeutic Substance into Peripheral Vein, Percutaneous Approach (ICD-10-PCS; principal; 2019-03-29)
PROC: 3E033GC Introduction of Other Therapeutic Substance into Peripheral Vein, Percutaneous Approach (ICD-10-PCS; 2019-03-29)
DX: R11.15 Cyclical vomiting syndrome unrelated to migraine (principal); F12.188 Cannabis abuse with other cannabis-induced disorder; F41.9 Anxiety disorder, unspecified; Z87.19 Personal history of other diseases of the digestive system; F17.210 Nicotine dependence, cigarettes, uncomplicated; F12.10 Cannabis abuse, uncomplicated
CPT/HCPCS: 36415; 80053; 81003; 83690; 84703; 85025; 87086; 99282-25; Q0162

== ENCOUNTER 2019-06-04 17:51 | Emergency (ER) | payer OTHER ==
[2019-06-04 17:58] VITALS: TEMP 98.4; BMI 23.4
--- NOTE | 2019-06-04 18:18 | PDOC ---
History of Present Illness - General Chief Complaint: Nausea/Vomiting Stated Complaint: ABD PAIN/VOMITING Time Seen by Provider: 06/04/19 18:17 History Source: Patient Exam Limitations: No Limitations - History of Present Illness Initial Comments: 06/04/19 18:18 HPI: 23yo F pmh cyclic vomiting syndrome, presenting with nausea and vomiting since 9 AM. Patient woke up feeling fine, around 9 AM started experiencing nausea and vomiting. She has had 12 episodes since this time with worsening diffuse abdominal pain and burning sensation after each bought of emesis. She denies recent illness or sick contacts. Reports this is slightly less emesis than her usual cyclic vomiting episodes ("would be 25+ at this point"). Denies diarrhea, chest pain, SOB, dysuria. States that nothing has helped with her emesis in the past besides time and fluids. Endorses ongoing nausea, burning sensation, reports vomiting in the department, discarded the emesis bag. Denies any new / different foods, no one else with shared meals and similar symptoms. LMP 1 week ago. 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, x1 SHx: Marijuana, reports last use 2 months ago Past History - Travel Traveled outside of the country in the last 30 days: No Close contact w/someone who was outside of country & ill: No - Past Medical History Allergies/Adverse Reactions: Allergies Allergy/AdvReac Type Severity Reaction Status Date / Time No Known Allergies Allergy Verified 06/04/19 17:55 Home Medications: Ambulatory Orders Metoclopramide HCl [Reglan] 10 mg PO BID PRN #7 tablet 03/30/19 Cephalexin [Keflex] 500 mg PO BID #14 capsule 06/04/19 Asthma: No Cancer: No Cardiac Disorders: No COPD: No Diabetes: No GI Disorders: Yes (gastritis, IBS) HTN: No Psychiatric Problems: Yes (ANXIETY) Seizures: No Thyroid Disease: No - Immunization History Immunization Up to Date: Yes - Psycho Social/Smoking Cessation Hx Smoking History: Never smoked Have you smoked in the past 12 months: Yes Number of Cigarettes Smoked Daily: 2 Information on smoking cessation initiated: No 'Breaking Loose' booklet given: 12/09/15 Hx Alcohol Use: No Drug/Substance Use Hx: No Substance Use Type: Marijuana Hx Substance Use Treatment: No Review of Systems - Review of Systems Able to Perform ROS?: Yes Is the patient limited Estonian proficient: Yes Constitutional: No: Chills, Diaphoresis, Fever, Weakness HEENTM: No: Recent change in vision, Nose Congestion, Throat Pain Respiratory: No: Cough, Shortness of Breath, Wheezing, Productive cough Cardiac (ROS): No: Chest Pain, Edema, Irregular Heart Rate, Lightheadedness, Palpitations, Syncope, Chest Tightness ABD/GI: Yes: Nausea, Vomiting. No: Blood Streaked Bowels, Constipated, Diarrhea , Poor Appetite, Poor Fluid Intake, Rectal Bleeding, Tarry Stools : No: Burning, Dysuria, Frequency Musculoskeletal: No: Back Pain, Muscle Pain, Muscle Weakness Integumentary: No: Bruising, Pruritus, Rash, Sweating Neurological: No: Headache, Numbness, Tingling, Weakness Psychiatric: No: Stressors, Change in Appetite Endocrine: No: Increased Thirst, Increased Urine Hematologic/Lymphatic: No: Anemia, Blood Clots, Easy Bleeding All Other Systems: Reviewed and Negative *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 - Vital Signs Last Vital Signs Temp Pulse Resp BP Pulse Ox 98.4 F 70 18 112/67 99 06/04/19 17:55 06/04/19 17:55 06/04/19 17:55 06/04/19 17:55 06/04/19 17:55 - 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 06/04/19 18:51 Vitals reviewed, AFVSS GEN: Well appearing, appears stated age, groaning and rolling about in bed clutching her stomach and the sheets. AAOx3. HEENT: NCAT, EOMI, PERRL. Sclera anicteric, noninjected. No facial asymmetry. Moist mucous membranes. Normal voice. Trachea midline. CV: RRR, S1/S2, no murmurs / rubs / gallops appreciated. LUNG: CTAB, normal work of breathing. No wheezes, rales, rhonchi. No cough. Speaking full sentences. GI: Soft, distractable tenderness / guarding diffusely, non-distended, +BS, no rebound. No masses. Neg CVAT b/l. EXTREMITIES: 2+ distal pulses. No LE edema. No obvious deformities of all extremities. SKIN: Warm, dry, no rashes appreciated, non-jaundiced. PSYCH: Anxious, rolling about. NEURO: CN grossly intact. Moving all extremities well. Normal strength and sensation grossly. ED Treatment Course - LABORATORY CBC & Chemistry Diagram: 06/04/19 18:41 06/04/19 18:41 Medical Decision Making - Medical Decision Making 06/04/19 18:54 23yo F pmh cyclic vomiting syndrome, presenting with nausea and 12x vomiting since 9 AM. History notable for cyclical vomiting syndrome. Exam notable for stable vitals (no fever, not tachy), distractable abdomen, active emesis in the department. DDX: Cyclical vomiting, gastritis, pancreatitis, appendicitis, less likely UTI/pyelo, unlikely ruptured ectopic given LMP 1 week ago. - CBC, CMP, Lipase - UA, UPreg - Ofirmev - 1L IVF - Pepcid - Maalox - Zofran 06/04/19 19:30 - Additional light green episode of emesis - 1L NS ordered - UCx added - Pending urine collection 06/04/19 19:49 - 13.3 leukocytosis, normal H&H - Mild hypokalemia 3.2 - Normal renal function, LFTs - Called lab regarding lipase - Urine collected and sent 06/04/19 20:03 - Lipase wnl - UA with UTI - Neg 06/04/19 20:11 - Rocephin - Reglan - Toradol 06/04/19 21:11 - Remains nauseous - s/p D50 06/04/19 22:08 - EKG normal rate, NSR, normal axis, QTc 462, no ischemic changes - On cardiopulmonary monitor - 2mg Haldol IM 06/04/19 23:59 - Patient stable, sleeping, 1L NS running - Still reports nausea, has not vomited / heaved in 2 hours - Endorsed to overnight resident, Dr. Alvarado - Likely disposition home if tolerates PO Discharge - Discharge Information Problems reviewed: Yes Clinical Impression/Diagnosis: Cyclical vomiting UTI (urinary tract infection) Qualifiers: Urinary tract infection type: site unspecified Hematuria presence: with hematuria Qualified Code(s): N39.0 - Urinary tract infection, site not specified Condition: Improved Disposition: HOME - Admission No - Additional Discharge Information Prescriptions: Cephalexin [Keflex] 500 mg PO BID #14 capsule - Follow up/Referral Referrals: Flakito Aldridge [Primary Care Provider] - - Patient Discharge Instructions Patient Printed Discharge Instructions: DI for Urinary Tract Infection (UTI), DI for Nausea -- Adult, DI for Vomiting -- Adult Additional Instructions: You were seen and evaluated in the ED for nausea and vomiting. You were diagnosed with a urinary tract infection (UTI) and cyclic vomiting syndrome. A prescription for antibiotics has been sent to your pharmacy. Take these as directed. It is important to stay hydrated, drink water whenever you're able - it will help you feel better and help clear your UTI. Follow up with your PCP in the next 1-3 days if symptoms persist for continued care. Return to the ED for any new or concerning symptoms including but not limited to : worsening pain, vomiting that prevents you from drinking water or taking your medication. - Post Discharge Activity
[2019-06-04] MEDS ORDERED: LACTATED RINGERS SOLUTION 1,000 ML/1,000 ML INFUS.BAG IV SCH (18:30)
[2019-06-04] MEDS ORDERED: ONDANSETRON 4 MG/2 ML VIAL IVPUSH ONE (18:30)
[2019-06-04] MEDS ORDERED: ACETAMINOPHEN 1000 MG/100 ML VIAL (NON FORMULARY) IVPB ONE (18:30)
[2019-06-04] MEDS ORDERED: ONDANSETRON 4 MG/2 ML VIAL ONE (18:34)
[2019-06-04] MEDS ORDERED: ACETAMINOPHEN INJECTION 100 ML IVPB ONE (18:34)
[2019-06-04] MEDS ORDERED: FAMOTIDINE 20 MG/50 ML IVPB 20 MG/50 ML MG IVPB ONE ×2 (18:34)
[2019-06-04] MEDS ORDERED: MAG HYDROX/AL HYDROX/SIMETH 30 ML UNIT-DOSE CUP PO ONE (18:34)
--- NOTE | 2019-06-04 19:14 | PDOC ---
Attending Attestation - Resident Resident Name: Mendoza Saxena - ED Attending Attestation I have performed the following: I have examined & evaluated the patient, The case was reviewed & discussed with the resident, I agree w/resident's findings & plan - HPI HPI: 06/04/19 20:19 Pt comes with N/V/ marijuana use Pt has no fever and no chills and no ill contacts. 06/04/19 21:08 Pt has and child and nobody is ill. - Physicial Exam PE: 06/04/19 21:08 Afebrile Pt appears pale. Tired bilious vomit at bedside Pt has heart RRR Lungs ctab abd epigastric tenderness no flank pain no RLQ or LLQ pain no pitting edema Neruo intact - Medical Decision Making 06/04/19 21:09 IVF x 3L in progress pt received magnesium IV for low K+ she will get oral repletion of her K+ later when she is not nauseous glucose D50 ampule 25g given 06/04/19 21:11 Pt improving 06/05/19 01:14 Pt states that she is still nauseous. She is still getting NSS. Restimg comfortably SHe states that she will be taking a cab home in the AM
[2019-06-04 19:16] LABS: BASO % 0.6 % (0-2.0); EOS % 0.1 % (0-4.5); HEMATOCRIT 38.2 % (32.4-45.2); HEMOGLOBIN 12.6 GM/dL (10.7-15.3); LYMPH % 7.7 % (8-40); MCH 30.4 pg (25.7-33.7); MCHC 33.1 g/dl (32.0-36.0); MEAN CELL VOLUME 91.8 fl (80-96); MONO % 7.1 % (3.8-10.2); NEUT % 84.5 % (42.8-82.8); PLATELET COUNT 279 K/MM3 (134-434); RBC 4.16 M/mm3 (3.60-5.2); RDW 13.1 % (11.6-15.6); WHITE BLOOD COUNT 13.3 K/mm3 (4.0-10.0)
[2019-06-04] MEDS ORDERED: SODIUM CHLORIDE 0.9% 500 ML INFUS.BAG IV ONE (19:29)
[2019-06-04 19:43] LABS: ALBUMIN 4.5 g/dl (3.4-5.0); BILIRUBIN,TOTAL 0.8 mg/dL (0.2-1); BLOOD UREA NITROGEN 18.2 mg/dL (7-18); CALCIUM 9.8 mg/dL (8.5-10.1); CREATININE 0.8 mg/dL (0.55-1.3); POTASSIUM 3.2 mmol/L (3.5-5.1); TOT PROT 7.8 g/dl (6.4-8.2)
[2019-06-04 20:01] LABS: EPI CELLS 5.3 /HPF (0-5/HPF); HYALINE CASTS 6 /lpf (0-8); PH,URINE >= 9.0 (5.0-8.0); URINE APPEARANCE TURBID; URINE BACTERIA 2679.5 /hpf (NEGATIVE); URINE BILIRUBIN NEGATIVE (NEGATIVE); URINE COLOR YELLOW; URINE GLUCOSE (UA) NEGATIVE (NEGATIVE); URINE KETONE 2+ (NEGATIVE); URINE LEUK ESTERASE NEGATIVE (NEGATIVE); URINE NITRITE POSITIVE (NEGATIVE); URINE PROTEIN TRACE (NEGATIVE)
[2019-06-04] MEDS ORDERED: POTASSIUM CHLORIDE TABS 20 MEQ TABLET.ER (FP) PO ONE ×2 (20:01→22:10)
[2019-06-04] MEDS ORDERED: KETOROLAC TROMETHAMINE 15 MG/ML VIAL IVPUSH ONE (20:09)
[2019-06-04] MEDS ORDERED: CEFTRIAXONE 1 GM in DEXTROSE 5%-WATER - 100 ML IVPB ONE (20:09)
[2019-06-04] MEDS ORDERED: METOCLOPRAMIDE HCL INJECTION 10 MG/2 ML VIAL IVPB ONE (20:09)
[2019-06-04] MEDS ORDERED: KETOROLAC TROMETHAMINE 15 MG/ML VIAL ONE (20:20)
[2019-06-04] MEDS ORDERED: CEFTRIAXONE 1 GM/50 ML BAG ONE (20:20)
[2019-06-04] MEDS ORDERED: METOCLOPRAMIDE HCL INJECTION 10 MG/2 ML VIAL ONE (20:20)
[2019-06-04 20:22] LABS: URINE RBC 10.9 /hpf (0-4); URINE WBC 464.3 /hpf (0-5); YEAST NONE SEEN (NEGATIVE)
[2019-06-04] MEDS ORDERED: SODIUM CHLORIDE 1,000 ML IV STA (20:55)
[2019-06-04] MEDS ORDERED: DEXTROSE 50%-WATER - 25 GM/50 ML VIAL IVPUSH ONE (20:58)
[2019-06-04] MEDS ORDERED: DEXTROSE 50%-WATER 25 GM/50 ML DISP.SYRIN ONE (20:58)
[2019-06-04 21:30] VITALS: BP 100/58; PULSE 80
[2019-06-04] MEDS ORDERED: HALOPERIDOL LACTATE 5 MG/ML IM ONE (22:07)
[2019-06-04] MEDS ORDERED: MAG HYDROX/AL HYDROX/SIMETH 30 ML UNIT-DOSE CUP ONE (22:10)
[2019-06-04] MEDS ORDERED: HALOPERIDOL LACTATE 5 MG/ML ONE (22:40)
--- NOTE | 2019-06-06 10:21 | EKG ---
Test Reason : Blood Pressure : / mmHG Vent. Rate : 082 BPM Atrial Rate : 082 BPM P-R Int : 188 ms QRS Dur : 088 ms QT Int : 398 ms P-R-T Axes : 059 060 055 degrees QTc Int : 464 ms NORMAL SINUS RHYTHM NONSPECIFIC T WAVE ABNORMALITY PROLONGED QT ABNORMAL ECG WHEN COMPARED WITH ECG OF 05-JUN-2017 19:37, NO SIGNIFICANT CHANGE WAS FOUND Confirmed by Frederick Tapia ([id number]) on 06/06/2019 10:21:01 AM Referred By: Confirmed By:Frederick Tapia
== END 2019-06-05 02:04 | disposition home or self-care (01) ==
LOC: JER 17:51
PROC: 3E023NZ Introduction of Analgesics, Hypnotics, Sedatives into Muscle, Percutaneous Approach (ICD-10-PCS; principal; 2019-06-04)
PROC: 3E0333Z Introduction of Anti-inflammatory into Peripheral Vein, Percutaneous Approach (ICD-10-PCS; 2019-06-04)
PROC: 3E033GC Introduction of Other Therapeutic Substance into Peripheral Vein, Percutaneous Approach (ICD-10-PCS; 2019-06-04)
PROC: 3E033GC Introduction of Other Therapeutic Substance into Peripheral Vein, Percutaneous Approach (ICD-10-PCS; 2019-06-04)
PROC: 3E03329 Introduction of Other Anti-infective into Peripheral Vein, Percutaneous Approach (ICD-10-PCS; 2019-06-04)
PROC: 3E033NZ Introduction of Analgesics, Hypnotics, Sedatives into Peripheral Vein, Percutaneous Approach (ICD-10-PCS; 2019-06-04)
PROC: 3E0337Z Introduction of Electrolytic and Water Balance Substance into Peripheral Vein, Percutaneous Approach (ICD-10-PCS; 2019-06-04)
PROC: 3E0337Z Introduction of Electrolytic and Water Balance Substance into Peripheral Vein, Percutaneous Approach (ICD-10-PCS; 2019-06-04)
DX: N39.0 Urinary tract infection, site not specified (principal); R11.15 Cyclical vomiting syndrome unrelated to migraine; E87.6 Hypokalemia; F41.9 Anxiety disorder, unspecified; R11.2 Nausea with vomiting, unspecified
CPT/HCPCS: 36415; 80053; 81003; 83690; 84703; 85025; 87086; 93005; 93010; 99284-25; J0131; J7030

== ENCOUNTER 2019-06-06 03:49 | Inpatient (IN) | payer OTHER ==
--- NOTE | 2019-06-06 04:00 | PDOC ---
History of Present Illness - General Chief Complaint: Nausea/Vomiting Stated Complaint: ABD PAIN/VOMITING Time Seen by Provider: 06/06/19 03:58 History Source: Patient Exam Limitations: No Limitations - History of Present Illness Travel History: No Initial Comments: 06/06/19 04:00 23y F with PMH of Cyclic Vomiting Syndrome, Gastirits, Anxiety presenting to ER for nausea and vomiting. Pt states that she was here yesterday for similar complaints stating that she vomited 10+ times of bilious emesis and even more times since discharge from the ER yesterday. She says her symptoms did not improve once she got home. She has not been able to eat anything and endorses epigastric abdominal pain. She has not had a bowel movement yesterday because she has not been able to eat anything. Denies fever, chills, chest pain, sob, bloody stools, hematemesis, urinary symptoms. She had cyclic vomiting before and was following up with Dr. Grey but she says it went away and she was doing fine until recently. Diagnosed with UTI yesterday. PMD: Luis Carlos PMH: see hpi PSH: Meds: none Allergies: nkda Social: occasional marijuana use, has not used recently Past History - Past Medical History Allergies/Adverse Reactions: Allergies Allergy/AdvReac Type Severity Reaction Status Date / Time No Known Allergies Allergy Verified 06/06/19 03:54 Home Medications: Ambulatory Orders Metoclopramide HCl [Reglan] 10 mg PO BID PRN #7 tablet 03/30/19 Cephalexin [Keflex] 500 mg PO BID #14 capsule 06/04/19 Ondansetron [Zofran *Odt*] 4 mg SL TID PRN #15 od.tablet 06/05/19 Asthma: No Cancer: No Cardiac Disorders: No COPD: No Diabetes: No GI Disorders: Yes (gastritis, IBS) HTN: No Psychiatric Problems: Yes (ANXIETY) Seizures: No Thyroid Disease: No - Immunization History Immunization Up to Date: Yes - Psycho Social/Smoking Cessation Hx Smoking History: Never smoked Have you smoked in the past 12 months: Yes Number of Cigarettes Smoked Daily: 2 'Breaking Loose' booklet given: 12/09/15 Hx Alcohol Use: No Drug/Substance Use Hx: No Substance Use Type: Marijuana Hx Substance Use Treatment: No Abd/GI Specific PMHX - Complaint Specific PMHX Colitis: No Diverticulitis: No Gall Bladder Disease: No GERD: No Hepatitis: No Irritable Bowel Synd (IBS): No GI Ulcer Disease: No Review of Systems - Review of Systems Constitutional: No: Symptoms Reported HEENTM: No: Symptoms Reported Respiratory: No: Symptoms reported Cardiac (ROS): No: Symptoms Reported ABD/GI: Yes: See HPI : No: Symptoms Reported Musculoskeletal: No: Symptoms Reported Integumentary: No: Symptoms Reported *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 - Vital Signs Last Vital Signs Temp Pulse Resp BP Pulse Ox 98.5 F 78 18 123/70 100 06/06/19 03:50 06/06/19 03:50 06/06/19 03:50 06/06/19 03:50 06/06/19 03:50 - 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 General Appearance: Yes: Appropriately Dressed, Moderate Distress, Thin HEENT: positive: EOMI, JENNIFER Neck: positive: Trachea midline, Supple Respiratory/Chest: positive: Lungs Clear, Normal Breath Sounds. negative: Crackles, Rales, Rhonchi, Stridor, Wheezing Cardiovascular: positive: Regular Rhythm, Regular Rate, S1, S2. negative: Edema , JVD, Murmur Gastrointestinal/Abdominal: positive: Normal Bowel Sounds, Tender (epigastric tenderness), Soft Musculoskeletal: negative: CVA Tenderness Extremity: negative: Swelling, Calf Tenderness Integumentary: positive: Normal Color, Dry, Warm Neurologic: positive: loading manager II-XII NML intact, Fully Oriented, Alert, Normal Mood/ Affect, Normal Response, Motor Strength 5/5 ED Treatment Course - LABORATORY CBC & Chemistry Diagram: 06/06/19 04:39 06/06/19 04:39 Medical Decision Making - Medical Decision Making 06/06/19 05:38 23y F presenting to ED for n/v. has not been able to tolerate po vitals wnl exam notable for retching and epigastric tenderness likely 2/2 vomiting. labs done yesterday show uti, rocephin given here in ER today. labs wnl yesterday. preg negative yesterday. will rpt labs, iv hydration, ekg to check qtc prior to administration of reglan. ofirmev, pepcid. had EGD done in the past without evidence of gastritis. ekg: nsr at 60bpm. normal axis, normal intervals. no signs of ischemia. pending cxr will admit for intractable nausea and vomiting. per request, will add utox and ruq sono. admitted to hospitalist. Discharge - Discharge Information Problems reviewed: Yes Clinical Impression/Diagnosis: Nausea and vomiting Qualifiers: Vomiting type: unspecified Vomiting Intractability: intractable Qualified Code( s): R11.2 - Nausea with vomiting, unspecified Condition: Stable - Admission Yes - Follow up/Referral Referrals: Flakito Aldridge [Primary Care Provider] - - Patient Discharge Instructions - Post Discharge Activity
[2019-06-06] MEDS ORDERED: FOLIC ACID INJECTION - 1 MG, THIAMINE HCL 100 MG, MULTIVIT INJECTION ADULT 10 ML in SOD... IVPB ONE (04:10)
--- NOTE | 2019-06-06 04:10 | PDOC ---
Attending Attestation - Resident Resident Name: Shantelle Stahl - ED Attending Attestation I have performed the following: I have examined & evaluated the patient, The case was reviewed & discussed with the resident, I agree w/resident's findings & plan - HPI HPI: 06/06/19 04:10 Pt returns with her cyclical vomiting - Physicial Exam PE: 06/06/19 05:41 Pt has tachycardia; hyperventilation, and she appears unwell and dehydrated. States that she vomited her soup today. Ate nothing else HEENT normal Lung cta b Heart S1S2 RRR abd diffuse NT ND ext: no C C E - Medical Decision Making 06/06/19 04:12 Pt will be treated with a banana bag and with ceftriaxone, as she had a +UTI yesterday, and she was given a dose of ceftriaxone here and sent home with kefelex. Pt cannot keep the keflex down. 06/06/19 05:44 Pt will be admitted, as she feels unwell. Labs are nromal, however pt cannot tolerate PO and she is on abx for UTI. (though Urine culture shows normal mannie)
[2019-06-06] MEDS ORDERED: CEFTRIAXONE 1 GM in DEXTROSE 5%-WATER - 50 ML IVPB ONE (04:12)
[2019-06-06] MEDS ORDERED: ACETAMINOPHEN 1000 MG/100 ML VIAL (NON FORMULARY) IVPB ONE (04:13)
[2019-06-06] MEDS ORDERED: FAMOTIDINE 20 MG/50 ML IVPB 20 MG/50 ML MG IVPB ONE ×2 (04:13→22:27)
[2019-06-06] MEDS ORDERED: CEFTRIAXONE 1 GM/50 ML BAG ONE (04:22)
[2019-06-06] MEDS ORDERED: ACETAMINOPHEN INJECTION 100 ML IVPB ONE (04:22)
[2019-06-06] MEDS ORDERED: LACTATED RINGERS SOLUTION 1000 ML INFUS.BAG IV ONE (04:23)
[2019-06-06] MEDS ORDERED: METOCLOPRAMIDE HCL INJECTION 10 MG/2 ML VIAL IVPUSH ONE (04:23)
[2019-06-06] MEDS ORDERED: METOCLOPRAMIDE HCL INJECTION 10 MG/2 ML VIAL ONE (04:30)
[2019-06-06 05:04] LABS: HEMATOCRIT 34.6 % (32.4-45.2); HEMOGLOBIN 11.8 GM/dL (10.7-15.3); MCH 30.8 pg (25.7-33.7); MCHC 34.1 g/dl (32.0-36.0); MEAN CELL VOLUME 90.2 fl (80-96); MEAN PLT VOLUME 8.8 fl (7.5-11.1); PLATELET COUNT 252 K/MM3 (134-434); RBC 3.84 M/mm3 (3.60-5.2); RDW 13.1 % (11.6-15.6); WHITE BLOOD COUNT 8.7 K/mm3 (4.0-10.0)
[2019-06-06 05:26] LABS: CALCIUM 9.3 mg/dL (8.5-10.1); CREATININE 0.7 mg/dL (0.55-1.3); POTASSIUM 3.7 mmol/L (3.5-5.1)
--- NOTE | 2019-06-06 05:54 | HP ---
Admitting History and Physical - Primary Care Physician PCP: Luis Carlos Villanueva I - Admission Chief Complaint: Nausea, Vomiting, Abdominal Pain History of Present Illness: This is a 23 y/o young woman with a PMHx of Cyclic Vomiting Syndrome, Gastirits , Anxiety, Cannabis Dependency(quit 2 days ago). Who presents to the ED for nausea and vomiting. Patient reports that she was here in the ED x2, for similar complaints stating that she vomited 10+ times of bilious emesis and even more times since discharge from the ED yesterday. She says her symptoms did not improve once she got home. She has not been able to eat anything and endorses epigastric abdominal pain. She has not had a bowel movement yesterday because she has not been able to eat anything. Denies fever, chills, chest pain , sob, bloody stools, hematemesis, urinary symptoms. She had cyclic vomiting before and was following up with Dr. Grey but she says it went away and she was doing fine until recently. Diagnosed with UTI yesterday. History Source: Patient Limitations to Obtaining History: No Limitations - Past Medical History Gastrointestinal: Yes: Other (History of episodic vomiting) ...LMP: 05/27/19 ...: No Psych: Yes: Anxiety - Past Surgical History Past Surgical History: Yes: None - Smoking History Smoking history: Former smoker Have you smoked in the past 12 months: Yes Aproximately how many cigarettes per day: 2 - Alcohol/Substance Use Hx Alcohol Use: No History of Substance Use: reports: Marijuana (stopped 2 days ago) - Social History Usual Living Arrangement: Yes: With Parent ADL: Family Assistance Occupation: [employer] History of Recent Travel: No Home Medications - Allergies Allergies/Adverse Reactions: Allergies Allergy/AdvReac Type Severity Reaction Status Date / Time No Known Allergies Allergy Verified 06/06/19 03:54 - Home Medications Home Medications: Ambulatory Orders Metoclopramide HCl [Reglan] 10 mg PO BID PRN #7 tablet 03/30/19 Cephalexin [Keflex] 500 mg PO BID #14 capsule 06/04/19 Ondansetron [Zofran *Odt*] 4 mg SL TID PRN #15 od.tablet 06/05/19 Family Medical History Other Family History: Grandparents- DM, Renal Disease Review of Systems - Review of Systems Constitutional: reports: No Symptoms Eyes: reports: No Symptoms HENT: reports: No Symptoms Neck: reports: No Symptoms Cardiovascular: reports: No Symptoms Respiratory: reports: No Symptoms Gastrointestinal: reports: Abdominal Pain, Nausea, Vomiting Genitourinary: reports: Burning, Dysuria Breasts: reports: No Symptoms Reported Musculoskeletal: reports: No Symptoms Integumentary: reports: No Symptoms Neurological: reports: No Symptoms Endocrine: reports: No Symptoms Hematology/Lymphatic: reports: No Symptoms Psychiatric: reports: No Symptoms Pain Intensity: 4 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ination Vital Signs: Vital Signs Temperature 98.5 F 06/06/19 03:50 Pulse Rate 78 06/06/19 03:50 Respiratory Rate 18 06/06/19 03:50 Blood Pressure 123/70 06/06/19 03:50 O2 Sat by Pulse Oximetry (%) 100 06/06/19 03:50 Constitutional: Yes: No Distress, Calm Eyes: Yes: WNL, Conjunctiva Clear, EOM Intact, PERRL HENT: Yes: WNL, Atraumatic, Normocephalic Neck: Yes: WNL, Supple, Trachea Midline Cardiovascular: Yes: WNL, Regular Rate and Rhythm, S1, S2 Respiratory: Yes: WNL, Regular, CTA Bilaterally Gastrointestinal: Yes: Normal Bowel Sounds, Soft, Tenderness (RUQ), Tenderness, Epigastrium Renal/: Yes: WNL Breast(s): Yes: WNL Musculoskeletal: Yes: WNL Extremities: Yes: WNL Edema: No Peripheral Pulses WNL: Yes Integumentary: Yes: Tattoos Neurological: Yes: WNL, Alert, Oriented, Cran Nerves II-XII Intact ...Motor Strength: WNL Psychiatric: Yes: WNL, Alert, Oriented Labs: CBC, BMP 06/06/19 04:39 06/06/19 04:39 Laboratory Results - last 24 hr 06/06/19 06/06/19 04:39 04:39 WBC 8.7 RBC 3.84 Hgb 11.8 Hct 34.6 MCV 90.2 MCH 30.8 MCHC 34.1 RDW 13.1 Plt Count 252 MPV 8.8 Sodium 142 Potassium 3.7 Chloride 111 H Carbon Dioxide 22 Anion Gap 8 BUN 15.0 Creatinine 0.7 Est GFR (CKD-EPI)AfAm 141.54 Est GFR (CKD-EPI)NonAf 122.12 Random Glucose 94 Calcium 9.3 Lipase 55 L Imaging - Results Ultrasound: Pending Problem List - Problems (1) Nausea & vomiting Assessment/Plan: Likely secondary to marijuana use Urine Preg (06/04/19)- negative Continue IVF Monitor BMP Zofran prn Appreciate GI consult NPO Monitor vitals Code(s): R11.2 - NAUSEA WITH VOMITING, UNSPECIFIED Qualifiers: Vomiting type: unspecified Vomiting Intractability: intractable Qualified Code(s): R11.2 - Nausea with vomiting, unspecified (2) Abdominal pain Assessment/Plan: r/o Gallbladder vs AP vs Obstruction vs Urine Preg 06/04/19- neg Abdominal US-pending No leukocytosis, no neutrophilia, pt is afebrile Continue IVF NPO UDT-pending Appreciate GI consult Code(s): R10.9 - UNSPECIFIED ABDOMINAL PAIN Qualifiers: Abdominal location: epigastric Qualified Code(s): R10.13 - Epigastric pain (3) UTI (urinary tract infection) Assessment/Plan: UA done on 06/04/19- +nitrate, +3 blood Urine Culture-pending Started on Ceftriaxone in ED, will continue Monitor CBC Monitor vitals Code(s): N39.0 - URINARY TRACT INFECTION, SITE NOT SPECIFIED Qualifiers: Urinary tract infection type: site unspecified Hematuria presence: with hematuria Qualified Code(s): N39.0 - Urinary tract infection, site not specified; R31.9 - Hematuria, unspecified (4) Cannabis dependence Assessment/Plan: Patient reports she stopped use 2 days ago Code(s): F12.20 - CANNABIS DEPENDENCE, UNCOMPLICATED Assessment/Plan This is a 23 y/o young woman with a PMHx of cyclic vomiting, Anxiety, Cannabis Dependency. Admitted to M/S for Intractable Vomiting and Abdominal Pain. Plan: See Problem List FEN D5.45NS@125ml/hr Replete lytes prn NPO DVT ppx OOB Dispo: Requires Inpatient Care Visit type - Emergency Visit Emergency Visit: Yes ED Registration Date: 06/06/19 Care time: The patient presented to the Emergency Department on the above date and was hospitalized for further evaluation of their emergent condition. - New Patient This patient is new to me today: Yes Date on this admission: 06/06/19 - Critical Care Critical Care patient: No
[2019-06-06] MEDS: DEXTROSE 5%-0.45% SALINE 1,000 ML IV SCH (06:34)
--- NOTE | 2019-06-06 09:54 | PN ---
Progress Note, Physician History of Present Illness: 23y F with PMH of Cyclic Vomiting Syndrome, Gastirits, Anxiety presenting to ER for nausea and vomiting. Pt states that she was here yesterday for similar complaints stating that she vomited 10+ times of bilious emesis and even more times since discharge from the ER yesterday. She says her symptoms did not improve once she got home. She has not been able to eat anything and endorses epigastric abdominal pain. She has not had a bowel movement yesterday because she has not been able to eat anything. Denies fever, chills, chest pain, sob, bloody stools, hematemesis, urinary symptoms. She had cyclic vomiting before and was following up with Dr. Grey but she says it went away and she was doing fine until recently. Diagnosed with UTI yesterday. - Current Medication List Current Medications: Active Medications Folic Acid 1 mg/ Thiamine HCl 100 mg/ Multivitamins/Minerals 10 ml/ Sodium Chloride 1,000 mls @ 125 mls/hr IVPB ONCE ONE Stop: 06/06/19 12:09 Last Admin: 06/06/19 05:20 Dose: 125 mls/hr Ceftriaxone Sodium 1 gm/ (Dextrose) 50 mls @ 100 mls/hr IVPB DAILY [facility]; Protocol Dextrose/Sodium Chloride (D5-1/2ns -) 1,000 mls @ 100 mls/hr IV ASDIR [facility] Last Admin: 06/06/19 06:34 Dose: 100 mls/hr Famotidine/Sodium Chloride (Pepcid 20 Mg Premixed Ivpb -) 20 mg in 50 mls @ 100 mls/hr IVPB BID [facility] Ondansetron HCl (Zofran Injection) 4 mg IVPUSH Q6H PRN PRN Reason: NAUSEA - Objective Vital Signs: Vital Signs Temperature 98.5 F 06/06/19 03:50 Pulse Rate 65 06/06/19 07:21 Respiratory Rate 19 06/06/19 07:21 Blood Pressure 123/72 06/06/19 07:21 O2 Sat by Pulse Oximetry (%) 100 06/06/19 07:21 Cardiovascular: Yes: Regular Rate and Rhythm Respiratory: Yes: Regular, CTA Bilaterally Gastrointestinal: Yes: Normal Bowel Sounds, Soft, Tenderness, Epigastrium (mild no guarding) Labs: CBC, BMP 06/06/19 04:39 06/06/19 04:39 Problem List - Problems (1) Nausea & vomiting Assessment/Plan: Likely secondary to marijuana use Urine Preg (06/04/19)- negative Continue IVF Monitor BMP Zofran prn GI consult Clear Liquids Monitor vitals Code(s): R11.2 - NAUSEA WITH VOMITING, UNSPECIFIED Qualifiers: Vomiting type: unspecified Vomiting Intractability: intractable Qualified Code(s): R11.2 - Nausea with vomiting, unspecified (2) Abdominal pain Assessment/Plan: r/o Gallbladder vs AP vs Obstruction vs Urine Preg 06/04/19- neg Abdominal US-pending No leukocytosis, no neutrophilia, pt is afebrile Continue IVF clear liquids UDT-pending Appreciate GI consult Code(s): R10.9 - UNSPECIFIED ABDOMINAL PAIN Qualifiers: Abdominal location: epigastric Qualified Code(s): R10.13 - Epigastric pain (3) Cannabis dependence Assessment/Plan: pt stopped recently Code(s): F12.20 - CANNABIS DEPENDENCE, UNCOMPLICATED (4) UTI (urinary tract infection) Assessment/Plan: UA done on 06/04/19- +nitrate, +3 blood Urine Culture-pending Started on Ceftriaxone in ED, will continue Monitor CBC Monitor vitals Id consult Code(s): N39.0 - URINARY TRACT INFECTION, SITE NOT SPECIFIED Qualifiers: Urinary tract infection type: site unspecified Hematuria presence: with hematuria Qualified Code(s): N39.0 - Urinary tract infection, site not specified; R31.9 - Hematuria, unspecified
--- NOTE | 2019-06-06 09:55 | EKG ---
Test Reason : Blood Pressure : / mmHG Vent. Rate : 060 BPM Atrial Rate : 060 BPM P-R Int : 140 ms QRS Dur : 086 ms QT Int : 414 ms P-R-T Axes : 034 052 048 degrees QTc Int : 414 ms NORMAL SINUS RHYTHM WITH SINUS ARRHYTHMIA NORMAL ECG WHEN COMPARED WITH ECG OF 04-JUN-2019 22:00, NO SIGNIFICANT CHANGE WAS FOUND Confirmed by Frederick Tapia ([id number]) on 06/06/2019 9:54:54 AM Referred By: Confirmed By:Frederick Tapia
[2019-06-06 11:35] LABS: URINE APPEARANCE CLOUDY; URINE BILIRUBIN NEGATIVE (NEGATIVE); URINE COLOR YELLOW; URINE GLUCOSE (UA) NEGATIVE (NEGATIVE); URINE KETONE 3+ (NEGATIVE); URINE LEUK ESTERASE NEGATIVE (NEGATIVE); URINE NITRITE NEGATIVE (NEGATIVE); URINE PROTEIN NEGATIVE (NEGATIVE); URINE UROBILINOGEN 0.2 mg/dL (0.2-1.0)
[2019-06-06 11:50] LABS: COCAINE, UR NEGATIVE ng/ml (CUTOFF=300); METHADONE, UR NEGATIVE ng/ml (CUTOFF=300); OPIATES, URI NEGATIVE ng/ml (CUTOFF=300); PHENCYCLIDINE,URINE NEGATIVE ng/ml (CUTOFF=25); URINE AMPHETAMINES NEGATIVE ng/ml (CUTOFF=500); URINE BARBITURATES NEGATIVE ng/ml (CUTOFF=200); URINE BENZODIAZEPINES NEGATIVE ng/ml (CUTOFF=200)
[2019-06-06] MEDS ORDERED: ONDANSETRON 4 MG/2 ML VIAL ONE (12:38)
[2019-06-06] MEDS: ONDANSETRON 4 MG/2 ML VIAL IVPUSH PRN (12:44)
[2019-06-06] MEDS ORDERED: SODIUM CHLORIDE 0.9% 500 ML INFUS.BAG IV ONE (17:10)
[2019-06-06] MEDS: FAMOTIDINE 20 MG/50 ML IVPB 20 MG/50 ML MG IVPB SCH (22:47)
[2019-06-06] MEDS ORDERED: MELATONIN 5 MG TABLETS PO PRN (23:48)
[2019-06-07] MEDS: ONDANSETRON 4 MG/2 ML VIAL IVPUSH PRN ×2 (01:11→09:17)
[2019-06-07] MEDS: DEXTROSE 5%-0.45% SALINE 1,000 ML IV SCH ×2 (07:27→09:17)
[2019-06-07] MEDS: FAMOTIDINE 20 MG/50 ML IVPB 20 MG/50 ML MG IVPB SCH ×2 (09:17→21:32)
[2019-06-07] MEDS ORDERED: cefTRIAXone SODIUM 1 GM VIAL ONE (10:19)
[2019-06-07] MEDS ORDERED: DEXTROSE 5%-WATER - 50 ML IVPB ONE (10:19)
[2019-06-07] MEDS: CEFTRIAXONE 1 GM in DEXTROSE 5%-WATER - 50 ML IVPB SCH (11:32)
--- NOTE | 2019-06-07 11:54 | PN ---
Progress Note (short form) - Note Progress Note: GI CONSULT DICTATED
[2019-06-07] MEDS ORDERED: METOCLOPRAMIDE HCL INJECTION 10 MG/2 ML VIAL IVPUSH PRN (11:55)
[2019-06-07] MEDS ORDERED: diphenhydrAMINE HCL 25 MG CAPSULE (FP) PO ONE (11:56)
[2019-06-07] MEDS: ONDANSETRON 4 MG/2 ML VIAL IVPUSH SCH ×3 (12:28→23:15)
--- NOTE | 2019-06-07 12:37 | CONS ---
GASTROENTEROLOGY CONSULTATION DATE OF CONSULTATION: DATE OF DICTATION: 06/07/2019 HISTORY OF PRESENT ILLNESS: Patient is a 23-year-old f female with a past medical history of cyclical vomiting syndrome secondary to marijuana dependence. She quit approximately 2 days prior to this hospitalization also has gastritis and anxiety who presented to the emergency room with complaints of a 3-day history of nausea and vomiting and lower abdominal pain. She has not been able to tolerate p.o. intake. She denies any diarrhea, constipation, fevers or chills, and states that she works at [employer] and had some shrimp while there prior to these symptoms occurring. She was also diagnosed with a urinary tract infection. She had an upper endoscopy in the past which revealed no gastritis or ulcers. PAST MEDICAL AND SURGICAL HISTORY: As listed in the HPI. ALLERGIES: No known drug allergies. HOME MEDICATION: Reglan, Keflex, and Zofran. SOCIAL HISTORY: Again, quit cannabis just a couple of days ago, she is a former smoker, and does not drink alcohol. FAMILY HISTORY: Noncontributory. REVIEW OF SYSTEMS: As per the HPI. PHYSICAL EXAMINATION: Vital Signs: Temperature 98, pulse 61, blood pressure 117/76, pulse oximetry 100% on room air, respiratory rate 18. General: Patient is actively vomiting. Cardiovascular: S1, S2, regular rate and rhythm. Lungs: Bilaterally clear to auscultation. Abdomen: Soft and nontender. Extremities: Without edema. LABORATORIES: White blood cell count 8.7, hemoglobin and hematocrit 11.8 over 34, MCV 90, and platelet count 252. Sodium 142, potassium 3.7, BUN and creatinine 15 over 0.7, and lipase of 55. Marijuana on the tox screen is positive. She had an ultrasound which revealed a thick walled gallbladder with pericholecystic fluid and no evidence of cholelithiasis, negative Santos sign. HIDA scan was recommended if there is clinical suspicion of acute cholecystitis. IMPRESSION: Nausea and vomiting most consistent with cyclical vomiting syndrome; however, biliary etiology cannot be entirely excluded at this time. RECOMMENDATION: Nothing by mouth, IV fluids. Her Zofran should be switched to ATC Reglan p.r.n. She can also be started on pyridoxine 25 mg twice daily in addition Benadryl 25 mg b.i.d. for better symptom control. If she continues to have these symptoms and does not improve on the current therapy, would recommend further imaging of her biliary tree. We will follow. DO VERENICE MUÑOZ/[id number]
[2019-06-07] MEDS ORDERED: KETOROLAC TROMETHAMINE 15 MG/ML VIAL IVPUSH ONE (13:26)
--- NOTE | 2019-06-07 13:39 | PN ---
Progress Note (short form) - Note Progress Note: ID consult dictated imp/reccd 23 yo female with PMH of cyclical vomiting started smoking marijuana again several months ago started having vomiting agian in March- was seen in ED 03/29, she came again 04/03 for the same was felt to have UTI (but no symptoms of dysuria) and given rocephin and d/deny on keflex now readmitted with persistent vomiting notes midepigastric discomfort on exam no flank pain no fevers discontinued marijuana several days ago vomiting/midepigastric pain no RUQ or flank pain doubt UTI with negative UA, urine culture 06/04 is negative as well ?biliary disease vs cyclical vomiting f/u GI continue rocephin for biliary coverage until GI evaluation is complete
[2019-06-07] MEDS: PYRIDOXINE HCL (B-6) 50 MG TABLET (FP) PO SCH (14:09)
--- NOTE | 2019-06-07 15:15 | PN ---
Progress Note, Physician Chief Complaint: Medicine Coverage for Dr. Patrick/Dr. Lees admitted for cyclical vomiting syndrome and uti History of Present Illness: 23 year old female wit PMH cyclical vomiting syndrome, gastririts, anxiety presents to the ED with n/v, dx UTI 2 days prior to arrival. she was sent home on kefflex and n/v persisted. Today she is vomiting, nauseas, +ABD pain, anxious She report she stopped smoking marijuanna 1 week ago after daily use at HS - Current Medication List Current Medications: Active Medications Ceftriaxone Sodium 1 gm/ (Dextrose) 50 mls @ 100 mls/hr IVPB DAILY [facility]; Protocol Last Admin: 06/07/19 11:32 Dose: 100 mls/hr Dextrose/Sodium Chloride (D5-1/2ns -) 1,000 mls @ 100 mls/hr IV ASDIR [facility] Last Admin: 06/07/19 09:17 Dose: 100 mls/hr Famotidine/Sodium Chloride (Pepcid 20 Mg Premixed Ivpb -) 20 mg in 50 mls @ 100 mls/hr IVPB BID [facility] Last Admin: 06/07/19 09:17 Dose: 100 mls/hr Melatonin (Melatonin) 5 mg PO HS PRN PRN Reason: INSOMNIA Metoclopramide HCl (Reglan Injection -) 10 mg IVPUSH Q8H PRN PRN Reason: NAUSEA AND/OR VOMITING Ondansetron HCl (Zofran Injection) 4 mg IVPUSH Q6H [facility] Last Admin: 06/07/19 12:28 Dose: 4 mg Pyridoxine HCl (Vitamin B6 -) 50 mg PO DAILY [facility] Last Admin: 06/07/19 14:09 Dose: Not Given - Objective Vital Signs: Vital Signs Temperature 98.8 F 06/07/19 09:00 Pulse Rate 54 L 06/07/19 09:00 Respiratory Rate 18 06/07/19 09:00 Blood Pressure 128/77 06/07/19 09:00 O2 Sat by Pulse Oximetry (%) 100 06/07/19 10:00 Constitutional: Yes: Well Nourished, Anxious HENT: Yes: WNL, Atraumatic, Normocephalic Cardiovascular: Yes: WNL Respiratory: Yes: WNL Gastrointestinal: Yes: WNL, Tenderness Genitourinary: Yes: WNL Neurological: Yes: WNL, Alert, Oriented Labs: CBC, BMP 06/06/19 04:39 06/06/19 04:39 Problem List - Problems (1) Cannabis dependence Assessment/Plan: counseled on cessation Problems reviewed: Yes Code(s): F12.20 - CANNABIS DEPENDENCE, UNCOMPLICATED (2) Cyclical vomiting Assessment/Plan: GI following abd us with thickened gallbladder, no stones check hida repeat labs NPO, IVF, antiemetics standing r/t marijuanna use Problems reviewed: Yes Code(s): G43.A0 - CYCLICAL VOMITING, IN MIGRAINE, NOT INTRACTABLE (3) UTI (urinary tract infection) Assessment/Plan: UA positive 06/04 was given kefflex to go home Urine culture 06/04 negative UA only + ketones on admit urine culture pending ID following IV ceftriaxone Problems reviewed: Yes Code(s): N39.0 - URINARY TRACT INFECTION, SITE NOT SPECIFIED Qualifiers: Urinary tract infection type: site unspecified Hematuria presence: with hematuria Qualified Code(s): N39.0 - Urinary tract infection, site not specified; R31.9 - Hematuria, unspecified
--- NOTE | 2019-06-07 17:32 | CONS ---
DATE OF CONSULTATION: DATE OF DICTATION: 06/07/2019 INFECTIOUS DISEASE CONSULTATION HISTORY OF PRESENT ILLNESS: This is a 23-year-old woman with a history of recurrent abdominal pain and vomiting who I am asked to see for possible UTI. She has no fevers or chills. She reports that she had the cyclical vomiting and abdominal pain in 2017; in 2018 she stopped smoking marijuana, she was , and she just resumed several months ago, and starting in March she once again started having midepigastric pain and vomiting. She has no fevers or chills. This most recent episode, she presented on the to the ER and was felt to have a positive possible UTI. She was given a dose of ceftriaxone and hydrated and discharged. Her symptoms persisted. She was unable to take the Keflex and came back. She reports that she has been having difficulty urinating due to the fact that she has not been able to eat or drink. She continues to have abdominal discomfort. She denies any fevers or chills, and she has no flank pain. PAST MEDICAL HISTORY: Notable for this prior history of vomiting with gastritis. She has had a history of anxiety. She has had 1 child last year, she had a in April 2018. She reports the child is doing well at home. ALLERGIES: She has no known drug allergies. She stopped smoking marijuana about a week ago. 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 She is living with her parent, and there is no history of recent travel. ALLERGIES: No known drug allergies. FAMILY HISTORY: Notable for diabetes and kidney disease. REVIEW OF SYSTEMS: As per HPI. PHYSICAL EXAMINATION: General: She is awake and alert. Vital Signs: Her temperature is 98.8 orally, pulse of 54, blood pressure 128/77, respiratory rate 18, saturating 100% on room air. HEENT: Normocephalic. Eyes are anicteric. Neck: Supple. Lungs: Clear to auscultation. Heart: Regular rate and rhythm. Abdomen: Soft. There is no distention. She has midepigastric discomfort on palpation. She has no rebound. She has no CVAs, suprapubic pain. Extremities: Without edema. Skin: She has no rash. LABORATORY: White count is 8.7, hemoglobin 11.8, platelets are 252, BUN and creatinine are 15 and 0.7, LFTs are normal. Lipase is normal. Her urinalysis shows 3+ ketones, otherwise negative. On the , the leukocyte esterase was negative. She was noted to have white cells, and her toxicology screen is positive for marijuana. Of note, the urine culture done on the was negative. She had a chest x-ray done in the ER that is unremarkable. An ultrasound that shows gallbladder with fluid, no evidence of cholelithiasis. IMPRESSION: In summary, this is a 23-year-old woman who has vomiting, midepigastric pain that appears to be recurrent. No right upper quadrant or flank pain. I doubt she has a urinary tract infection with negative urinalysis and urine culture on the is negative as well. Question whether this is biliary disease versus cyclical vomiting. Would follow up with gastrointestinal. Continue with until gastrointestinal evaluation is complete. SIDDHARTH GREENBERG M.D. [id number]
[2019-06-07 19:35] LABS: BASO % 0.5 % (0-2.0); HEMOGLOBIN 12.3 GM/dL (10.7-15.3); LYMPH % 13.8 % (8-40); MCH 30.8 pg (25.7-33.7); MCHC 34.2 g/dl (32.0-36.0); MEAN CELL VOLUME 90.1 fl (80-96); MEAN PLT VOLUME 9.5 fl (7.5-11.1); MONO % 10.4 % (3.8-10.2); NEUT % 75.3 % (42.8-82.8); PLATELET COUNT 253 K/MM3 (134-434); RDW 12.9 % (11.6-15.6); WHITE BLOOD COUNT 8.3 K/mm3 (4.0-10.0)
[2019-06-07 20:03] LABS: ALBUMIN 4.1 g/dl (3.4-5.0); BILIRUBIN,TOTAL 0.8 mg/dL (0.2-1); BLOOD UREA NITROGEN 8.4 mg/dL (7-18); CALCIUM 9.2 mg/dL (8.5-10.1); CREATININE 0.6 mg/dL (0.55-1.3); TOT PROT 7.3 g/dl (6.4-8.2)
[2019-06-07 20:05] LABS: POTASSIUM 2.9 mmol/L (3.5-5.1)
[2019-06-07] MEDS ORDERED: PT OWN MED DRAWER 7, Y5N ONE (20:20)
[2019-06-07] MEDS: KCL 10 MEQ IVPB 10 MEQ/100 ML INFUS.BAG IVPB SCH ×2 (20:23→22:14)
[2019-06-08 02:51] LABS: BLOOD UREA NITROGEN 8.3 mg/dL (7-18); CALCIUM 9.1 mg/dL (8.5-10.1); CREATININE 0.7 mg/dL (0.55-1.3)
[2019-06-08 02:53] LABS: POTASSIUM 2.9 mmol/L (3.5-5.1)
[2019-06-08] MEDS: KCL 10 MEQ IVPB 10 MEQ/100 ML INFUS.BAG IVPB SCH ×3 (03:19→21:57)
[2019-06-08] MEDS: DEXTROSE 5%-0.45% SALINE 1,000 ML IV SCH ×2 (04:39→21:14)
--- NOTE | 2019-06-08 04:47 | HOSP ---
Subjective - Review of Symptoms Events since last encounter: Hospitalist Encounter Notified by the RN that the patient continue to have episodes of bilious emesis , and abdominal pain. I was asked to assess. Arrived to bedside, patient is awake, alert and oriented. She reports vomiting NB-bilious emesis with continued abdominal pain. PE performed see EMR 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ination Vital Signs: Vital Signs Temperature 99.7 F H 06/08/19 02:00 Pulse Rate 65 06/08/19 02:00 Respiratory Rate 18 06/08/19 02:00 Blood Pressure 134/84 06/08/19 02:00 O2 Sat by Pulse Oximetry (%) 100 06/07/19 21:00 Constitutional: Yes: Moderate Distress, Thin Eyes: Yes: WNL, Conjunctiva Clear, EOM Intact, PERRL HENT: Yes: Atraumatic, Normocephalic, Other (dry mucous membranes) Neck: Yes: WNL, Supple, Trachea Midline Cardiovascular: Yes: WNL, Regular Rate and Rhythm, S1, S2 Respiratory: Yes: WNL, Regular, CTA Bilaterally Gastrointestinal: Yes: Soft, Hypoactive Bowel Sounds, Tenderness (generalized), Tenderness, Epigastrium, Tenderness, Rebound, Vomiting (bilious) Renal/: Yes: WNL Breast(s): Yes: WNL Musculoskeletal: Yes: WNL Extremities: Yes: WNL Edema: No Peripheral Pulses WNL: Yes Integumentary: Yes: Tattoos Neurological: Yes: WNL, Alert, Oriented, Cran Nerves II-XII Intact ...Motor Strength: WNL Psychiatric: Yes: WNL, Alert, Oriented Labs: CBC, BMP 06/07/19 18:30 06/08/19 01:30 Laboratory Results - last 24 hr 06/07/19 06/07/19 06/08/19 18:30 18:30 01:30 WBC 8.3 RBC 4.00 Hgb 12.3 Hct 36.0 MCV 90.1 MCH 30.8 MCHC 34.2 RDW 12.9 Plt Count 253 MPV 9.5 Absolute Neuts (auto) 6.3 Neutrophils % 75.3 Lymphocytes % 13.8 D Monocytes % 10.4 H Eosinophils % 0.0 D Basophils % 0.5 Nucleated RBC % 0 Sodium 136 139 Potassium 2.9 L* 2.9 L* Chloride 103 109 H Carbon Dioxide 22 23 Anion Gap 11 8 BUN 8.4 8.3 Creatinine 0.6 0.7 Est GFR (CKD-EPI)AfAm 148.90 141.54 Est GFR (CKD-EPI)NonAf 128.48 122.12 Random Glucose 85 95 Calcium 9.2 9.1 Total Bilirubin 0.8 AST 35 ALT 63 H Alkaline Phosphatase 66 Total Protein 7.3 Albumin 4.1 Intake & Output 06/05/19 06/06/19 06/07/19 06/08/19 23:59 23:59 23:59 23:59 Intake Total 350 1700 Output Total 80 Balance 350 1620 Weight 75.432 kg 52.815 kg Current Medications Generic Name Dose Route Start Last Admin Trade Name Freq PRN Reason Stop Dose Admin Ceftriaxone Sodium 1 gm/ 50 mls @ 100 mls/hr 06/07/19 10:00 06/07/19 11:32 Dextrose IVPB 100 mls/hr DAILY [facility] Administration Protocol Dextrose/Sodium Chloride 1,000 mls @ 100 mls/hr 06/06/19 06:15 06/08/19 04:39 D5-1/2ns - IV 100 mls/hr ASDIR [facility] Administration Famotidine/Sodium Chloride 20 mg in 50 mls @ 100 mls/hr 06/06/19 22:00 21:32 Pepcid 20 Mg Premixed Ivpb - IVPB 100 mls/hr BID [facility] Administration Potassium Chloride 10 meq in 100 mls @ 100 mls/hr 06/08/19 03:15 06/08/19 04: 39 Potassium Chloride 10 Meq Premix Ivpb - IVPB 06/08/19 05:14 100 mls/hr Q60M [facility] Administration Melatonin 5 mg 06/06/19 23:48 Melatonin PO HS PRN INSOMNIA Metoclopramide HCl 10 mg 06/07/19 11:55 Reglan Injection - IVPUSH Q8H PRN NAUSEA AND/OR VOMITING Ondansetron HCl 4 mg 06/07/19 12:00 06/07/19 23:15 Zofran Injection IVPUSH 4 mg Q6H [facility] Administration Pyridoxine HCl 50 mg 06/07/19 12:00 06/07/19 14:09 Vitamin B6 - PO Not Given DAILY [facility] Hospitalist Encounter Assessment: Assessment: This is a 23 y/o young woman with a PMHx of cyclic vomiting, Anxiety, Cannabis Dependency. Admitted to M/S for Intractable Vomiting and Abdominal Pain. After review of Hida Scan (06/07/19)- no scintigraphic evidence of cystic duct obstruction. Delayed biliary to bowel transit noted, ?partial or intermittent CBD obstruction vs papillary spasm secondary to narcotic medication Plan: FUA Xray- r/o Obstruction Keep NPO IVF Monitor lytes Replete K Continue current regimen per GI, PCP Recommendations/Interventions: MRI/MRCP Avoid Narcotic Meds Consider changing IVF to add KCL- secondary to Hypokalemia
[2019-06-08] MEDS: ONDANSETRON 4 MG/2 ML VIAL IVPUSH SCH ×3 (06:20→18:09)
[2019-06-08 08:58] LABS: BASO % 0.6 % (0-2.0); HEMATOCRIT 33.9 % (32.4-45.2); HEMOGLOBIN 11.7 GM/dL (10.7-15.3); LYMPH % 15.6 % (8-40); MCH 30.9 pg (25.7-33.7); MCHC 34.6 g/dl (32.0-36.0); MEAN CELL VOLUME 89.2 fl (80-96); MEAN PLT VOLUME 9.5 fl (7.5-11.1); MONO % 11.5 % (3.8-10.2); NEUT % 72.3 % (42.8-82.8); PLATELET COUNT 245 K/MM3 (134-434); RDW 12.8 % (11.6-15.6); WHITE BLOOD COUNT 7.9 K/mm3 (4.0-10.0)
[2019-06-08 09:12] LABS: BLOOD UREA NITROGEN 7.5 mg/dL (7-18); CALCIUM 9.1 mg/dL (8.5-10.1); CREATININE 0.6 mg/dL (0.55-1.3); POTASSIUM 3.1 mmol/L (3.5-5.1)
[2019-06-08] MEDS ORDERED: cefTRIAXone SODIUM 1 GM VIAL ONE (10:00)
[2019-06-08] MEDS ORDERED: PT OWN MED DRAWER 7, Y5N ONE (10:00)
[2019-06-08] MEDS ORDERED: DEXTROSE 5%-WATER - 50 ML IVPB ONE (10:00)
[2019-06-08] MEDS: FAMOTIDINE 20 MG/50 ML IVPB 20 MG/50 ML MG IVPB SCH ×2 (10:17→21:14)
[2019-06-08] MEDS: PYRIDOXINE HCL (B-6) 50 MG TABLET (FP) PO SCH (10:22)
[2019-06-08] MEDS: CEFTRIAXONE 1 GM in DEXTROSE 5%-WATER - 50 ML IVPB SCH (11:28)
--- NOTE | 2019-06-08 14:11 | PN ---
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 she was sent home on kefflex and n/v persisted. She report she stopped smoking marijuanna 1 week ago after daily use at HS - Current Medication List Current Medications: Active Medications Ceftriaxone Sodium 1 gm/ (Dextrose) 50 mls @ 100 mls/hr IVPB DAILY [facility]; Protocol Last Admin: 06/08/19 11:28 Dose: 100 mls/hr Dextrose/Sodium Chloride (D5-1/2ns -) 1,000 mls @ 100 mls/hr IV ASDIR [facility] Last Admin: 06/08/19 04:39 Dose: 100 mls/hr Famotidine/Sodium Chloride (Pepcid 20 Mg Premixed Ivpb -) 20 mg in 50 mls @ 100 mls/hr IVPB BID [facility] Last Admin: 06/08/19 10:17 Dose: 100 mls/hr Melatonin (Melatonin) 5 mg PO HS PRN PRN Reason: INSOMNIA Metoclopramide HCl (Reglan Injection -) 10 mg IVPUSH Q8H PRN PRN Reason: NAUSEA AND/OR VOMITING Last Admin: 06/08/19 05:45 Dose: 10 mg Ondansetron HCl (Zofran Injection) 4 mg IVPUSH Q6H [facility] Last Admin: 06/08/19 12:31 Dose: 4 mg Pyridoxine HCl (Vitamin B6 -) 50 mg PO DAILY [facility] Last Admin: 06/08/19 10:22 Dose: Not Given - Objective Vital Signs: Vital Signs Temperature 98.4 F 06/08/19 10:00 Pulse Rate 62 06/08/19 10:00 Respiratory Rate 18 06/08/19 10:00 Blood Pressure 132/76 06/08/19 10:00 O2 Sat by Pulse Oximetry (%) 100 06/07/19 21:00 Constitutional: Yes: Well Nourished, No Distress HENT: Yes: Atraumatic, Normocephalic Neck: Yes: Supple Cardiovascular: Yes: Regular Rate and Rhythm Respiratory: Yes: Regular, CTA Bilaterally Gastrointestinal: Yes: Normal Bowel Sounds, Soft Neurological: Yes: Alert, Oriented Labs: CBC, BMP 06/08/19 08:10 06/08/19 08:10 Problem List - Problems (1) Cannabis dependence Assessment/Plan: counseled on cessation Code(s): F12.20 - CANNABIS DEPENDENCE, UNCOMPLICATED (2) Cyclical vomiting Assessment/Plan: GI following abd us with thickened gallbladder, no stones check hida- no biliary tree patho, could consider MRCP repeat labs NPO, IVF, antiemetics standing r/t marijuanna use dulcolax supp x1 for constipation Code(s): G43.A0 - CYCLICAL VOMITING, IN MIGRAINE, NOT INTRACTABLE (3) UTI (urinary tract infection) Assessment/Plan: UA positive 06/04 was given kefflex to go home Urine culture 06/04 negative UA only + ketones on admit urine culture negative ID following stop IV ceftriaxone Code(s): N39.0 - URINARY TRACT INFECTION, SITE NOT SPECIFIED Qualifiers: Urinary tract infection type: site unspecified Hematuria presence: with hematuria Qualified Code(s): N39.0 - Urinary tract infection, site not specified; R31.9 - Hematuria, unspecified
[2019-06-08] MEDS ORDERED: BISACODYL 10 MG SUPP.RECT PR ONE (14:36)
[2019-06-08 16:53] VITALS: BMI 22.6
[2019-06-08] MEDS ORDERED: ACETAMINOPHEN 325 MG TABLET (FP) PO PRN (19:06)
[2019-06-08] MEDS ORDERED: POTASSIUM CHLORIDE TABS 20 MEQ TABLET.ER (FP) PO ONE (19:07)
--- NOTE | 2019-06-08 19:11 | PN.GI ---
GI Progress Note Subjective: Pt seen/examined at bedside, still with intermittent abdominal pain, nausea and vomiting, not able to tolerate po, denies fever/chills. No bm in 2-3 days. - Objective Vital Signs: Vital Signs Temperature 99.0 F 06/08/19 14:00 Pulse Rate 61 06/08/19 14:00 Respiratory Rate 18 06/08/19 14:00 Blood Pressure 126/89 06/08/19 14:00 O2 Sat by Pulse Oximetry (%) 100 06/08/19 09:00 Constitutional: No Distress, Calm Cardiovascular: Yes: WNL, Regular Rate and Rhythm Respiratory: Yes: WNL, Regular, CTA Bilaterally ...Palpate: Yes: Other (Abd soft, mildly tender in upper abdomen on palpation, no rebound, guarding or rigidity) Labs: CBC, BMP 06/08/19 08:10 06/08/19 08:10 Problem List - Problems (1) Nausea & vomiting Assessment/Plan: 23yo female h/o marijuana use with abdominal pain, nausea/vomiting. Episodic nature of symptoms appear most likely consistent with cannabis hyperemesis vs cyclical vomiting syndrome. HIDA with delayed bowel transit of unclear clinical significance ?spasm, less likely obstructive process given normal bili. -Continue supportive measures, IVF -Trial clear liquid diet -Antiemetics prn -Continue pepcid -Repeat LFTs in am, if rising would recommend MRCP to further evaluate biliary tree -Avoid narcotics if possible -Marijuana cessation advised Code(s): R11.2 - NAUSEA WITH VOMITING, UNSPECIFIED Qualifiers: Vomiting type: unspecified Vomiting Intractability: intractable Qualified Code(s): R11.2 - Nausea with vomiting, unspecified
[2019-06-09] MEDS: ONDANSETRON 4 MG/2 ML VIAL IVPUSH SCH ×4 (01:03→17:37)
[2019-06-09] MEDS: KCL 10 MEQ IVPB 10 MEQ/100 ML INFUS.BAG IVPB SCH (01:04)
[2019-06-09] MEDS ORDERED: POTASSIUM CHLORIDE TABS 20 MEQ TABLET.ER (FP) PO ONE (04:37)
[2019-06-09 08:55] LABS: BILIRUBIN,TOTAL 1.2 mg/dL (0.2-1); BLOOD UREA NITROGEN 7.5 mg/dL (7-18); CALCIUM 9.2 mg/dL (8.5-10.1); CREATININE 0.7 mg/dL (0.55-1.3); POTASSIUM 3.1 mmol/L (3.5-5.1); TOT PROT 7.1 g/dl (6.4-8.2)
[2019-06-09] MEDS ORDERED: PT OWN MED DRAWER 7, Y5N ONE ×2 (10:33→19:49)
[2019-06-09] MEDS: PYRIDOXINE HCL (B-6) 50 MG TABLET (FP) PO SCH (10:35)
[2019-06-09] MEDS: FAMOTIDINE 20 MG/50 ML IVPB 20 MG/50 ML MG IVPB SCH ×2 (10:35→21:44)
[2019-06-09] MEDS ORDERED: POLYETHYLENE GLYCOL 3350 119 GM BTL PO ONE (14:35)
[2019-06-09] MEDS ORDERED: POTASSIUM CHLORIDE ORAL LIQUID 20 MEQ/15 ML PO ONE (14:35)
--- NOTE | 2019-06-09 14:38 | PN ---
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 she was sent home on kefflex and n/v persisted. She report she stopped smoking marijuanna 1 week ago after daily use at HS - Current Medication List Current Medications: Active Medications Acetaminophen (Tylenol -) 650 mg PO Q6H PRN PRN Reason: FEVER Dextrose/Sodium Chloride (D5-1/2ns -) 1,000 mls @ 100 mls/hr IV ASDIR [facility] Last Admin: 06/08/19 21:14 Dose: 100 mls/hr Famotidine/Sodium Chloride (Pepcid 20 Mg Premixed Ivpb -) 20 mg in 50 mls @ 100 mls/hr IVPB BID [facility] Last Admin: 06/09/19 10:35 Dose: 100 mls/hr Melatonin (Melatonin) 5 mg PO HS PRN PRN Reason: INSOMNIA Ondansetron HCl (Zofran Injection) 4 mg IVPUSH Q6H [facility] Last Admin: 06/09/19 12:33 Dose: 4 mg Polyethylene Glycol (Miralax (For Daily Use) -) 17 gm PO ONCE ONE Stop: 06/09/19 14:36 Potassium Chloride (Potassium Chloride Oral Liquid) 40 meq PO ONCE ONE Stop: 06/09/19 14:36 Pyridoxine HCl (Vitamin B6 -) 50 mg PO DAILY [facility] Last Admin: 06/09/19 10:35 Dose: 50 mg - Objective Vital Signs: Vital Signs Temperature 98.9 F 06/09/19 05:00 Pulse Rate 73 06/09/19 05:00 Respiratory Rate 18 06/09/19 05:00 Blood Pressure 147/92 06/09/19 05:00 O2 Sat by Pulse Oximetry (%) 100 06/08/19 21:00 Constitutional: Yes: Well Nourished, No Distress HENT: Yes: Atraumatic, Normocephalic Neck: Yes: Supple Cardiovascular: Yes: Regular Rate and Rhythm Respiratory: Yes: Regular, CTA Bilaterally Gastrointestinal: Yes: Normal Bowel Sounds Integumentary: Yes: WNL Neurological: Yes: WNL Labs: CBC, BMP 06/08/19 08:10 06/09/19 07:45 Problem List - Problems (1) Cannabis dependence Assessment/Plan: counseled on cessation Code(s): F12.20 - CANNABIS DEPENDENCE, UNCOMPLICATED (2) Cyclical vomiting Assessment/Plan: GI following abd us with thickened gallbladder, no stones check hida- no biliary tree patho, could consider MRCP repeat labs upgrade diet, bowel regimen antiemetics standing r/t marijuanna use Code(s): G43.A0 - CYCLICAL VOMITING, IN MIGRAINE, NOT INTRACTABLE (3) UTI (urinary tract infection) Assessment/Plan: UA positive 06/04 was given kefflex to go home Urine culture 06/04 negative UA only + ketones on admit urine culture negative ID following stop IV ceftriaxone Code(s): N39.0 - URINARY TRACT INFECTION, SITE NOT SPECIFIED Qualifiers: Urinary tract infection type: site unspecified Hematuria presence: with hematuria Qualified Code(s): N39.0 - Urinary tract infection, site not specified; R31.9 - Hematuria, unspecified
[2019-06-09] MEDS: DEXTROSE 5%-0.45% SALINE 1,000 ML IV SCH (16:15)
--- NOTE | 2019-06-09 21:25 | PN.GI ---
GI Progress Note Subjective: No acute events Nausea improved Had unrevealing EGD 2018 for similar complaints C/O constipation - Objective Vital Signs: Vital Signs Temperature 99.2 F 06/09/19 19:59 Pulse Rate 63 06/09/19 19:59 Respiratory Rate 18 06/09/19 19:59 Blood Pressure 136/85 06/09/19 19:59 O2 Sat by Pulse Oximetry (%) 98 06/09/19 09:00 Constitutional: Calm Eyes: No: Sclera Icterus Cardiovascular: Yes: Regular Rate and Rhythm Respiratory: Yes: CTA Bilaterally Gastrointestinal Inspection: No: Distention ...Auscultate: Yes: Normoactive Bowel Sounds ...Palpate: Yes: Soft. No: Hepatomegaly, Splenomegaly, Tenderness Edema: No (No LE edema) Neurological: Yes: Alert Labs: CBC, BMP 06/08/19 08:10 06/09/19 07:45 Problem List - Problems (1) Nausea & vomiting Assessment/Plan: Suspect Cannabis induced hyperemesis Clinically improved Again, advised complete cessation of marijuana Code(s): R11.2 - NAUSEA WITH VOMITING, UNSPECIFIED Qualifiers: Vomiting type: unspecified Vomiting Intractability: intractable Qualified Code(s): R11.2 - Nausea with vomiting, unspecified (2) Constipation Assessment/Plan: MiraLAX 17g BID Check TSH if not recently done Code(s): K59.00 - CONSTIPATION, UNSPECIFIED
[2019-06-09] MEDS: POLYETHYLENE GLYCOL 3350 119 GM BTL PO SCH (21:44)
[2019-06-10] MEDS: ONDANSETRON 4 MG/2 ML VIAL IVPUSH SCH ×3 (01:06→11:36)
[2019-06-10] MEDS: DEXTROSE 5%-0.45% SALINE 1,000 ML IV SCH (05:28)
[2019-06-10 08:01] LABS: BASO % 0.5 % (0-2.0); EOS % 0.2 % (0-4.5); HEMATOCRIT 36.9 % (32.4-45.2); LYMPH % 16.3 % (8-40); MCH 30.9 pg (25.7-33.7); MCHC 35.3 g/dl (32.0-36.0); MEAN CELL VOLUME 87.7 fl (80-96); MEAN PLT VOLUME 8.8 fl (7.5-11.1); MONO % 10.5 % (3.8-10.2); NEUT % 72.5 % (42.8-82.8); PLATELET COUNT 282 K/MM3 (134-434); RBC 4.21 M/mm3 (3.60-5.2); RDW 13.2 % (11.6-15.6); WHITE BLOOD COUNT 9.4 K/mm3 (4.0-10.0)
[2019-06-10] MEDS ORDERED: MINERAL OIL ENEMA 133 ML ENEMA PR ONE ×2 (08:18→09:30)
[2019-06-10 08:30] LABS: ALBUMIN 3.9 g/dl (3.4-5.0); BILIRUBIN,TOTAL 1.1 mg/dL (0.2-1); BLOOD UREA NITROGEN 6.9 mg/dL (7-18); CALCIUM 9.4 mg/dL (8.5-10.1); CREATININE 0.7 mg/dL (0.55-1.3); POTASSIUM 3.4 mmol/L (3.5-5.1)
[2019-06-10] MEDS ORDERED: PT OWN MED DRAWER 7, Y5N ONE (09:23)
[2019-06-10] MEDS: POLYETHYLENE GLYCOL 3350 119 GM BTL PO SCH (09:26)
[2019-06-10] MEDS: PYRIDOXINE HCL (B-6) 50 MG TABLET (FP) PO SCH (09:26)
[2019-06-10] MEDS: FAMOTIDINE 20 MG/50 ML IVPB 20 MG/50 ML MG IVPB SCH (09:26)
--- NOTE | 2019-06-10 15:04 | DS ---
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ination Vital Signs: Vital Signs Temperature 98.4 F 06/10/19 10:00 Pulse Rate 70 06/10/19 10:00 Respiratory Rate 18 06/10/19 10:00 Blood Pressure 146/94 06/10/19 10:00 O2 Sat by Pulse Oximetry (%) 100 06/10/19 09:00 Constitutional: Yes: Well Nourished, No Distress, Calm HENT: Yes: Atraumatic, Normocephalic Neck: Yes: Supple Cardiovascular: Yes: Regular Rate and Rhythm Respiratory: Yes: Regular Gastrointestinal: Yes: Normal Bowel Sounds, Soft Neurological: Yes: Alert, Oriented Labs: CBC, BMP 06/10/19 07:20 06/10/19 07:20 Discharge Summary Problems reviewed: Yes Reason For Visit: CYCLIC VOMITING SYNDROME,NAUSEA AND VOMITING Current Active Problems Constipation (Acute) Nausea & vomiting (Acute) Hospital Course: Patient was seen and evaluated by ID and GI. Given IV antbx for UTI, urine culture negative. she was given IV antiemetics, IVF, IV pain medication, had HIDA which was unrevealing, LFTs were monitored. she was counseled on marijuanna cessation. ABD FUA showed constipation, she was started on bowel regimen. she is stable for dc. Condition: Stable - Instructions Diet, Activity, Other Instructions: MIRALAX 17 GM DAILY OVER THE COUNTER Referrals: Flakito Aldridge [Primary Care Provider] - Disposition: HOME - Home Medications Comprehensive Discharge Medication List: Ambulatory Orders Metoclopramide HCl [Reglan] 10 mg PO BID PRN #7 tablet 03/30/19 Ondansetron [Zofran *Odt*] 4 mg SL TID PRN #15 od.tablet 06/05/19 Prescription Drug Monitoring Program (I-STOP) results: I-STOP reviewed and no issues identified
[2019-06-10 15:18] VITALS: BP 131/97; PULSE 77; TEMP 98.6
== END 2019-06-10 16:16 | disposition home or self-care (01) | DRG 690 ==
LOC: JER 03:49 → JERBED 05:52 → J5S 23:50
PROVIDERS: ADMIT Internal Medicine; ATTEND Family Medicine
DX: N39.0 Urinary tract infection, site not specified (principal); R10.9 Unspecified abdominal pain; F12.20 Cannabis dependence, uncomplicated; R00.0 Tachycardia, unspecified; E86.0 Dehydration; K59.00 Constipation, unspecified; G43.A0 Cyclical vomiting, in migraine, not intractable; E87.6 Hypokalemia; R31.9 Hematuria, unspecified
CPT/HCPCS: 36415; 71045-TC-FY; 74019-TC-FY; 76705-TC; 78226-TC; 80048; 80053; 80307; 81003; 83690; 84132; 85025; 85027; 87086; 93005; 93010; 99285-25; A9537; J0131; J7030

== ENCOUNTER 2020-02-28 12:48 | Emergency (ER) | payer OTHER ==
[2020-02-28] MEDS ORDERED: SODIUM CHLORIDE 1,000 ML IV STA ×2 (12:52→16:37)
[2020-02-28 12:54] VITALS: BMI 26.4
[2020-02-28] MEDS ORDERED: LORazepam 2 MG/ML SDV VIAL ONE (13:25)
[2020-02-28 13:46] LABS: BASO % 0.3 % (0-2.0); HEMATOCRIT 38.1 % (32.4-45.2); HEMOGLOBIN 12.9 GM/dL (10.7-15.3); LYMPH % 4.4 % (8-40); MCH 31.4 pg (25.7-33.7); MCHC 33.8 g/dl (32.0-36.0); MEAN CELL VOLUME 92.8 fl (80-96); MEAN PLT VOLUME 9.4 fl (7.5-11.1); MONO % 2.6 % (3.8-10.2); NEUT % 92.7 % (42.8-82.8); PLATELET COUNT 254 K/MM3 (134-434); RBC 4.11 M/mm3 (3.60-5.2); RDW 12.8 % (11.6-15.6); WHITE BLOOD COUNT 12.5 K/mm3 (4.0-10.0)
[2020-02-28 14:01] LABS: POTASSIUM 3.2 mmol/L (3.5-5.1)
[2020-02-28 14:04] LABS: ALBUMIN 4.6 g/dl (3.4-5.0); BLOOD UREA NITROGEN 22.6 mg/dL (7-18); CALCIUM 10.1 mg/dL (8.5-10.1)
[2020-02-28 14:07] LABS: CREATININE 0.8 mg/dL (0.55-1.3)
[2020-02-28 14:09] LABS: TOT PROT 8.2 g/dl (6.4-8.2)
[2020-02-28 14:45] LABS: PLATELET ESTIMATE ADEQUATE
[2020-02-28] MEDS ORDERED: METOCLOPRAMIDE HCL INJECTION 10 MG/2 ML VIAL IVPB ONE (16:37)
[2020-02-28] MEDS ORDERED: METOCLOPRAMIDE HCL INJECTION 10 MG/2 ML VIAL ONE (16:45)
[2020-02-28 17:01] LABS: METHADONE, UR NEGATIVE ng/ml (CUTOFF=300); OPIATES, URI NEGATIVE ng/ml (CUTOFF=300); PHENCYCLIDINE,URINE NEGATIVE ng/ml (CUTOFF=25); URINE BARBITURATES NEGATIVE ng/ml (CUTOFF=200)
[2020-02-28 17:02] LABS: COCAINE, UR NEGATIVE ng/ml (CUTOFF=300); URINE AMPHETAMINES NEGATIVE ng/ml (CUTOFF=500); URINE BENZODIAZEPINES NEGATIVE ng/ml (CUTOFF=200)
[2020-02-28 17:03] LABS: HCG,QUALITATIVE URINE Negative
[2020-02-28 17:22] LABS: EPI CELLS 20 /uL (0-25.1); HYALINE CASTS 6 /uL (0-3.1); URINE APPEARANCE CLOUDY; URINE BACTERIA >9,000 /uL (0-1359); URINE BILIRUBIN NEGATIVE (NEGATIVE); URINE COLOR YELLOW; URINE GLUCOSE (UA) NEGATIVE (NEGATIVE); URINE KETONE 2+ (NEGATIVE); URINE LEUK ESTERASE 1+ (NEGATIVE); URINE NITRITE POSITIVE (NEGATIVE); URINE PROTEIN 1+ (NEGATIVE); URINE RBC 28 /uL (0-23.9); URINE WBC 137 /uL (0-25.8)
[2020-02-28] MEDS ORDERED: CEFTRIAXONE 1 GM in DEXTROSE 5%-WATER - 100 ML IVPB ONE (17:46)
[2020-02-28] MEDS ORDERED: POTASSIUM CHLORIDE TABS 20 MEQ TABLET.ER (FP) PO ONE (17:47)
[2020-02-28] MEDS ORDERED: CEFTRIAXONE 1 GM/50 ML BAG ONE (18:10)
[2020-02-28] MEDS ORDERED: POTASSIUM CHLORIDE TABS 10 MEQ TABLET.ER (FP) ONE (18:12)
[2020-02-28 18:35] VITALS: BP 118/77; PULSE 68; TEMP 99.2
== END 2020-02-28 19:28 | disposition home or self-care (01) ==
LOC: JER 12:48
PROC: 3E03329 Introduction of Other Anti-infective into Peripheral Vein, Percutaneous Approach (ICD-10-PCS; principal; 2020-02-28)
PROC: 3E033GC Introduction of Other Therapeutic Substance into Peripheral Vein, Percutaneous Approach (ICD-10-PCS; 2020-02-28)
PROC: 3E033NZ Introduction of Analgesics, Hypnotics, Sedatives into Peripheral Vein, Percutaneous Approach (ICD-10-PCS; 2020-02-28)
PROC: 3E033GC Introduction of Other Therapeutic Substance into Peripheral Vein, Percutaneous Approach (ICD-10-PCS; 2020-02-28)
PROC: 3E0337Z Introduction of Electrolytic and Water Balance Substance into Peripheral Vein, Percutaneous Approach (ICD-10-PCS; 2020-02-28)
PROC: 3E0337Z Introduction of Electrolytic and Water Balance Substance into Peripheral Vein, Percutaneous Approach (ICD-10-PCS; 2020-02-28)
DX: R11.2 Nausea with vomiting, unspecified (principal); N30.01 Acute cystitis with hematuria
CPT/HCPCS: 36415; 80053; 80307; 81003; 83690; 84703; 85025; 87086; 87186; 99284-25

== ENCOUNTER 2020-02-29 15:07 | Emergency (ER) | payer OTHER ==
[2020-02-29 15:14] VITALS: BMI 25.4
[2020-02-29] MEDS ORDERED: SODIUM CHLORIDE 0.9% 500 ML INFUS.BAG IV ONE ×2 (16:48)
[2020-02-29] MEDS ORDERED: METOCLOPRAMIDE HCL INJECTION 10 MG/2 ML VIAL IVPUSH ONE (16:48)
[2020-02-29] MEDS ORDERED: LORazepam 2 MG/ML SDV VIAL ONE (17:40)
[2020-02-29] MEDS ORDERED: METOCLOPRAMIDE HCL INJECTION 10 MG/2 ML VIAL ONE (17:40)
[2020-02-29 18:25] LABS: BASO % 0.4 % (0-2.0); HEMATOCRIT 37.7 % (32.4-45.2); HEMOGLOBIN 12.8 GM/dL (10.7-15.3); LYMPH % 18.5 % (8-40); MCH 31.6 pg (25.7-33.7); MEAN CELL VOLUME 92.9 fl (80-96); MEAN PLT VOLUME 9.7 fl (7.5-11.1); MONO % 7.4 % (3.8-10.2); NEUT % 73.7 % (42.8-82.8); PLATELET COUNT 249 K/MM3 (134-434); RBC 4.06 M/mm3 (3.60-5.2); RDW 12.7 % (11.6-15.6); WHITE BLOOD COUNT 9.5 K/mm3 (4.0-10.0)
[2020-02-29 18:32] LABS: POTASSIUM 3.4 mmol/L (3.5-5.1)
[2020-02-29 18:36] LABS: ALBUMIN 4.9 g/dl (3.4-5.0); CALCIUM 9.9 mg/dL (8.5-10.1)
[2020-02-29 18:40] LABS: CREATININE 0.8 mg/dL (0.55-1.3)
[2020-02-29 18:41] LABS: BILIRUBIN,TOTAL 1.4 mg/dL (0.2-1); TOT PROT 8.2 g/dl (6.4-8.2)
[2020-02-29 21:59] VITALS: BP 144/88; PULSE 68; TEMP 98
== END 2020-02-29 22:00 | disposition home or self-care (01) ==
LOC: JER 15:07
PROC: 3E033NZ Introduction of Analgesics, Hypnotics, Sedatives into Peripheral Vein, Percutaneous Approach (ICD-10-PCS; principal; 2020-02-29)
PROC: 3E033GC Introduction of Other Therapeutic Substance into Peripheral Vein, Percutaneous Approach (ICD-10-PCS; 2020-02-29)
DX: R11.15 Cyclical vomiting syndrome unrelated to migraine (principal)
CPT/HCPCS: 36415; 80053; 85025; 99285-25

== ENCOUNTER 2022-05-29 09:27 | Emergency (ER) | payer OTHER ==
[2022-05-29 09:37] VITALS: BP 130/64; PULSE 91; RESP 17; TEMP 98; BMI 40.2
[2022-05-29 10:48] LABS: BASO % 0.7 % (0-2.0); EOS % 2.1 % (0-4.5); HEMATOCRIT 31.4 % (32.4-45.2); HEMOGLOBIN 10.4 GM/dL (10.7-15.3); MCHC 33.3 g/dl (32.0-36.0); MEAN CELL VOLUME 93.1 fl (80-96); MEAN PLT VOLUME 8.3 fl (7.5-11.1); NEUT % 72.2 % (42.8-82.8); PLATELET COUNT 286 10^3/uL (134-434); RBC 3.37 M/mm3 (3.60-5.2); RDW 15.2 % (11.6-15.6); WHITE BLOOD COUNT 8.1 K/mm3 (4.0-10.0)
[2022-05-29 11:20] LABS: CALCIUM 8.9 mg/dL (8.5-10.1)
[2022-05-29 11:21] LABS: ALBUMIN 3.7 g/dl (3.4-5.0); BLOOD UREA NITROGEN 16.1 mg/dL (7-18)
[2022-05-29 11:24] LABS: CREATININE 0.7 mg/dL (0.55-1.3)
[2022-05-29 11:26] LABS: BILIRUBIN,TOTAL 0.2 mg/dL (0.2-1); TOT PROT 7.4 g/dl (6.4-8.2)
[2022-05-29 11:56] LABS: EPI CELLS 29 /uL (0-25.1); HYALINE CASTS 0 /uL (0-3.1); PH,URINE 6.5 (5.0-8.0); URINE APPEARANCE CLOUDY; URINE BACTERIA >9,000 /uL (0-1359); URINE BILIRUBIN NEGATIVE (NEGATIVE); URINE COLOR YELLOW; URINE GLUCOSE (UA) NEGATIVE (NEGATIVE); URINE KETONE TRACE (NEGATIVE); URINE LEUK ESTERASE 1+ (NEGATIVE); URINE NITRITE POSITIVE (NEGATIVE); URINE PROTEIN TRACE (NEGATIVE); URINE RBC 996 /uL (0-23.9); URINE WBC 93 /uL (0-25.8)
== END 2022-05-29 12:10 | disposition home or self-care (01) ==
LOC: JERFT 09:27
DX: N30.01 Acute cystitis with hematuria (principal); R11.0 Nausea
CPT/HCPCS: 36415; 80053; 81003; 84703; 85025; 87086; 87186; 99283-25

== ENCOUNTER 2023-10-18 13:28 | Emergency (ER) | payer OTHER ==
[2023-10-18 13:38] VITALS: BP 101/56; PULSE 72; RESP 20; TEMP 97.6; BMI 27.5
[2023-10-18] MEDS ORDERED: LIDOCAINE 4% PATCH TP ONE (14:37)
[2023-10-18] MEDS ORDERED: KETOROLAC TROMETHAMINE 30 MG/1 ML VIAL ONE (14:37)
[2023-10-18] MEDS ORDERED: ACETAMINOPHEN 500 MG TABLET (FP) ONE (14:38)
[2023-10-18] MEDS: LIDOCAINE 4% PATCH TP ONE (14:45)
[2023-10-18] MEDS: KETOROLAC TROMETHAMINE 30 MG/1 ML VIAL IM ONE (14:46)
[2023-10-18] MEDS: ACETAMINOPHEN 500 MG TABLET (FP) PO ONE (14:46)
[2023-10-18] MEDS ORDERED: LIDOCAINE PATCH REMOVAL MC SCH (22:00)
== END 2023-10-18 15:05 | disposition home or self-care (01) ==
LOC: JERFT 13:28
PROC: 3E0133Z Introduction of Anti-inflammatory into Subcutaneous Tissue, Percutaneous Approach (ICD-10-PCS; principal; 2023-10-18)
DX: R51.9 Headache, unspecified (principal); M54.2 Cervicalgia; M54.50 Low back pain, unspecified; V49.50XA Passenger injured in collision with unspecified motor vehicles in traffic accident, initial encounter; Y92.410 Unspecified street and highway as the place of occurrence of the external cause
CPT/HCPCS: 99284-25

== ENCOUNTER 2023-10-21 08:10 | Observation (INO) | payer OTHER ==
[2023-10-21] MEDS ORDERED: ACETAMINOPHEN INJECTION 100 ML IVPB ONE (09:26)
[2023-10-21] MEDS ORDERED: ONDANSETRON 4 MG/2 ML VIAL ONE ×2 (09:26→18:47)
[2023-10-21] MEDS ORDERED: LORazepam 0.5 MG TABLET ONE (09:26)
[2023-10-21 09:32] LABS: BASO % 0.2 % (0-2.0); EOS % 0.4 % (0-4.5); HEMOGLOBIN 10.7 GM/dL (10.7-15.3); LYMPH % 6.8 % (8-40); MCH 31.9 pg (25.7-33.7); MCHC 33.6 g/dl (32.0-36.0); MEAN CELL VOLUME 94.9 fl (80-96); MEAN PLT VOLUME 8.9 fl (7.5-11.1); MONO % 5.7 % (3.8-10.2); NEUT % 86.9 % (42.8-82.8); PLATELET COUNT 382 10^3/uL (134-434); RBC 3.37 M/mm3 (3.60-5.2); RDW 13.8 % (11.6-15.6); WHITE BLOOD COUNT 17.5 K/mm3 (4.0-10.0)
[2023-10-21] MEDS: SODIUM CHLORIDE 1,000 ML IV STA ×2 (09:35→18:57)
[2023-10-21] MEDS: ONDANSETRON 4 MG/2 ML VIAL IVPUSH ONE ×2 (09:36→18:57)
[2023-10-21] MEDS: LORazepam 0.5 MG TABLET PO ONE (09:36)
[2023-10-21] MEDS: ACETAMINOPHEN 1000 MG/100 ML BAG IVPB ONE (09:36)
[2023-10-21 09:50] LABS: INR 1.11 (0.83-1.09); PROTHROMBIN TIME (PATIENT) 12.7 SEC (9.7-13.0)
[2023-10-21 10:08] LABS: POTASSIUM 4.9 mmol/L (3.5-5.1)
[2023-10-21 10:10] LABS: CALCIUM 10.1 mg/dL (8.5-10.1)
[2023-10-21 10:11] LABS: ALBUMIN 4.5 g/dl (3.4-5.0); BLOOD UREA NITROGEN 21.5 mg/dL (7-18)
[2023-10-21 10:14] LABS: CREATININE 0.9 mg/dL (0.55-1.3)
[2023-10-21 10:15] LABS: BILIRUBIN,TOTAL 0.7 mg/dL (0.2-1)
[2023-10-21 10:16] LABS: TOT PROT 9.2 g/dl (6.4-8.2)
[2023-10-21 12:00] LABS: EPI CELLS 32 /uL (0-25.1); HYALINE CASTS 4 /uL (0-3.1); URINE APPEARANCE CLOUDY; URINE BACTERIA 326 /uL (0-1359); URINE BILIRUBIN NEGATIVE (NEGATIVE); URINE COLOR ORANGE; URINE GLUCOSE (UA) NEGATIVE (NEGATIVE); URINE KETONE 4+ (NEGATIVE); URINE LEUK ESTERASE TRACE (NEGATIVE); URINE NITRITE NEGATIVE (NEGATIVE); URINE PROTEIN 2+ (NEGATIVE); URINE RBC 85 /uL (0-23.9); URINE WBC 224 /uL (0-25.8)
[2023-10-21] MEDS ORDERED: hydrOXYzine PAMOATE 25 MG CAPSULE (FP) PO ONE (17:23)
[2023-10-21] MEDS: hydrOXYzine PAMOATE 25 MG CAPSULE (FP) PO ONE (17:27)
[2023-10-21] MEDS ORDERED: CEFTRIAXONE 1 GM/50 ML BAG ONE (18:47)
[2023-10-21] MEDS ORDERED: METOCLOPRAMIDE HCL INJECTION 10 MG/2 ML VIAL ONE (21:05)
[2023-10-21] MEDS ORDERED: PANTOPRAZOLE SODIUM 40 MG/100 ML BAG IVPB ONE (21:05)
[2023-10-21] MEDS: METOCLOPRAMIDE HCL INJECTION 10 MG/2 ML VIAL IVPB ONE (21:17)
[2023-10-21] MEDS: PANTOPRAZOLE SODIUM 40 MG VIAL IVPUSH ONE (21:17)
[2023-10-21] MEDS ORDERED: DEXTROSE 5%-0.45% SALINE 1,000 ML IV SCH (22:00)
[2023-10-22 00:14] VITALS: BMI 26.5
[2023-10-22] MEDS ORDERED: ONDANSETRON 4 MG/2 ML VIAL IVPUSH PRN (01:00)
[2023-10-22] MEDS: DEXTROSE 5%-0.45% SALINE 1,000 ML IV SCH (03:47)
[2023-10-22] MEDS: ONDANSETRON 4 MG/2 ML VIAL IVPUSH PRN (03:49)
[2023-10-22 09:33] LABS: BASO % 0.3 % (0-2.0); HEMATOCRIT 27.8 % (32.4-45.2); HEMOGLOBIN 9.4 GM/dL (10.7-15.3); LYMPH % 9.2 % (8-40); MCH 31.6 pg (25.7-33.7); MCHC 33.9 g/dl (32.0-36.0); MEAN CELL VOLUME 93.2 fl (80-96); MEAN PLT VOLUME 8.5 fl (7.5-11.1); MONO % 8.5 % (3.8-10.2); PLATELET COUNT 319 10^3/uL (134-434); RBC 2.98 M/mm3 (3.60-5.2); RDW 13.7 % (11.6-15.6); WHITE BLOOD COUNT 12.6 K/mm3 (4.0-10.0)
[2023-10-22 09:54] LABS: POTASSIUM 3.4 mmol/L (3.5-5.1)
[2023-10-22 09:56] LABS: CALCIUM 9.2 mg/dL (8.5-10.1)
[2023-10-22 09:57] LABS: BLOOD UREA NITROGEN 20.2 mg/dL (7-18)
[2023-10-22 10:00] LABS: CREATININE 0.9 mg/dL (0.55-1.3)
[2023-10-22] MEDS: FAMOTIDINE 20 MG/50 ML IVPB 20 MG/50 ML MG IVPB SCH (10:08)
[2023-10-22] MEDS: CEFTRIAXONE 1 GM in DEXTROSE 5%-WATER - 50 ML IVPB SCH (10:08)
[2023-10-22] MEDS: PANTOPRAZOLE 40 MG TABLET PO SCH (14:15)
[2023-10-22] MEDS: ESCITALOPRAM OXALATE 10 MG TABLET PO SCH (14:15)
[2023-10-22] MEDS: SILVER SULFADIAZINE 1% TOP CREAM 50 GM JAR TP SCH (14:16)
[2023-10-22] MEDS: POTASSIUM CHLORIDE ORAL LIQUID 20 MEQ/15 ML PO ONE (14:16)
[2023-10-22] MEDS: ACETAMINOPHEN 1000 MG/100 ML BAG IVPB PRN (16:46)
[2023-10-22] MEDS: LORazepam 2 MG/ML SDV VIAL IM ONE (21:25)
[2023-10-23 07:30] LABS: BASO % 0.6 % (0-2.0); EOS % 0.1 % (0-4.5); HEMATOCRIT 30.4 % (32.4-45.2); HEMOGLOBIN 10.1 GM/dL (10.7-15.3); MCH 31.2 pg (25.7-33.7); MCHC 33.3 g/dl (32.0-36.0); MEAN CELL VOLUME 93.8 fl (80-96); MEAN PLT VOLUME 8.7 fl (7.5-11.1); MONO % 7.7 % (3.8-10.2); NEUT % 79.6 % (42.8-82.8); PLATELET COUNT 340 10^3/uL (134-434); RBC 3.24 M/mm3 (3.60-5.2); WHITE BLOOD COUNT 10.2 K/mm3 (4.0-10.0)
[2023-10-23 08:27] LABS: POTASSIUM 3.5 mmol/L (3.5-5.1)
[2023-10-23 08:33] LABS: ALBUMIN 3.8 g/dl (3.4-5.0); BLOOD UREA NITROGEN 11.9 mg/dL (7-18); CALCIUM 9.1 mg/dL (8.5-10.1)
[2023-10-23 08:37] LABS: CREATININE 0.7 mg/dL (0.55-1.3)
[2023-10-23 08:39] LABS: BILIRUBIN,TOTAL 0.5 mg/dL (0.2-1)
[2023-10-23] MEDS ORDERED: SILVER SULFADIAZINE 1% TOP CREAM 400 GM JAR TP SCH (10:00)
[2023-10-23] MEDS: AMINO ACIDS/PROTEIN HYDROLYS 30 ML LIQUID.PKT PO SCH (10:10)
[2023-10-23] MEDS: ALPRAZolam 0.25 MG TABLET PO PRN (13:28)
[2023-10-23] MEDS: SILVER SULFADIAZINE 1% TOP CREAM 50 GM JAR TP ONE (23:36)
[2023-10-24 09:02] LABS: BASO % 0.5 % (0-2.0); EOS % 0.4 % (0-4.5); HEMATOCRIT 31.2 % (32.4-45.2); HEMOGLOBIN 10.7 GM/dL (10.7-15.3); LYMPH % 15.2 % (8-40); MCH 31.4 pg (25.7-33.7); MCHC 34.2 g/dl (32.0-36.0); MEAN CELL VOLUME 91.9 fl (80-96); MEAN PLT VOLUME 8.2 fl (7.5-11.1); MONO % 8.3 % (3.8-10.2); NEUT % 75.6 % (42.8-82.8); PLATELET COUNT 336 10^3/uL (134-434); RBC 3.39 M/mm3 (3.60-5.2); RDW 13.4 % (11.6-15.6); WHITE BLOOD COUNT 9.3 K/mm3 (4.0-10.0)
[2023-10-24 09:18] LABS: CALCIUM 9.2 mg/dL (8.5-10.1)
[2023-10-24 09:19] LABS: ALBUMIN 3.6 g/dl (3.4-5.0); BLOOD UREA NITROGEN 9.9 mg/dL (7-18)
[2023-10-24 09:22] LABS: CREATININE 0.7 mg/dL (0.55-1.3)
[2023-10-24 09:23] LABS: BILIRUBIN,TOTAL 0.5 mg/dL (0.2-1); TOT PROT 6.7 g/dl (6.4-8.2)
[2023-10-24 11:29] VITALS: BP 142/78; PULSE 75; RESP 18; TEMP 98
== END 2023-10-24 12:19 | disposition left against medical advice (07) ==
LOC: JER 08:10 → JERBED 21:21 → J7W 10-22 00:30 → UNDODISOB 10-22 00:36 → J7W 10-22 15:45
PROVIDERS: ADMIT Internal Medicine; ATTEND Internal Medicine
PROC: 3E033NZ Introduction of Analgesics, Hypnotics, Sedatives into Peripheral Vein, Percutaneous Approach (ICD-10-PCS; principal; 2023-10-21)
PROC: 3E03329 Introduction of Other Anti-infective into Peripheral Vein, Percutaneous Approach (ICD-10-PCS; 2023-10-21)
PROC: 3E0337Z Introduction of Electrolytic and Water Balance Substance into Peripheral Vein, Percutaneous Approach (ICD-10-PCS; 2023-10-21)
PROC: 3E0233Z Introduction of Anti-inflammatory into Muscle, Percutaneous Approach (ICD-10-PCS; 2023-10-21)
PROC: 3E033GC Introduction of Other Therapeutic Substance into Peripheral Vein, Percutaneous Approach (ICD-10-PCS; 2023-10-21)
DX: R10.13 Epigastric pain (principal); R11.2 Nausea with vomiting, unspecified; T21.25XA Burn of second degree of buttock, initial encounter; F12.20 Cannabis dependence, uncomplicated; F41.9 Anxiety disorder, unspecified; X08.8XXA Exposure to other specified smoke, fire and flames, initial encounter; Y93.89 Activity, other specified; Y92.89 Other specified places as the place of occurrence of the external cause; D72.829 Elevated white blood cell count, unspecified
CPT/HCPCS: 36415; 71045-TC-FY; 71275-TC; 74177-TC; 76705-TC; 80048; 80053; 81003; 82962; 83690; 84703; 85025; 85379; 85610; 85730; 86850; 86900; 86901; 87040; 87086; 93005; 93010; 96361; 96365; 96367; 96375; 96376; 99285-25; G0378; J0131; Q9967